=== PATIENT | male | born 1965 | race African-American/Black ===

== ENCOUNTER 2016-08-14 07:03 | Day surgery (SDC) | payer MEDICARE, MEDICAID ==
[2016-08-14] MEDS ORDERED: BACITRACIN INJ 50,000 UNIT VIAL ONE (08:25)
[2016-08-14] MEDS ORDERED: LIDOCAINE 2% INJ-PF (20 MG/ML) 10 ML AMPUL ONE (08:39)
[2016-08-14] MEDS ORDERED: FENTANYL CITRATE INJ/PF 100 MCG/2 ML AMPUL ONE (09:30)
[2016-08-14] MEDS ORDERED: PROPOFOL INJ 200 MG/20 ML VIAL IV ONE (09:30)
[2016-08-14] MEDS ORDERED: MIDAZOLAM 2 MG/2 ML INJ ONE (09:30)
[2016-08-14] MEDS ORDERED: KETAMINE HCL INJ 500 MG/10 ML VIAL ONE (09:30)
[2016-08-14] MEDS ORDERED: DEXMEDETOMIDINE INJ 80 MCG/20 ML VIAL IV ONE (09:31)
[2016-08-14 09:48] LABS: HEMATOCRIT 40.2 % (37.9-51.0); HEMOGLOBIN 12.8 g/dL (13.5-17.0); HGB HCT DIFFERENCE -1.8; MEAN CORPUSCULAR HEMOGLOBIN 28.1 pg (27.0-33.4); MEAN CORPUSCULAR HGB CONC 31.9 g/dL (32.0-36.0); MEAN CORPUSCULAR VOLUME 88 fl (80-97); RED BLOOD COUNT 4.55 10^6/uL (4.35-5.55); RED CELL DISTRIBUTION WIDTH 15.1 % (11.5-14.0); WHITE BLOOD COUNT 5.7 10^3/uL (4.0-10.5)
[2016-08-14 10:04] LABS: ANION GAP 17 (5-19); BLOOD UREA NITROGEN 22 mg/dL (7-20); CALCIUM 9.7 mg/dL (8.4-10.2); CARBON DIOXIDE 27 mmol/L (22-30); CHLORIDE 103 mmol/L (98-107); GLUCOSE 78 mg/dL (75-110); POTASSIUM 4.6 mmol/L (3.6-5.0); SODIUM 147.3 mmol/L (137-145)
[2016-08-14 10:18] LABS: CREATININE RESULT 15.66 mg/dL (0.52-1.25)
--- NOTE | 2016-08-14 10:48 | PDOC H&P ---
General Chief Complaint: The patient is referred across because of malfunctioning PermCath catheter. He is on hemodialysis through the PermCath catheter. - Diagnosis (1) PermCath was malfunction Is this a Current Diagnosis?: Yes (2) Atrial fibrillation with RVR Is this a Current Diagnosis?: Yes (4) Tracheostomy dependent Is this a Current Diagnosis?: Yes - Current Medications/Allergies Home Medications: Allopurinol [Zyloprim 100 mg Tablet] 100 mg PO DAILY 08/22/15 Fluticasone Propionate [Flonase Nasal [place] 50 Mcg/[place] 16 gm] 2 sprays NASL DAILY 08/22/15 Metoprolol Succinate [Toprol Xl 25 mg Tab.sr] 25 mg PO BID 08/22/15 Cetirizine HCl [All Day Allergy] 10 mg PO DAILY 09/22/15 Gabapentin 100 mg PO DAILY 09/22/15 Tramadol HCl 1 tab PO DAILY PRN 09/22/15 Zolpidem Tartrate [Ambien] 1 tab PO DAILY 09/22/15 Alprazolam 0.25 mg PO Q48H 04/27/16 Montelukast Sodium [Singulair 10 mg Tablet] 10 mg PO DAILY 04/27/16 Sevelamer Carbonate [Renvela] 1,600 mg PO ACHS 04/27/16 Sevelamer Carbonate [Renvela] 800 mg PO TID 04/27/16 Vit B Cmplx 3/FA/Vit C/Biotin [Maritza-Nikolay Rx Tablet] 1 each PO DAILY 04/27/16 Allergies/Adverse Reactions: vancomycin Allergy (Verified 08/14/16 08:25) Past Medical History Cardiac Medical History: Reports: Atrial Fibrillation, Congestive Heart Failure , Hypertension Denies: Coronary Artery Disease, Myocardial Infarction, Hyperlipidema, Peripheral Vascular Disease, Pulmonary Embolism, Heart Murmur Pulmonary Medical History: Reports: Asthma - Trach, Sleep Apnea Denies: Bronchitis, Chronic Obstructive Pulmonary Disease (COPD), Pneumonia, Respiratory Failure, Tuberculosis Neurological Medical History: Reports: Migraine Denies: Seizures Renal/ Medical History: Reports: End Stage Renal Disease - S/P transplant Malignancy Medical History: Denies: Lung Cancer Musculoskeltal Medical History: Reports: Arthritis Hematology: Reports: Anemia Past Surgical History Past Surgical History: Reports: Herniorrhaphy, Tonsillectomy, Vascular Surgery - Right arm graft for dialysis Denies: Appendectomy, Cholecystectomy, Coronary Artery Bypass Graft, Gastric Bypass Surgery, Pacemaker Family History Family History: Reviewed & Not Pertinent, Hypertension Parental Family History Reviewed: No Children Family History Reviewed: No Sibling(s) Family History Reviewed.: No Social History Smoking Status: Former Smoker Frequency of Alcohol Use: Rare Hx Recreational Drug Use: No Drugs: None Hx Prescription Drug Abuse: No - Advance Directive Resuscitation Status: Full Code Physical Exam Vital Signs: Temp Pulse Resp BP Pulse Ox 97.8 F 95 16 115/79 96 08/14/16 09:51 08/14/16 09:51 08/14/16 09:51 08/14/16 09:51 08/14/16 09:51 Intake & Output 08/13/16 08/14/16 08/15/16 06:59 06:59 06:59 Weight 81 kg Additional comments: A well-developed well-nourished -E[place]ian male. Obese body habitus. No acute distress. Eyes membranes is pink and moist, sclerae anicteric. Respiratory no shortness of breath. Breath sounds are normal and equal bilaterally. Cardiac: Heart sounds 1 and 2 heard, no murmurs. Upper extremities show normal range of movement and pulsatile to the radials. Normal capillary refill. A cephalic to brachial fistula is appreciated. In the left upper extremity. Somewhat firm, suggesting cephalad stenosis. Lower extremity: Normal normal range of movement. A right-sided femoral PermCath is noted. Abdomen: Obese, soft, nontender, huge chronic hernia defect. Psychiatric the patient is alert, oriented, judgment, memory, insight normal Impression/Plan Impression: #1 malfunctioning PermCath catheter. #2 end-stage renal disease on hemodialysis. #3 chronic atrial fibrillation. #4 hypertension #5 multiple comorbidities. Plan: This patient who is now an extraordinary difficult vascular access for dialysis presents with a malfunctioning perm catheter. There were unable to get dialysis through it last Monday. This patient has exceeded our is here and has been treated at [facility] and has exceeded his capabilities and is referred the patient to do. Unfortunately the one specialist at [place] who has an exceptional record as left. The mass had kidney transplant, peritoneal dialysis, numerous fistulas and grafts. At this point she is close out of options except for perm catheter. He understands as does the dialysis team that I will try to replace his catheter or Paps get 1 and on the left side. The patient does complain of pain associated with this catheter. Feeling that he will just have to be transferred to [place] an attempt at access axis there.
[2016-08-14] MEDS ORDERED: VANCOMYCIN HCL INJ 1000 MG VIAL ONE (10:59)
[2016-08-14] MEDS: BUPIVACAINE HCL 0.25 % INJ/PF (2.5 MG/1 ML) 30 ML VIAL ONE ×2 (11:04→11:27)
[2016-08-14] MEDS: LIDOCAINE 0.5% INJ-PF (5 MG/ML) 50 ML SDV ONE ×2 (11:04→11:27)
[2016-08-14] MEDS ORDERED: FENTANYL CITRATE INJ/PF 100 MCG/2 ML AMPUL IV PRN (11:10)
[2016-08-14] MEDS ORDERED: ONDANSETRON HCL INJ/PF 4 MG/2 ML SDV IV PRN (11:10)
[2016-08-14] MEDS ORDERED: PROMETHAZINE HCL INJ 25 MG/1 ML VIAL IV PRN (11:10)
[2016-08-14] MEDS ORDERED: DIPHENHYDRAMINE HCL 50 MG/ML VIAL IV PRN (11:10)
--- NOTE | 2016-08-14 12:40 | PDOC DISCHARGE SUMMARY ---
Discharge Summary (SDC) - Discharge Final Diagnosis: #1 malfunctioning PermCath catheter. #2 end-stage renal disease on hemodialysis. #3 chronic atrial fibrillation. #4 hypertension #5 multiple comorbidities. Date of Surgery: 08/14/16 Discharge Date: 08/14/16 Condition: Fair Treatment or Instructions: #1 activities within moderation encouraged. #2 follow up in my office by appointment in about 1 week. Call for appointment. #3 the wounds covered clean and dry until office visit. #4 hold off on school/work until evaluation in office. #5 may shower in 48 hours, keep operated area as dry as possible. #6 discharge from ambulatory when ASU criteria met. #7 medications per medication reconciliation sheet. Discharge Diet: Other (Comments) - Renal Respiratory Treatments at Home: Deep Breathing/Coughing Discharge Activity: Activity As Tolerated Report the Following to Your Physician Immediately: Unusual Bleeding
--- NOTE | 2016-08-14 12:44 | Operative Report ---
Operative Report DATE OF SURGERY: 08/14/16 PREOPERATIVE DIAGNOSIS: #1 malfunctioning PermCath catheter. #2 end-stage renal disease on hemodialysis. #3 chronic atrial fibrillation. #4 hypertension. #5 multiple comorbidities. POSTOPERATIVE DIAGNOSIS: #1 malfunctioning PermCath catheter. #2 end-stage renal disease on hemodialysis. #3 chronic atrial fibrillation. #4 hypertension. #5 multiple comorbidities. OPERATION: #1 insertion of PermCath catheter via O site in the right femoral vein. #2 removal of old PermCath catheter. #3 angiogram and interpretation. SURGEON: KENRICK YOUNGER MACHINIST GENERAL: none ANESTHESIA: LMAC TISSUE REMOVED OR ALTERED: Not applicable. COMPLICATIONS: None ESTIMATED BLOOD LOSS: 5 mL. INTRAOPERATIVE FINDINGS: Satisfactory access gained through guidewire insertion through the old PermCath catheter. Angiograms in the inferior vena cava showed patency including patency of the new catheter. Above the vena cava seems satisfactory. Easy egress of blood and ingress of heparinized solution obtained through both ports. Overall the procedure well tolerated. The old catheter cuff was easily removed, this suggested it may be some subclinical infection. The scope was sent for culture. PROCEDURE: After obtaining informed consent, the patient was taken to the operating room and positioned supine. The both groins were prepared with chlorhexidine and draped out with sterile linen. After the " universal timeout", in which it was verified that the patient continued to receive antibiotic, the procedure commenced. A 36 cm cm long split catheter was now positioned over the abdomen and an exit site marked and locally anesthetized. The incision made and dissection proceeded down to the old catheter. This was transected and the distal portion easily removed and sent for culture. Proximally it was replaced with a Glidewire. An angiogram was now done through the secondary port as after was removed over the Glidewire. It was now discarded. The new catheter was placed between the 2 incisions. Proximally, the catheter was now positioned using a peel-away sheath, after dilation. Easy ingress of heparinized solution and egress of blood obtained through both ports. A completion angiogram was done by injecting contrast. The findings were as dictated. The neck incision was now closed using interrupted 3-0 PDS to the subcutaneous tissues, the catheter was anchored at the exit site using 3-0 PDS. A Biopatch device was now placed adjacent to the catheter. Dressings were applied and the procedure concluded. Copies of the dictated operative report for Dr. Kenrick Guzman MD.concluded. Copies of the dictated operative report for Dr. Kenrick Guzman MD.
[2016-08-14 14:59] VITALS: BP 115/79
[2016-08-14] MEDS ORDERED: OXYCODONE-ACETAMINOPHEN 5-325 MG TABLET PO ONE (15:00)
== END 2016-08-14 17:45 | disposition home or self-care (01) ==
LOC: OROUT 07:03 → 4S 07:06 → OROUT 17:45
PROVIDERS: ATTEND Surgery
PROC: 06HM33Z Insertion of Infusion Device into Right Femoral Vein, Percutaneous Approach (ICD-10-PCS; 2016-08-14)
PROC: B51BZZA Fluoroscopy of Right Lower Extremity Veins, Guidance (ICD-10-PCS; 2016-08-14)
PROC: 06PY33Z Removal of Infusion Device from Lower Vein, Percutaneous Approach (ICD-10-PCS; principal; 2016-08-14 10:00)
DX: T82.590A Other mechanical complication of surgically created arteriovenous fistula, initial encounter (principal); Y83.2 Surgical operation with anastomosis, bypass or graft as the cause of abnormal reaction of the patient, or of later complication, without mention of misadventure at the time of the procedure; I12.0 Hypertensive chronic kidney disease with stage 5 chronic kidney disease or end stage renal disease; N18.6 End stage renal disease; Z99.2 Dependence on renal dialysis; I48.2 Chronic atrial fibrillation; Z45.2 Encounter for adjustment and management of vascular access device; I50.9 Heart failure, unspecified; J45.909 Unspecified asthma, uncomplicated; G47.30 Sleep apnea, unspecified; G43.909 Migraine, unspecified, not intractable, without status migrainosus; D64.9 Anemia, unspecified; M19.90 Unspecified osteoarthritis, unspecified site; E66.9 Obesity, unspecified; Z79.899 Other long term (current) drug therapy; Z93.0 Tracheostomy status; Z88.1 Allergy status to other antibiotic agents; Z94.0 Kidney transplant status; Z87.891 Personal history of nicotine dependence; Z68.28 Body mass index [BMI] 28.0-28.9, adult
CPT/HCPCS: 36415; 87070; 85027; 80048; 74020; 77001; 36581; C1769; C1752 ×2; Q9967; J2250; J3490 ×5; A9270; J2704; J3370; J1644; 532; 87205; J3010

== ENCOUNTER → 2016-09-21 | Outpatient (CLI) | payer MEDICARE, MEDICAID ==
[~2016-09-21] MED LIST: AMINOPHYLLINE INJ/PF 250 MG/10 ML SDV IV ONE; REGADENOSON INJ 0.4 MG/5 ML DISP.SYRIN IV ONE
--- NOTE | 2016-09-22 10:52 | DRAGON STRESS TEST REPORT ---
INTRAVENOUS LEXISCAN CARDIOLITE STRESS TEST USING SINGLE PHOTON EMMISION COMPUTERIZED TOMOGRAPHIC. DATE OF PROCEDURE: September 21, 2016 INDICATION : Shortness of breath CARDIAC RISK FACTORS: But tension, dyslipidemia RESTING EKG: Atrial fibrillation, downsloping ST segment depression and T-wave inversion STRESS EKG: No significant changes noted with LexiScan bolus REASON FOR TERMINATION: Protocol. PROCEDURE REPORT: Baseline heart rate 100 beats per minute with blood pressure of 115/62. Patient had no significant complaints. Heart rate at 2 minutes post bolus 104 with a blood pressure of 118/70. 3 minutes post bolus heart rate 106 with blood pressure of 125/74. No significant EKG changes were noted. Patient had no significant complaints during the procedure or postprocedure. CONCLUSIONS: Normal EKG and hemodynamic respon 104 se to IV LexiScan. NUCLEAR DATA: At rest the patient was given 14.72 millicuries of technetium 99 sestamibi injected intravenously. As per protocol rest gated SPECT images were obtained. Subsequently the patient was given intravenous LexiScan at a dose of 0.4 mg in 5 mL intravenously, followed by flush with normal saline. Subsequently the stress dose of 44.1 millicuries of technetium 99 sestamibi was injected intravenously. As per protocol stress gated images were obtained. NUCLEAR INTERPRETATION: Both raw and processed data were used for interpretation. Visual, qualitative, computer-generated quantitative data was used. There was good myocardial uptake of technetium compound. Motion artifact and soft tissue attenuations were noted. Increased visceral uptake was noted. No definitive areas of transient perfusion defect noted. No definitive areas of fixed perfusion defect or scars noted. EKG gated imaging showed LV EF at 53 %, rest and stress gated EF similar visually. T. I D. ratio was 1.10. Lung heart ratio noted to be within normal limits 0.34. No significant extracardiac and abnormal radiotracer activities were noted. RV free wall uptake was noted to be WNL. IMPRESSION: Also refer to comments under nuclear interpretation. Also test results needs to be interpreted in the context of pretest probability. 1. There is no definitive scintigraphic evidence of LexiScan induced myocardial ischemia. 2. There is no definitive scintigraphic evidence of myocardial infarction/scar. 3. EKG gated imaging shows left ejection fraction of approximately 53 %. 4. Clinical correlation requested as occasionally single vessel disease or balanced ischemia could be missed. In approximately 10% of the cases Lexiscan may not cause adequate vasodilatory stress. RECOMMENDATIONS: Aggressive risk factor modification, medical therapy. Clinical correlation with echocardiogram derived ejection fraction. Inability to exercise by itself can lead to increased cardiovascular event risks. Consider cardiology consultation and or follow-up if clinically indicated. I AM AVAILABLE FOR CARDIOLOGY CONSULTATION AND FOLLOWUP IF REQUESTED BY PMD Walker Olmos M.D., [facility] Concrete Batcher dry transfer man, Board certified in cardiovascular diseases, Nuclear cardiology, Echocardiography Cardiac CT and cardiac MRI Ph. [phone] [facility]
== END ==
LOC: RAD 07:18
PROVIDERS: ATTEND Specialist
DX: R06.02 Shortness of breath (principal); E78.5 Hyperlipidemia, unspecified; I48.91 Unspecified atrial fibrillation
CPT/HCPCS: 93017; 78452; A9500; J2785; J0280; Q9969

== ENCOUNTER → 2016-09-22 | Outpatient (CLI) | payer MEDICARE, MEDICAID ==
--- NOTE | 2016-09-23 17:26 | XCELERA REPORT ---
[address] [address] Transthoracic Echocardiogram Report Name: ANDREAS NELSON Age: 51 yrs Gender: Male : 1965 Patient Status: Outpatient Patient Location: Study Date: 09/22/2016 07:41 AM Height: 66 in Weight: 178 lb BSA: 1.9 m2 Procedure: A complete two-dimensional transthoracic echocardiogram was performed (2D, M-mode, spectral and color flow Doppler). The study was technically difficult with many images being suboptimal in quality. Reason For Study: SOB Ordering Physician: DAVID LOVE Performed By: Kerline Rebolledo Interpretation Summary The left ventricular ejection fraction is preserved. LV diastolic function could not be adequately assessed. There is mild concentric left ventricular hypertrophy. The left ventricle is grossly normal size. Not all wall segments were well visualized. Regional wall motion abnormalities cannot be excluded due to limited visualization. The right ventricular systolic function is normal. The left atrium is mildly dilated. The right atrium is normal in size There is no mitral valve stenosis. There is a trace amount of mitral regurgitation There is no aortic valve stenosis No aortic regurgitation is present. There is a trace or physiologic amount of tricuspid regurgitation Tricuspid regurgitation jet envelope not well defined to measure RV systolic pressure accurately. The aortic root is not well visualized. The inferior vena cava was not well visualized There is no pericardial effusion. MMode/2D Measurements \T\ Calculations RVDd: 3.1 cm LVIDd: 5.1 cmFS: 28.6 % Ao root diam: 3.6 cm IVSd: 1.1 cm LVIDs: 3.6 cmEDV(Teich): 123.4 ml LVPWd: 1.1 cmESV(Teich): 55.7 ml Ao root area: 10.0 cm2 EF(Teich): 54.8 % LA dimension: 4.2 cm LVOT diam: 2.3 cm LVOT area: 4.2 cm2 Doppler Measurements \T\ Calculations MV E max sabrina: MV P1/2t max sabrina: Ao V2 max: LV V1 max P.6 cm/sec 71.0 cm/sec 111.8 cm/sec 3.3 mmHg MV P1/2t: 56.3 msec Ao max PG: LV V1 max: MVA(P1/2t): 3.9 cm2 5.0 mmHg 91.0 cm/sec MV dec slope: BELA(V,D): 3.4 cm2 369.2 cm/sec2 PA V2 max: TR max sabrina: 92.8 cm/sec 225.9 cm/sec PA max PG: TR max P.4 mmHg 3.4 mmHg Left Ventricle The left ventricle is grossly normal size. There is mild concentric left ventricular hypertrophy. The left ventricular ejection fraction is preserved. LV diastolic function could not be adequately assessed. Not all wall segments were well visualized. Regional wall motion abnormalities cannot be excluded due to limited visualization. Right Ventricle The right ventricle is normal in size, thickness and function. There is normal right ventricular wall thickness. The right ventricular systolic function is normal. Atria The right atrium is normal in size. The left atrium is mildly dilated. Interarterial septum not well visualized and not well dopplered. Cannot comment on ASD/PFO presence. Mitral Valve The mitral valve leaflets are sclerotic, but show no functional abnormalities. The mitral valve is not well visualized. There is no mitral valve stenosis. There is a trace amount of mitral regurgitation. Aortic Valve The aortic valve is not well visualized secondary to technical limitations. There is no aortic valve stenosis. No aortic regurgitation is present. Tricuspid Valve The tricuspid valve is not well visualized secondary to technical limitations. There is a trace or physiologic amount of tricuspid regurgitation. Tricuspid regurgitation jet envelope not well defined to measure RV systolic pressure accurately. Pulmonic Valve The pulmonic valve is not well visualized. Great Vessels The aortic root is not well visualized. The inferior vena cava was not well visualized. Effusions There is no pericardial effusion. : DAVID LOVE > Walker Olmos
== END ==
LOC: SP 07:25
PROVIDERS: ATTEND Specialist
DX: R06.02 Shortness of breath (principal)
CPT/HCPCS: 93306

== ENCOUNTER 2016-09-30 17:32 | Emergency (ER) | payer MEDICARE, MEDICAID | END 2016-09-30 18:45 | disposition left against medical advice (07) | LOC: ER 17:32 | DX: Z53.21 Procedure and treatment not carried out due to patient leaving prior to being seen by health care provider (principal) ==

== ENCOUNTER 2016-11-06 06:11 | Emergency (ER) | payer MEDICARE, MEDICAID ==
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
[2016-11-06 10:18] VITALS: BP 105/65
== END 2016-11-06 08:00 | disposition home or self-care (01) ==
LOC: ER 06:11
DX: R06.00 Dyspnea, unspecified (principal); F41.9 Anxiety disorder, unspecified; I11.0 Hypertensive heart disease with heart failure; I13.2 Hypertensive heart and chronic kidney disease with heart failure and with stage 5 chronic kidney disease, or end stage renal disease; N18.6 End stage renal disease; I50.9 Heart failure, unspecified; Z99.2 Dependence on renal dialysis; I48.91 Unspecified atrial fibrillation; Z93.0 Tracheostomy status; Z88.6 Allergy status to analgesic agent; Z94.0 Kidney transplant status
CPT/HCPCS: 99283

== ENCOUNTER 2016-12-25 06:53 | Emergency (ER) | payer MEDICARE, MEDICAID ==
[2016-12-25] MEDS ORDERED: IPRATROPIUM/ALBUTEROL 0.5-2.5 MG/3 ML AMPUL NEB ONE ×2 (07:01→08:26)
[2016-12-25] MEDS ORDERED: CEFTRIAXONE 1 GM/D5W RTU 50 ML IV ONE (07:05)
[2016-12-25] MEDS ORDERED: DILTIAZEM HCL/D5W 125 ML IV PRN (07:05)
[2016-12-25] MEDS ORDERED: DILTIAZEM HCL INJ 25 MG/5 ML VIAL IV ONE (07:05)
[2016-12-25] MEDS ORDERED: ACETAMINOPHEN 325 MG TABLET PO ONE (07:27)
[2016-12-25 07:44] LABS: ABSOLUTE BASOPHILS # (AUTO) 0.1 10^3/uL (0.0-0.2); ABSOLUTE EOSINOPHILS # (AUTO) 0.3 10^3/uL (0.0-0.6); ABSOLUTE LYMPHOCYTES (AUTO) 1.5 10^3/uL (0.5-4.7); ABSOLUTE MONOCYTES (AUTO) 0.4 10^3/uL (0.1-1.4); ABSOLUTE NEUT (AUTO) 4.8 10^3/uL (1.7-8.2); EOSINOPHILS % (AUTO) 3.8 % (0-6); HEMOGLOBIN 11.8 g/dL (13.5-17.0); HGB HCT DIFFERENCE -2.6; LYMPHOCYTES % (AUTO) 21.1 % (13-45); MEAN CORPUSCULAR HEMOGLOBIN 26.9 pg (27.0-33.4); MEAN CORPUSCULAR HGB CONC 31.1 g/dL (32.0-36.0); MEAN CORPUSCULAR VOLUME 87 fl (80-97); MONOCYTES % (AUTO) 5.5 % (3-13); RED BLOOD COUNT 4.39 10^6/uL (4.35-5.55); RED CELL DISTRIBUTION WIDTH 15.4 % (11.5-14.0); SEGMENTED NEUTROPHILS % (AUTO) 68.6 % (42-78); WHITE BLOOD COUNT 7.1 10^3/uL (4.0-10.5)
[2016-12-25 07:45] LABS: VENOUS BLOOD BASE EXCESS 2.5 mmol/L
--- NOTE | 2016-12-25 07:46 | RADIOLOGY REPORT (SQ) ---
EXAM DESCRIPTION: CHEST SINGLE VIEW COMPLETED DATE/TIME: 12/25/2016 7:34 am REASON FOR STUDY: sob, trachea COMPARISON: 07/01/2016. EXAM PARAMETERS: NUMBER OF VIEWS: One view. TECHNIQUE: Single frontal radiographic view of the chest acquired. RADIATION DOSE: NA LIMITATIONS: AP portable. FINDINGS: LUNGS AND PLEURA: Moderate mixed interstitial and airspace opacity of both lung anderson. MEDIASTINUM AND HILAR STRUCTURES: Moderate widened appearance of the mediastinum on this AP portable view with 7 appearance on prior AP portable, 01/26/2016. HEART AND VASCULAR STRUCTURES: Moderate enlarged cardiac silhouette. BONES: No acute findings. HARDWARE: Left subclavian central line tip at the cavoatrial junction. Stent overlies the upper medi astinum. Midline tracheostomy. OTHER: No other significant finding. IMPRESSION: Worsened moderate mixed interstitial and airspace opacity in cardiac enlargement. Diffe rential diagnosis includes CHF, pulmonary edema, and pneumonia. Lines and tubes. TECHNICAL DOCUMENTATION: JOB ID: [id number]
[2016-12-25 07:49] LABS: VENOUS BLOOD PCO2 88.1 mmHg (35-63); VENOUS BLOOD PH 7.19 (7.30-7.42)
[2016-12-25 08:05] LABS: ALANINE AMINOTRANSFERASE 55 U/L (21-72); ALBUMIN 4.3 g/dL (3.5-5.0); ALKALINE PHOSPHATASE 171 U/L (38-126); ANION GAP 13 (5-19); ASPARTATE AMINO TRANSFERASE 62 U/L (17-59); BILIRUBIN,DIRECT 1.2 mg/dL (0.0-0.4); BILIRUBIN,TOTAL 1.2 mg/dL (0.2-1.3); BLOOD UREA NITROGEN 20 mg/dL (7-20); CALCIUM 8.8 mg/dL (8.4-10.2); CARBON DIOXIDE 30 mmol/L (22-30); CHLORIDE 102 mmol/L (98-107); CREATININE RESULT 13.22 mg/dL (0.52-1.25); GLUCOSE 91 mg/dL (75-110); POTASSIUM 4.4 mmol/L (3.6-5.0); SODIUM 145.4 mmol/L (137-145); TOTAL PROTEIN 7.7 g/dL (6.3-8.2)
[2016-12-25 08:07] LABS: DIGOXIN < 0.40 ng/mL (0.8-2.0)
--- NOTE | 2016-12-25 08:09 | ER Document Report ---
ED General - General Chief Complaint: Respiratory Distress Stated Complaint: RESPITORY DISTRESS Time Seen by Provider: 12/25/16 07:00 Mode of Arrival: Medic Information source: Patient Notes: 51-year-old male history of trach presents with complaints of difficulty breathing over the past few weeks which worsened yesterday. Patient receives dialysis on Wednesdays and last one on Monday. Patient noted to be febrile with shortness of breath satting 80% by EMS TRAVEL OUTSIDE OF THE [place] IN LAST 30 DAYS: No - HPI Onset: Other Onset/Duration: Persistent Quality of pain: No pain Severity: Moderate Pain Level: Denies Associated symptoms: Fever, Shortness of breath Exacerbated by: Denies Relieved by: Denies Similar symptoms previously: Yes Recently seen / treated by doctor: Yes - Related Data Allergies/Adverse Reactions: vancomycin Allergy (Verified 08/14/16 08:25) Past Medical History - Social History Smoking Status: Never Smoker Cigarette use (# per day): No Chew tobacco use (# tins/day): No Smoking Education Provided: No Family History: Reviewed & Not Pertinent, Hypertension - Past Medical History Cardiac Medical History: Reports: Hx Atrial Fibrillation, Hx Congestive Heart Failure, Hx Hypertension Denies: Hx Coronary Artery Disease, Hx Heart Attack, Hx Hypercholesterolemia , Hx Peripheral Vascular Disease, Hx Pulmonary Embolism, Hx Heart Murmur Pulmonary Medical History: Reports: Hx Asthma - Trach, Hx Sleep Apnea Denies: Hx Bronchitis, Hx COPD, Hx Pneumonia, Hx Respiratory Failure, Hx Tuberculosis Neurological Medical History: Reports: Hx Migraine. Denies: Hx Cerebrovascular Accident, Hx Seizures Renal/ Medical History: Reports: Hx End Stage Renal Disease - S/P transplant, Hx Hemodialysis Malignancy Medical History: Denies Hx Lung Cancer Musculoskeltal Medical History: Reports Hx Arthritis Psychiatric Medical History: Reports: Hx Anxiety Past Surgical History: Reports: Hx Herniorrhaphy, Hx Kidney (Renal Surgery) - left kidney transplant, Hx Tonsillectomy, Hx Vascular Surgery - Right arm graft for dialysis. Denies: Hx Appendectomy, Hx Bowel Surgery, Hx Cholecystectomy, Hx Coronary Artery Bypass Graft, Hx Gastric Bypass Surgery, Hx Pacemaker - Immunizations Immunizations up to date: Yes Hx Diphtheria, Pertussis, Tetanus Vaccination: Yes Review of Systems - Review of Systems Notes: REVIEW OF SYSTEMS: CONSTITUTIONAL : Admits to fever EENT: Denies eye, ear, throat, or mouth pain or symptoms. Denies nasal or sinus congestion or discharge. Denies throat, tongue, or mouth swelling or difficulty swallowing. CARDIOVASCULAR: Denies chest pain. Denies palpitations or racing or irregular heart beat. Denies ankle edema. RESPIRATORY: Admits to shortness of breath difficulty breathing GASTROINTESTINAL: Denies abdominal pain or distention. Denies nausea, vomiting , or diarrhea. Denies blood in vomitus, stools, or per rectum. Denies black, tarry stools. Denies constipation. GENITOURINARY: Denies difficulty urinating, painful urination, burning, frequency, blood in urine, or discharge. MUSCULOSKELETAL: Denies back or neck pain or stiffness. Denies joint pain or swelling. SKIN: Denies rash, lesions or sores. HEMATOLOGIC : Denies easy bruising or bleeding. LYMPHATIC: Denies swollen, enlarged glands. NEUROLOGICAL: Denies confusion or altered mental status. Denies passing out or loss of consciousness. Denies dizziness or lightheadedness. Denies headache. Denies weakness or paralysis or loss of use of either side. Denies problems with gait or speech. Denies sensory loss, numbness, or tingling. Denies seizures. PSYCHIATRIC: Denies anxiety or stress. Denies depression, suicidal ideation, or homicidal ideation. ALL OTHER SYSTEMS REVIEWED AND NEGATIVE. Dictation was performed using [employer] voice recognition software PHYSICAL EXAMINATION: GENERAL: Well-appearing, well-nourished and in moderate respiratory distress HEAD: Atraumatic, normocephalic. EYES: Pupils equal round and reactive to light, extraocular movements intact, sclera anicteric, conjunctiva are normal. ENT: Nares patent, oropharynx clear without exudates. Moist mucous membranes. NECK: Normal range of motion, supple without lymphadenopathy LUNGS: Breath sounds at the bases HEART: A. fib RVR ABDOMEN: Soft, nontender, nondistended abdomen. No guarding, no rebound. No masses appreciated. Musculoskeletal: Normal range of motion, no pitting or edema. No cyanosis. NEUROLOGICAL: Cranial nerves grossly intact. Normal speech, normal gait. Normal sensory, motor exams PSYCH: Normal mood, normal affect. SKIN: Dialysis access left upper extremity Physical Exam - Vital signs Vitals: Temp Pulse Ox 100.0 F 93 12/25/16 06:55 12/25/16 06:55 Course - Re-evaluation Re-evalutation: 12/25/16 08:07 Pt noted ot have significant resp distress, iniitlaly started on duo nebs, but his VBG notes significant acidosis, since he is trached I will place on ventilator. [place] peter, Probable pneumonia underlying CHF exacerbation. Pt did have dialysis on fdriday 12/25/16 08:47 Patient is noted to be in A. fib RVR on arrival, immediately started on Cardizem and digoxin level was undetectable. Heart rate has improved after. Patient will be transferred and I am awaiting a callback 12/25/16 09:00 Dr Vanessa accepts patient for transfer - Vital Signs Vital signs: Temp Pulse Resp BP Pulse Ox 100.0 F 28 H 143/68 H 93 12/25/16 06:55 12/25/16 07:07 12/25/16 07:07 12/25/16 06:55 - Laboratory Result Diagrams: 12/25/16 07:11 12/25/16 07:11 Laboratory results interpreted by me: 12/25/16 12/25/16 12/25/16 07:11 07:11 07:11 Hgb 11.8 L MCH 26.9 L MCHC 31.1 L RDW 15.4 H VBG pH VBG pCO2 VBG HCO3 Sodium 145.4 H Creatinine 13.22 H Est GFR ( Amer) 5 L Est GFR (Non-Af Amer) 4 L Direct Bilirubin 1.2 H AST 62 H Alkaline Phosphatase 171 H NT-Pro-B Natriuret Pep [id number] H Digoxin < 0.40 L 12/25/16 07:11 Hgb MCH MCHC RDW VBG pH 7.19 L* VBG pCO2 88.1 H* VBG HCO3 33.0 H Sodium Creatinine Est GFR ( Amer) Est GFR (Non-Af Amer) Direct Bilirubin AST Alkaline Phosphatase NT-Pro-B Natriuret Pep Digoxin - Diagnostic Test Radiology reviewed: Image reviewed, Reports reviewed - pneumonia - EKG Interpretation by Me EKG shows normal: Sinus rhythm, [place], Intervals, QRS Complexes Rate: Tachycardia Rhythm: A.Fib Critical Care Note - Critical Care Note Total time excluding time spent on procedures (mins): 44 Comments: 44 minutes of critical care time spent in direct contact evaluating and reevaluating the patient, treating symptoms, reviewing labs and studies and speaking with family and consultants excluding any procedures Discharge - Discharge Clinical Impression: Atrial fibrillation with RVR, End-stage renal disease (ESRD), Hypoxemia Pneumonia Qualifiers: Pneumonia type: due to unspecified organism Laterality: bilateral Lung location : upper lobe of lung Qualified Code(s): J18.9 - Pneumonia, unspecified organism Hypervolemia Qualifiers: Hypervolemia type: unspecified Qualified Code(s): E87.70 - Fluid overload, unspecified Condition: Fair Disposition: [facility]
[2016-12-25 09:26] LABS: CREATINE KINASE MB 2.38 ng/mL (<4.55)
[2016-12-25 09:32] LABS: TROPONIN I 0.037 ng/mL
[2016-12-25 10:23] VITALS: BP 117/86
--- NOTE | 2016-12-25 13:02 | EKG REPORT ---
SEVERITY:- ABNORMAL ECG - ATRIAL FIBRILLATION BORDERLINE R WAVE PROGRESSION, ANTERIOR LEADS NONSPECIFIC T ABNORMALITIES, LATERAL LEADS : Confirmed by: Anusha Rush MD 25-Dec-2016 13:01:48
== END 2016-12-25 10:20 | disposition short-term general hospital (02) ==
LOC: ER 06:53
DX: I48.91 Unspecified atrial fibrillation (principal); J18.9 Pneumonia, unspecified organism; I12.0 Hypertensive chronic kidney disease with stage 5 chronic kidney disease or end stage renal disease; N18.6 End stage renal disease; Z99.2 Dependence on renal dialysis; J45.909 Unspecified asthma, uncomplicated; R09.02 Hypoxemia; R06.02 Shortness of breath; R50.9 Fever, unspecified; Z88.1 Allergy status to other antibiotic agents; E87.2 Acidosis; Z93.0 Tracheostomy status
CPT/HCPCS: 93005; 99291; 96365; 96366; 96368; 36415; 87040; 82553; 82550; 80162; 85025; 80053; 84484; 82803; 83605; 83880; 71010; 93010; A9270; J3490 ×2; J0696

== ENCOUNTER 2017-04-02 20:45 | Emergency (ER) | payer MEDICARE, MEDICAID ==
--- NOTE | 2017-04-02 21:00 | ER Document Report ---
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 He missed dialysis on Monday (3 days ago) because he missed the bus. Patient denies chest pain as well as, fevers, back pain, abdominal pain, nausea, vomiting, increased secretions from trach or headache. TRAVEL OUTSIDE OF THE [place] IN LAST 30 DAYS: No - Related Data Allergies/Adverse Reactions: vancomycin Allergy (Verified 08/14/16 08:25) Past Medical History - General Information source: Patient - Social History Smoking Status: Unknown if Ever Smoked Family History: Reviewed & Not Pertinent, Hypertension - Past Medical History Cardiac Medical History: Reports: Hx Atrial Fibrillation, Hx Congestive Heart Failure, Hx Hypertension Denies: Hx Coronary Artery Disease, Hx Heart Attack, Hx Hypercholesterolemia , Hx Peripheral Vascular Disease, Hx Pulmonary Embolism, Hx Heart Murmur Pulmonary Medical History: Reports: Hx Asthma - Trach, Hx Sleep Apnea Denies: Hx Bronchitis, Hx COPD, Hx Pneumonia, Hx Respiratory Failure, Hx Tuberculosis Neurological Medical History: Reports: Hx Migraine. Denies: Hx Cerebrovascular Accident, Hx Seizures Renal/ Medical History: Reports: Hx End Stage Renal Disease - S/P transplant, Hx Hemodialysis Malignancy Medical History: Denies Hx Lung Cancer Musculoskeltal Medical History: Reports Hx Arthritis Psychiatric Medical History: Reports: Hx Anxiety Past Surgical History: Reports: Hx Herniorrhaphy, Hx Kidney (Renal Surgery) - left kidney transplant, Hx Tonsillectomy, Hx Vascular Surgery - Right arm graft for dialysis. Denies: Hx Appendectomy, Hx Bowel Surgery, Hx Cholecystectomy, Hx Coronary Artery Bypass Graft, Hx Gastric Bypass Surgery, Hx Pacemaker - Immunizations Immunizations up to date: Yes Hx Diphtheria, Pertussis, Tetanus Vaccination: Yes Review of Systems - Review of Systems Notes: REVIEW OF SYSTEMS: CONSTITUTIONAL: -fevers, -chills EENT: -eye pain, -difficulty swallowing, -nasal congestion CARDIOVASCULAR:-chest pain, -syncope. RESPIRATORY: -cough, +SOB GASTROINTESTINAL: -abdominal pain, - nausea, -vomiting, -diarrhea MUSCULOSKELETAL: -back pain, -neck pain SKIN: -rash or skin lesions. HEMATOLOGIC: -easy bruising or bleeding. LYMPHATIC: -swollen, enlarged glands. NEUROLOGICAL: -altered mental status or loss of consciousness, -headache, - neurologic symptoms PSYCHIATRIC: -anxiety, -depression. ALL OTHER SYSTEMS REVIEWED AND NEGATIVE. Physical Exam - Vital signs Vitals: Pulse Ox 98 04/02/17 20:50 - Notes Notes: PHYSICAL EXAMINATION: GENERAL: Mild respiratory distress. HEAD: Atraumatic, normocephalic. EYES: Pupils equal round and reactive to light, extraocular movements intact, sclera anicteric, conjunctiva are normal. ENT: nares patent, oropharynx clear without exudates. Moist mucous membranes. NECK: Trach in place without drainage LUNGS: Mild tachypnea. B/L rales. HEART: Irregularly irregular rhythm, tachycardia ABDOMEN: Reducible ventral hernia, nontender, normoactive bowel sounds. No guarding, no rebound. No masses appreciated. EXTREMITIES: Normal range of motion, no pitting or edema. No cyanosis. NEUROLOGICAL: Cranial nerves grossly intact. Normal speech. Normal sensory and motor exams. PSYCH: Normal mood, normal affect. SKIN: Warm, Dry, normal turgor, no rashes or lesions noted. Course - Re-evaluation Re-evalutation: 04/02/17 22:46 Patient with hyperkalemia and mild peaked T-waves on EKG. He also has evidence of pulmonary edema on chest x-ray and his blood gas shows an acute hypercapnic respiratory acidosis. Patient placed on BiPAP after his trach was capped and provided with temporizing measures for his hyperkalemia. His troponin is 0.05, but the patient has no chest pain and no STEMI on EKG. Pt remains in A fib w/ RVR and he is started on Diltiazem drip. His digoxin is therapeutic. [facility] and patient needs emergent dialysis due to the fluid overload status and hyperkalemia. He requires transfer to a center with Nephrology. Spoke to Dr. Bowens at [facility] and he has accepted patient. Arranging transportation now. 04/02/17 23:26 Called into room by RN for increasing SOB. Pt now with diffuse wheezing and labored breathing. He is receiving albuterol 10 mg for his hyperkalemia. Will add solumedrol and increase oxygen and PEEP on BiPap to PEEP 14 and FiO2 70%. Pt's respiratory status has improved after these interventions. 04/03/17 00:32 Transport in ED and patient reevaluated. Switched patient's uncuffed trach over to cuffed trach to help ventilate patient due to rising pCO2 on bedside ABG performed by [employer]. - Vital Signs Vital signs: Temp Pulse Resp BP Pulse Ox 13 123/77 92 04/03/17 00:16 04/03/17 00:16 04/03/17 00:16 - Laboratory Result Diagrams: 04/02/17 21:45 04/02/17 20:16 Laboratory results interpreted by me: 04/02/17 04/02/17 04/02/17 20:16 20:16 20:16 RBC Hgb Hct RDW Plt Count APTT 36.1 H VBG pH VBG pCO2 Potassium 6.6 H* Chloride 96 L BUN 32 H Creatinine 19.97 H Est GFR ( Amer) 3 L Est GFR (Non-Af Amer) 2 L Calcium 6.9 L* Direct Bilirubin 1.3 H Alkaline Phosphatase 200 H Creatine Kinase 486 H NT-Pro-B Natriuret Pep [id number] H 04/02/17 04/02/17 20:16 21:45 RBC 4.34 L Hgb 11.8 L Hct 36.7 L RDW 16.0 H Plt Count 95 L APTT VBG pH 7.22 L VBG pCO2 65.4 H* Potassium Chloride BUN Creatinine Est GFR ( Amer) Est GFR (Non-Af Amer) Calcium Direct Bilirubin Alkaline Phosphatase Creatine Kinase NT-Pro-B Natriuret Pep - Diagnostic Test Radiology reviewed: Image reviewed, Reports reviewed Radiology results interpreted by me: CXR: Pulmonary edema - EKG Interpretation by Me EKG shows normal: [place], Intervals, QRS Complexes, ST-T Waves Rate: Tachycardia Rhythm: A.Fib When compared to previous EKG there are: Changes noted Additional EKG results interpreted by me: ST depression in Leads I, II, mild peaked T-waves in V1-V3 Critical Care Note - Critical Care Note Total time excluding time spent on procedures (mins): 45 Discharge - Discharge Clinical Impression: Hyperkalemia, Acute respiratory acidosis, Atrial fibrillation with RVR Pulmonary edema Qualifiers: Chronicity: acute Qualified Code(s): J81.0 - Acute pulmonary edema Condition: Critical Disposition: [facility] Referrals: JOSIAH BRANNON MD [Primary Care Provider] - Follow up as needed
[2017-04-02 21:27] LABS: VENOUS BLOOD BASE EXCESS -2.9 mmol/L; VENOUS BLOOD PH 7.22 (7.30-7.42)
[2017-04-02 21:29] LABS: VENOUS BLOOD PCO2 65.4 mmHg (35-63)
[2017-04-02 21:34] LABS: PROTHROMBIN TIME 15.2 SEC (11.4-15.4)
[2017-04-02 21:37] LABS: PARTIAL THROMBOPLASTIN TIME 36.1 SEC (23.5-35.8)
[2017-04-02 21:45] LABS: ALANINE AMINOTRANSFERASE 43 U/L (21-72); ALKALINE PHOSPHATASE 200 U/L (38-126); ANION GAP 19 (5-19); ASPARTATE AMINO TRANSFERASE 40 U/L (17-59); BILIRUBIN,DIRECT 1.3 mg/dL (0.0-0.4); BILIRUBIN,TOTAL 1.3 mg/dL (0.2-1.3); BLOOD UREA NITROGEN 32 mg/dL (7-20); CARBON DIOXIDE 28 mmol/L (22-30); CHLORIDE 96 mmol/L (98-107); CREATINE KINASE 486 U/L (55-170); DIGOXIN 1.12 ng/mL (0.8-2.0); GLUCOSE 77 mg/dL (75-110); SODIUM 142.8 mmol/L (137-145); TOTAL PROTEIN 7.1 g/dL (6.3-8.2)
--- NOTE | 2017-04-02 21:47 | RADIOLOGY REPORT (SQ) ---
EXAM DESCRIPTION: CHEST SINGLE VIEW COMPLETED DATE/TIME: 04/02/2017 9:37 pm REASON FOR STUDY: SOB COMPARISON: 12/25/2016 EXAM PARAMETERS: NUMBER OF VIEWS: One view. TECHNIQUE: Single frontal radiographic view of the chest acquired. RADIATION DOSE: NA LIMITATIONS: None. FINDINGS: LUNGS AND PLEURA: Parenchymal opacities and possible effusions. MEDIASTINUM AND HILAR STRUCTURES: No masses. Contour normal. HEART AND VASCULAR STRUCTURES: Cardiac enlargement. Hilar haziness. BONES: No acute findings. HARDWARE: Tracheostomy. Extensive stents. OTHER: No other significant finding. IMPRESSION: Congestive failure with pulmonary edema and bilateral pleural effusions. TECHNICAL DOCUMENTATION: JOB ID: [id number]
[2017-04-02 21:51] LABS: CREATININE RESULT 19.97 mg/dL (0.52-1.25)
[2017-04-02 21:56] LABS: CALCIUM 6.9 mg/dL (8.4-10.2); POTASSIUM 6.6 mmol/L (3.6-5.0)
[2017-04-02 21:58] LABS: TROPONIN I 0.056 ng/mL
[2017-04-02 22:01] LABS: ABSOLUTE EOSINOPHILS # (AUTO) 0.2 10^3/uL (0.0-0.6); ABSOLUTE LYMPHOCYTES (AUTO) 1.1 10^3/uL (0.5-4.7); ABSOLUTE MONOCYTES (AUTO) 0.5 10^3/uL (0.1-1.4); ABSOLUTE NEUT (AUTO) 2.8 10^3/uL (1.7-8.2); BASOPHILS % (AUTO) 0.8 % (0-2); EOSINOPHILS % (AUTO) 3.4 % (0-6); HEMATOCRIT 36.7 % (37.9-51.0); HEMOGLOBIN 11.8 g/dL (13.5-17.0); HGB HCT DIFFERENCE -1.3; LYMPHOCYTES % (AUTO) 24.3 % (13-45); MEAN CORPUSCULAR HEMOGLOBIN 27.1 pg (27.0-33.4); MEAN CORPUSCULAR HGB CONC 32.1 g/dL (32.0-36.0); MEAN CORPUSCULAR VOLUME 85 fl (80-97); MONOCYTES % (AUTO) 10.4 % (3-13); RED BLOOD COUNT 4.34 10^6/uL (4.35-5.55); SEGMENTED NEUTROPHILS % (AUTO) 61.1 % (42-78); WHITE BLOOD COUNT 4.6 10^3/uL (4.0-10.5)
[2017-04-02] MEDS ORDERED: CALCIUM GLUCONATE 1000 MG/10 ML INJ IV ONE (22:39)
[2017-04-02] MEDS ORDERED: INSULIN REG, HUMAN 100 UNIT/ML 3 ML VIAL (PYX) IV ONE (22:40)
[2017-04-02] MEDS ORDERED: DEXTROSE 50%-WATER 25 GM/50 ML DISP.SYRIN IV ONE (22:41)
[2017-04-02] MEDS ORDERED: ALBUTEROL SULFATE 0.083% NEB 2.5 MG/3 ML AMPUL NEB ONE (22:49)
[2017-04-02] MEDS ORDERED: SODIUM BICARBONATE 8.4% INJ 50 MEQ/50 ML DISP.SYRIN IV ONE (22:49)
[2017-04-02] MEDS ORDERED: DILTIAZEM HCL/D5W 125 MG/125 ML RTUINJ IV PRN (23:01)
[2017-04-02] MEDS ORDERED: DILTIAZEM HCL INJ 25 MG/5 ML VIAL IV ONE (23:01)
[2017-04-02] MEDS ORDERED: METHYLPREDNISOLONE INJ 125 MG/2 ML SDV IV ONE (23:26)
[2017-04-02] MEDS ORDERED: METHYLPREDNISOLONE INJ 125 MG/2 ML SDV ONE (23:30)
[2017-04-03] MEDS ORDERED: DEXTROSE 50%-WATER 25 GM/50 ML DISP.SYRIN IV ONE ×2 (00:17→00:20)
[2017-04-03 00:30] VITALS: BP 123/77
--- NOTE | 2017-04-03 08:06 | EKG REPORT ---
SEVERITY:- ABNORMAL ECG - ATRIAL FIBRILLATION LOW VOLTAGE THROUGHOUT CONSIDER ANTEROSEPTAL INFARCT NONSPECIFIC T ABNORMALITIES, LATERAL LEADS : Confirmed by: Anusha Rush MD 03-Apr-2017 08:06:24
== END 2017-04-03 00:40 | disposition short-term general hospital (02) ==
LOC: ER 20:45
DX: E87.5 Hyperkalemia (principal); E87.2 Acidosis; R06.02 Shortness of breath; J81.0 Acute pulmonary edema; I48.91 Unspecified atrial fibrillation; I13.2 Hypertensive heart and chronic kidney disease with heart failure and with stage 5 chronic kidney disease, or end stage renal disease; N18.6 End stage renal disease; I50.9 Heart failure, unspecified; Z99.2 Dependence on renal dialysis; Z94.0 Kidney transplant status; Z93.0 Tracheostomy status; Z99.81 Dependence on supplemental oxygen; Z88.3 Allergy status to other anti-infective agents
CPT/HCPCS: 93005; 94640; 99285; 96375; 96365; 36415; 87040; 82962; 82550; 80162; 85025; 85610; 85730; 80053; 84484; 82803; 83605; 83880; 71010; 93010; 94660; J0610; J3490 ×4; J2930; A9270 ×2; J1815

== ENCOUNTER 2017-04-13 09:41 | Emergency (ER) | payer MEDICARE, MEDICAID ==
[2017-04-13] MEDS ORDERED: DEXTROSE 50%-WATER 25 GM/50 ML DISP.SYRIN IV ONE (10:02)
--- NOTE | 2017-04-13 10:04 | ER Document Report ---
ED General - General Stated Complaint: RECTAL PAIN Time Seen by Provider: 04/13/17 09:52 Notes: 51-year-old male presents by EMS for chief complaint of bleeding from his trachea site. Patient states that he was suctioning this morning. Started noticing bright red blood. EMS arrived. Said there was approximately 250 cc of blood and mucus but with blood clots. Some more more red than others. Patient was feeling dizzy. Blood sugar was checked. Blood sugar levels were in the 40s. 15 g of glucose was given. On multiple medications. States that he is a little short of breath as well. States that recently he had some bleeding from the trachea and his lungs filled with fluid. Was transferred to [place] Patient denies any major complaints at this time. TRAVEL OUTSIDE OF THE [place] IN LAST 30 DAYS: No - HPI Onset: Just prior to arrival Onset/Duration: Sudden Quality of pain: No pain Severity: Moderate Associated symptoms: Shortness of breath - Related Data Allergies/Adverse Reactions: No Known Allergies Allergy (Unverified 04/13/17 10:43) Home Medications: Current Home Medications Digoxin [Lanoxin 0.125 mg Tablet] 0.125 mg PO Q2DAYS 04/13/17 [History] Ranitidine HCl 150 mg PO QHS 04/13/17 [History] Past Medical History - Social History Smoking Status: Current Every Day Smoker Family History: Reviewed & Not Pertinent, Hypertension - Past Medical History Cardiac Medical History: Reports: Hx Atrial Fibrillation, Hx Congestive Heart Failure, Hx Hypertension Denies: Hx Coronary Artery Disease, Hx Heart Attack, Hx Hypercholesterolemia , Hx Peripheral Vascular Disease, Hx Pulmonary Embolism, Hx Heart Murmur Pulmonary Medical History: Reports: Hx Asthma - Trach, Hx Sleep Apnea Denies: Hx Bronchitis, Hx COPD, Hx Pneumonia, Hx Respiratory Failure, Hx Tuberculosis Neurological Medical History: Reports: Hx Migraine. Denies: Hx Cerebrovascular Accident, Hx Seizures Renal/ Medical History: Reports: Hx End Stage Renal Disease - S/P transplant, Hx Hemodialysis Malignancy Medical History: Denies Hx Lung Cancer Musculoskeltal Medical History: Reports Hx Arthritis Psychiatric Medical History: Reports: Hx Anxiety Past Surgical History: Reports: Hx Herniorrhaphy, Hx Kidney (Renal Surgery) - left kidney transplant, Hx Tonsillectomy, Hx Vascular Surgery - Right arm graft for dialysis, Other - Tracheostomy. Denies: Hx Appendectomy, Hx Bowel Surgery, Hx Cholecystectomy, Hx Coronary Artery Bypass Graft, Hx Gastric Bypass Surgery, Hx Pacemaker - Immunizations Immunizations up to date: Yes Hx Diphtheria, Pertussis, Tetanus Vaccination: Yes Review of Systems - Review of Systems Constitutional: Malaise, Weakness EENT: Other - Bleeding from tracheostomy site after suctioning. Currently resolved. Cardiovascular: No symptoms reported Respiratory: Short of breath Gastrointestinal: No symptoms reported Genitourinary: No symptoms reported Male Genitourinary: No symptoms reported Musculoskeletal: No symptoms reported Skin: No symptoms reported Hematologic/Lymphatic: No symptoms reported Neurological/Psychological: No symptoms reported Physical Exam - Vital signs Vitals: Resp BP Pulse Ox 21 H 130/69 H 93 04/13/17 10:01 04/13/17 10:01 04/13/17 10:01 Interpretation: Normal - Notes Notes: Patient has AV fistula site right upper extremity that does not appear patent. Patient has left upper extremity AV fistula site with thrill and bruit. - General General appearance: Appears well, Alert - HEENT Head: Normocephalic, Atraumatic Eyes: Normal Pupils: PERRL Neck: Other - There is a tracheostomy present in the neck. There is no active bleeding at this time. There is some dried blood on the tracheostomy. No obvious stridor - Respiratory Respiratory status: No respiratory distress Chest status: Nontender Breath sounds: Normal Chest palpation: Normal - Cardiovascular Rhythm: Regular Heart sounds: Normal auscultation Murmur: No - Abdominal Inspection: Normal Distension: No distension Bowel sounds: Normal Tenderness: Nontender Organomegaly: No organomegaly - Back Back: Normal, Nontender - Extremities General upper extremity: Normal inspection, Nontender, Normal color, Normal ROM , Normal temperature General lower extremity: Normal inspection, Nontender, Normal color, Normal ROM , Normal temperature, Normal weight bearing. No: Taryn's sign - Neurological Neuro grossly intact: Yes Cognition: Normal Orientation: AAOx4 [place] Coma Scale Eye Opening: Spontaneous [place] Coma Scale Verbal: Oriented [place] Coma Scale Motor: Obeys Commands [place] Coma Scale Total: 15 Speech: Normal Motor strength normal: LUE, RUE, LLE, RLE Sensory: Normal - Psychological Associated symptoms: Normal affect, Normal mood - Skin Skin Temperature: Warm Skin Moisture: Dry Skin Color: Normal Course - Re-evaluation Re-evalutation: 04/13/17 10:09 We will get CBC with differential, coags, CMP, chest x-ray. Will observe here. If bleeding continues will consider hyperinflation of tracheostomy balloon to try and put pressure on bleeding. No active bleeding at this time. Will recheck blood sugar immediately. Reported hypoglycemic. Accu-Chek was performed. Blood sugar 44. 25 g glucose ordered. 04/13/17 11:21 Patient with no active bleeding at this time. There is small amount of blood in the trach that was removed. Apparently this is not a cuffed trach. Waiting on labs. We will continue to observe. 04/13/17 12:[address] Mascorro at [facility] with ENT. He has agreed to evaluate patient has no ENT is available at this time at this facility. No active bleeding currently but concern exist due to the significant amount of reported blood loss that patient could have a fistula and if bleeding were to return he could have respiratory issues. With regards to his transient hypoglycemia I have him on a D5 half-normal drip. Blood sugars are stable at this time. Based on this I felt it would be ji to transfer patient to the ER over there and have his blood work rechecked and make sure that his blood sugars were stable as we are keeping him n.p.o. for potential procedure. The ER doctor has initially refused him at [facility] in [place]. Awaiting callback from the hospitalist to see if they would be willing to accept him. 04/13/17 13:32 Dr. Moreira at [facility] has accepted patient is a direct admit. Dr. Mascorro will see patient in the hospital. Will transfer at this time. - Vital Signs Vital signs: Temp Pulse Resp BP Pulse Ox 99.0 F 87 21 H 126/83 H 93 04/13/17 10:26 04/13/17 10:26 04/13/17 12:01 04/13/17 12:01 04/13/17 12:01 - Laboratory Result Diagrams: 04/13/17 10:11 04/13/17 10:11 Laboratory results interpreted by me: 04/13/17 04/13/17 04/13/17 10:11 10:11 10:37 Hgb 12.4 L RDW 17.1 H Plt Count 101 L Seg Neuts % (Manual) 26 L Lymphocytes % (Manual) 47 H Abs Neuts (Manual) 1.6 L Creatinine 6.91 H Est GFR ( Amer) 10 L Est GFR (Non-Af Amer) 8 L Glucose 68 L POC Glucose 150 H Calcium 8.1 L Direct Bilirubin 0.9 H Alkaline Phosphatase 179 H - Diagnostic Test Radiology reviewed: Image reviewed - No significant pathology seen other than baseline. Please see radiology report. Discharge - Discharge Referrals: JOSIAH BRANNON MD [Primary Care Provider] - Follow up as needed
--- NOTE | 2017-04-13 10:31 | RADIOLOGY REPORT (SQ) ---
EXAM DESCRIPTION: CHEST SINGLE VIEW COMPLETED DATE/TIME: 04/13/2017 10:14 am REASON FOR STUDY: sob COMPARISON: 04/02/2017 EXAM PARAMETERS: NUMBER OF VIEWS: One view. TECHNIQUE: Single frontal radiographic view of the chest acquired. RADIATION DOSE: NA LIMITATIONS: None. FINDINGS: LUNGS AND PLEURA: There is pulmonary vascular congestion with no edema. MEDIASTINUM AND HILAR STRUCTURES: No masses. Contour normal. HEART AND VASCULAR STRUCTURES: Cardiomegaly. BONES: No acute findings. HARDWARE: Tracheostomy tube. Stents. OTHER: No other significant finding. IMPRESSION: Cardiomegaly pulmonary vascular congestion but no tamy CHF. TECHNICAL DOCUMENTATION: JOB ID: [id number]
[2017-04-13 10:37] LABS: PROTHROMBIN TIME 13.9 SEC (11.4-15.4)
[2017-04-13 10:52] LABS: HEMATOCRIT 38.2 % (37.9-51.0); HEMOGLOBIN 12.4 g/dL (13.5-17.0); MEAN CORPUSCULAR HEMOGLOBIN 27.5 pg (27.0-33.4); MEAN CORPUSCULAR HGB CONC 32.4 g/dL (32.0-36.0); MEAN CORPUSCULAR VOLUME 85 fl (80-97); RED CELL DISTRIBUTION WIDTH 17.1 % (11.5-14.0); WHITE BLOOD COUNT 6.2 10^3/uL (4.0-10.5)
[2017-04-13 10:55] LABS: ALANINE AMINOTRANSFERASE 43 U/L (21-72); ALBUMIN 3.6 g/dL (3.5-5.0); ALKALINE PHOSPHATASE 179 U/L (38-126); ANION GAP 10 (5-19); ASPARTATE AMINO TRANSFERASE 39 U/L (17-59); BILIRUBIN,DIRECT 0.9 mg/dL (0.0-0.4); BILIRUBIN,TOTAL 0.9 mg/dL (0.2-1.3); BLOOD UREA NITROGEN 13 mg/dL (7-20); CALCIUM 8.1 mg/dL (8.4-10.2); CARBON DIOXIDE 29 mmol/L (22-30); CHLORIDE 99 mmol/L (98-107); CREATININE RESULT 6.91 mg/dL (0.52-1.25); GLUCOSE 68 mg/dL (75-110); POTASSIUM 4.1 mmol/L (3.6-5.0); SODIUM 138.4 mmol/L (137-145); TOTAL PROTEIN 6.6 g/dL (6.3-8.2)
[2017-04-13 11:15] LABS: BASOPHILS % (MANUAL) 1 % (0-2); EOSINOPHILS % (MANUAL) 6 % (0-6); LYMPHOCYTES % (MANUAL) 47 % (13-45); TOTAL CELLS COUNTED 100
[2017-04-13 11:19] LABS: ANISOCYTOSIS 1+; PLATELET CLUMPS PRESENT; POLYCHROMASIA 1+; TOXIC VACUOLATION PRESENT
[2017-04-13] MEDS ORDERED: DEXTROSE 5%-1/2 NORMAL SALINE 500 ML IV ONE (11:57)
[2017-04-13 15:00] VITALS: BP 129/65
== END 2017-04-13 15:01 | disposition short-term general hospital (02) ==
LOC: ER 09:41
DX: J95.01 Hemorrhage from tracheostomy stoma (principal); K62.89 Other specified diseases of anus and rectum; R42 Dizziness and giddiness; R06.02 Shortness of breath; F17.200 Nicotine dependence, unspecified, uncomplicated; I48.91 Unspecified atrial fibrillation; I13.2 Hypertensive heart and chronic kidney disease with heart failure and with stage 5 chronic kidney disease, or end stage renal disease; N18.6 End stage renal disease; Z99.2 Dependence on renal dialysis; Z94.0 Kidney transplant status
CPT/HCPCS: 99285; 96361; 96374; 36415; 82962; 85025; 85610; 80053; 71010; J3490

== ENCOUNTER → 2017-06-13 | Outpatient (CLI) | payer MEDICARE, MEDICAID ==
--- NOTE | 2017-06-13 16:23 | RADIOLOGY REPORT (SQ) ---
EXAM DESCRIPTION: CT CHEST WITHOUT COMPLETED DATE/TIME: 06/13/2017 2:21 pm REASON FOR STUDY: J89.59 OTHER DISEASES OF MEDIASTINUM, NOT ELSEWHERE CLASSIFIED J98.59 OTHER DISEA SES OF MEDIASTINUM, NOT ELSEWHERE CLASSIFI COMPARISON: Chest x-ray 04/13/2017 TECHNIQUE: CT scan performed of the chest without intravenous contrast. Images reviewed with lung, soft tissue and bone windows. Reconstructed coronal and sagittal MPR images reviewed. All images st ored on PACS. All CT scanners at this facility use dose modulation, iterative reconstruction, and/or weight based d osing when appropriate to reduce radiation dose to as low as reasonably achievable (ALARA). [facility]: Dose Right [facility]: CareDose [facility]: Dose Right [facility]: Teradose 4D [facility]: [employer] RADIATION DOSE: CT Rad equipment meets quality standard of care and radiation dose reduction techniq ues were employed. CTDIvol: 19.4 mGy. DLP: 658 mGy-cm. mGy. LIMITATIONS: No technical limitations. FINDINGS: LUNGS AND PLEURA: There is moderate ground-glass opacification bilaterally. There is subs egmental atelectasis in the left base. HILAR AND MEDIASTINAL STRUCTURES: No identified masses or abnormal nodes. No obvious aneurysm. HEART AND VASCULAR STRUCTURES: No aneurysm. No pericardial effusion. There appear to be numerous di lated subcutaneous vessels in the chest wall. UPPER ABDOMEN: No significant findings. Limited exam. THYROID AND OTHER SOFT TISSUES: No masses. No adenopathy. BONES: There is vertebra plana in 1 of the lower thoracic vertebrae. Bridging osteophytes are seen i n the mid to lower thoracic spine. HARDWARE: None in the chest. OTHER: No other significant findings. IMPRESSION: 1. Ground-glass opacification bilaterally. This is nonspecific but may indicate inters titial edema, inflammation or infection. 2. Numerous dilated subcutaneous veins suggesting occluded venous return from the upper extremities. 3. Vertebra plana. Thoracic spondylosis. TECHNICAL DOCUMENTATION: JOB ID: [id number] Quality ID # [id number]: Final reports with documentation of one or more dose reduction techniques (e.g., Au tomated exposure control, adjustment of the mA and/or kV according to patient size, use of iterative reconstruction technique) 2010 [employer]- All Rights Reserved
== END ==
LOC: RAD 14:06
PROVIDERS: ATTEND Internal Medicine Critical Care Medicine
DX: J98.59 Other diseases of mediastinum, not elsewhere classified (principal)
CPT/HCPCS: 71250

== ENCOUNTER 2017-07-30 06:41 | Emergency (ER) | payer MEDICARE, MEDICAID ==
--- NOTE | 2017-07-30 07:31 | ER Document Report ---
ED General - General Chief Complaint: Other Stated Complaint: DIFFICULTY BREATHING,BLOOD IN TRACH Time Seen by Provider: 07/30/17 07:18 Mode of Arrival: Medic Information source: Patient Notes: Patient is a 52-year-old male who presents to the ER today for problems with his tracheostomy. Patient states that he was sleeping last night whenever his ventilator, that he only wears at night, "stopped working." Patient states that he usually takes Mucinex for "breaking up the mucus" but that he is out and has not been able to take it for the past day. Patient is here to get his trach "unclogged." He denies any shortness of breath, productive cough, swelling anywhere. Patient goes to dialysis Monday, has not missed one, is due for dialysis tomorrow. He denies any fevers or chills. TRAVEL OUTSIDE OF THE [place] IN LAST 30 DAYS: No - Related Data Allergies/Adverse Reactions: No Known Allergies Allergy (Unverified 04/13/17 10:43) Past Medical History - General Information source: Patient - Social History Smoking Status: Unknown if Ever Smoked Family History: Reviewed & Not Pertinent, Hypertension Patient has suicidal ideation: No Patient has homicidal ideation: No - Past Medical History Cardiac Medical History: Reports: Hx Atrial Fibrillation, Hx Congestive Heart Failure, Hx Hypertension Denies: Hx Coronary Artery Disease, Hx Heart Attack, Hx Hypercholesterolemia , Hx Peripheral Vascular Disease, Hx Pulmonary Embolism, Hx Heart Murmur Pulmonary Medical History: Reports: Hx Asthma - Trach, Hx Sleep Apnea Denies: Hx Bronchitis, Hx COPD, Hx Pneumonia, Hx Respiratory Failure, Hx Tuberculosis Neurological Medical History: Reports: Hx Migraine. Denies: Hx Cerebrovascular Accident, Hx Seizures Renal/ Medical History: Reports: Hx End Stage Renal Disease - S/P transplant, Hx Hemodialysis. Denies: Hx Peritoneal Dialysis Malignancy Medical History: Denies Hx Lung Cancer Musculoskeltal Medical History: Reports Hx Arthritis Psychiatric Medical History: Reports: Hx Anxiety Past Surgical History: Reports: Hx Herniorrhaphy, Hx Kidney (Renal Surgery) - left kidney transplant, Hx Tonsillectomy, Hx Vascular Surgery - Right arm graft for dialysis, Other - Tracheostomy. Denies: Hx Appendectomy, Hx Bowel Surgery, Hx Cholecystectomy, Hx Coronary Artery Bypass Graft, Hx Gastric Bypass Surgery, Hx Pacemaker - Immunizations Immunizations up to date: Yes Hx Diphtheria, Pertussis, Tetanus Vaccination: Yes Review of Systems - Review of Systems Constitutional: No symptoms reported EENT: No symptoms reported Cardiovascular: No symptoms reported Respiratory: See HPI Gastrointestinal: No symptoms reported Genitourinary: No symptoms reported Male Genitourinary: No symptoms reported Musculoskeletal: No symptoms reported Skin: No symptoms reported Hematologic/Lymphatic: No symptoms reported Neurological/Psychological: No symptoms reported Physical Exam - Vital signs Vitals: Temp Pulse Resp BP Pulse Ox 98.2 F 74 20 108/45 L 93 07/30/17 06:46 07/30/17 06:46 07/30/17 06:46 07/30/17 06:46 07/30/17 06:46 - Notes Notes: PHYSICAL EXAMINATION: GENERAL: Chronically ill-appearing, but in no acute distress. HEAD: Atraumatic, normocephalic. EYES: Pupils equal round and reactive to light, extraocular movements intact, sclera anicteric, conjunctiva are normal. ENT: ear canals without erythema or foreign body, TMs pearly glez with good bony landmarks, nares patent, oropharynx clear without exudates. Moist mucous membranes. Airway patent NECK: Tracheostomy in place, normal range of motion, supple without lymphadenopathy LUNGS: Wheezes with cough only, rales present bilateral lower lung anderson, no rhonchi. HEART: Regular rate and rhythm without murmurs ABDOMEN: Soft, large protuding left inguinal hernia, no tenderness. No guarding , no rebound BACK: no vertebral tenderness, normal ROM GI/: no CVA tenderness EXTREMITIES: Normal range of motion, no pitting edema. No cyanosis. NEUROLOGICAL: Cranial nerves grossly intact. Normal sensory/motor exams. PSYCH: Normal mood, normal affect. SKIN: Warm, Dry, normal turgor, no rashes or lesions noted Course - Re-evaluation Re-evalutation: 07/30/17 14:00 Pt's potassium is 5.2, he is due for dialysis tomorrow morning first thing. respiratory came down and suctioned pt's trach, he states it is much better. He got a hold of his ventilator supplier emergency number and they are bringing new ventilator equipment to his house as soon as he's discharged today. I did offer admission to patient as he does have pulmonary edema on chest x-ray today , vascular congestion, no sign of pneumonia, no leukocytosis, patient states that he feels "like normal" with his cough and breathing, stating again that he only came here because his ventilator stopped working with his trach. Patient promises to go to dialysis first thing in the morning. Patient's vital signs are all stable, normal respiratory rate and oxygen saturation on room air, not tachycardic Patient would like to go home.I think that this is a reasonable plan. 07/30/17 16:14 - Vital Signs Vital signs: Temp Pulse Resp BP Pulse Ox 97.8 F 64 18 94/47 L 94 07/30/17 10:30 07/30/17 10:30 07/30/17 10:30 07/30/17 10:30 07/30/17 10:30 - Laboratory Result Diagrams: 07/30/17 09:04 07/30/17 09:04 Laboratory results interpreted by me: 07/30/17 07/30/17 09:04 09:04 Hgb 13.4 L MCHC 31.8 L RDW 15.6 H Monocytes % 13.1 H Potassium 5.2 H Chloride 96 L Carbon Dioxide 34 H Creatinine 9.71 H Est GFR ( Amer) 7 L Est GFR (Non-Af Amer) 6 L Direct Bilirubin 0.7 H Alkaline Phosphatase 198 H Discharge - Discharge Clinical Impression: Tracheostomy care, ESRD (end stage renal disease) on dialysis Pulmonary edema Qualifiers: Chronicity: acute Qualified Code(s): J81.0 - Acute pulmonary edema Condition: Stable Disposition: HOME, SELF-CARE Additional Instructions: Go to your dialysis tomorrow morning! Return immediately for any new or worsening symptoms. Follow up with primary care provider, call tomorrow to make followup appointment. Prescriptions: Guaifenesin [Mucinex] 600 mg PO BID PRN #60 tablet.sa PRN Reason: Referrals: JOSIAH BRANNON MD [Primary Care Provider] - Follow up as needed
--- NOTE | 2017-07-30 08:14 | RADIOLOGY REPORT (SQ) ---
EXAM DESCRIPTION: CHEST PA/LAT COMPLETED DATE/TIME: 07/30/2017 7:46 am REASON FOR STUDY: trach problem/difficulty breathing COMPARISON: 07/01/2016 NUMBER OF VIEWS: Two views. TECHNIQUE: Frontal and lateral radiographic views of the chest acquired. LIMITATIONS: None. FINDINGS: LUNGS AND PLEURA: Diffuse interstitial opacities without consolidation. No significant pl eural effusion. No pneumothorax. MEDIASTINUM AND HILAR STRUCTURES: No masses or contour abnormality. HEART AND VASCULAR STRUCTURES: Cardiac enlargement. Vascular congestion. BONES: No acute findings. HARDWARE: Tracheostomy, central venous catheter, vascular stent, and IVC filter visualized. OTHER: No other significant finding. IMPRESSION: CARDIAC ENLARGEMENT. VASCULAR CONGESTION. TECHNICAL DOCUMENTATION: JOB ID: [id number] [employer]- All Rights Reserved
[2017-07-30 09:21] LABS: ABSOLUTE EOSINOPHILS # (AUTO) 0.3 10^3/uL (0.0-0.6); ABSOLUTE LYMPHOCYTES (AUTO) 1.5 10^3/uL (0.5-4.7); ABSOLUTE MONOCYTES (AUTO) 0.6 10^3/uL (0.1-1.4); ABSOLUTE NEUT (AUTO) 2.3 10^3/uL (1.7-8.2); BASOPHILS % (AUTO) 0.7 % (0-2); EOSINOPHILS % (AUTO) 5.7 % (0-6); HEMATOCRIT 42.3 % (37.9-51.0); HEMOGLOBIN 13.4 g/dL (13.5-17.0); LYMPHOCYTES % (AUTO) 32.4 % (13-45); MEAN CORPUSCULAR HEMOGLOBIN 27.5 pg (27.0-33.4); MEAN CORPUSCULAR HGB CONC 31.8 g/dL (32.0-36.0); MEAN CORPUSCULAR VOLUME 87 fl (80-97); MONOCYTES % (AUTO) 13.1 % (3-13); PLATELET COUNT 154 10^3/uL (150-450); RED BLOOD COUNT 4.88 10^6/uL (4.35-5.55); RED CELL DISTRIBUTION WIDTH 15.6 % (11.5-14.0); SEGMENTED NEUTROPHILS % (AUTO) 48.1 % (42-78); TOTAL CELLS COUNTED % (AUTO) 100 %; WHITE BLOOD COUNT 4.8 10^3/uL (4.0-10.5)
[2017-07-30 09:35] LABS: ALANINE AMINOTRANSFERASE 41 U/L (21-72); ALBUMIN 3.6 g/dL (3.5-5.0); ALKALINE PHOSPHATASE 198 U/L (38-126); ANION GAP 8 (5-19); ASPARTATE AMINO TRANSFERASE 38 U/L (17-59); BILIRUBIN,DIRECT 0.7 mg/dL (0.0-0.4); BILIRUBIN,TOTAL 0.8 mg/dL (0.2-1.3); BLOOD UREA NITROGEN 17 mg/dL (7-20); CALCIUM 8.6 mg/dL (8.4-10.2); CARBON DIOXIDE 34 mmol/L (22-30); CHLORIDE 96 mmol/L (98-107); GLUCOSE 80 mg/dL (75-110); POTASSIUM 5.2 mmol/L (3.6-5.0); SODIUM 138.1 mmol/L (137-145); TOTAL PROTEIN 6.4 g/dL (6.3-8.2)
[2017-07-30] MEDS ORDERED: GUAIFENESIN 600 MG TABLET.SA PO ONE (09:48)
[2017-07-30 10:50] VITALS: BP 94/47
== END 2017-07-30 10:31 | disposition home or self-care (01) ==
LOC: ER 06:41
DX: Z43.0 Encounter for attention to tracheostomy (principal); I12.0 Hypertensive chronic kidney disease with stage 5 chronic kidney disease or end stage renal disease; N18.6 End stage renal disease; Z99.2 Dependence on renal dialysis; Z94.0 Kidney transplant status; J45.909 Unspecified asthma, uncomplicated; J81.0 Acute pulmonary edema
CPT/HCPCS: 99285; 36415; 83605; 85025; 80053; 71046; A9270

== ENCOUNTER 2018-04-03 02:35 | Emergency (ER) | payer MEDICARE, MEDICAID ==
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
--- NOTE | 2018-04-03 05:54 | RADIOLOGY REPORT (SQ) ---
EXAM DESCRIPTION: XR ELBOW 3 VIEWS COMPLETED DATE/TME: 04/03/2018 05:20 CLINICAL HISTORY: 52 years, Male, pain s/p fall COMPARISON: None. NUMBER OF VIEWS: Three TECHNIQUE: Three views of the right elbow LIMITATIONS: None. FINDINGS: No acute fracture or dislocation. There is no joint effusion. Surgical clips with vascular and soft tissue calcifications are noted. IMPRESSION: No acute fracture or dislocation 2010 [employer]- All Rights Reserved
--- NOTE | 2018-04-03 05:55 | RADIOLOGY REPORT (SQ) ---
EXAM DESCRIPTION: XR KNEE 4 OR MORE VIEWS COMPLETED DATE/TME: 04/03/2018 05:20 CLINICAL HISTORY: 52 years, Male, pain s/p fall COMPARISON: None. NUMBER OF VIEWS: Four TECHNIQUE: Four views of the left knee LIMITATIONS: None. FINDINGS: There is no acute fracture or dislocation. Vascular calcifications are noted. IMPRESSION: No acute fracture or dislocation 2010 [employer]- All Rights Reserved
[2018-04-03 07:30] VITALS: BP 144/75
== END 2018-04-03 07:37 | disposition home or self-care (01) ==
LOC: ER 02:35
DX: S80.212A Abrasion, left knee, initial encounter (principal); M25.522 Pain in left elbow; M25.562 Pain in left knee; V19.9XXA Pedal cyclist (driver) (passenger) injured in unspecified traffic accident, initial encounter; I12.0 Hypertensive chronic kidney disease with stage 5 chronic kidney disease or end stage renal disease; N18.6 End stage renal disease; Z99.2 Dependence on renal dialysis; J45.909 Unspecified asthma, uncomplicated; Z94.0 Kidney transplant status
CPT/HCPCS: 99284

== ENCOUNTER 2018-04-29 04:21 | Emergency (ER) | payer MEDICARE, MEDICAID ==
--- NOTE | 2018-04-29 04:40 | ER Document Report ---
ED Flu Like - General Chief Complaint: Cold Symptoms Stated Complaint: COUGH Time Seen by Provider: 04/29/18 04:25 Notes: Patient is a 52-year-old male dialysis pt. presenting to the emergency department complaining of a cough for the last 2 weeks. Patient states he has been able to express thick yellow discharge from his trach. Patient states he developed pain in his right shoulder blade that increases upon coughing, deep inspiration, and palpation. Patient states "I have just been coughing for too long." Patient states he has been taking Mucinex at home which has helped the congestion. Patient denies fever, chest pain, shortness of breath, nausea, vomiting, diarrhea, abdominal pain, dysuria. Past medical history: End-stage renal disease w/ dialysis, kidney transplant 2004, congestive heart failure, hypertension, trach, large umbilical hernia Medications: Midodrine, pantoprazole, clopidogrel, montelukast, Zyrtec, allopurinol, gabapentin, metoprolol, tramadol, ranitidine, digoxin Allergies: None TRAVEL OUTSIDE OF THE [place] IN LAST 30 DAYS: No - Related Data Allergies/Adverse Reactions: No Known Allergies Allergy (Unverified 04/13/17 10:43) Past Medical History - General Information source: Patient - Social History Smoking Status: Unknown if Ever Smoked Lives with: Family Family History: Reviewed & Not Pertinent, Hypertension - Past Medical History Cardiac Medical History: Reports: Hx Atrial Fibrillation, Hx Congestive Heart Failure, Hx Hypertension Denies: Hx Coronary Artery Disease, Hx Heart Attack, Hx Hypercholesterolemia , Hx Peripheral Vascular Disease, Hx Pulmonary Embolism, Hx Heart Murmur Pulmonary Medical History: Reports: Hx Asthma - Trach, Hx Sleep Apnea Denies: Hx Bronchitis, Hx COPD, Hx Pneumonia, Hx Respiratory Failure, Hx Tuberculosis Neurological Medical History: Reports: Hx Migraine. Denies: Hx Cerebrovascular Accident, Hx Seizures Renal/ Medical History: Reports: Hx End Stage Renal Disease - S/P transplant, Hx Hemodialysis. Denies: Hx Peritoneal Dialysis Malignancy Medical History: Denies Hx Lung Cancer Musculoskeletal Medical History: Reports Hx Arthritis Psychiatric Medical History: Reports: Hx Anxiety Past Surgical History: Reports: Hx Herniorrhaphy, Hx Kidney (Renal Surgery) - left kidney transplant, Hx Tonsillectomy, Hx Vascular Surgery - Right arm graft for dialysis, Other - Tracheostomy. Denies: Hx Appendectomy, Hx Bowel Surgery, Hx Cholecystectomy, Hx Coronary Artery Bypass Graft, Hx Gastric Bypass Surgery, Hx Pacemaker - Immunizations Immunizations up to date: Yes Hx Diphtheria, Pertussis, Tetanus Vaccination: Yes Review of Systems - Review of Systems Constitutional: See HPI EENT: See HPI Cardiovascular: See HPI Respiratory: See HPI Gastrointestinal: See HPI Genitourinary: See HPI Male Genitourinary: No symptoms reported Musculoskeletal: See HPI Skin: No symptoms reported Hematologic/Lymphatic: No symptoms reported Neurological/Psychological: No symptoms reported Physical Exam - Vital signs Vitals: Pulse Ox 96 04/29/18 04:26 - Notes Notes: GENERAL: Alert, interacts well. No acute distress. HEAD: Normocephalic, atraumatic. EYES: Pupils equal, round, and reactive to light. Extraocular movements intact. ENT: Oral mucosa moist, tongue midline. Nares patent, TM's intact, nonerythematous, nonbulging. No frontal or ethmoid sinus tenderness. NECK: Full range of motion. Supple. Trach in place, no active discharge or sputum noted LUNGS: Clear to auscultation bilaterally, no wheezes, rales, or rhonchi. No respiratory distress. HEART: Regular rate and rhythm. No murmur ABDOMEN: Soft, non-tender. Non-distended. Bowel sounds present in all 4 quadrants. No Chowdary sign, no McBurney's point tenderness. Large hernia noted left of umbilicus. Patient states he has had it "for years now". EXTREMITIES: Moves all 4 extremities spontaneously. No edema, No cyanosis. Fistula noted left upper arm. Pain upon palpation right scapular region, pain increases with range of motion of right arm. BACK: no cervical, thoracic, lumbar midline tenderness. No saddle anesthesia, normal distal neurovascular exam. NEUROLOGICAL: Alert and oriented x3. Normal speech. cranial nerves II through XII grossly intact. PSYCH: Normal affect, normal mood. SKIN: Warm, dry, normal turgor. No rashes or lesions noted. Course - Re-evaluation Re-evalutation: 04/29/18 05:40 Chest x-ray shows no signs of pneumonia, no leukocytosis, afebrile patient states Mucinex is helping with his cough and congestion. Will prescribe Tessalon Perles to help with cough. Discussed need for follow-up with primary care in the next 24-40 hours. Return precautions discussed at length with patient. - Vital Signs Vital signs: Temp Pulse Resp BP Pulse Ox 98.3 F 17 125/69 100 04/29/18 04:29 04/29/18 05:01 04/29/18 05:01 04/29/18 05:01 - Laboratory Result Diagrams: 04/29/18 04:35 04/29/18 04:35 Laboratory results interpreted by me: 04/29/18 04/29/18 04:35 04:35 RBC 3.70 L Hgb 10.8 L Hct 32.4 L RDW 15.7 H Plt Count 142 L BUN 22 H Creatinine 11.46 H Est GFR ( Amer) 6 L Est GFR (Non-Af Amer) 5 L Calcium 8.2 L Total Bilirubin 1.4 H Direct Bilirubin 1.4 H Alkaline Phosphatase 273 H Discharge - Discharge Clinical Impression: Upper respiratory infection Qualifiers: URI type: unspecified viral URI Qualified Code(s): J06.9 - Acute upper respiratory infection, unspecified Condition: Stable Disposition: HOME, SELF-CARE Instructions: Upper Respiratory Illness ([facility]), Viral Syndrome ([facility]) Additional Instructions: As we discussed you should take prescription medications as prescribed. You should continue to take Mucinex for your cough and congestion symptoms. Also as we discussed there are no signs of pneumonia on your chest x-ray. And no signs of overwhelming infection in your blood work. You should make an appointment with your primary care provider in the next 24-48 hours for follow- up. Please return to the emergency room for any other worsening symptoms. Prescriptions: Benzonatate [Tessalon Perles 100 mg Capsule] 100 mg PO Q8HP PRN #40 capsule PRN Reason: Referrals: JOSIAH BRANNON MD [Primary Care Provider] - Follow up as needed
[2018-04-29 04:50] LABS: ABSOLUTE BASOPHILS # (AUTO) 0.1 10^3/uL (0.0-0.2); ABSOLUTE EOSINOPHILS # (AUTO) 0.2 10^3/uL (0.0-0.6); ABSOLUTE LYMPHOCYTES (AUTO) 1.5 10^3/uL (0.5-4.7); ABSOLUTE MONOCYTES (AUTO) 0.6 10^3/uL (0.1-1.4); ABSOLUTE NEUT (AUTO) 2.9 10^3/uL (1.7-8.2); BASOPHILS % (AUTO) 1.1 % (0-2); EOSINOPHILS % (AUTO) 4.5 % (0-6); HEMATOCRIT 32.4 % (37.9-51.0); HEMOGLOBIN 10.8 g/dL (13.5-17.0); LYMPHOCYTES % (AUTO) 28.1 % (13-45); MEAN CORPUSCULAR HEMOGLOBIN 29.2 pg (27.0-33.4); MEAN CORPUSCULAR HGB CONC 33.3 g/dL (32.0-36.0); MEAN CORPUSCULAR VOLUME 88 fl (80-97); MONOCYTES % (AUTO) 10.7 % (3-13); PLATELET COUNT 142 10^3/uL (150-450); RED CELL DISTRIBUTION WIDTH 15.7 % (11.5-14.0); SEGMENTED NEUTROPHILS % (AUTO) 55.6 % (42-78); TOTAL CELLS COUNTED % (AUTO) 100 %; WHITE BLOOD COUNT 5.2 10^3/uL (4.0-10.5)
[2018-04-29 04:59] LABS: ALANINE AMINOTRANSFERASE 39 U/L (21-72); ALBUMIN 3.8 g/dL (3.5-5.0); ALKALINE PHOSPHATASE 273 U/L (38-126); ANION GAP 15 (5-19); ASPARTATE AMINO TRANSFERASE 42 U/L (17-59); BILIRUBIN,DIRECT 1.4 mg/dL (0.0-0.4); BILIRUBIN,TOTAL 1.4 mg/dL (0.2-1.3); BLOOD UREA NITROGEN 22 mg/dL (7-20); CALCIUM 8.2 mg/dL (8.4-10.2); CARBON DIOXIDE 26 mmol/L (22-30); CHLORIDE 100 mmol/L (98-107); GLUCOSE 101 mg/dL (75-110); POTASSIUM 3.9 mmol/L (3.6-5.0); SODIUM 140.9 mmol/L (137-145); TOTAL PROTEIN 6.6 g/dL (6.3-8.2)
--- NOTE | 2018-04-29 05:34 | RADIOLOGY REPORT (SQ) ---
EXAM DESCRIPTION: X-ray single view chest. CLINICAL HISTORY: 52 years Male, SOB and cough x2 weeks with pain in right shoulder blade COMPARISON: Prior chest x-ray performed on 07/30/2017. TECHNIQUE: Single portable view of the chest performed on 04/29/2018 at 5:41 AM FINDINGS: The lungs are hyperinflated. There is mild hazy opacification of the lungs similar when compared to the prior study which may be related to vascular congestion. No dense airspace consolidation is identified. There is no evidence of a pneumothorax. The cardiac silhouette is stable and is mildly prominent. The mediastinal contours are normal. No acute osseous abnormality is identified. The appearance of the bones suggests underlying renal osteodystrophy. No focal soft tissue abnormalities are seen. Lines and tubes: A tracheostomy cannula is again noted in grossly satisfactory position. A left subclavian central venous catheter is present which overlies the region of the superior vena cava. A metallic vascular stent is also noted. There is partial visualization of an inferior vena cava filter. IMPRESSION: 1. No significant change when compared to the prior study. 2. Hyperinflation of the lungs. 3. Mild hazy opacification of the lungs which may reflect vascular congestion. 4. Life support lines and tubes present as described above.
[2018-04-29] MEDS ORDERED: OXYCODONE-ACETAMINOPHEN 5-325 MG TABLET PO ONE (05:36)
[2018-04-29] MEDS ORDERED: HYDROCODONE/ACETAMINOPHEN 5-325 MG (6 TAB/ER DISP) PO PRN (05:42)
[2018-04-29 06:14] VITALS: BP 145/73
== END 2018-04-29 06:14 | disposition home or self-care (01) ==
LOC: ER 04:21
DX: J06.9 Acute upper respiratory infection, unspecified (principal); R05 Cough; M25.511 Pain in right shoulder; R09.81 Nasal congestion; I10 Essential (primary) hypertension; Z79.899 Other long term (current) drug therapy; J45.909 Unspecified asthma, uncomplicated
CPT/HCPCS: 99284; 36415; 87040; 85025; 80053; 71046; A9270 ×2

== ENCOUNTER 2018-06-11 14:01 | Emergency (ER) | payer MEDICARE, MEDICAID ==
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
--- NOTE | 2018-06-11 16:12 | RADIOLOGY REPORT (SQ) ---
EXAM DESCRIPTION: OS CALCIS/HEEL RIGHT COMPLETED DATE/TIME: 06/11/2018 4:03 pm REASON FOR STUDY: pain after fall COMPARISON: None. NUMBER OF VIEWS: Two views. TECHNIQUE: Plantar and lateral images acquired of the right calcaneous. LIMITATIONS: None. FINDINGS: MINERALIZATION: Normal. BONES: No acute fracture or dislocation. No worrisome bone lesions. JOINTS: No effusions. SOFT TISSUES: No soft tissue swelling. No foreign body. OTHER: No other significant finding. IMPRESSION: NEGATIVE STUDY OF THE RIGHT CALCANEOUS. NO RADIOGRAPHIC EVIDENCE OF ACUTE INJURY. TECHNICAL DOCUMENTATION: JOB ID: [id number] [employer]- All Rights Reserved Reading location - IP/workstation name: [email or web address]
--- NOTE | 2018-06-11 16:13 | RADIOLOGY REPORT (SQ) ---
EXAM DESCRIPTION: ELBOW LEFT OVER 2 VIEWS COMPLETED DATE/TIME: 06/11/2018 4:03 pm REASON FOR STUDY: pain after fall COMPARISON: None. NUMBER OF VIEWS: Four views. TECHNIQUE: AP, lateral, and both oblique radiographic images acquired of the left elbow. LIMITATIONS: None. FINDINGS: MINERALIZATION: Normal. BONES: No acute fracture or dislocation. No worrisome bone lesions. JOINT: No effusion. SOFT TISSUES: No soft tissue swelling. No foreign body. OTHER: No other significant finding. IMPRESSION: NEGATIVE STUDY OF THE LEFT ELBOW. NO RADIOGRAPHIC EVIDENCE OF ACUTE INJURY. TECHNICAL DOCUMENTATION: JOB ID: [id number] [employer]- All Rights Reserved Reading location - IP/workstation name: [email or web address]
[2018-06-11 17:18] VITALS: BP 139/86
== END 2018-06-11 17:18 | disposition home or self-care (01) ==
LOC: ER 14:01
DX: M79.671 Pain in right foot (principal); M25.522 Pain in left elbow; I12.0 Hypertensive chronic kidney disease with stage 5 chronic kidney disease or end stage renal disease; N18.6 End stage renal disease; Z99.2 Dependence on renal dialysis; W19.XXXA Unspecified fall, initial encounter; I10 Essential (primary) hypertension; J45.909 Unspecified asthma, uncomplicated
CPT/HCPCS: 99283

== ENCOUNTER 2018-07-27 14:19 | Emergency (ER) | payer MEDICARE, MEDICAID ==
--- NOTE | 2018-07-27 16:24 | ER Document Report ---
ED Medical Screen (RME) - General Chief Complaint: Leg Pain Stated Complaint: LEG PAIN Time Seen by Provider: 07/27/18 15:59 Information source: Patient Notes: Patient presents complaining of left inguinal pain that radiates into the scrotum that has been for several months that worsened over the past week. Patient states that he has difficulty in ambulating and sometimes cannot lift his left lower leg. Patient does have a large hernia to the abdomen and states that it has gradually started to get larger and hang over his waistline. Patient is a dialysis patient and does not make urine. I have greeted and performed a rapid initial assessment of this patient. A comprehensive ED assessment and evaluation of the patient, analysis of test results and completion of the medical decision making process will be conducted by additional ED providers. TRAVEL OUTSIDE OF THE [place] IN LAST 30 DAYS: No - Related Data Allergies/Adverse Reactions: No Known Allergies Allergy (Verified 07/27/18 14:36) Past Medical History - Past Medical History Cardiac Medical History: Reports: Hx Atrial Fibrillation, Hx Congestive Heart Failure, Hx Hypertension Denies: Hx Coronary Artery Disease, Hx Heart Attack, Hx Hypercholesterolemia, Hx Peripheral Vascular Disease, Hx Pulmonary Embolism, Hx Heart Murmur Pulmonary Medical History: Reports: Hx Asthma - Trach, Hx Sleep Apnea Denies: Hx Bronchitis, Hx COPD, Hx Pneumonia, Hx Respiratory Failure, Hx Tuberculosis Neurological Medical History: Reports: Hx Migraine. Denies: Hx Cerebrovascular Accident, Hx Seizures Renal/ Medical History: Reports: Hx End Stage Renal Disease - S/P transplant, Hx Hemodialysis. Denies: Hx Peritoneal Dialysis Malignancy Medical History: Denies Hx Lung Cancer Musculoskeltal Medical History: Reports Hx Arthritis Psychiatric Medical History: Reports: Hx Anxiety Past Surgical History: Reports: Hx Herniorrhaphy, Hx Kidney (Renal Surgery) - left kidney transplant, Hx Tonsillectomy, Hx Vascular Surgery - Right arm graft for dialysis, Other - Tracheostomy. Denies: Hx Appendectomy, Hx Bowel Surgery, Hx Cholecystectomy, Hx Coronary Artery Bypass Graft, Hx Gastric Bypass Surgery, Hx Pacemaker - Immunizations Immunizations up to date: Yes Hx Diphtheria, Pertussis, Tetanus Vaccination: Yes Physical Exam - Vital signs Vitals: Temp Pulse Resp BP Pulse Ox 98.2 F 69 18 116/62 92 07/27/18 15:26 07/27/18 15:26 07/27/18 15:26 07/27/18 15:26 07/27/18 15:26 - Abdominal Tenderness: Tender - Left inguinal tenderness that radiates to the scrotum Course - Vital Signs Vital signs: Temp Pulse Resp BP Pulse Ox 98.2 F 69 18 116/62 92 07/27/18 15:26 07/27/18 15:26 07/27/18 15:26 07/27/18 15:26 07/27/18 15:26 Doctor's Discharge - Discharge Referrals: JOSIAH BRANNON MD [Primary Care Provider] - Follow up as needed
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
--- NOTE | 2018-07-27 17:49 | RADIOLOGY REPORT (SQ) ---
EXAM DESCRIPTION: U/S SCROTUM W/DOPPLER COMPLETED DATE/TIME: 07/27/2018 5:22 pm REASON FOR STUDY: L groin, scrotal pain COMPARISON: None. TECHNIQUE: Static and realtime dubon scale imaging of the scrotum and testes. Selected color Doppler and spectral images recorded to document blood flow. LIMITATIONS: None. FINDINGS: RIGHT: TESTICLE: Normal size. Normal echotexture. Normal blood flow. No mass. EPIDIDYMIS: Normal. HYDROCELE OR VARICOCELE: No. HERNIA OR EXTRA-TESTICULAR MASS: No. OTHER: No other significant finding. LEFT: TESTICLE: Normal size. Normal echotexture. Normal blood flow. No mass. EPIDIDYMIS: Normal. HYDROCELE OR VARICOCELE: No. HERNIA OR EXTRA-TESTICULAR MASS: No. OTHER: No other significant finding. IMPRESSION: Normal ultrasound examination of the bilateral testicles and scrotum. Normal blood flow to the bilateral testicles. TECHNICAL DOCUMENTATION: JOB ID: [id number] [employer]- All Rights Reserved Reading location - IP/workstation name: [email or web address]
[2018-07-27 18:20] LABS: ABSOLUTE BASOPHILS # (AUTO) 0.1 10^3/uL (0.0-0.2); ABSOLUTE EOSINOPHILS # (AUTO) 0.2 10^3/uL (0.0-0.6); ABSOLUTE LYMPHOCYTES (AUTO) 1.3 10^3/uL (0.5-4.7); ABSOLUTE MONOCYTES (AUTO) 0.8 10^3/uL (0.1-1.4); ABSOLUTE NEUT (AUTO) 2.3 10^3/uL (1.7-8.2); BASOPHILS % (AUTO) 1.6 % (0-2); EOSINOPHILS % (AUTO) 4.4 % (0-6); HEMATOCRIT 39.7 % (37.9-51.0); HEMOGLOBIN 12.8 g/dL (13.5-17.0); LYMPHOCYTES % (AUTO) 28.4 % (13-45); MEAN CORPUSCULAR HEMOGLOBIN 28.5 pg (27.0-33.4); MEAN CORPUSCULAR HGB CONC 32.3 g/dL (32.0-36.0); MEAN CORPUSCULAR VOLUME 88 fl (80-97); MONOCYTES % (AUTO) 16.4 % (3-13); PLATELET COUNT 173 10^3/uL (150-450); RED BLOOD COUNT 4.51 10^6/uL (4.35-5.55); RED CELL DISTRIBUTION WIDTH 15.7 % (11.5-14.0); SEGMENTED NEUTROPHILS % (AUTO) 49.2 % (42-78); TOTAL CELLS COUNTED % (AUTO) 100 %; WHITE BLOOD COUNT 4.6 10^3/uL (4.0-10.5)
--- NOTE | 2018-07-27 18:21 | RADIOLOGY REPORT (SQ) ---
EXAM DESCRIPTION: HIP LEFT AP/LATERAL COMPLETED DATE/TIME: 07/27/2018 6:09 pm REASON FOR STUDY: L groin, scrotal pain COMPARISON: None. NUMBER OF VIEWS: Two views. TECHNIQUE: AP pelvis and additional frog-leg view of the left hip. LIMITATIONS: None. FINDINGS: MINERALIZATION: Normal. LEFT HIP: No fracture or dislocation. No worrisome bone lesions. RIGHT HIP: No fracture or dislocation. No worrisome bone lesions. PUBIS AND ISCHIUM: No fracture. PELVIS: No fracture. SACRUM: No fracture or dislocation. No worrisome bone lesions. LOWER LUMBAR SPINE: No fracture or dislocation. No worrisome bone lesions. No significant disc disea se. SOFT TISSUES: Left-sided hernia mesh clips. Extensive vascular calcinosis. OTHER: No other significant finding. IMPRESSION: No fracture or dislocation of the left hip. Please note that plain radiographs may be i nsensitive for hip or pelvic fracture. Consider CT or MRI to further evaluate if fracture is strongl y suspected. TECHNICAL DOCUMENTATION: JOB ID: [id number]- All Rights Reserved Reading location - IP/workstation name: [email or web address]
[2018-07-27 18:38] LABS: ANION GAP 16 (5-19); BLOOD UREA NITROGEN 33 mg/dL (7-20); CALCIUM 8.5 mg/dL (8.4-10.2); CARBON DIOXIDE 25 mmol/L (22-30); CHLORIDE 97 mmol/L (98-107); GLUCOSE 74 mg/dL (75-110); SODIUM 138.1 mmol/L (137-145)
[2018-07-27] MEDS ORDERED: ACETAMINOPHEN 325 MG TABLET PO ONE (18:44)
[2018-07-27 20:51] VITALS: BP 135/83
== END 2018-07-27 20:54 | disposition home or self-care (01) ==
LOC: ER 14:19
DX: S76.012A Strain of muscle, fascia and tendon of left hip, initial encounter (principal); M25.552 Pain in left hip; W19.XXXA Unspecified fall, initial encounter; K46.9 Unspecified abdominal hernia without obstruction or gangrene; I12.0 Hypertensive chronic kidney disease with stage 5 chronic kidney disease or end stage renal disease; N18.6 End stage renal disease; Z99.2 Dependence on renal dialysis; J45.909 Unspecified asthma, uncomplicated; Z94.0 Kidney transplant status
CPT/HCPCS: 99284; 36415; 85025; 80048; 73502; 76870; 93976; A9270

== ENCOUNTER 2018-08-01 09:07 | Inpatient (IN) | payer MEDICARE, MEDICAID ==
--- NOTE | 2018-08-01 10:03 | ER Document Report ---
ED General - General Chief Complaint: Other Stated Complaint: COUGH Time Seen by Provider: 08/01/18 09:52 TRAVEL OUTSIDE OF THE [place] IN LAST 30 DAYS: No - HPI Notes: Patient is a 53-year-old male that presents to the emergency department for chief complaint of hemoptysis. Patient states last night he started coughing large blood clots out of his tracheostomy. He was placed on tracheostomy in 2004 after having respiratory failure secondary to her renal transplant. Patient denies any recent bleeding around his tracheostomy. He states he has been coughing more over the last few days. He denies fevers and chills. He is scheduled for dialysis today at 11 AM. Patient denies shortness of breath but states that he has been coughing a thick sputum and was supposed to get a sputum culture done as an outpatient this week. He denies chest pain, nausea, vomiting and lightheadedness Past Medical History: CKD Past Surgical History: Renal transplant, left upper extremity AV fistula Social History: Reviewed in chart Family History: Reviewed and noncontributory for presenting illness Allergies: Reviewed, see documented allergy list. REVIEW OF SYSTEMS: CONSTITUTIONAL : No fever No chills No diaphoresis No recent illness EENT: No vision changes congestion No sore throat CARDIOVASCULAR: No chest pain No palpitations RESPIRATORY: No shortness of breath cough difficulty breathing GASTROINTESTINAL: No abdominal pain No nausea No vomiting No diarrhea GENITOURINARY: No dysuria No hematuria No difficulty urinating MUSCULOSKELETAL: No back pain No leg pain No arm pain SKIN: No rashes No lesions LYMPHATIC: No swollen, enlarged glands. NEUROLOGICAL: No lightheadedness No headache No weakness No paresthesias PSYCHIATRIC: No anxiety No depression PHYSICAL EXAMINATION: Vital signs reviewed, nursing noted reviewed. GENERAL: Well-appearing, well-nourished and in no acute distress. HEAD: Atraumatic, normocephalic. EYES: Eyes appear normal, extraocular movements intact, sclera anicteric, conjunctiva are normal. ENT: nares patent, oropharynx clear without exudates. Moist mucous membranes. NECK: Trachea midline, clean, dry and intact with no active bleeding or dried blood around it. No neck crepitus. Normal range of motion, supple without lymphadenopathy LUNGS: Breath sounds clear to auscultation bilaterally and equal. No wheezes rales or rhonchi. Mild tachypnea and mild accessory muscle use. HEART: Regular rate and rhythm without murmurs ABDOMEN: Soft, nontender, normoactive bowel sounds. No rebound, guarding, or ri gidity. No masses appreciated. EXTREMITIES: Nontender, good range of motion NEUROLOGICAL: Left upper extremity AV fistula normal bruit and thrill, no focal neurological deficits. Moves all extremities spontaneously Motor and sensory grossly intact on exam. PSYCH: Normal mood, normal affect. SKIN: Warm, Dry, normal turgor, no rashes or lesions noted on exposed skin - Related Data Allergies/Adverse Reactions: No Known Allergies Allergy (Verified 07/27/18 14:36) Past Medical History - Social History Smoking Status: Unknown if Ever Smoked Chew tobacco use (# tins/day): No Frequency of alcohol use: None Drug Abuse: None Family History: Reviewed & Not Pertinent, Hypertension Patient has suicidal ideation: No Patient has homicidal ideation: No - Past Medical History Cardiac Medical History: Reports: Hx Atrial Fibrillation, Hx Congestive Heart Failure, Hx Hypertension Denies: Hx Coronary Artery Disease, Hx Heart Attack, Hx Hypercholesterolemia, Hx Peripheral Vascular Disease, Hx Pulmonary Embolism, Hx Heart Murmur Pulmonary Medical History: Reports: Hx Asthma - Trach, Hx Sleep Apnea Denies: Hx Bronchitis, Hx COPD, Hx Pneumonia, Hx Respiratory Failure, Hx Tuberculosis Neurological Medical History: Reports: Hx Migraine. Denies: Hx Cerebrovascular Accident, Hx Seizures Renal/ Medical History: Reports: Hx End Stage Renal Disease - S/P transplant, Hx Hemodialysis. Denies: Hx Peritoneal Dialysis Malignancy Medical History: Denies Hx Lung Cancer Musculoskeletal Medical History: Reports Hx Arthritis Psychiatric Medical History: Reports: Hx Anxiety Past Surgical History: Reports: Hx Herniorrhaphy, Hx Kidney (Renal Surgery) - left kidney transplant, Hx Tonsillectomy, Hx Vascular Surgery - Right arm graft for dialysis, Other - Tracheostomy. Denies: Hx Appendectomy, Hx Bowel Surgery, Hx Cholecystectomy, Hx Coronary Artery Bypass Graft, Hx Gastric Bypass Surgery, Hx Pacemaker - Immunizations Immunizations up to date: Yes Hx Diphtheria, Pertussis, Tetanus Vaccination: Yes Physical Exam - Vital signs Vitals: Pulse Ox 94 08/01/18 09:25 Course - Re-evaluation Re-evalutation: 08/01/18 10:02 Vitals reviewed. Nursing notes reviewed. Patient is on tracheostomy collar and oxygenating in the 90s. He is mildly tachypneic but in no acute distress. Patient does wear oxygen as needed at home and while he is sleeping. 08/01/18 12:23 Patient chest x-ray shows pulmonary vascular congestion likely related to his lack of dialysis. I discussed patient's care with Dr. Arrington who reports he does have a history of pulmonary embolism. CTA chest will be ordered to further investigate patient's complaint of hemoptysis. He has a stable hemoglobin. Patient will be admitted for further care. Chest X-Ray 08/01/18 09:59 IMPRESSION: Fluid overload or pulmonary edema pattern 08/01/18 14:10 Patient's care was discussed with Dr. Brunner who is arranging for him to receive dialysis today. Laboratory 08/01/18 08/01/18 08/01/18 11:07 11:10 11:17 WBC 4.4 RBC 4.18 L Hgb 12.1 L Hct 37.0 L MCV 89 MCH 28.9 MCHC 32.7 RDW 15.7 H Plt Count 168 Seg Neutrophils % 53.9 Lymphocytes % 23.6 Monocytes % 14.5 H Eosinophils % 6.4 H Basophils % 1.6 Absolute Neutrophils 2.4 Absolute Lymphocytes 1.0 Absolute Monocytes 0.6 Absolute Eosinophils 0.3 Absolute Basophils 0.1 PT INR Sodium 141.1 Potassium 4.4 Chloride 102 Carbon Dioxide 25 Anion Gap 14 BUN 57 H Creatinine 20.22 H Est GFR ( Amer) 3 L Est GFR (Non-Af Amer) 2 L Glucose 89 Calcium 8.6 Creatine Kinase 662 H Troponin I 08/01/18 08/01/18 11:17 11:17 WBC RBC Hgb Hct MCV MCH MCHC RDW Plt Count Seg Neutrophils % Lymphocytes % Monocytes % Eosinophils % Basophils % Absolute Neutrophils Absolute Lymphocytes Absolute Monocytes Absolute Eosinophils Absolute Basophils PT 14.2 INR 1.04 Sodium Potassium Chloride Carbon Dioxide Anion Gap BUN Creatinine Est GFR ( Amer) Est GFR (Non-Af Amer) Glucose Calcium Creatine Kinase Troponin I 0.031 - Vital Signs Vital signs: Temp Pulse Resp BP Pulse Ox 98.2 F 29 H 133/82 H 96 08/01/18 09:51 08/01/18 13:00 08/01/18 12:01 08/01/18 13:00 - Laboratory Result Diagrams: 08/01/18 11:17 08/01/18 11:07 Laboratory results interpreted by me: 08/01/18 08/01/18 08/01/18 11:07 11:10 11:17 RBC 4.18 L Hgb 12.1 L Hct 37.0 L RDW 15.7 H Monocytes % 14.5 H Eosinophils % 6.4 H BUN 57 H Creatinine 20.22 H Est GFR ( Amer) 3 L Est GFR (Non-Af Amer) 2 L Creatine Kinase 662 H - EKG Interpretation by Me Additional EKG results interpreted by me: 08/01/18 11:06 Interpreted by myself 1045: Atrial fibrillation, rate 88, normal axis, no ectopy, no STEMI Procedures - Additional Procedures IV insertion Time performed: 13:00 Additional Procedures: IV insertion - [id number] ultrasound used at bedside for IV insertion. Linear probe utilized. 2 IVs were placed in proximal right upper extremity. Both IVs were 20-gauge. Good blood return from both, both flushed easily with normal saline. Secured in place with tape. No immediate complications. Patient tolerated well. Notes: 08/01/18 14:13 2 right proximal extremity IVs with ultrasound assistance Discharge - Discharge Clinical Impression: Hemoptysis, Pulmonary vascular congestion Condition: Stable Disposition: ADMITTED INPATIENT Admitting Provider: Arrington Unit Admitted: Telemetry
--- NOTE | 2018-08-01 11:27 | RADIOLOGY REPORT (SQ) ---
EXAM DESCRIPTION: CHEST 2 VIEWS COMPLETED DATE/TIME: 08/01/2018 11:12 am REASON FOR STUDY: cough COMPARISON: CT chest 06/13/2017 Two-view chest 07/30/2017, 04/29/2018 EXAM PARAMETERS: NUMBER OF VIEWS: two views TECHNIQUE: Digital Frontal and Lateral radiographic views of the chest acquired. RADIATION DOSE: NA LIMITATIONS: none FINDINGS: LUNGS AND PLEURA: Diffuse pulmonary vascular congestion and pulmonary edema, similar mitchell red to previous films. Trace fluid in the lateral costophrenic sulci. No pneumothorax. No dense lung parenchymal consolidation worrisome for pneumonia. MEDIASTINUM AND HILAR STRUCTURES: Prominent central pulmonary arteries. Left-sided central venous di alysis catheter, left brachiocephalic vein stent. HEART AND VASCULAR STRUCTURES: Stable cardiomegaly BONES: Diffusely sclerotic related to renal osteodystrophy HARDWARE: Tracheostomy tube tip in the trachea. Left-sided central venous dialysis catheter tip in t he right atrium. Left brachiocephalic vein stent. Inferior vena cava filter OTHER: No other significant finding. IMPRESSION: Fluid overload or pulmonary edema pattern TECHNICAL DOCUMENTATION: JOB ID: [id number] [employer]- All Rights Reserved Reading location - IP/workstation name: [email or web address]
[2018-08-01 11:32] LABS: INTERNATIONAL RATION (INR) 1.04; PROTHROMBIN TIME 14.2 SEC (11.4-15.4)
[2018-08-01 11:43] LABS: ABSOLUTE BASOPHILS # (AUTO) 0.1 10^3/uL (0.0-0.2); ABSOLUTE EOSINOPHILS # (AUTO) 0.3 10^3/uL (0.0-0.6); ABSOLUTE MONOCYTES (AUTO) 0.6 10^3/uL (0.1-1.4); ABSOLUTE NEUT (AUTO) 2.4 10^3/uL (1.7-8.2); BASOPHILS % (AUTO) 1.6 % (0-2); EOSINOPHILS % (AUTO) 6.4 % (0-6); HEMOGLOBIN 12.1 g/dL (13.5-17.0); LYMPHOCYTES % (AUTO) 23.6 % (13-45); MEAN CORPUSCULAR HEMOGLOBIN 28.9 pg (27.0-33.4); MEAN CORPUSCULAR HGB CONC 32.7 g/dL (32.0-36.0); MEAN CORPUSCULAR VOLUME 89 fl (80-97); MONOCYTES % (AUTO) 14.5 % (3-13); PLATELET COUNT 168 10^3/uL (150-450); RED BLOOD COUNT 4.18 10^6/uL (4.35-5.55); RED CELL DISTRIBUTION WIDTH 15.7 % (11.5-14.0); SEGMENTED NEUTROPHILS % (AUTO) 53.9 % (42-78); TOTAL CELLS COUNTED % (AUTO) 100 %; WHITE BLOOD COUNT 4.4 10^3/uL (4.0-10.5)
[2018-08-01 12:41] LABS: ANION GAP 14 (5-19); BLOOD UREA NITROGEN 57 mg/dL (7-20); CALCIUM 8.6 mg/dL (8.4-10.2); CARBON DIOXIDE 25 mmol/L (22-30); CHLORIDE 102 mmol/L (98-107); GLUCOSE 89 mg/dL (75-110); POTASSIUM 4.4 mmol/L (3.6-5.0); SODIUM 141.1 mmol/L (137-145)
[2018-08-01] MEDS ORDERED: ACETAMINOPHEN 325 MG TABLET PO PRN (13:26)
[2018-08-01] MEDS ORDERED: IPRATROPIUM/ALBUTEROL 0.5-2.5 MG/3 ML AMPUL NEB ONE (14:12)
--- NOTE | 2018-08-01 15:01 | RADIOLOGY REPORT (SQ) ---
EXAM DESCRIPTION: CTA CHEST COMPLETED DATE/TIME: 08/01/2018 2:12 pm REASON FOR STUDY: SOB, PE COMPARISON: 06/13/2017 TECHNIQUE: CT scan of the chest performed using helical scanning technique with dynamic intravenous contrast injection. Images reviewed with lung, soft tissue and bone windows. Reconstructed coronal and sagittal MPR images reviewed. Additional 3 dimensional post-processing performed to develop Maximal Intensity Projection images (DE P). All images stored on PACS. All CT scanners at this facility use dose modulation, iterative reconstruction, and/or weight based d osing when appropriate to reduce radiation dose to as low as reasonably achievable (ALARA). [facility]: Dose Right [facility]: CareDose [facility]: Dose Right [facility]: Teradose 4D [facility]: [employer] CONTRAST TYPE AND DOSE: contrast/concentration: Isovue 350.00 mg/ml; Total Contrast Delivered: 95.0 ml; Total Saline Delivered: 90.0 ml Contrast bolus optimized for the pulmonary arteries. Not diagnostic for the aorta. RENAL FUNCTION: BUN 57 creatinine 20.22 dialysis patient RADIATION DOSE: CT Rad equipment meets quality standard of care and radiation dose reduction techniq ues were employed. CTDIvol: 38.5 - 92.6 mGy. DLP: 1554 mGy-cm. . LIMITATIONS: Sub optimal opacification of the pulmonary arteries. FINDINGS: LUNGS AND PLEURA: There is ill-defined ground-glass opacification both lungs. Pulmonary v ascular congestion. AORTA AND GREAT VESSELS: No aneurysm. Contrast bolus not optimized for the aorta. HEART: No pericardial effusion. No significant coronary artery calcifications. PULMONARY ARTERIES: No obvious emboli in the main pulmonary arteries or the major segmental branches. HILAR AND MEDIASTINAL STRUCTURES: Cannot exclude mild hilar adenopathy versus small right hilar mass. HARDWARE: Tracheostomy tube left-sided catheter or venous graft. UPPER ABDOMEN: No significant findings. Limited exam. THYROID AND OTHER SOFT TISSUES: No masses. No adenopathy. BONES: No acute or significant finding. 3D MIPS: Confirm above findings. OTHER: Dilated subcutaneous veins. IMPRESSION: 1. Limited study. No obvious or significant pulmonary emboli are identified. 2. Pulmonary vascular congestion. 3. Ground-glass infiltrates may suggest mild pulmonary edema or chronic interstitial changes. 4. Cannot exclude mild right hilar adenopathy. Cannot exclude small right hilar mass. COMMENT: Quality ID # [id number]: Final reports with documentation of one or more dose reduction techniques (e.g., Automated exposure control, adjustment of the mA and/or kV according to patient size, use of iterative reconstruction technique) TECHNICAL DOCUMENTATION: JOB ID: [id number] [employer]- All Rights Reserved Reading location - IP/workstation name: [email or web address]
[2018-08-01] MEDS ORDERED: (PENDING PHARMACY ID) (Pantoprazole Sodium [Protonix] 20 MG) PO SCH (16:45)
[2018-08-01] MEDS: IPRATROPIUM/ALBUTEROL 0.5-2.5 MG/3 ML AMPUL NEB SCH ×2 (16:52→22:42)
--- NOTE | 2018-08-01 16:58 | PDOC H&P ---
History of Present Illness Admission Date/PCP: 08/01/18 12:29 JOSIAH BRANNON MD Patient complains of: Hemoptysis History of Present Illness: ANDREAS NELSON is a 53 year old male This is a 53-year-old male with end-stage renal disease status post renal transplant failed currently on hemodialysis status post tracheostomy in 2004 after the renal transplant with a history of the obstructive sleep apnea history of the asthma and history of the hypertension and the large abdominal hernia came to the emergency department with the noticed some blood clot coming out from the tracheostomy site for the last couple of days and patients came to the emergency department where patient was stable and patient also noticed a vascular congestions and patient's was short of breath and admits the dialysis as usual Patient is denied any chest pain denied any fever no chills Patient is currently see her Dr. Brunner as outpatients for hemodialysis 3 times a week Patient also see Dr. john truong for a sleep apnea asthma and bronchitis Patient at this point electrolytes was all stable but definitely need a hemodialysis due to the vascular congestions Patient was admitted in the [facility] last year for the hemoptysis and ENT and pulmonary consult was done and CT scan was done at the time was all stable Patient also have a congestive heart failure Patient had a multiple comorbidity top of that patient is a very noncompliance Past Medical History Cardiac Medical History: Reports: Atrial Fibrillation, Congestive Heart Failure, Hypertension Denies: Coronary Artery Disease, Myocardial Infarction, Hyperlipidema, Patience pheral Vascular Disease, Pulmonary Embolism, Heart Murmur Pulmonary Medical History: Reports: Asthma - Trach, Sleep Apnea Denies: Bronchitis, Chronic Obstructive Pulmonary Disease (COPD), Pneumonia, Respiratory Failure, Tuberculosis Neurological Medical History: Reports: Migraine Denies: Seizures Renal/ Medical History: Reports: End Stage Renal Disease - S/P transplant Malignancy Medical History: Denies: Lung Cancer GI Medical History: Reports: Gastroesophageal Reflux Disease Musculoskeltal Medical History: Reports: Arthritis Hematology: Reports: Anemia Past Surgical History Past Surgical History: Reports: Herniorrhaphy, Tonsillectomy, Vascular Surgery - Right arm graft for dialysis, Other - Tracheostomy Denies: Appendectomy, Cholecystectomy, Coronary Artery Bypass Graft, Gastric Bypass Surgery, Pacemaker Social History Smoking Status: Unknown if Ever Smoked Frequency of Alcohol Use: Rare Hx Recreational Drug Use: No Drugs: None Hx Prescription Drug Abuse: No Family History Family History: Reviewed & Not Pertinent, Hypertension Parental Family History Reviewed: Yes Children Family History Reviewed: Yes Sibling(s) Family History Reviewed.: Yes Medication/Allergy Home Medications: Allopurinol [Zyloprim 100 mg Tablet] 100 mg PO DAILY 08/14/16 Cetirizine HCl [Zyrtec 10 mg Tablet] 10 mg PO DAILY 08/14/16 Cinacalcet HCl [Sensipar 30 mg Tablet] 30 mg PO DAILY 08/14/16 Clopidogrel Bisulfate [Plavix 75 mg Tablet] 70 mg PO DAILY 08/14/16 Gabapentin [Neurontin 100 mg Capsule] 100 mg PO DAILY 08/14/16 Montelukast Sodium [Singulair 10 mg Tablet] 10 mg PO DAILY 08/14/16 Pantoprazole Sodium [Protonix] 20 mg PO DAILY 08/14/16 Sevelamer Carbonate [Renvela] mg PO TID 08/14/16 Vit B Comp No.3/Folic/C/Biotin [Maritza-Nikolay Rx Tablet] 1 tab PO DAILY 08/14/16 Zolpidem Tartrate [Ambien] 10 mg PO QHS 08/14/16 Digoxin [Lanoxin 0.125 mg Tablet] 0.125 mg PO Q2DAYS 04/13/17 Ranitidine HCl 150 mg PO QHS 04/13/17 Diclofenac Sodium [Voltaren] 4 gm TP QIDP PRN 08/01/18 Fluticasone Propionate [Flonase Nasal Burdett 50 Mcg/Burdett 16 gm] 1 spray NASL Q12 08/01/18 Lactulose [Constulose 10 gm/15 mL Oral Solution] 10 gm PO 08/01/18 Metoprolol Tartrate [Lopressor 25 mg Tablet] 25 mg PO Q12 08/01/18 Tiotropium Br/Olodaterol HCl [Stiolto Respimat Inhal Burdett] inh IH 08/01/18 Allergies/Adverse Reactions: No Known Allergies Allergy (Verified 07/27/18 14:36) Review of Systems Constitutional: PRESENT: weakness. ABSENT: chills, fever(s), headache(s), weight gain, weight loss Eyes: ABSENT: visual disturbances Ears: ABSENT: hearing changes Cardiovascular: PRESENT: dyspnea on exertion. ABSENT: chest pain, edema, orthropnea, palpitations Respiratory: PRESENT: dyspnea, hemoptysis, sputum. ABSENT: cough Gastrointestinal: ABSENT: abdominal pain, constipation, diarrhea, hematemesis, hematochezia, nausea, vomiting Genitourinary: ABSENT: dysuria, hematuria Musculoskeletal: ABSENT: joint swelling Integumentary: ABSENT: rash, wounds Neurological: ABSENT: abnormal gait, abnormal speech, confusion, dizziness, focal weakness, syncope Psychiatric: ABSENT: anxiety, depression, homidical ideation, suicidal ideation Endocrine: ABSENT: cold intolerance, heat intolerance, menstrual abnormalities, polydipsia, polyuria Hematologic/Lymphatic: ABSENT: easy bleeding, easy bruising, lymphadenopathy Physical Exam Vital Signs: Temp Pulse Resp BP Pulse Ox 98.2 F 29 H 133/82 H 96 08/01/18 09:51 08/01/18 13:00 08/01/18 12:01 08/01/18 13:00 Intake & Output 07/31/18 08/01/18 08/02/18 06:59 06:59 06:59 Weight 99 kg General appearance: PRESENT: mild distress, well-developed, well-nourished Head exam: PRESENT: atraumatic, normocephalic Eye exam: PRESENT: conjunctiva pink, EOMI, PERRLA. ABSENT: scleral icterus Ear exam: PRESENT: normal external ear exam Mouth exam: PRESENT: moist, tongue midline Neck exam: PRESENT: full ROM. ABSENT: carotid bruit, JVD, lymphadenopathy, thyromegaly Respiratory exam: PRESENT: decreased breath sounds Cardiovascular exam: PRESENT: RRR. ABSENT: diastolic murmur, rubs, systolic murmur Vascular exam: PRESENT: normal capillary refill GI/Abdominal exam: PRESENT: hernia, normal bowel sounds, soft. ABSENT: distende d, guarding, mass, organolmegaly, rebound, tenderness Rectal exam: PRESENT: deferred Neurological exam: PRESENT: alert, awake, oriented to person, oriented to place, oriented to time, oriented to situation, CN II-XII grossly intact. ABSENT: motor sensory deficit Psychiatric exam: PRESENT: appropriate affect, normal mood. ABSENT: homicidal ideation, suicidal ideation Skin exam: PRESENT: dry, intact, warm. ABSENT: cyanosis, rash Results Laboratory Results: 08/01/18 11:17 08/01/18 11:07 08/01/18 08/01/18 11:07 11:17 WBC 4.4 RBC 4.18 L Hgb 12.1 L Hct 37.0 L MCV 89 MCH 28.9 MCHC 32.7 RDW 15.7 H Plt Count 168 Seg Neutrophils % 53.9 Lymphocytes % 23.6 Monocytes % 14.5 H Eosinophils % 6.4 H Basophils % 1.6 Absolute Neutrophils 2.4 Absolute Lymphocytes 1.0 Absolute Monocytes 0.6 Absolute Eosinophils 0.3 Absolute Basophils 0.1 Sodium 141.1 Potassium 4.4 Chloride 102 Carbon Dioxide 25 Anion Gap 14 BUN 57 H Creatinine 20.22 H Est GFR ( Amer) 3 L Est GFR (Non-Af Amer) 2 L Glucose 89 Calcium 8.6 08/01/18 11:17 Troponin I 0.031 Impressions: Chest X-Ray 08/01/18 09:59 IMPRESSION: Fluid overload or pulmonary edema pattern Assessment & Plan - Diagnosis (1) Hemoptysis Is this a current diagnosis for this admission?: Yes Plan: Admit in IMCU We will consult the ENT for further evaluation of his tracheostomy Will get the CT angiogram to rule out the pulmonary embolism with the patient have a history of the pulmonary embolism status post IVC filter We will start the patient on IV antibiotic for possible underlying infections Consult the pulmonary (2) Pulmonary vascular congestion Is this a current diagnosis for this admission?: Yes Plan: Patient's most likely up from the heart failure due to the not getting the dialysis discussed with the nephrology range the hemodialysis today (3) Shortness of breath Is this a current diagnosis for this admission?: Yes Plan: To the above conditions (4) Congestive heart failure Qualifiers: Heart failure type: combined systolic and diastolic Heart failure chronicity: chronic Qualified Code(s): I50.42 - Chronic combined systolic (congestive) and diastolic (congestive) heart failure Is this a current diagnosis for this admission?: Yes Plan: Get the echocardiogram (5) Status post tracheostomy Is this a current diagnosis for this admission?: Yes Plan: consult the ENT for further evaluations (6) Obstructive sleep apnea Is this a current diagnosis for this admission?: Yes Plan: Continues to CPAP (7) Atrial fibrillation with RVR Is this a current diagnosis for this admission?: Yes (8) Chronic obstruct airways disease Qualifiers: COPD type: unspecified COPD Qualified Code(s): J44.9 - Chronic obstructive pulmonary disease, unspecified Is this a current diagnosis for this admission?: Yes (9) End-stage renal disease (ESRD) Is this a current diagnosis for this admission?: Yes Plan: on hd per nephrolgy (10) Left hip pain Is this a current diagnosis for this admission?: Yes Plan: order ct lt hip and pt evaution - Time Time Spent: 30 to 50 Minutes Medications reviewed and adjusted accordingly: Yes Anticipated discharge: Home Within: Other - Inpatient Certification Based on my medical assessment, after consideration of the patient's comorbidities, presenting symptoms, or acuity I expect that the services needed warrant INPATIENT care.: Yes I certify that my determination is in accordance with my understanding of Medicare's requirements for reasonable and necessary INPATIENT services [42 CFR 412.3e].: Yes Medical Necessity: Significant Comorbidiites Make Outpatient Treatment Too Risky, Need for IV Antibiotics Post Hospital Care: D/C Board Of Directors Documentation - Plan Summary Plan Summary: see order
--- NOTE | 2018-08-01 17:54 | PDOC CONSULTATION ---
Consultation Consult Date: 08/01/18 Consult reason:: Urgent hemodialysis in the presence of congestive heart failure. History of Present Illness Admission Date/PCP: 08/01/18 12:29 JOSIAH BRANNON MD History of Present Illness: ANDREAS NELSON is a 53 year old male with history of hypertension, ESRD on hemodialysis with history of severe noncompliance as he has been missing multiple hemodialysis treatments over the last couple of weeks was admitted with history of progressive shortness of breath on exertion culminating in orthopnea. Besides the shortness of breath he is also been having a cough with intermittent hemoptysis.He does not recall when was his last missed treatment. No complaints of any chest pains, fever or chills. He mentions about smelly tracheal aspirate.Evaluations in the ER revealed that the patient was in congestive heart failure.He has a tracheostomy and has been put on tracheal support with relief.Patient denies any history of chest pains or coughing of fever and chills. He is currently being seen while on undergoing dialysis. He is feels he is getting better. Labs and medications were reviewed with the patient.Besides the above-mentioned issues he has got sleep apnea, noncompliant with diet, medications and treatments. Past Medical History Cardiac Medical History: Reports: Atrial Fibrillation, Hypertension-primary Denies: Coronary Artery Disease, Heart Murmur, Hyperlipidemia, Myocardial Infarction, Peripheral Vascular Disease, Pulmonary Embolism Pulmonary Medical History: Reports: Asthma - Trach, Sleep Apnea Denies: Bronchitis, Chronic Obstructive Pulmonary Disease (COPD), Pneumonia, Respiratory Failure, Tuberculosis Neurological Medical History: Reports: Migraine Denies: Seizures Renal/ Medical History: Reports: End Stage Renal Disease - S/P transplant, Secondary Hyperparathyroidism Malignancy Medical History: Denies: Lung Cancer GI Medical History: Reports: Gastroesophageal Reflux Disease Musculoskeltal Medical History: Reports: Arthritis Hematology Medical History: Reports Anemia of Chronic Kidney Disease Past Surgical History Past Surgical History: Reports: Herniorrhaphy, Tonsillectomy, Vascular Surgery - Right arm graft for dialysis, Other - Tracheostomy Denies: Appendectomy, Cholecystectomy, Coronary Artery Bypass Graft, Gastric Bypass Surgery, Pacemaker Social History Smoking Status: Unknown if Ever Smoked Frequency of Alcohol Use: Rare Hx Recreational Drug Use: No Drugs: None Hx Prescription Drug Abuse: No Family History Parental Family History Reviewed: Yes - History of CKD and his mother. Children Family History Reviewed: No Sibling(s) Family History Reviewed.: No Medication/Allergy Home Medications: Cetirizine HCl [Zyrtec 10 mg Tablet] 10 mg PO DAILY 08/14/16 Cinacalcet HCl [Sensipar 30 mg Tablet] 30 mg PO DAILY 08/14/16 Clopidogrel Bisulfate [Plavix 75 mg Tablet] 75 mg PO DAILY 08/14/16 Montelukast Sodium [Singulair 10 mg Tablet] 10 mg PO DAILY 08/14/16 Pantoprazole Sodium [Protonix] 20 mg PO DAILY 08/14/16 RX: Allopurinol [Zyloprim 100 mg Tablet] 100 mg PO DAILY 08/14/16 RX: Gabapentin [Neurontin 100 mg Capsule] 100 mg PO DAILY 08/14/16 Sevelamer Carbonate [Renvela] 800 mg PO TID 08/14/16 Vit B Comp No.3/Folic/C/Biotin [Maritza-Nikolay Rx Tablet] 1 tab PO DAILY 08/14/16 Zolpidem Tartrate [Ambien] 10 mg PO QHS 08/14/16 Digoxin [Lanoxin 0.125 mg Tablet] 0.125 mg PO MOWEFR@10 04/13/17 RX: Ranitidine HCl 150 mg PO QHS 04/13/17 Calcium Carbonate [Tums Chewable 500 mg Tab.chew] 1,000 mg PO QHS 08/01/18 Diclofenac Sodium [Voltaren] 4 gm TP QIDP PRN 08/01/18 Fluticasone Propionate [Flonase Nasal Bison 50 Mcg/Bison 16 gm] 1 spray NASL Q12HP PRN 08/01/18 Lactulose [Constulose 10 gm/15 mL Oral Solution] 10 gm PO BID 08/01/18 Metoprolol Tartrate [Lopressor 25 mg Tablet] 25 mg PO Q12 08/01/18 Tiotropium Br/Olodaterol HCl [Stiolto Respimat Inhal Bison] 1 inh IH DAILY 08/01/18 Allergies/Adverse Reactions: No Known Allergies Allergy (Verified 07/27/18 14:36) Review of Systems Constitutional: PRESENT: fatigue, weakness. ABSENT: fever(s), headache(s), night sweats Nose, Mouth, and Throat: ABSENT: mouth pain, sore throat Cardiovascular: PRESENT: dyspnea on exertion, edema, orthropnea. ABSENT: chest pain, palpitations Respiratory: PRESENT: cough, dyspnea, hemoptysis Gastrointestinal: PRESENT: nausea. ABSENT: abdominal pain, coffee ground emesis, constipation, diarrhea, dysphagia, heartburn, hematemesis, hematochezia Integumentary: ABSENT: erythema, lesions, pruritus, rash Neurological: ABSENT: abnormal speech, confusion, focal weakness, frequent falls Endocrine: ABSENT: heat intolerance, polydipsia Hematologic/Lymphatic: ABSENT: easy bruising, lymphadenopathy Physical Exam Vital Signs: Temp Pulse Resp BP Pulse Ox 98.2 F 87 18 121/73 98 08/01/18 09:51 08/01/18 14:20 08/01/18 16:22 08/01/18 16:22 08/01/18 16:22 Intake & Output 07/31/18 08/01/18 08/02/18 06:59 06:59 06:59 Weight 99 kg General appearance: PRESENT: mild distress Eye exam: PRESENT: conjunctiva pink, EOMI, PERRLA. ABSENT: nystagmus Mouth exam: PRESENT: moist, neck supple Neck exam: ABSENT: lymphadenopathy, meningismus, tenderness, thyromegaly, tracheal deviation Respiratory exam: PRESENT: clear to auscultation cyndie, crackles, decreased breath sounds, prolonged expiratory phas Cardiovascular exam: PRESENT: +S1, +S2 GI/Abdominal exam: PRESENT: distended - Large umbilical hernia., normal bowel sounds, soft. ABSENT: organomegaly, tenderness Extremities exam: PRESENT: pedal edema Neurological exam: PRESENT: alert, awake, oriented to person, oriented to place Psychiatric exam: PRESENT: anxious Skin exam: ABSENT: cyanosis, erythema, mottled, rash Results Laboratory Results: 08/01/18 11:17 08/01/18 11:07 08/01/18 08/01/18 11:07 11:17 WBC 4.4 RBC 4.18 L Hgb 12.1 L Hct 37.0 L MCV 89 MCH 28.9 MCHC 32.7 RDW 15.7 H Plt Count 168 Seg Neutrophils % 53.9 Lymphocytes % 23.6 Monocytes % 14.5 H Eosinophils % 6.4 H Basophils % 1.6 Absolute Neutrophils 2.4 Absolute Lymphocytes 1.0 Absolute Monocytes 0.6 Absolute Eosinophils 0.3 Absolute Basophils 0.1 Sodium 141.1 Potassium 4.4 Chloride 102 Carbon Dioxide 25 Anion Gap 14 BUN 57 H Creatinine 20.22 H Est GFR ( Amer) 3 L Est GFR (Non-Af Amer) 2 L Glucose 89 Calcium 8.6 08/01/18 08/01/18 08/01/18 11:10 11:10 11:17 Creatine Kinase 662 H CK-MB (CK-2) 11.30 H Troponin I Cancelled 0.031 Impressions: Chest X-Ray 08/01/18 09:59 IMPRESSION: Fluid overload or pulmonary edema pattern Chest/Abdomen CTA 08/01/18 12:20 IMPRESSION: 1. Limited study. No obvious or significant pulmonary emboli are identified. 2. Pulmonary vascular congestion. 3. Ground-glass infiltrates may suggest mild pulmonary edema or chronic interstitial changes. 4. Cannot exclude mild right hilar adenopathy. Cannot exclude small right hi lar mass. Assessment & Plan - Diagnosis (1) Congestive heart failure Qualifiers: Heart failure type: combined systolic and diastolic Heart failure chronicity: chronic Qualified Code(s): I50.42 - Chronic combined systolic (congestive) and diastolic (congestive) heart failure Is this a current diagnosis for this admission?: Yes Plan: Patient is in overt congestive heart failure. He is getting relief as he is undergoing emergent hemodialysis. Discuss compliance with him at length about diet and not missing hemodialysis treatments. (2) End-stage renal disease (ESRD) Is this a current diagnosis for this admission?: Yes Plan: Patient currently undergoing dialysis without any issues. Vital signs are stable. Is being supervised to ensure safe and smooth procedure. Plan to remove approximately 5 L of fluid as tolerated. Discuss orders with the treating dialysis nurse. (3) Hemoptysis Is this a current diagnosis for this admission?: Yes Plan: Likely from congestive heart failure. However note the ER physicians have done a CT angiogram which was negative for any pulmonary embolism. (4) Obstructive sleep apnea Is this a current diagnosis for this admission?: Yes Plan: Will need CPAP. (5) Status post tracheostomy Is this a current diagnosis for this admission?: Yes Plan: Mentioned about fall order tracheal aspirate. Apparently it has been sent for cultures. Would recommend starting p.o. antibiotics in the meanwhile. (6) Atrial fibrillation with RVR Is this a current diagnosis for this admission?: Yes Plan: Monitor.
[2018-08-01] MEDS ORDERED: (PENDING PHARMACY ID) (Sevelamer Carbonate [Renvela] 800 MG) PO SCH (18:00)
[2018-08-01] MEDS ORDERED: (PENDING PHARMACY ID) (Lactulose [Constulose 10 Gm/15 Ml Oral Solution] 10 GM) PO SCH (18:00)
[2018-08-01 18:05] LABS: CREATINE KINASE MB 10.8 ng/mL (<4.55)
[2018-08-01 18:12] LABS: TROPONIN I 0.041 ng/mL
--- NOTE | 2018-08-01 20:16 | RADIOLOGY REPORT (SQ) ---
EXAM DESCRIPTION: CT LOWER EXTREMITY WITHOUT IV CONTRAST COMPLETED DATE/TME: 08/01/2018 00:00 CLINICAL HISTORY: 53 years, Male, lt hip pain COMPARISON: Plain films 07/27/2018. TECHNIQUE: 386 Images stored on PACS. All CT scanners at this facility use dose modulation, iterative reconstruction, and/or weight based dosing when appropriate to reduce radiation dose to as low as reasonably achievable (ALARA). [facility]: Dose Right [facility]: CareDose [facility]: Dose Right [facility]: Teradose 4D [facility]: Hitpost LIMITATIONS: None. FINDINGS: Limited evaluation of intrapelvic structures shows extensive atheromatous changes. Well-defined lucency of the femoral neck region likely reflecting bone cyst. Negative for acute fracture or dislocation. Degenerative changes of the lower lumbar spine. Surrounding myofascial planes are preserved. No significant degenerative changes of the left hip. Somewhat heterogeneous appearance to the bone marrow may reflect chronic metabolic disease, particularly given patient's history of renal failure.. IMPRESSION: No acute osseous abnormality or significant degenerative changes. Probable benign bone cyst of the left femoral neck region. Degenerative changes lower lumbar spine. Extensive vascular calcifications. TECHNICAL DOCUMENTATION: Quality ID # 436: Final reports with documentation of one or more dose reduction techniques (e.g., Automated exposure control, adjustment of the mA and/or kV according to patient size, use of iterative reconstruction technique) copyright 2011 [employer]- All Rights Reserved
[2018-08-01] MEDS ORDERED: (PENDING PHARMACY ID) (Zolpidem Tartrate [Ambien] 10 MG) PO SCH (22:00)
[2018-08-01] MEDS ORDERED: (PENDING PHARMACY ID) (Ranitidine Hcl [Ranitidine Hcl] 150 MG) PO SCH (22:00)
[2018-08-01] MEDS: CEFEPIME 1 GM/D5W RTU 1 GM/50 ML RTUPB IV SCH (23:09)
[2018-08-02] MEDS: FAMOTIDINE 20 MG TABLET PO SCH ×2 (00:52→21:48)
[2018-08-02] MEDS: METOPROLOL TARTRATE 25 MG TABLET PO SCH ×3 (00:52→21:48)
[2018-08-02] MEDS: DOCUSATE SODIUM 100 MG CAPSULE PO SCH ×3 (00:52→18:53)
[2018-08-02] MEDS: FLUTICASONE NASAL SPRAY 50 MCG/SPRY 120 SPRAY/16 GM NASL SCH ×3 (00:53→21:47)
[2018-08-02] MEDS: ZOLPIDEM TARTRATE 5 MG TABLET PO SCH ×2 (00:53→21:48)
[2018-08-02] MEDS: CEFEPIME 1 GM/D5W RTU 1 GM/50 ML RTUPB IV SCH (00:56)
[2018-08-02 01:01] LABS: CREATINE KINASE MB 10.1 ng/mL (<4.55); TROPONIN I 0.041 ng/mL
[2018-08-02] MEDS: LANSOPRAZOLE 15 MG TAB.RAP.DR PO SCH (05:40)
[2018-08-02 06:24] LABS: HEMATOCRIT 37.2 % (37.9-51.0); HEMOGLOBIN 12.1 g/dL (13.5-17.0); MEAN CORPUSCULAR HEMOGLOBIN 28.8 pg (27.0-33.4); MEAN CORPUSCULAR HGB CONC 32.6 g/dL (32.0-36.0); MEAN CORPUSCULAR VOLUME 88 fl (80-97); PLATELET COUNT 134 10^3/uL (150-450); RED CELL DISTRIBUTION WIDTH 15.6 % (11.5-14.0); WHITE BLOOD COUNT 3.1 10^3/uL (4.0-10.5)
[2018-08-02 06:44] LABS: ANION GAP 9 (5-19); CALCIUM 8.7 mg/dL (8.4-10.2); CARBON DIOXIDE 31 mmol/L (22-30); CHLORIDE 100 mmol/L (98-107); DIGOXIN 0.44 ng/mL (0.8-2.0); GLUCOSE 104 mg/dL (75-110); POTASSIUM 4.4 mmol/L (3.6-5.0); SODIUM 140.2 mmol/L (137-145)
[2018-08-02 06:50] LABS: ABSOLUTE LYMPHOCYTES# (MANUAL) 0.8 10^3/uL (0.5-4.7); ABSOLUTE MONOCYTES # (MANUAL) 0.4 10^3/uL (0.1-1.4); ABSOLUTE NEUTROPHILS# (MANUAL) 1.6 10^3/uL (1.7-8.2); BASOPHILS % (MANUAL) 0 % (0-2); EOSINOPHILS % (MANUAL) 8 % (0-6); LYMPHOCYTES % (MANUAL) 27 % (13-45); MONOCYTES % (MANUAL) 14 % (3-13); SEGMENTED NEUTROPHILS % (MAN) 51 % (42-78); TOTAL CELLS COUNTED 100
[2018-08-02 06:51] LABS: ANISOCYTOSIS SLIGHT; OVALOCYTES 1+; PLATELET COMMENT ADEQUATE; POIKILOCYTOSIS 1+; SCHISTOCYTES 1+
[2018-08-02 06:59] LABS: BLOOD UREA NITROGEN 33 mg/dL (7-20)
[2018-08-02] MEDS ORDERED: ACETAMINOPHEN 325 MG TABLET PO PRN (08:05)
--- NOTE | 2018-08-02 08:05 | EKG REPORT ---
SEVERITY:- ABNORMAL ECG - ATRIAL FIBRILLATION NONSPECIFIC T ABNORMALITIES, LATERAL LEADS : Confirmed by: Anusha Rush MD 02-Aug-2018 08:05:17
[2018-08-02] MEDS: IPRATROPIUM/ALBUTEROL 0.5-2.5 MG/3 ML AMPUL NEB SCH ×3 (09:13→20:27)
[2018-08-02] MEDS ORDERED: [UNRECOGNIZED DRUG - OTHER] IH SCH ×2 (10:00)
[2018-08-02] MEDS ORDERED: TIOTROPIUM BR IH SCH ×2 (10:00)
[2018-08-02] MEDS ORDERED: CETIRIZINE 10 MG TABLET PO SCH (10:00)
[2018-08-02] MEDS ORDERED: OLODATEROL HCL IH SCH ×2 (10:00)
[2018-08-02] MEDS: LACTULOSE SYRUP 20 GM/30 ML UDCUP PO SCH ×2 (11:08→18:53)
[2018-08-02] MEDS: TRAMADOL HCL 50 MG TABLET PO SCH ×2 (11:09→21:48)
[2018-08-02] MEDS: SEVELAMER HCL 800 MG TABLET PO SCH ×3 (11:10→18:53)
[2018-08-02] MEDS: ALLOPURINOL 100 MG TABLET PO SCH (11:10)
[2018-08-02] MEDS: MONTELUKAST SODIUM 10 MG TABLET PO SCH (11:10)
[2018-08-02] MEDS: GABAPENTIN 100 MG CAPSULE PO SCH (11:10)
[2018-08-02] MEDS: CETIRIZINE 5 MG TABLET PO SCH (11:11)
[2018-08-02] MEDS: CINACALCET HCL 30 MG TABLET PO SCH (11:11)
[2018-08-02] MEDS: FLUCONAZOLE 100 MG TABLET PO SCH (11:11)
--- NOTE | 2018-08-02 13:40 | PDOC PROGRESS REPORT ---
Subjective Progress Note for:: 08/02/18 Subjective:: Patient is currently doing well except still ongoing problem in the left hip and patient had a CT scan of the left hip was done which negative for any acute fracture Patient's denied any more blood Patient's denied any chest pain to than any shortness of the breath Patient is currently lying in the bed no acute distress Reason For Visit: SOB/HEMOPTYSIS Physical Exam Vital Signs: Temp Pulse Resp BP Pulse Ox 98.8 F 90 20 107/40 L 97 08/02/18 11:07 08/02/18 11:07 08/02/18 11:07 08/02/18 11:07 08/02/18 12:00 Intake & Output 08/01/18 08/02/18 08/03/18 06:59 06:59 06:59 Intake Total 527 354 Output Total 4100 Balance -3573 354 Weight 99 kg General appearance: PRESENT: no acute distress, well-developed, well-nourished Head exam: PRESENT: atraumatic, normocephalic Eye exam: PRESENT: conjunctiva pink, EOMI, PERRLA. ABSENT: scleral icterus Ear exam: PRESENT: normal external ear exam Mouth exam: PRESENT: moist, tongue midline Neck exam: PRESENT: full ROM. ABSENT: carotid bruit, JVD, lymphadenopathy, thyromegaly Additional comments: Tracheostomy site is intact Respiratory exam: PRESENT: decreased breath sounds Cardiovascular exam: PRESENT: RRR. ABSENT: diastolic murmur, rubs, systolic murmur Vascular exam: PRESENT: normal capillary refill GI/Abdominal exam: PRESENT: hernia, normal bowel sounds, soft. ABSENT: distended, guarding, mass, organolmegaly, rebound, tenderness Rectal exam: PRESENT: deferred Extremities exam: ABSENT: pedal edema Neurological exam: PRESENT: alert, awake, oriented to person, oriented to place, oriented to time, oriented to situation, CN II-XII grossly intact. ABSENT: motor sensory deficit Psychiatric exam: PRESENT: appropriate affect, normal mood. ABSENT: homicidal ideation, suicidal ideation Skin exam: PRESENT: dry, intact, warm. ABSENT: cyanosis, rash Results Laboratory Results: 08/02/18 05:13 08/02/18 05:13 08/02/18 08/02/18 05:13 05:13 WBC 3.1 L RBC 4.20 L Hgb 12.1 L Hct 37.2 L MCV 88 MCH 28.8 MCHC 32.6 RDW 15.6 H Plt Count 134 L Seg Neutrophils % Not Reportable Lymphocytes % Not Reportable Monocytes % Not Reportable Eosinophils % Not Reportable Basophils % Not Reportable Absolute Neutrophils Not Reportable Absolute Lymphocytes Not Reportable Absolute Monocytes Not Reportable Absolute Eosinophils Not Reportable Absolute Basophils Not Reportable Sodium 140.2 Potassium 4.4 Chloride 100 Carbon Dioxide 31 H Anion Gap 9 BUN 33 H D Creatinine 11.76 H Est GFR ( Amer) 6 L Est GFR (Non-Af Amer) 5 L Glucose 104 Calcium 8.7 08/01/18 08/01/18 08/01/18 11:10 11:10 11:17 Creatine Kinase 662 H CK-MB (CK-2) 11.30 H Troponin I Cancelled 0.031 08/01/18 08/01/18 08/02/18 17:15 17:15 00:18 Creatine Kinase 569 H 568 H CK-MB (CK-2) 10.80 H Troponin I 0.041 08/02/18 00:18 Creatine Kinase CK-MB (CK-2) 10.10 H Troponin I 0.041 Impressions: Lower Extremity CT 08/01/18 00:00 IMPRESSION: No acute osseous abnormality or significant degenerative changes. Probable benign bone cyst of the left femoral neck region. Degenerative changes lower lumbar spine. Extensive vascular calcifications. TECHNICAL DOCUMENTATION: Quality ID # 436: Final reports with documentation of one or more dose reduction techniques (e.g., Automated exposure control, adjustment of the mA and/or kV according to patient size, use of iterative reconstruction technique) copyright 2011 [employer]- All Rights Reserved Chest X-Ray 08/01/18 09:59 IMPRESSION: Fluid overload or pulmonary edema pattern Chest/Abdomen CTA 08/01/18 12:20 IMPRESSION: 1. Limited study. No obvious or significant pulmonary emboli are identified. 2. Pulmonary vascular congestion. 3. Ground-glass infiltrates may suggest mild pulmonary edema or chronic interstitial changes. 4. Cannot exclude mild right hilar adenopathy. Cannot exclude small right hilar mass. Assessment & Plan - Diagnosis (1) Hemoptysis Is this a current diagnosis for this admission?: Yes Plan: Clear all resolved hold the Plavix (2) Pulmonary vascular congestion Is this a current diagnosis for this admission?: Yes Plan: Hemodialysis doing well (3) Shortness of breath Is this a current diagnosis for this admission?: Yes Plan: [place] all stable (4) Congestive heart failure Qualifiers: Heart failure type: combined systolic and diastolic Heart failure chronicit y: chronic Qualified Code(s): I50.42 - Chronic combined systolic (congestive) and diastolic (congestive) heart failure Is this a current diagnosis for this admission?: Yes Plan: Get the echocardiogram (5) Status post tracheostomy Is this a current diagnosis for this admission?: Yes Plan: Wait for the ENT for further evaluations (6) Obstructive sleep apnea Is this a current diagnosis for this admission?: Yes Plan: Continues to CPAP (7) Atrial fibrillation with RVR Is this a current diagnosis for this admission?: Yes Plan: Clear all stable (8) Chronic obstruct airways disease Qualifiers: COPD type: unspecified COPD Qualified Code(s): J44.9 - Chronic obstructive pulmonary disease, unspecified Is this a current diagnosis for this admission?: Yes (9) End-stage renal disease (ESRD) Is this a current diagnosis for this admission?: Yes Plan: on hd per nephrolgy (10) Left hip pain Is this a current diagnosis for this admission?: Yes Plan: Get the physical therapy evaluations - Time Time Spent with patient: 15-24 minutes Medications reviewed and adjusted accordingly: Yes Anticipated discharge: Acute Rehab Within: Other - Plan Summary Plan Summary: Continues to current medication
--- NOTE | 2018-08-02 14:36 | CONSULTATION REPORT E ---
Consultation Report NAME: ANDREAS NELSON : 1965 AGE: 53Y DATE: 08/01/2018 433 A TO: SHAYNE RESENDEZ D.O. FROM: CHRISTIAN ARRINGTON M.D. Requesting Physician PRIMARY CARE PROVIDER: Christian Arrington MD CHIEF COMPLAINT: Patient complaint of hemoptysis. HISTORY OF PRESENTING ILLNESS: This is a 53-year-old -[place] male with end-stage renal disease, status post renal transplant that failed and is on hemodialysis. The patient complained of the past 2 days with dark blood clots and mild hemoptysis/coughing out bright red blood from his tracheostomy tube. He only has a distant history of this occurring before. The patient underwent a tracheostomy in 2004 after his renal transplant, as he is also with a history of severe obstructive sleep apnea and asthma. The patient, on arrival to the emergency room, was evaluated, with no active bleeding noted. The ENT service was consulted for flexible fiberoptic evaluation to rule out upper airway/tracheostomy/tracheal/lower airway bleeding. The patient underwent hemodialysis while in the emergency room setting. He is dialyzed 3 days per week. The patient also notes that over the past month he has had increased tracheal secretions. The patient last saw an ENT from [place] in his [place]-based office 2-3 years ago. The patient does trach care himself at home with DME supplies that are shipped to his home. He last changed his trach in 01/2018 as a self-change. The patient is currently with a #6 XLT cuffless trach and he uses a Passy-Menifee valve. The patient is followed by Dr. Brunner on an outpatient basis for hemodialysis. The patient is followed by Dr. Levi of pulmonary for sleep apnea, asthma, and bronchitis. The patient reportedly was seen in the [facility] last year for hemoptysis and was evaluated by ENT and Pulmonary Medicine, with CT imaging performed at that time and was deemed stable. However, the patient does not recall this [facility]-based evaluation or admission to that hospital. The patient is also noted to have multiple medical comorbidities and there have been compliance challenges as well. PAST MEDICAL HISTORY: 1. Cardiac medical history: Reports AFib, congestive heart failure, and hypertension. 2. Pulmonary medical history: Reports asthma, trach dependency, and obstructive sleep apnea. 3. Neurological: Reports migraine headaches. 4. Renal/: Reports end-stage renal disease, status post failed transplant, and is on hemodialysis 3 days per week as noted above. 5. Malignancy history: Denies lung cancer. 6. GI history: Reports gastroesophageal reflux disease. 7. Musculoskeletal: Reports arthritis. 8. Hematology: Reports history of anemia. PAST SURGICAL HISTORY: Reports herniorrhaphy, tonsillectomy, vascular surgery with right arm graft for dialysis, and tracheostomy in 2004. SOCIAL HISTORY: Smoking status: Never smoked. Alcohol use: Rare. Drug use: None. FAMILY HISTORY: Reviewed and not pertinent other than notable for hypertension. ALLERGIES: No known drug allergies. MEDICATIONS: Please include the patient's medication list from his inpatient record, which is extensive. REVIEW OF SYSTEMS: CONSTITUTIONAL: Present weakness. Eyes: Unremarkable. Ears: Hearing changes. CARDIOVASCULAR: Dyspnea on exertion. RESPIRATORY: Dyspnea, occasional hemoptysis. GASTROINTESTINAL: Unremarkable. GENITOURINARY: Dysuria. MUSCULOSKELETAL: Joint pain. NEUROLOGICAL: The patient uses crutches for mobility. ENDOCRINE: Unremarkable. HEMATOLOGIC/LYMPHATIC: Unremarkable. PHYSICAL EXAMINATION: VITAL SIGNS: The pulse ox ranged from 88% to the mid 90s on room air, which was also during a time period of patient evaluation with flexible endoscopy and tracheostomy tube change. Otherwise, the temperature 98.2 degrees Fahrenheit, respiratory 28, blood pressure 133/82, pulse 80. GENERAL APPEARANCE: The patient is noted to be sitting on the side of his bed eating dinner without difficulty. The patient is alert and oriented x3 and in no apparent distress. The patient is able to easily manipulate his Passy-Kaylee valve on and off his tracheostomy tube and is able to speak without difficulty with use of the valve. HEAD: Normocephalic, atraumatic. EYES: Extraocular muscles intact, with conjunctivae unremarkable. EARS: The ears are unremarkable and the bilateral external auditory canals are completely obstructed with cerumen impactions. NOSE: With moist mucous membranes, nasal septal deviation, no septal perforation, and turbinate hypertrophy is noted. MOUTH: There is poor dentition with multiple missing teeth, moist mucous membranes, tongue is midline, and there is extensive redundancy to the soft palatal tissues and the uvula is thickened and elongated. NECK: With full range of motion, supple. No lymphadenopathy or thyromegaly is noted. A #6 XLT tracheostomy tube is in normal position with no bleeding or secretions noted. RESPIRATORY/CHEST: There is normal rise and fall of the chest and there is no wheezing noted. CARDIOVASCULAR: With regular rate and rhythm, without murmur. NEUROLOGICAL: The patient is awake, alert, and oriented x3. The cranial nerves 2-12 are grossly intact. SKIN: Dry, warm, and intact. PROCEDURE: Flexible fiberoptic endoscopic exam: The verbal consent with regard to rationale for performing this exam and use of lidocaine with Afrin spray was explained in detail to the patient, which he voiced an understanding of and gave verbal consent for the procedure. Afrin with lidocaine was administered transnasally and through his tracheostomy tube. At this point, the patient underwent a flexible fiberoptic evaluation to rule out head, neck, upper airway, tracheostomy site, tracheal, and lower airway causes of hemoptysis/bleeding. On the transnasal portion of the evaluation, there was no sign of nasal polyps, masses, lesions, blood clots, or bright red blood noted. The NT/felix were clear. There was extensive redundant soft palatal tissues. There was mild to moderate base of tongue fullness noted. The OP/HP was otherwise clear. The epiglottis was unremarkable. The true vocal cords were noted to be thickened, symmetric, and mobile. There were changes consistent with acid reflux with edema, and there was no subglottic mass or lesion noted. At this point, the patient underwent a transtracheostomy tube flexible endoscopic evaluation/flexible bronchoscopy. There was no obvious source of bleeding noted. There were no masses or lesions. There was 1 scant posterior tracheal wall area of bright red blood, with no active source noted. The remaining trachea, lyly, and left and right mainstem bronchus were otherwise unremarkable. The retroflexed subglottic view was also unremarkable, with no masses or lesions or source of bleeding identified. At this point, the patient underwent a tracheostomy change with a new #6 XLT trach, uncuffed. Once the old tracheostomy tube was removed, the patient underwent a flexible endoscopic evaluation again to evaluate this time the tracheostomy tract. There was mild crust and secretions noted over the tracheal mucosa where the tube had been located. Again, there were no sources of bleeding identified. The new #6 XLT uncuffed trach was placed without difficulty followed by removal of stylet and placement of the inner cannula with Velcro collar placed without difficulty. The patient again attached to his Passy-Menifee valve and was able to speak as he had before. There were no complications throughout the endoscopic evaluations or tracheostomy tube change. The patient also tolerated these procedures without difficulty. LABORATORY DATA: White blood cell count 4.4, H and H 12 and 37, and platelet count 168. The chest x-ray with impression of fluid overload or pulmonary edema-type pattern. ASSESSMENT: The assessment as specifically related to the field of otolaryngology and reason for consultation by the patient's primary care physician: 1. Hemoptysis/upper airway bleeding. 2. Presence of a long-term tracheostomy tube. 3. Obstructive sleep apnea. 4. Chronic obstructive airway disease, unspecified COPD. 5. End-stage renal disease. 6. Bilateral complete cerumen impactions. PLAN: The patient was evaluated in the emergency department, bed #20, with complete and comprehensive examination with endoscopy and tracheostomy tube change performed, with no source of bleeding identified. The patient had a new tracheostomy tube established. The patient will be fitted with a new Passy-Kaylee valve, as the one he currently has is outdated and in need of change. The patient is being admitted by his primary care physician for further workup and observation. The patient will be established with new and ongoing ENT care with [facility] at [address] [place] [address] in [place], [place], which he voiced an understanding of and agrees with. The patient will be seen on an outpatient basis in ENT, where he can also undergo cerumen removal under microscopy, which he also voiced an understanding of. Also, recommendation of ENT is for Discharge Planning to be involved with this patient to acquire a new home suction unit that works properly and is with sufficient suction capability and is an easier model for the patient to manage, and that the patient is also with new tracheostomy tubes and inner cannulas for tracheostomy management and change as required. There is no additional workup or treatment required from an ENT standpoint and Dr. Resendez otherwise remains available as needed with regard to this patient and his care. Please call Dr. Resendez as needed for any questions or concerns. The time element for this consult is 60 minutes, with: 1[place] [address] for rule out of hemoptysis/upper airway/head and neck bleeding. 2. CPT code for tracheal/tracheostomy tube/flexible bronchoscopy. 3. CPT code for tracheostomy tube change with new tracheostomy tube placement. DICTATING PHYSICIAN: SHAYNE RESENDEZ D.O. [id number] PHY#: [id number] ID: [id number] JOB#: [id number] ACCT: [id number] cc:SHAYNE RESENDEZ D.O. >
[2018-08-02] MEDS ORDERED: CEFEPIME 1 GM/D5W RTU 1 GM/50 ML RTUPB IV SCH (22:00)
[2018-08-03] MEDS: LANSOPRAZOLE 15 MG TAB.RAP.DR PO SCH (05:12)
[2018-08-03 06:06] LABS: HEMATOCRIT 37.1 % (37.9-51.0); MEAN CORPUSCULAR HGB CONC 32.2 g/dL (32.0-36.0); MEAN CORPUSCULAR VOLUME 90 fl (80-97); PLATELET COUNT 140 10^3/uL (150-450); RED BLOOD COUNT 4.13 10^6/uL (4.35-5.55); RED CELL DISTRIBUTION WIDTH 15.7 % (11.5-14.0); WHITE BLOOD COUNT 3.5 10^3/uL (4.0-10.5)
[2018-08-03 06:23] LABS: ANION GAP 12 (5-19); BLOOD UREA NITROGEN 36 mg/dL (7-20); CALCIUM 8.2 mg/dL (8.4-10.2); CARBON DIOXIDE 28 mmol/L (22-30); CHLORIDE 100 mmol/L (98-107); GLUCOSE 88 mg/dL (75-110); POTASSIUM 4.7 mmol/L (3.6-5.0); SODIUM 139.9 mmol/L (137-145)
[2018-08-03 06:33] LABS: ABSOLUTE LYMPHOCYTES# (MANUAL) 1.3 10^3/uL (0.5-4.7); ABSOLUTE MONOCYTES # (MANUAL) 0.6 10^3/uL (0.1-1.4); ABSOLUTE NEUTROPHILS# (MANUAL) 1.4 10^3/uL (1.7-8.2); BAND NEUTROPHILS % (MANUAL) 2 % (3-5); BASOPHILS % (MANUAL) 0 % (0-2); EOSINOPHILS % (MANUAL) 5 % (0-6); LYMPHOCYTES % (MANUAL) 35 % (13-45); MONOCYTES % (MANUAL) 18 % (3-13); SEGMENTED NEUTROPHILS % (MAN) 37 % (42-78); TOTAL CELLS COUNTED 100
[2018-08-03 06:34] LABS: ANISOCYTOSIS 1+; OVALOCYTES SLIGHT; PLATELET COMMENT DECREASED; POIKILOCYTOSIS SLIGHT; TEAR DROP CELLS SLIGHT; TOXIC VACUOLATION PRESENT
[2018-08-03] MEDS: IPRATROPIUM/ALBUTEROL 0.5-2.5 MG/3 ML AMPUL NEB SCH ×2 (08:45→14:23)
[2018-08-03] MEDS ORDERED: DIGOXIN 0.125 MG TABLET PO SCH (10:00)
--- NOTE | 2018-08-03 12:13 | PDOC PROGRESS REPORT ---
Subjective Progress Note for:: 08/03/18 Reason For Visit: Patient seen today on dialysis. He is undergoing dialysis without any issues. He feels a whole lot better. Breathing is back to baseline. No further bloody tracheal aspirate. He still has some foul-smelling secretions around the tracheostomy. He admits to his previous mistakes that he has done in taking care of his tracheostomy. No complaints of any fever or chills. Labs and medications were reviewed. Physical Exam Vital Signs: Temp Pulse Resp BP Pulse Ox 97.7 F 76 20 112/64 96 08/03/18 03:47 08/03/18 08:45 08/03/18 08:45 08/03/18 03:47 08/03/18 08:45 Intake & Output 08/02/18 08/03/18 08/04/18 06:59 06:59 06:59 Intake Total 527 1174 Output Total 4100 0 Balance -3573 1174 Weight 99 kg 91.3 kg General appearance: PRESENT: no acute distress Respiratory exam: PRESENT: clear to auscultation cyndie. ABSENT: crackles Cardiovascular exam: PRESENT: +S1, +S2 GI/Abdominal exam: PRESENT: distended - Large umbilical hernia., normal bowel sounds, soft. ABSENT: organomegaly, tenderness Extremities exam: PRESENT: +1 edema Neurological exam: PRESENT: alert, awake, oriented to person, oriented to place Psychiatric exam: PRESENT: appropriate affect Focused psych exam: ABSENT: psychomotor agitation Skin exam: ABSENT: erythema, mottled, rash Results Laboratory Results: 08/03/18 04:30 08/03/18 04:30 08/03/18 08/03/18 04:30 04:30 WBC 3.5 L RBC 4.13 L Hgb 12.0 L Hct 37.1 L MCV 90 MCH 29.0 MCHC 32.2 RDW 15.7 H Plt Count 140 L Seg Neutrophils % Not Reportable Lymphocytes % Not Reportable Monocytes % Not Reportable Eosinophils % Not Reportable Basophils % Not Reportable Absolute Neutrophils Not Reportable Absolute Lymphocytes Not Reportable Absolute Monocytes Not Reportable Absolute Eosinophils Not Reportable Absolute Basophils Not Reportable Sodium 139.9 Potassium 4.7 Chloride 100 Carbon Dioxide 28 Anion Gap 12 BUN 36 H Creatinine 14.71 H Est GFR ( Amer) 4 L Est GFR (Non-Af Amer) 4 L Glucose 88 Calcium 8.2 L 08/01/18 08/01/18 08/01/18 11:10 11:10 11:17 Creatine Kinase 662 H CK-MB (CK-2) 11.30 H Troponin I Cancelled 0.031 08/01/18 08/01/18 08/02/18 17:15 17:15 00:18 Creatine Kinase 569 H 568 H CK-MB (CK-2) 10.80 H Troponin I 0.041 08/02/18 00:18 Creatine Kinase CK-MB (CK-2) 10.10 H Troponin I 0.041 Impressions: Lower Extremity CT 08/01/18 00:00 IMPRESSION: No acute osseous abnormality or significant degenerative changes. Probable benign bone cyst of the left femoral neck region. Degenerative changes lower lumbar spine. Extensive vascular calcifications. TECHNICAL DOCUMENTATION: Quality ID # [id number]: Final reports with documentation of one or more dose reduction techniques (e.g., Automated exposure control, adjustment of the mA and/or kV according to patient size, use of iterative reconstruction technique) copyright 2011 [employer]- All Rights Reserved Chest X-Ray 08/01/18 09:59 IMPRESSION: Fluid overload or pulmonary edema pattern Chest/Abdomen CTA 08/01/18 12:20 IMPRESSION: 1. Limited study. No obvious or significant pulmonary emboli are identified. 2. Pulmonary vascular congestion. 3. Ground-glass infiltrates may suggest mild pulmonary edema or chronic interstitial changes. 4. Cannot exclude mild right hilar adenopathy. Cannot exclude small right hilar mass. Assessment & Plan - Diagnosis (1) Congestive heart failure Qualifiers: Heart failure type: combined systolic and diastolic Heart failure chronicity: chronic Qualified Code(s): I50.42 - Chronic combined systolic (congestive) and diastolic (congestive) heart failure Is this a current diagnosis for this admission?: Yes Plan: Markedly improved after his urgent dialysis the other day. We will plan to remove another 3-4 L today as tolerated. Discussed with patient about compliance with diet and medications and not to miss any further dialysis treatments in the future. (2) End-stage renal disease (ESRD) Is this a current diagnosis for this admission?: Yes Plan: Patient is currently undergoing dialysis without any issues. Is being supervised to ensure safe and smooth procedure. Vital signs are stable. Plan to remove at least 3-4 L as tolerated. Orders were reviewed the treating dialysis nurse. (3) Hemoptysis Is this a current diagnosis for this admission?: Yes Plan: Probably secondary to tracheostomy site infection. He is currently on IV antibiotics which I would recommend being changed to p.o. maybe by tomorrow with the hope of discharging him home. Managed by hospitalist (4) Obstructive sleep apnea Is this a current diagnosis for this admission?: Yes Plan: As per hospitalist (5) Status post tracheostomy Is this a current diagnosis for this admission?: Yes Plan: Apparent tracheostomy site infection. Now on IV antibiotics and improving. (6) Atrial fibrillation with RVR Is this a current diagnosis for this admission?: Yes Plan: Stable.
--- NOTE | 2018-08-03 13:40 | PDOC DISCHARGE SUMMARY ---
General - Admit/Disc Date/PCP Admission Date/Primary Care Provider: 08/01/18 12:29 JOSIAH BRANNON MD Discharge Date: 08/03/18 - Discharge Diagnosis (1) Hemoptysis Is this a current diagnosis for this admission?: Yes Summary: Currently all resolved we will hold the Plavix for the next couple of weeks (2) Pulmonary vascular congestion Is this a current diagnosis for this admission?: Yes Summary: Due to the noncompliance with the dialysis currently all resolved (3) Shortness of breath Is this a current diagnosis for this admission?: Yes Summary: The above conditions currently all resolved (4) Congestive heart failure Is this a current diagnosis for this admission?: Yes Summary: Currently all resolved (5) Status post tracheostomy Is this a current diagnosis for this admission?: Yes Summary: Examined by the ENT Dr. Javier melchor outpatient (6) Obstructive sleep apnea Is this a current diagnosis for this admission?: Yes Summary: CPAP (7) Atrial fibrillation with RVR Is this a current diagnosis for this admission?: Yes Summary: All stable patient unable to take in a anticoagulations due to the multiple comorbidity with ongoing hemoptysis with the tracheal site (8) Chronic obstruct airways disease Is this a current diagnosis for this admission?: Yes (9) End-stage renal disease (ESRD) Is this a current diagnosis for this admission?: Yes Summary: Continues hemodialysis (10) Left hip pain Is this a current diagnosis for this admission?: Yes Summary: Get the physical therapy evaluations (11) Pneumonia Is this a current diagnosis for this admission?: Yes Summary: Patient is 6 sputum cultures grew up some gram-negative organism corneal bacterium As per discussed with the nephrology he will give the patient IV gentamicin is for the dialysis For a week and week start the patient on the Cipro twice a day (12) Noncompliance Is this a current diagnosis for this admission?: Yes - Additional Information Discharge Diet: Cardiac, Other (Comments) Discharge Activity: Activity As Tolerated, Balance Activity w/Rest, Weigh Daily Prescriptions: Ciprofloxacin HCl [Cipro 250 mg Tablet] 1 tab PO BID #10 tab Home Medications: Allopurinol [Zyloprim 100 mg Tablet] 100 mg PO DAILY 08/14/16 Cetirizine HCl [Zyrtec 10 mg Tablet] 10 mg PO DAILY 08/14/16 Cinacalcet HCl [Sensipar 30 mg Tablet] 30 mg PO DAILY 08/14/16 Gabapentin [Neurontin 100 mg Capsule] 100 mg PO DAILY 08/14/16 Montelukast Sodium [Singulair 10 mg Tablet] 10 mg PO DAILY 08/14/16 Pantoprazole Sodium [Protonix] 20 mg PO DAILY 08/14/16 Sevelamer Carbonate [Renvela] 800 mg PO TID 08/14/16 Vit B Comp No.3/Folic/C/Biotin [Maritza-Nikolay Rx Tablet] 1 tab PO DAILY 08/14/16 Zolpidem Tartrate [Ambien] 10 mg PO QHS 08/14/16 Digoxin [Lanoxin 0.125 mg Tablet] 0.125 mg PO MOWEFR@10 04/13/17 Ranitidine HCl 150 mg PO QHS 04/13/17 Calcium Carbonate [Tums Chewable 500 mg Tab.chew] 1,000 mg PO QHS 08/01/18 Diclofenac Sodium [Voltaren] 4 gm TP QIDP PRN 08/01/18 Fluticasone Propionate [Flonase Nasal Xenia 50 Mcg/Xenia 16 gm] 1 spray NASL Q12HP PRN 08/01/18 Lactulose [Constulose 10 gm/15 mL Oral Solution] 10 gm PO BID 08/01/18 Metoprolol Tartrate [Lopressor 25 mg Tablet] 25 mg PO Q12 08/01/18 Tiotropium Br/Olodaterol HCl [Stiolto Respimat Inhal Xenia] 1 inh IH DAILY 08/01/18 Ciprofloxacin HCl [Cipro 250 mg Tablet] 1 tab PO BID #10 tab 08/03/18 History of Present Illness History of Present Illness: ANDREAS NELSON is a 53 year old male This is a 53-year-old male with end-stage renal disease status post renal transplant failed currently on hemodialysis status post tracheostomy in 2004 after the renal transplant with a history of the obstructive sleep apnea history of the asthma and history of the hypertension and the large abdominal hernia came to the emergency department with the noticed some blood clot coming out from the tracheostomy site for the last couple of days and patients came to the emergency department where patient was stable and patient also noticed a vascular congestions and patient's was short of breath and admits the dialysis as usual Patient is denied any chest pain denied any fever no chills Patient is currently see her Dr. Brunner as outpatients for hemodialysis 3 times a week Patient also see Dr. john truong for a sleep apnea asthma and bronchitis Patient at this point electrolytes was all stable but definitely need a hemodialysis due to the vascular congestions Patient was admitted in the [facility] last year for the hemoptysis and ENT and pulmonary consult was done and CT scan was done at the time was all stable Patient also have a congestive heart failure Patient had a multiple comorbidity top of that patient is a very noncompliance Hospital Course Hospital Course: This is a 53-year-old male came to the emergency department because of the noncompliance with the dialysis for a week and patients found that shortness of the breath and vascular congestion and hemoptysis of the tracheal site The patient at this point admitting in the IMCU start the patient on IV antibiotic Patient underwent a CT angiogram which negative for PE Patient had IVC filter placed Patient at this point seen by the ENT and a scope was done was all stable and suggest to follow outpatient for regular maintenance management with a tracheostomy Patient also seen by the nephrology underwent further dialysis Patients also have a CT of the left hip was done was negative for any acute finding Patient seen by the physical therapy walk with the walker Patient is otherwise denied any hemoptysis no fever no chills Patient is remained stable back to the baseline Patient is refused to go to the rehab facility Patient is discharged home health physical therapy and a walker We hold the Plavix and further evaluate in 2 weeks Issue with the abdominal hernia which currently follow [facility] Physical Exam Vital Signs: Temp Pulse Resp BP Pulse Ox 97.7 F 76 20 112/64 100 08/03/18 03:47 08/03/18 08:45 08/03/18 08:45 08/03/18 03:47 08/03/18 13:08 Intake & Output 08/02/18 08/03/18 08/04/18 06:59 06:59 06:59 Intake Total 527 1174 Output Total 4100 0 Balance -3573 1174 Weight 99 kg 91.3 kg General appearance: PRESENT: no acute distress, well-developed, well-nourished Head exam: PRESENT: atraumatic, normocephalic Eye exam: PRESENT: conjunctiva pink, EOMI, PERRLA. ABSENT: scleral icterus Ear exam: PRESENT: normal external ear exam Mouth exam: PRESENT: moist, tongue midline Neck exam: PRESENT: full ROM. ABSENT: carotid bruit, JVD, lymphadenopathy, thyromegaly Respiratory exam: PRESENT: clear to auscultation cyndie Cardiovascular exam: PRESENT: RRR. ABSENT: diastolic murmur, rubs, systolic murmur Vascular exam: PRESENT: normal capillary refill GI/Abdominal exam: PRESENT: hernia, normal bowel sounds, soft. ABSENT: distended, guarding, mass, organolmegaly, rebound, tenderness Rectal exam: PRESENT: deferred Neurological exam: PRESENT: alert, awake, oriented to person, oriented to place, oriented to time, oriented to situation, CN II-XII grossly intact. ABSENT: motor sensory deficit Psychiatric exam: PRESENT: appropriate affect, normal mood. ABSENT: homicidal ideation, suicidal ideation Skin exam: PRESENT: dry, intact, warm. ABSENT: cyanosis, rash Results Laboratory Results: 08/03/18 04:30 08/03/18 04:30 08/03/18 08/03/18 04:30 04:30 WBC 3.5 L RBC 4.13 L Hgb 12.0 L Hct 37.1 L MCV 90 MCH 29.0 MCHC 32.2 RDW 15.7 H Plt Count 140 L Seg Neutrophils % Not Reportable Lymphocytes % Not Reportable Monocytes % Not Reportable Eosinophils % Not Reportable Basophils % Not Reportable Absolute Neutrophils Not Reportable Absolute Lymphocytes Not Reportable Absolute Monocytes Not Reportable Absolute Eosinophils Not Reportable Absolute Basophils Not Reportable Sodium 139.9 Potassium 4.7 Chloride 100 Carbon Dioxide 28 Anion Gap 12 BUN 36 H Creatinine 14.71 H Est GFR ( Amer) 4 L Est GFR (Non-Af Amer) 4 L Glucose 88 Calcium 8.2 L 08/01/18 08/01/18 08/01/18 11:10 11:10 11:17 Creatine Kinase 662 H CK-MB (CK-2) 11.30 H Troponin I Cancelled 0.031 08/01/18 08/01/18 08/02/18 17:15 17:15 00:18 Creatine Kinase 569 H 568 H CK-MB (CK-2) 10.80 H Troponin I 0.041 08/02/18 00:18 Creatine Kinase CK-MB (CK-2) 10.10 H Troponin I 0.041 Impressions: Lower Extremity CT 08/01/18 00:00 IMPRESSION: No acute osseous abnormality or significant degenerative changes. Probable benign bone cyst of the left femoral neck region. Degenerative changes lower lumbar spine. Extensive vascular calcifications. TECHNICAL DOCUMENTATION: Quality ID # [id number]: Final reports with documentation of one or more dose reduction techniques (e.g., Automated exposure control, adjustment of the mA and/or kV according to patient size, use of iterative reconstruction technique) copyright 2011 [employer]- All Rights Reserved Chest X-Ray 08/01/18 09:59 IMPRESSION: Fluid overload or pulmonary edema pattern Chest/Abdomen CTA 08/01/18 12:20 IMPRESSION: 1. Limited study. No obvious or significant pulmonary emboli are identified. 2. Pulmonary vascular congestion. 3. Ground-glass infiltrates may suggest mild pulmonary edema or chronic interstitial changes. 4. Cannot exclude mild right hilar adenopathy. Cannot exclude small right hilar mass. Qualifiers - * PATIENT BEING DISCHARGED WITH ANY OF THE FOLLOWING DIAGNOSIS: No VTE patient discharged on overlapping Therapy?: Yes Plan Time Spent: Greater than 30 Minutes - Is discharged home with home health and physical therapy Patients follow outpatient surgery for ongoing hernia issues currently all stable Patients follow outpatients nephrology get the IV anti biotic through the dialysis Patient is a very noncompliance Discussed with the patient about compliance about the regular dialysis
--- NOTE | 2018-08-03 15:17 | RADIOLOGY REPORT (SQ) ---
EXAM DESCRIPTION: CHEST 2 VIEWS COMPLETED DATE/TIME: 08/03/2018 3:00 pm REASON FOR STUDY: pnemonia COMPARISON: Two-view chest 08/01/2018 CT angio chest 08/01/2018 EXAM PARAMETERS: NUMBER OF VIEWS: two views TECHNIQUE: Digital Frontal and Lateral radiographic views of the chest acquired. RADIATION DOSE: NA LIMITATIONS: none FINDINGS: LUNGS AND PLEURA: Improved pulmonary vascular congestion and interstitial edema compared t o chest films 08/01/2018. Trace fluid in the posterior costophrenic sulci. Stable left pleural thickening. No pneumothorax. MEDIASTINUM AND HILAR STRUCTURES: No masses or contour abnormalities. HEART AND VASCULAR STRUCTURES: Stable cardiomegaly BONES: No acute findings. HARDWARE: Tracheostomy tube tip midtrachea. Left-sided central venous dialysis catheter tip in the r ight atrium. Old left brachiocephalic vein stent. IVC filter. OTHER: No other significant finding. IMPRESSION: Improved pulmonary edema pattern/fluid overload pattern compared to 08/01/2018 TECHNICAL DOCUMENTATION: JOB ID: [id number] [employer]- All Rights Reserved Reading location - IP/workstation name: [email or web address]
[2018-08-03] MEDS: SEVELAMER HCL 800 MG TABLET PO SCH (16:05)
[2018-08-03] MEDS: LACTULOSE SYRUP 20 GM/30 ML UDCUP PO SCH (16:05)
[2018-08-03] MEDS: DOCUSATE SODIUM 100 MG CAPSULE PO SCH (16:06)
[2018-08-03] MEDS: FLUTICASONE NASAL SPRAY 50 MCG/SPRY 120 SPRAY/16 GM NASL SCH (16:09)
[2018-08-03] MEDS: ALLOPURINOL 100 MG TABLET PO SCH (16:09)
[2018-08-03] MEDS: CETIRIZINE 5 MG TABLET PO SCH (16:09)
[2018-08-03] MEDS: MONTELUKAST SODIUM 10 MG TABLET PO SCH (16:09)
[2018-08-03] MEDS: CINACALCET HCL 30 MG TABLET PO SCH (16:09)
[2018-08-03] MEDS: GABAPENTIN 100 MG CAPSULE PO SCH (16:09)
[2018-08-03] MEDS: METOPROLOL TARTRATE 25 MG TABLET PO SCH (16:11)
[2018-08-03] MEDS: TRAMADOL HCL 50 MG TABLET PO SCH (16:11)
[2018-08-03] MEDS: FLUCONAZOLE 100 MG TABLET PO SCH (16:14)
[2018-08-03 16:23] VITALS: BP 116/76
== END 2018-08-03 16:55 | disposition home health service (06) | DRG 291 ==
LOC: ER 09:07 → EH 12:29 → 4S 21:24
PROVIDERS: ADMIT Family Medicine; ATTEND Family Medicine
PROC: 5A1D70Z Performance of Urinary Filtration, Intermittent, Less than 6 Hours Per Day (ICD-10-PCS; principal; 2018-08-01)
PROC: 0B21XFZ Change Tracheostomy Device in Trachea, External Approach (ICD-10-PCS; 2018-08-01)
PROC: 3E0F73Z Introduction of Anti-inflammatory into Respiratory Tract, Via Natural or Artificial Opening (ICD-10-PCS; 2018-08-01)
PROC: 02H633Z Insertion of Infusion Device into Right Atrium, Percutaneous Approach (ICD-10-PCS; 2018-08-01)
DX: I13.2 Hypertensive heart and chronic kidney disease with heart failure and with stage 5 chronic kidney disease, or end stage renal disease (principal); N18.6 End stage renal disease; J18.9 Pneumonia, unspecified organism; T86.12 Kidney transplant failure; N25.81 Secondary hyperparathyroidism of renal origin; I50.42 Chronic combined systolic (congestive) and diastolic (congestive) heart failure; J81.1 Chronic pulmonary edema; G47.33 Obstructive sleep apnea (adult) (pediatric); J44.9 Chronic obstructive pulmonary disease, unspecified; G43.909 Migraine, unspecified, not intractable, without status migrainosus; K21.9 Gastro-esophageal reflux disease without esophagitis; M19.90 Unspecified osteoarthritis, unspecified site; D63.1 Anemia in chronic kidney disease; H61.23 Impacted cerumen, bilateral; I48.2 Chronic atrial fibrillation; Z91.19 Patient's noncompliance with other medical treatment and regimen; Z79.899 Other long term (current) drug therapy; Z91.15 Patient's noncompliance with renal dialysis; Z93.0 Tracheostomy status; Z82.49 Family history of ischemic heart disease and other diseases of the circulatory system; Z84.1 Family history of disorders of kidney and ureter
CPT/HCPCS: 36415; 71046; 71275; 80048; 80162; 82550; 82553; 84484; 85025; 85610; 87040; 87070; 87077; 87186; 87205; 93005; 93010; 94640; 99285; G0257; J0692; J3490; J7620

== ENCOUNTER 2018-11-15 10:08 | Inpatient (IN) | payer MEDICARE, MEDICAID ==
--- NOTE | 2018-11-15 10:15 | ER Document Report ---
ED General - General Stated Complaint: RESPIRATORY DISTRESS Time Seen by Provider: 11/15/18 10:13 Primary Care Provider: LIGIA RAMOS MD [ACTIVE STAFF] - Follow up as needed Notes: 53-year-old male with dialysis chronic kidney disease, trach at baseline presents with altered mental status hypoxia shortness of breath unknown onset because of altered mental status last seen normal 5 days ago apparently has missed at least 3 or 4 sessions of dialysis. He says yes when asked if he is short of breath and he says no when asked me if he has chest pain. TRAVEL OUTSIDE OF THE [place] IN LAST 30 DAYS: No - Related Data Allergies/Adverse Reactions: No Known Allergies Allergy (Verified 07/27/18 14:36) Past Medical History - Social History Smoking Status: Unknown if Ever Smoked Family History: Reviewed & Not Pertinent, Hypertension - Past Medical History Cardiac Medical History: Reports: Hx Atrial Fibrillation, Hx Congestive Heart Failure, Hx Hypertension Denies: Hx Coronary Artery Disease, Hx Heart Attack, Hx Hypercholesterolemia, Hx Peripheral Vascular Disease, Hx Pulmonary Embolism, Hx Heart Murmur Pulmonary Medical History: Reports: Hx Asthma - Trach, Hx Sleep Apnea Denies: Hx Bronchitis, Hx COPD, Hx Pneumonia, Hx Respiratory Failure, Hx Tuberculosis Neurological Medical History: Reports: Hx Migraine. Denies: Hx Cerebrovascular Accident, Hx Seizures Renal/ Medical History: Reports: Hx End Stage Renal Disease - S/P transplant, Hx Hemodialysis. Denies: Hx Peritoneal Dialysis Malignancy Medical History: Denies Hx Lung Cancer GI Medical History: Reports: Hx Gastroesophageal Reflux Disease Musculoskeletal Medical History: Reports Hx Arthritis Psychiatric Medical History: Reports: Hx Anxiety, Hx Depression - mild - recent Past Surgical History: Reports: Hx Herniorrhaphy, Hx Kidney (Renal Surgery) - left kidney transplant, Hx Tonsillectomy, Hx Vascular Surgery - Right arm graft for dialysis, Other - Tracheostomy. Denies: Hx Appendectomy, Hx Bowel Surgery, Hx Cholecystectomy, Hx Coronary Artery Bypass Graft, Hx Gastric Bypass Surgery, Hx Pacemaker - Immunizations Immunizations up to date: Yes Hx Diphtheria, Pertussis, Tetanus Vaccination: Yes Review of Systems - Review of Systems Notes: REVIEW OF SYSTEMS Mental status PHYSICAL EXAMINATION General: Appears acutely ill obese and altered Head: Atraumatic, normocephalic ENT: Mouth normal, oropharynx moist, no exudates or tonsillar enlargement Eyes: Conjunctiva normal, pupils equal, lids normal Neck: No JVD, supple, no guarding, trach in place CVS: Normal rate, regular rhythm, no murmurs respiratory: Patient is on facemask and nasal cannula, has crackles and diminished breath sounds at bilateral bases GI: Nondistended, soft, no tenderness to palpation, no rebound or guarding Ext: No deformities, 1+ bilateral leg edema, normal range of motion in upper and lower ext Back: No CVA or midline TTP Skin: Skin throughout Lymphatic: No lymphadeopathy noted Neuro: Somnolent. Opens eyes to voice and answer simple questions.. Physical Exam - Vital signs Vitals: Resp Pulse Ox 14 94 11/15/18 10:19 11/15/18 10:19 Course - Re-evaluation Re-evalutation: 11/15/18 11:11 Dialysis patient presents with somnolence relative hypotension and hypoxia in the setting of missing dialysis. Likely volume overload hyperkalemia plus or minus pericardial effusion. His meds include Midrin so I presume he is usually hypotensive. Concern for volume overload so we will not give fluids at this time. EKG shows low amplitude, will check for pericardial effusion. Labs were sent. EKG change from prior. Chest x-ray shows pulmonary edema and cardiomegaly. Potassium 6.2 with elevated BUN to 72 likely the cause of the confusion. I ordered a host of medications for hyperkalemia we will do a bedside ultrasound to rule out pericardial tamponade, will consult nephrology for admission and dialysis. 11/15/18 11:53 Still somnolent after about an hour in ED but arouses easily to voice. Mild hypoxia on sleeping. X-ray shows volume overload. Have discussed with Dr. Brunner who will dialyze in the ICUalso discussed with Dr. Arrington who will admit the patient to the ICU. - Vital Signs Vital signs: Temp Pulse Resp BP Pulse Ox 97.4 F 62 10 L 117/78 94 11/15/18 10:39 11/15/18 10:35 11/15/18 11:01 11/15/18 11:01 11/15/18 11:01 - Laboratory Result Diagrams: 11/15/18 09:52 11/15/18 09:52 Laboratory results interpreted by me: 11/15/18 11/15/18 11/15/18 09:52 09:52 09:52 Hgb 12.5 L MCHC 31.8 L RDW 17.9 H Seg Neuts % (Manual) 41 L Basophils % (Manual) 3 H PT 15.7 H Sodium 145.1 H Potassium 6.2 H* BUN 76 H Creatinine 21.92 H Est GFR ( Amer) 3 L Est GFR (Non-Af Amer) 2 L Calcium 8.0 L Phosphorus 5.5 H Magnesium 3.9 H - Diagnostic Test Radiology reviewed: Image reviewed, Reports reviewed - EKG Interpretation by Me EKG shows normal: Sinus rhythm Rate: Bradycardia Rhythm: NSR [place]/QRS: IVCD When compared to previous EKG there are: Changes noted Additional EKG results interpreted by me: 11/15/18 11:11 Peak T waves, but significantly low amplitude Critical Care Note - Critical Care Note Total time excluding time spent on procedures (mins): 34 Comments: The above patient is critically ill. Not including procedures, but including direct re-evaluations, speaking with patient and/or consultants, interpreting results, and documenting, I spent the total amount of minute listed listed above on critical care time Discharge - Discharge Clinical Impression: Hyperkalemia, Volume overload Condition: Critical Disposition: ADMITTED INPATIENT Admitting Provider: Ar[facility] Unit Admitted: ICU Referrals: LIGIA RAMOS MD [ACTIVE STAFF] - Follow up as needed
[2018-11-15 10:32] LABS: HEMATOCRIT 39.4 % (37.9-51.0); HEMOGLOBIN 12.5 g/dL (13.5-17.0); MEAN CORPUSCULAR HEMOGLOBIN 28.5 pg (27.0-33.4); MEAN CORPUSCULAR HGB CONC 31.8 g/dL (32.0-36.0); MEAN CORPUSCULAR VOLUME 90 fl (80-97); PLATELET COUNT 192 10^3/uL (150-450); RED BLOOD COUNT 4.39 10^6/uL (4.35-5.55); RED CELL DISTRIBUTION WIDTH 17.9 % (11.5-14.0); WHITE BLOOD COUNT 4.3 10^3/uL (4.0-10.5)
[2018-11-15 10:49] LABS: INTERNATIONAL RATION (INR) 1.19; PROTHROMBIN TIME 15.7 SEC (11.4-15.4)
[2018-11-15 10:57] LABS: ANION GAP 19 (5-19); BLOOD UREA NITROGEN 76 mg/dL (7-20); CARBON DIOXIDE 24 mmol/L (22-30); CHLORIDE 102 mmol/L (98-107); GLUCOSE 76 mg/dL (75-110); PHOSPHORUS 5.5 mg/dL (2.5-4.5); SODIUM 145.1 mmol/L (137-145)
[2018-11-15 10:58] LABS: ABSOLUTE LYMPHOCYTES# (MANUAL) 1.8 10^3/uL (0.5-4.7); ABSOLUTE MONOCYTES # (MANUAL) 0.4 10^3/uL (0.1-1.4); BASOPHILS % (MANUAL) 3 % (0-2); EOSINOPHILS % (MANUAL) 4 % (0-6); LYMPHOCYTES % (MANUAL) 41 % (13-45); MONOCYTES % (MANUAL) 10 % (3-13); NUCLEATED RED BLOOD CELLS 5 /100 WBC (0); SEGMENTED NEUTROPHILS % (MAN) 41 % (42-78); TOTAL CELLS COUNTED 100
[2018-11-15 11:00] LABS: ANISOCYTOSIS 1+; BURR CELLS 1+; OVALOCYTES 1+; POIKILOCYTOSIS 1+; POLYCHROMASIA 1+; SCHISTOCYTES SLIGHT; TOXIC VACUOLATION PRESENT
[2018-11-15 11:01] LABS: PLATELET COMMENT ADEQUATE
--- NOTE | 2018-11-15 11:07 | RADIOLOGY REPORT (SQ) ---
EXAM DESCRIPTION: CHEST SINGLE VIEW COMPLETED DATE/TIME: 11/15/2018 10:38 am REASON FOR STUDY: SOB COMPARISON: 08/03/2018 EXAM PARAMETERS: NUMBER OF VIEWS: One view. TECHNIQUE: Single frontal radiographic view of the chest acquired. RADIATION DOSE: NA LIMITATIONS: None. FINDINGS: LUNGS AND PLEURA: No opacities, masses or pneumothorax. No pleural effusion. MEDIASTINUM AND HILAR STRUCTURES: No masses. Contour normal. HEART AND VASCULAR STRUCTURES: Cardiomegaly. No tamy pulmonary edema. BONES: No acute findings. HARDWARE: Tracheostomy tube. Previous dialysis catheter remains in place. Left brachiocephalic vein stent. OTHER: No other significant finding. IMPRESSION: Cardiomegaly without tamy pulmonary edema. TECHNICAL DOCUMENTATION: JOB ID: [id number] [employer]- All Rights Reserved Reading location - IP/workstation name: [email or web address]
[2018-11-15 11:09] LABS: POTASSIUM 6.2 mmol/L (3.6-5.0)
[2018-11-15] MEDS ORDERED: INSULIN REG, HUMAN 100 UNIT/ML 3 ML VIAL (PYX) IV ONE (11:10)
[2018-11-15] MEDS ORDERED: ALBUTEROL SULFATE 0.083% NEB 2.5 MG/3 ML AMPUL NEB ONE (11:10)
[2018-11-15] MEDS ORDERED: FUROSEMIDE INJ/PF 40 MG/4 ML SDV IV ONE (11:10)
[2018-11-15] MEDS ORDERED: DEXTROSE 50%-WATER 25 GM/50 ML DISP.SYRIN IV ONE ×2 (11:10→16:39)
[2018-11-15] MEDS ORDERED: CALCIUM GLUCONATE 1000 MG/10 ML INJ IV ONE (11:10)
[2018-11-15] MEDS ORDERED: ACETAMINOPHEN 325 MG TABLET PO PRN (11:45)
--- NOTE | 2018-11-15 13:07 | PDOC H&P ---
History of Present Illness Admission Date/PCP: 11/15/18 11:53 Patient complains of: Altered mental status lethargic shortness of the breath History of Present Illness: ANDREAS NELSON is a 53 year old male This is a 53-year-old male with a history of end-stage renal disease on hemodialysis history of the hypertension's history of the sleep apnea status post tracheostomy history of the COPD asthma history of chronic A. fib chronic diastolic congestive heart failure weak ventral hernia and multiple other comorbidity with a very noncompliant, last dialysis done last Monday and patient's missed the dialysis 4 times was brought to the EMS in the ER because the patient's was very lethargic and short of breath According to the neighbor patient's not answer the phone for the last 4 days and then patients brought at this point to the EMS Patient in emergency departments friend hypoxic and hypotensive and patient potassium was 6.2 and patients pretty much pulmonary edema heart failure due to the missed the dialysis ER physicians discussed with the nephrology and arrange the dialysis within the next half an hour When I saw the patient in the ER alert awake answering the questions below the lethargic denied any chest pain Patient's currently on a Ventimask feeling okay At this point will decided to patient in IMCU admissions and patient is scheduled for the dialysis in the next half an hour Patient is a very noncompliance but unable to answer this question why he did not go for the dialysis Past Medical History Cardiac Medical History: Reports: Atrial Fibrillation, Congestive Heart Failure, Hypertension Denies: Coronary Artery Disease, Myocardial Infarction, Hyperlipidema, Peripheral Vascular Disease, Pulmonary Embolism, Heart Murmur Pulmonary Medical History: Reports: Asthma - Trach, Sleep Apnea Denies: Bronchitis, Chronic Obstructive Pulmonary Disease (COPD), Pneumonia, Respiratory Failure, Tuberculosis Neurological Medical History: Reports: Migraine Denies: Seizures Renal/ Medical History: Reports: End Stage Renal Disease - S/P transplant Malignancy Medical History: Denies: Lung Cancer GI Medical History: Reports: Gastroesophageal Reflux Disease Musculoskeltal Medical History: Reports: Arthritis Psychiatric Medical History: Reports: Depression - mild - recent Hematology: Reports: Anemia Past Surgical History Past Surgical History: Reports: Herniorrhaphy, Tonsillectomy, Vascular Surgery - Right arm graft for dialysis, Other - Tracheostomy Denies: Appendectomy, Cholecystectomy, Coronary Artery Bypass Graft, Gastric Bypass Surgery, Pacemaker Social History Smoking Status: Unknown if Ever Smoked Frequency of Alcohol Use: Rare Hx Recreational Drug Use: No Drugs: None Hx Prescription Drug Abuse: No Family History Family History: Reviewed & Not Pertinent, Hypertension Parental Family History Reviewed: Yes Children Family History Reviewed: Yes Sibling(s) Family History Reviewed.: Yes Medication/Allergy Home Medications: Allopurinol [Zyloprim 100 mg Tablet] 100 mg PO DAILY 11/15/18 Clopidogrel Bisulfate [Plavix 75 mg Tablet] 75 mg PO DAILY 11/15/18 Fluticasone Propionate [Flonase Nasal [place] 50 Mcg/[place] 16 gm] 2 spray NASL BID 11/15/18 Gabapentin [Neurontin 100 mg Capsule] 100 mg PO DAILY 11/15/18 Metoprolol Tartrate [Lopressor 25 mg Tablet] 25 mg PO BID 11/15/18 Montelukast Sodium [Singulair 10 mg Tablet] 10 mg PO QPM 11/15/18 Pantoprazole Sodium [Protonix [address] Tablet] 20 mg PO QAM 11/15/18 Ranitidine HCl [Zantac 150 mg Tablet] 150 mg PO DAILY 11/15/18 Zolpidem Tartrate [Ambien] 10 mg PO QHS 11/15/18 Allergies/Adverse Reactions: No Known Allergies Allergy (Verified 07/27/18 14:36) Review of Systems ROS unobtainable: Due to mental status All systems: reviewed and no additional remarkable complaints except as stated Physical Exam Vital Signs: Temp Pulse Resp BP Pulse Ox 97.4 F 62 10 L 117/78 94 11/15/18 10:39 11/15/18 10:35 11/15/18 11:01 11/15/18 11:01 11/15/18 11:01 Intake & Output 11/14/18 11/15/18 11/16/18 06:59 06:59 06:59 Weight 95.6 kg General appearance: PRESENT: mild distress, well-developed, well-nourished Head exam: PRESENT: atraumatic, normocephalic Eye exam: PRESENT: conjunctiva pink, EOMI, PERRLA. ABSENT: scleral icterus Ear exam: PRESENT: normal external ear exam Mouth exam: PRESENT: moist, tongue midline Additional comments: Tracheostomy status intact no bleeding Neck exam: PRESENT: full ROM. ABSENT: carotid bruit, JVD, lymphadenopathy, thyromegaly Respiratory exam: PRESENT: decreased breath sounds Cardiovascular exam: PRESENT: irregular rhythm. ABSENT: diastolic murmur, rubs, systolic murmur Vascular exam: PRESENT: normal capillary refill GI/Abdominal exam: PRESENT: hernia, normal bowel sounds, soft. ABSENT: distended, guarding, mass, organolmegaly, rebound, tenderness Rectal exam: PRESENT: deferred Extremities exam: PRESENT: pedal edema Neurological exam: PRESENT: alert, awake, oriented to person, oriented to place. ABSENT: motor sensory deficit Psychiatric exam: PRESENT: appropriate affect, normal mood. ABSENT: homicidal ideation, suicidal ideation Skin exam: PRESENT: dry, intact, warm. ABSENT: cyanosis, rash Results Laboratory Results: 11/15/18 09:52 11/15/18 09:52 11/15/18 11/15/18 09:52 09:52 WBC 4.3 RBC 4.39 Hgb 12.5 L Hct 39.4 MCV 90 MCH 28.5 MCHC 31.8 L RDW 17.9 H Plt Count 192 Seg Neutrophils % Not Reportable Lymphocytes % Not Reportable Monocytes % Not Reportable Eosinophils % Not Reportable Basophils % Not Reportable Absolute Neutrophils Not Reportable Absolute Lymphocytes Not Reportable Absolute Monocytes Not Reportable Absolute Eosinophils Not Reportable Absolute Basophils Not Reportable Sodium 145.1 H Potassium 6.2 H* Chloride 102 Carbon Dioxide 24 Anion Gap 19 BUN 76 H Creatinine 21.92 H Est GFR ( Amer) 3 L Est GFR (Non-Af Amer) 2 L Glucose 76 Calcium 8.0 L Phosphorus 5.5 H Magnesium 3.9 H Impressions: Chest X-Ray 11/15/18 10:13 IMPRESSION: Cardiomegaly without tamy pulmonary edema. Assessment & Plan - Diagnosis (1) Hyperkalemia Is this a current diagnosis for this admission?: Yes Plan: Because of the noncompliance admissions Mr. dialysis patient scheduled for hemodialysis today (2) Volume overload Qualifiers: Hypervolemia type: unspecified Qualified Code(s): E87.70 - Fluid overload, unspecified Is this a current diagnosis for this admission?: Yes Plan: Due to the missed the dialysis (3) Chronic obstruct airways disease Qualifiers: Chronic bronchitis type: unspecified Is this a current diagnosis for this admission?: Yes Plan: Start nebulizer treatments (4) Congestive heart failure Qualifiers: Heart failure type: diastolic Heart failure chronicity: acute on chronic Qualified Code(s): I50.33 - Acute on chronic diastolic (congestive) heart failure Is this a current diagnosis for this admission?: Yes Plan: Noncompliance and patient is missing the dialysis (5) End-stage renal disease (ESRD) Is this a current diagnosis for this admission?: Yes (6) Noncompliance Is this a current diagnosis for this admission?: Yes (7) Obstructive sleep apnea Is this a current diagnosis for this admission?: Yes (8) Shortness of breath Is this a current diagnosis for this admission?: Yes Plan: Due to the above conditions (9) Status post tracheostomy Is this a current diagnosis for this admission?: Yes (10) AF (atrial fibrillation) Qualifiers: Atrial fibrillation type: chronic Qualified Code(s): I48.2 - Chronic atrial fibrillation Is this a current diagnosis for this admission?: Yes - Time Time Spent: 50 to 70 Minutes Medications reviewed and adjusted accordingly: Yes Anticipated discharge: Other Within: Other - Inpatient Certification Based on my medical assessment, after consideration of the patient's comorbidities, presenting symptoms, or acuity I expect that the services needed warrant INPATIENT care.: Yes I certify that my determination is in accordance with my understanding of Medicare's requirements for reasonable and necessary INPATIENT services [42 CFR 412.3e].: Yes Medical Necessity: Significant Comorbidiites Make Outpatient Treatment Too Risky, Need Close Monitoring Due to Risk of Patient Decompensation, Need For IV Fluids 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
[2018-11-15] MEDS: HEPARIN SOD (PORCINE) 5,000 UNIT/ML 1 ML SYRINGE SUBCUT SCH ×2 (14:57→22:22)
--- NOTE | 2018-11-15 15:13 | PDOC CONSULTATION ---
Consultation Consult Date: 11/15/18 Consult reason:: Urgent hemodialysis in the setting of congestive heart failure/hyperkalemia and possible cardiac tamponade. History of Present Illness Admission Date/PCP: 11/15/18 11:53 History of Present Illness: ANDREAS NELSON is a 53 year old male With a history of ESRD on hemodialysis in the background of hypertension, chronic diastolic congestive heart failure, status post tracheostomy, sleep apnea noncompliant with CPAP, large and so far unobstructed ventral hernia, history of severe noncompliance with diet, treatments and dialysis was admitted with history of altered mental status, hypotension and hypoxia. The patient has been missing at least 4 or 5 dialysis treatments and this happens episodically for quite some time. The neighbor realized the patient was not answering the phone for the last couple of days and called in EMS who found him to be altered, hypoxic and hypotensive. Evaluations in the ER revealed that the patient was uremic, in heart failure with hyperkalemia.Unfortunately no gases were done. I see the patient in the ICU where the patient is a bit more awake and a bit more responsive since is been put on appropriate treatments including oxygen. He still lethargic and in intermittent confusional state.Denies any history of chest pains. My evaluations reveals the patient has got evidences of heart failure. However the patient also had a early pericardial rub and his EKG showed low voltage complexes with controlled A. fib. Therefore stat echo was ordered and discussions were done with Dr. Rush/cardiology. Fortunately as per evaluations done in the ICU and later on discussion with the aircraft metalsmith there was no evidences of cardiac tamponade physiology. On dialysis,we removed approximately 1.5 L the patient remained remained normotensive.His blood sugar was found to be 40 and he was treated with D50 with good response. Past Medical History Cardiac Medical History: Reports: Atrial Fibrillation, Hypertension-primary Denies: Coronary Artery Disease, Heart Murmur, Hyperlipidemia, Myocardial Infarction, Peripheral Vascular Disease, Pulmonary Embolism Pulmonary Medical History: Reports: Asthma - Trach, Sleep Apnea Denies: Bronchitis, Chronic Obstructive Pulmonary Disease (COPD), Pneumonia, Respiratory Failure, Tuberculosis Neurological Medical History: Reports: Migraine Denies: Seizures Renal/ Medical History: Reports: End Stage Renal Disease - S/P transplant, Secondary Hyperparathyroidism Malignancy Medical History: Denies: Lung Cancer GI Medical History: Reports: Gastroesophageal Reflux Disease Musculoskeltal Medical History: Reports: Arthritis Psychiatric Medical History: Reports: Depression - mild - recent Past Surgical History Past Surgical History: Reports: Herniorrhaphy, Tonsillectomy, Vascular Surgery - Right arm graft for dialysis, Other - Tracheostomy Denies: Appendectomy, Cholecystectomy, Coronary Artery Bypass Graft, Gastric Bypass Surgery, Pacemaker Social History Smoking Status: Unknown if Ever Smoked Frequency of Alcohol Use: Rare Hx Recreational Drug Use: No Drugs: None Hx Prescription Drug Abuse: No - Advance Directive Resuscitation Status: Full Code Family History Parental Family History Reviewed: Yes - Mother has CKD. Children Family History Reviewed: No Sibling(s) Family History Reviewed.: No Medication/Allergy Home Medications: Allopurinol [Zyloprim 100 mg Tablet] 100 mg PO DAILY 11/15/18 Clopidogrel Bisulfate [Plavix 75 mg Tablet] 75 mg PO DAILY 11/15/18 Digoxin [Digox] 125 mcg PO MOWEFR 11/15/18 Fluticasone Propionate [Flonase Nasal [place] 50 Mcg/[place] 16 gm] 2 spray NASL BID 11/15/18 Gabapentin [Neurontin 100 mg Capsule] 100 mg PO DAILY 11/15/18 Lactulose [Cephulac Syrup 20 gm/30 ml Udcup] 15 ml PO BID 11/15/18 Metoprolol Tartrate [Lopressor 25 mg Tablet] 25 mg PO BID 11/15/18 Montelukast Sodium [Singulair 10 mg Tablet] 10 mg PO QPM 11/15/18 Pantoprazole Sodium [Protonix [address] Tablet] 20 mg PO QAM 11/15/18 Ranitidine HCl [Zantac 150 mg Tablet] 150 mg PO DAILY 11/15/18 Sevelamer Carbonate [Renvela] 1,600 mg PO MEALS 11/15/18 Sevelamer Carbonate [Renvela] 800 mg PO .WITHSNACK 11/15/18 Zolpidem Tartrate [Ambien] 10 mg PO QHS 11/15/18 Allergies/Adverse Reactions: No Known Allergies Allergy (Verified 07/27/18 14:36) Review of Systems Constitutional: PRESENT: anorexia, fatigue, weakness. ABSENT: chills, fever(s), headache(s), night sweats Eyes: ABSENT: visual disturbances Ears: ABSENT: hearing changes Nose, Mouth, and Throat: ABSENT: mouth pain, sore throat Cardiovascular: PRESENT: dyspnea on exertion, edema. ABSENT: chest pain, orthropnea Respiratory: PRESENT: cough, dyspnea. ABSENT: hemoptysis Gastrointestinal: PRESENT: constipation, nausea. ABSENT: abdominal pain, coffee ground emesis, diarrhea, dysphagia, heartburn, hematemesis, vomiting Integumentary: ABSENT: erythema, lesions, pruritus, rash Neurological: PRESENT: confusion. ABSENT: abnormal movements, abnormal speech, focal weakness, frequent falls Hematologic/Lymphatic: ABSENT: easy bleeding, easy bruising, lymphadenopathy Physical Exam Vital Signs: Temp Pulse Resp BP Pulse Ox 97.5 F 48 L 18 97/48 L 98 11/15/18 13:51 11/15/18 13:51 11/15/18 13:51 11/15/18 13:51 11/15/18 13:51 Intake & Output 11/14/18 11/15/18 11/16/18 06:59 06:59 06:59 Weight 95.6 kg General appearance: PRESENT: disheveled, mild distress Exam: He was lethargic and poorly responsive to questions with intermittent confusional state. Eye exam: PRESENT: EOMI, PERRLA. ABSENT: scleral icterus Ear exam: PRESENT: normal external ear exam Mouth exam: PRESENT: moist, neck supple Neck exam: ABSENT: lymphadenopathy, meningismus, tenderness, thyromegaly, tracheal deviation Respiratory exam: PRESENT: clear to auscultation cyndie, crackles, decreased breath sounds Cardiovascular exam: PRESENT: +S1, +S2 GI/Abdominal exam: PRESENT: distended - Large ventral hernia, normal bowel sounds, soft, tenderness. ABSENT: guarding, organomegaly Extremities exam: PRESENT: +1 edema Neurological exam: PRESENT: altered, oriented to person, oriented to place Psychiatric exam: PRESENT: anxious Skin exam: ABSENT: erythema, mottled, petechiae, rash Results Laboratory Results: 11/15/18 09:52 11/15/18 09:52 11/15/18 11/15/18 11/15/18 09:52 09:52 12:56 WBC 4.3 RBC 4.39 Hgb 12.5 L Hct 39.4 MCV 90 MCH 28.5 MCHC 31.8 L RDW 17.9 H Plt Count 192 Seg Neutrophils % Not Reportable Lymphocytes % Not Reportable Monocytes % Not Reportable Eosinophils % Not Reportable Basophils % Not Reportable Absolute Neutrophils Not Reportable Absolute Lymphocytes Not Reportable Absolute Monocytes Not Reportable Absolute Eosinophils Not Reportable Absolute Basophils Not Reportable Sodium 145.1 H Potassium 6.2 H* Chloride 102 Carbon Dioxide 24 Anion Gap 19 BUN 76 H Creatinine 21.92 H Est GFR ( Amer) 3 L Est GFR (Non-Af Amer) 2 L Glucose 76 Lactic Acid 0.7 Calcium 8.0 L Phosphorus 5.5 H Magnesium 3.9 H Impressions: Chest X-Ray 11/15/18 10:13 IMPRESSION: Cardiomegaly without tamy pulmonary edema. Assessment & Plan - Diagnosis (1) Congestive heart failure Qualifiers: Heart failure type: diastolic Heart failure chronicity: acute on chronic Qualified Code(s): I50.33 - Acute on chronic diastolic (congestive) heart failure Is this a current diagnosis for this admission?: Yes Plan: Patient is in congestive heart failure. However I needed to exclude the possibility of pericardial tamponade given his clinical evaluations. Stat echo was ordered. Later on we removed approximately 1.5 L as tolerated.. Patient remained normotensive. Plan for next dialysis again in the morning. (2) End-stage renal disease (ESRD) Is this a current diagnosis for this admission?: Yes Plan: Unfortunately patient has been missing multiple treatments for reasons which is unsure and unclear at the moment. Obviously complications of such in the form of congestive heart failure/uremia would be expected in a patient who is been so noncompliant unfortunately. Hopefully he has learned his lesson and will be more compliant and prevent such situations in the future. (3) Altered mental status Plan: Likely combination of uremia with possibility of CO2 narcosis given his sleep apnea along with an element of hypoglycemia. See how he responds to dialysis. Hopefully he will get his CPAP tonight when he is going to bed. (4) AF (atrial fibrillation) Qualifiers: Atrial fibrillation type: chronic Qualified Code(s): I48.2 - Chronic atrial fibrillation Is this a current diagnosis for this admission?: Yes Plan: Chronic and rate controlled at the moment. (5) Hyperkalemia Is this a current diagnosis for this admission?: Yes Plan: Should respond to dialysis. Will monitor. No EKG evidences of severe hyperkalemic effects. (6) Noncompliance Is this a current diagnosis for this admission?: Yes Plan: Needs to be addressed when patient is more awake and responding properly. (7) Obstructive sleep apnea Is this a current diagnosis for this admission?: Yes Plan: Hopefully he will get his CPAP tonight and will also help with his recoveries. (8) Status post tracheostomy Is this a current diagnosis for this admission?: Yes Plan: Status quo. (9) Hypoglycemia Plan: Responded well to D50. Monitor to prevent such again in the future.
[2018-11-15] MEDS ORDERED: DEXTROSE 50%-WATER SYRINGE 25 GM/50 ML DOSE IV PRN (18:00)
[2018-11-15] MEDS ORDERED: DEXTROSE 50%-WATER SYRINGE 12.5 GM/25 ML DOSE IV PRN (18:00)
[2018-11-15] MEDS ORDERED: DEXTROSE 40% GEL 15 GM TUBE PO PRN (18:00)
[2018-11-15] MEDS ORDERED: DEXTROSE 40% GEL 15 GM TUBE X 2 PO PRN (18:00)
[2018-11-15] MEDS ORDERED: GLUCAGON,HUMAN RECOMB 1 MG INJ IM PRN (18:00)
[2018-11-15] MEDS: DOCUSATE SODIUM 100 MG CAPSULE PO SCH (18:32)
--- NOTE | 2018-11-15 19:45 | EKG REPORT ---
SEVERITY:- ABNORMAL ECG - ATRIAL FIBRILLATION LOW VOLTAGE THROUGHOUT NONSPECIFIC T ABNORMALITIES, LATERAL LEADS : Confirmed by: Anusha Rush MD 15-Nov-2018 19:44:05
--- NOTE | 2018-11-15 20:08 | XCELERA REPORT ---
[address] [address] Transthoracic Echocardiogram Report Name: ANDREAS NELSON Age: 53 yrs Gender: Male : 1965 Patient Status: Inpatient Patient Location: ICU^[id number]^A Study Date: 11/15/2018 03:23 PM Height: 66 in Weight: 212 lb BSA: 2.0 m2 Procedure: A two-dimensional transthoracic echocardiogram with color flow Doppler was performed. Study Quality: Fair. Reason For Study: chf with hypotension / Pericardial Effusion History: chf with hypotension / pericradial Effusion. Ordering Physician: Ben HAWLEY Performed By: Maribell Maynard Interpretation Summary The left ventricle is normal in size. There is normal left ventricular wall thickness. LV EF is > than 65% The left ventricular ejection fraction is within normal limits. The left ventricular wall motion is normal. There is no thrombus. There is no ventricular septal defect visualized. The right ventricle is mild to moderately dilated. The right ventricular systolic function is normal. There is mild right ventricular hypertrophy. The right atrium is mildly dilated. The left atrium is moderately dilated. The interatrial septum is intact with no evidence for an atrial septal defect. There is no Doppler evidence for an interatrial shunt There is no evidence of mitral valve prolapse. There is no vegetation seen on the mitral valve. There is no mitral valve stenosis. There is no aortic valvular vegetation. There is no aortic valve stenosis There is no LVOT obstruction. No aortic regurgitation is present. There is no tricuspid stenosis. There is a mild to moderate amount of tricuspid regurgitation There is moderate pulmonary hypertension by echo RVSP is 56 mm of Hg , with RA mean of 10. There is no pulmonic valvular stenosis. There is a mild amount of pulmonic regurgitation The aortic root is normal size. Old IVC filter in IVC. The inferior vena cava appeared normal and decreased > 50% with respiration (RAP 5-10 mmHg) There is no pericardial effusion. MMode/2D Measurements & Calculations RVDd: 4.3 cm LVIDd: 5.4 cm FS: 38.2 % Ao root diam: 2.6 cm IVSd: 1.0 cm LVIDs: 3.3 cm EDV(Teich): 140.1 ml Ao root area: 5.4 cm2 LVPWd: 1.0 cm ESV(Teich): 45.0 ml LA dimension: 4.6 cm EF(Teich): 67.9 % Doppler Measurements & Calculations MV E max sabrina: MV P1/2t max sabrina: Ao V2 max: LV V1 max P.9 cm/sec 131.3 cm/sec 156.8 cm/sec 6.2 mmHg MV A max sabrina: MV P1/2t: 55.5 msec Ao max PG: LV V1 max: 33.6 cm/sec MVA(P1/2t): 4.0 cm2 9.8 mmHg 124.4 cm/sec MV E/A: 3.9 MV dec slope: 693.0 cm/sec2 MV dec time: 0.19 sec PA V2 max: PI end-d sabrina: TR max sabrina: MV P1/2t-pr_phl: 98.2 cm/sec 143.9 cm/sec 338.0 cm/sec 55.5 msec PA max P.9 mmHg TR max P.7 mmHg Left Ventricle The left ventricle is normal in size. There is normal left ventricular wall thickness. LV EF is > than 65%. The left ventricular ejection fraction is within normal limits. LV diastolic function could not be adequately assessed due to atrial fibrilation. The left ventricular wall motion is normal. There is no thrombus. There is no ventricular septal defect visualized. Right Ventricle The right ventricle is mild to moderately dilated. There is mild right ventricular hypertrophy. The right ventricular systolic function is normal. Atria The right atrium is mildly dilated. The left atrium is moderately dilated. The interatrial septum is intact with no evidence for an atrial septal defect. There is no Doppler evidence for an interatrial shunt. Mitral Valve There is mild to moderate mitral annular calcification. There is no evidence of mitral valve prolapse. There is no vegetation seen on the mitral valve. There is no mitral valve stenosis. There is a mild amount of mitral regurgitation. Aortic Valve There is no aortic valvular vegetation. There is no aortic valve stenosis. There is no LVOT obstruction. No aortic regurgitation is present. Tricuspid Valve There is no tricuspid stenosis. There is a mild to moderate amount of tricuspid regurgitation. There is moderate pulmonary hypertension by echo. RVSP is 56 mm of Hg , with RA mean of 10. Pulmonic Valve There is no pulmonic valvular stenosis. There is a mild amount of pulmonic regurgitation. Great Vessels The aortic root is normal size. Old IVC filter in IVC. The inferior vena cava appeared normal and decreased > 50% with respiration (RAP 5-10 mmHg). Effusions There is no pericardial effusion. : Ben HAWLEY > Anusha Rush
[2018-11-15] MEDS: FAMOTIDINE INJ/PF 20 MG/2 ML SDV IV SCH (22:22)
[2018-11-16] MEDS: IPRATROPIUM/ALBUTEROL 0.5-2.5 MG/3 ML AMPUL NEB PRN (01:52)
[2018-11-16] MEDS: HEPARIN SOD (PORCINE) 5,000 UNIT/ML 1 ML SYRINGE SUBCUT SCH ×3 (05:01→21:53)
[2018-11-16 06:07] LABS: HEMATOCRIT 36.2 % (37.9-51.0); HEMOGLOBIN 11.4 g/dL (13.5-17.0); MEAN CORPUSCULAR HEMOGLOBIN 28.1 pg (27.0-33.4); MEAN CORPUSCULAR HGB CONC 31.6 g/dL (32.0-36.0); MEAN CORPUSCULAR VOLUME 89 fl (80-97); PLATELET COUNT 137 10^3/uL (150-450); RED BLOOD COUNT 4.07 10^6/uL (4.35-5.55); RED CELL DISTRIBUTION WIDTH 17.5 % (11.5-14.0); WHITE BLOOD COUNT 3.6 10^3/uL (4.0-10.5)
[2018-11-16 06:23] LABS: ALANINE AMINOTRANSFERASE 92 U/L (21-72); ALBUMIN 3.8 g/dL (3.5-5.0); ALKALINE PHOSPHATASE 124 U/L (38-126); ANION GAP 17 (5-19); ASPARTATE AMINO TRANSFERASE 117 U/L (17-59); CALCIUM 7.6 mg/dL (8.4-10.2); CARBON DIOXIDE 26 mmol/L (22-30); CHLORIDE 100 mmol/L (98-107); GLUCOSE 96 mg/dL (75-110); TOTAL PROTEIN 6.5 g/dL (6.3-8.2)
[2018-11-16 06:26] LABS: ARTERIAL BLOOD BASE EXCESS -2.4 mmol/L; ARTERIAL BLOOD H2CO3 2.29 mmol/L (1.05-1.35); ARTERIAL BLOOD HCO3 27.5 mmol/L (20-24); ARTERIAL BLOOD PO2 76.3 mmHg (80-100); ARTERIAL BLOOD TOTAL CO2 29.8 mmol/L (23-27)
[2018-11-16 06:33] LABS: ARTERIAL BLOOD FIO2 35%
[2018-11-16 06:35] LABS: ARTERIAL BLOOD PCO2 76.1 mmHg (35-45); ARTERIAL BLOOD PH 7.18 (7.35-7.45)
[2018-11-16 06:42] LABS: BLOOD UREA NITROGEN 53 mg/dL (7-20)
[2018-11-16 06:47] LABS: ABSOLUTE LYMPHOCYTES# (MANUAL) 1.2 10^3/uL (0.5-4.7); ABSOLUTE MONOCYTES # (MANUAL) 0.5 10^3/uL (0.1-1.4); BASOPHILS % (MANUAL) 1 % (0-2); EOSINOPHILS % (MANUAL) 6 % (0-6); LYMPHOCYTES % (MANUAL) 32 % (13-45); MONOCYTES % (MANUAL) 13 % (3-13); NUCLEATED RED BLOOD CELLS 4 /100 WBC (0); SEGMENTED NEUTROPHILS % (MAN) 48 % (42-78); TOTAL CELLS COUNTED 100
[2018-11-16 06:48] LABS: ANISOCYTOSIS 2+; OVALOCYTES 1+; PLATELET COMMENT DECREASED; POIKILOCYTOSIS 1+; POLYCHROMASIA SLIGHT; TARGET CELLS 1+
[2018-11-16] MEDS ORDERED: CEFTRIAXONE 1 GM/D5W RTU 1 GM/50 ML RTUPB IV SCH (10:00)
--- NOTE | 2018-11-16 10:23 | PDOC PROGRESS REPORT ---
Subjective Progress Note for:: 11/16/18 Subjective:: Patient is feeling much better Patient's trach site is not functioning very well Patient's otherwise denied any chest pain to than any shortness of the breath Patient has some granulations tissue surrounding the trach site which patient always have a problems Reason For Visit: AMS/SOB/CHF/RENAL FAILURE Physical Exam Vital Signs: Temp Pulse Resp BP Pulse Ox 98.3 F 70 20 132/58 H 100 11/16/18 07:56 11/16/18 08:59 11/16/18 08:59 11/16/18 07:56 11/16/18 09:03 Intake & Output 11/15/18 11/16/18 11/17/18 06:59 06:59 06:59 Intake Total 240 Output Total 1600 Balance -1360 Weight 94.5 kg General appearance: PRESENT: no acute distress, well-developed, well-nourished Head exam: PRESENT: atraumatic, normocephalic Eye exam: PRESENT: conjunctiva pink, EOMI, PERRLA. ABSENT: scleral icterus Ear exam: PRESENT: normal external ear exam Mouth exam: PRESENT: moist, tongue midline Additional comments: Trach site intact I do not see any active bleeding's but obviously patient's need to be changed the trach Neck exam: PRESENT: full ROM. ABSENT: carotid bruit, JVD, lymphadenopathy, thyromegaly Respiratory exam: PRESENT: clear to auscultation cyndie Cardiovascular exam: PRESENT: RRR. ABSENT: diastolic murmur, rubs, systolic murmur Pulses: PRESENT: normal dorsalis pedis pul, +2 pedal pulses bilateral Vascular exam: PRESENT: normal capillary refill GI/Abdominal exam: PRESENT: hernia, normal bowel sounds, soft. ABSENT: diste nded, guarding, mass, organolmegaly, rebound, tenderness Rectal exam: PRESENT: deferred Neurological exam: PRESENT: alert, awake, oriented to person, oriented to place, oriented to time, oriented to situation. ABSENT: motor sensory deficit Psychiatric exam: PRESENT: appropriate affect, normal mood. ABSENT: homicidal ideation, suicidal ideation Skin exam: PRESENT: dry, intact, warm. ABSENT: cyanosis, rash Results Laboratory Results: 11/16/18 05:34 11/16/18 05:34 11/15/18 11/15/18 11/15/18 09:52 09:52 12:56 WBC 4.3 RBC 4.39 Hgb 12.5 L Hct 39.4 MCV 90 MCH 28.5 MCHC 31.8 L RDW 17.9 H Plt Count 192 Seg Neutrophils % Not Reportable Lymphocytes % Not Reportable Monocytes % Not Reportable Eosinophils % Not Reportable Basophils % Not Reportable Absolute Neutrophils Not Reportable Absolute Lymphocytes Not Reportable Absolute Monocytes Not Reportable Absolute Eosinophils Not Reportable Absolute Basophils Not Reportable Carbonic Acid HCO3/H2CO3 Ratio ABG pH ABG pCO2 ABG pO2 ABG HCO3 ABG O2 Saturation ABG Base Excess FiO2 Sodium 145.1 H Potassium 6.2 H* Chloride 102 Carbon Dioxide 24 Anion Gap 19 BUN 76 H Creatinine 21.92 H Est GFR ( Amer) 3 L Est GFR (Non-Af Amer) 2 L Glucose 76 Lactic Acid 0.7 Calcium 8.0 L Phosphorus 5.5 H Magnesium 3.9 H Total Bilirubin AST ALT Alkaline Phosphatase Total Protein Albumin 11/16/18 11/16/18 11/16/18 05:34 05:34 06:00 WBC 3.6 L RBC 4.07 L Hgb 11.4 L Hct 36.2 L MCV 89 MCH 28.1 MCHC 31.6 L RDW 17.5 H Plt Count 137 L Seg Neutrophils % Not Reportable Lymphocytes % Not Reportable Monocytes % Not Reportable Eosinophils % Not Reportable Basophils % Not Reportable Absolute Neutrophils Not Reportable Absolute Lymphocytes Not Reportable Absolute Monocytes Not Reportable Absolute Eosinophils Not Reportable Absolute Basophils Not Reportable Carbonic Acid 2.29 H HCO3/H2CO3 Ratio 12:1 ABG pH 7.18 L* ABG pCO2 76.1 H* ABG pO2 76.3 L ABG HCO3 27.5 H ABG O2 Saturation 91.0 L ABG Base Excess -2.4 FiO2 35% Sodium 143.0 Potassium 5.0 D Chloride 100 Carbon Dioxide 26 Anion Gap 17 BUN 53 H D Creatinine 16.06 H Est GFR ( Amer) 4 L Est GFR (Non-Af Amer) 3 L Glucose 96 Lactic Acid Calcium 7.6 L Phosphorus Magnesium 3.0 H Total Bilirubin 1.0 AST 117 H ALT 92 H Alkaline Phosphatase 124 Total Protein 6.5 Albumin 3.8 Impressions: Chest X-Ray 11/15/18 10:13 IMPRESSION: Cardiomegaly without tamy pulmonary edema. Assessment & Plan - Diagnosis (1) Hyperkalemia Is this a current diagnosis for this admission?: Yes Plan: Status post missing the dialysis currently all resolved schedule the dialysis today (2) Volume overload Qualifiers: Hypervolemia type: unspecified Qualified Code(s): E87.70 - Fluid overload, unspecified Is this a current diagnosis for this admission?: Yes Plan: Currently all resolved (3) Chronic obstruct airways disease Qualifiers: Chronic bronchitis type: unspecified Is this a current diagnosis for this admission?: Yes Plan: Discussed with the patient's pulmonary he is going to come and look at today and adjust the medications (4) Congestive heart failure Qualifiers: Heart failure type: diastolic Heart failure chronicity: acute on chronic Qualified Code(s): I50.33 - Acute on chronic diastolic (congestive) heart failure Is this a current diagnosis for this admission?: Yes Plan: Noncompliance and patient is missing the dialysis (5) End-stage renal disease (ESRD) Is this a current diagnosis for this admission?: Yes (6) Noncompliance Is this a current diagnosis for this admission?: Yes (7) Obstructive sleep apnea Is this a current diagnosis for this admission?: Yes (8) Shortness of breath Is this a current diagnosis for this admission?: Yes (9) Status post tracheostomy Is this a current diagnosis for this admission?: Yes Plan: ENT cosult (10) AF (atrial fibrillation) Qualifiers: Atrial fibrillation type: chronic Qualified Code(s): I48.2 - Chronic atrial fibrillation Is this a current diagnosis for this admission?: Yes - Time Time Spent with patient: 15-24 minutes Medications reviewed and adjusted accordingly: Yes Anticipated discharge: Other Within: Other - Plan Summary Plan Summary: Continues to current medications
--- NOTE | 2018-11-16 11:57 | PDOC PROGRESS REPORT ---
Subjective Progress Note for:: 11/16/18 Reason For Visit: Patient seen today while undergoing dialysis. He seems more comfortable today. Seems to have some amount of jerking movements but much better than yesterday. He is a bit more awake and responding to questions better. He denies any history of chest pain or shortness of breath. Echocardiogram done yesterday was negative for any pericardial effusion/tamponade. Labs and medications were reviewed with him in the dialysis nurse. Dialysis orders were reviewed with the treating dialysis nurse. Physical Exam Vital Signs: Temp Pulse Resp BP Pulse Ox 98.3 F 70 20 132/58 H 100 11/16/18 07:56 11/16/18 08:59 11/16/18 08:59 11/16/18 07:56 11/16/18 09:03 Intake & Output 11/15/18 11/16/18 11/17/18 06:59 06:59 06:59 Intake Total 240 Output Total 1600 Balance -1360 Weight 94.5 kg General appearance: PRESENT: no acute distress Respiratory exam: PRESENT: clear to auscultation cyndie. ABSENT: crackles Cardiovascular exam: PRESENT: +S1, +S2 GI/Abdominal exam: PRESENT: distended - Large ventral hernia, normal bowel sounds, soft, tenderness. ABSENT: guarding, organomegaly Extremities exam: PRESENT: pedal edema Neurological exam: PRESENT: altered, awake, oriented to person, oriented to place Psychiatric exam: PRESENT: appropriate affect Skin exam: ABSENT: cyanosis, erythema, mottled, rash Results Laboratory Results: 11/16/18 05:34 11/16/18 05:34 11/15/18 11/16/18 11/16/18 12:56 05:34 05:34 WBC 3.6 L RBC 4.07 L Hgb 11.4 L Hct 36.2 L MCV 89 MCH 28.1 MCHC 31.6 L RDW 17.5 H Plt Count 137 L Seg Neutrophils % Not Reportable Lymphocytes % Not Reportable Monocytes % Not Reportable Eosinophils % Not Reportable Basophils % Not Reportable Absolute Neutrophils Not Reportable Absolute Lymphocytes Not Reportable Absolute Monocytes Not Reportable Absolute Eosinophils Not Reportable Absolute Basophils Not Reportable Carbonic Acid HCO3/H2CO3 Ratio ABG pH ABG pCO2 ABG pO2 ABG HCO3 ABG O2 Saturation ABG Base Excess FiO2 Sodium 143.0 Potassium 5.0 D Chloride 100 Carbon Dioxide 26 Anion Gap 17 BUN 53 H D Creatinine 16.06 H Est GFR ( Amer) 4 L Est GFR (Non-Af Amer) 3 L Glucose 96 Lactic Acid 0.7 Calcium 7.6 L Magnesium 3.0 H Total Bilirubin 1.0 AST 117 H ALT 92 H Alkaline Phosphatase 124 Total Protein 6.5 Albumin 3.8 11/16/18 06:00 WBC RBC Hgb Hct MCV MCH MCHC RDW Plt Count Seg Neutrophils % Lymphocytes % Monocytes % Eosinophils % Basophils % Absolute Neutrophils Absolute Lymphocytes Absolute Monocytes Absolute Eosinophils Absolute Basophils Carbonic Acid 2.29 H HCO3/H2CO3 Ratio 12:1 ABG pH 7.18 L* ABG pCO2 76.1 H* ABG pO2 76.3 L ABG HCO3 27.5 H ABG O2 Saturation 91.0 L ABG Base Excess -2.4 FiO2 35% Sodium Potassium Chloride Carbon Dioxide Anion Gap BUN Creatinine Est GFR ( Amer) Est GFR (Non-Af Amer) Glucose Lactic Acid Calcium Magnesium Total Bilirubin AST ALT Alkaline Phosphatase Total Protein Albumin Impressions: Chest X-Ray 11/15/18 10:13 IMPRESSION: Cardiomegaly without tamy pulmonary edema. Assessment & Plan - Diagnosis (1) Congestive heart failure Qualifiers: Heart failure type: diastolic Heart failure chronicity: acute on chronic Qualified Code(s): I50.33 - Acute on chronic diastolic (congestive) heart failure Is this a current diagnosis for this admission?: Yes Plan: Much better. Plan to remove more fluids and he should definitely be feeling much better towards the end of dialysis. Discussed to avoid noncompliance with hemodialysis in the future. (2) End-stage renal disease (ESRD) Is this a current diagnosis for this admission?: Yes Plan: Patient currently undergoing hemodialysis without any issues. Vital signs are stable. Plan to remove between 2 and 3 L of fluid as tolerated. Dialysis is being supervised to ensure safe and smooth procedure. Dialysis orders were reviewed with the treating dialysis nurse. Discussed with the patient about not missing any more treatments in the future. (3) Altered mental status Plan: Improving. Combination of uremia with CO2 narcosis as evidenced by his blood gas done today. His uremia is improving and obviously mental status should improve with that to a certain extent but his CO2 narcosis should also be treated. Advised the need for compliance with CPAP on a regular basis.Other differential diagnosis also includes bacteremia.However that is less likely especially given his normal white count. He does not have a IJ catheter but obviously has an AV graft. (4) AF (atrial fibrillation) Qualifiers: Atrial fibrillation type: chronic Qualified Code(s): I48.2 - Chronic atrial fibrillation Is this a current diagnosis for this admission?: Yes Plan: Rate controlled. (5) Hyperkalemia Is this a current diagnosis for this admission?: Yes Plan: Resolved. To respond further to today's dialysis as well. Advised proper dietary modifications which I do not think patient has been doing from a renal point of view unfortunately. (6) Noncompliance Is this a current diagnosis for this admission?: Yes Plan: Discussed about compliance with diet, medications and hemodialysis treatments. The patient has got multiple social issues. Advised to discuss with social media executive at [facility]. Discussed unfortunate consequences with missing and noncompliance with treatments. (7) Obstructive sleep apnea Is this a current diagnosis for this admission?: Yes Plan: Advised the patient of compliance with CPAP.Dr. Arrington did order a blood gas today which shows CO2 retention. Discussed with the patient the need for compliance with CPAP to prevent deterioration of pulmonary hypertension and CO2 retention. (8) Status post tracheostomy Is this a current diagnosis for this admission?: Yes Plan: Stable. (9) Hypoglycemia Plan: Currently stable. (10) Uremia Plan: Improving. No evidences of pericarditis today as I did not hear a rub today.
[2018-11-16] MEDS: DOCUSATE SODIUM 100 MG CAPSULE PO SCH ×2 (13:53→19:09)
[2018-11-16] MEDS: FAMOTIDINE INJ/PF 20 MG/2 ML SDV IV SCH ×2 (13:54→21:52)
[2018-11-16] MEDS ORDERED: (PENDING PHARMACY ID) (Sevelamer Carbonate [Renvela] 800 MG) PO SCH (14:30)
[2018-11-16] MEDS: METOPROLOL TARTRATE 25 MG TABLET PO SCH ×2 (15:12→21:52)
[2018-11-16] MEDS ORDERED: SEVELAMER HCL 800 MG TABLET PO PRN (15:34)
[2018-11-16] MEDS: CEFTRIAXONE SODIUM 1,000 MG in DEXTROSE 5%-WATER 50 ML IV SCH (16:20)
[2018-11-16] MEDS: SEVELAMER HCL 800 MG TABLET PO SCH (16:21)
[2018-11-16] MEDS ORDERED: (PENDING PHARMACY ID) (Sevelamer Carbonate [Renvela] 1,600 MG) PO SCH (17:00)
[2018-11-16] MEDS: LACTULOSE SYRUP 20 GM/30 ML UDCUP PO SCH (19:09)
[2018-11-16] MEDS: MONTELUKAST SODIUM 10 MG TABLET PO SCH (19:09)
[2018-11-16] MEDS: FLUTICASONE NASAL SPRAY 50 MCG/SPRY 120 SPRAY/16 GM NASL SCH (21:51)
[2018-11-16 22:31] LABS: ARTERIAL BLOOD BASE EXCESS -2.2 mmol/L; ARTERIAL BLOOD O2 SATURATION 92.4 % (94-98); ARTERIAL BLOOD PH 7.21 (7.35-7.45); ARTERIAL BLOOD PO2 78.4 mmHg (80-100); ARTERIAL BLOOD TOTAL CO2 29.2 mmol/L (23-27)
[2018-11-16 22:33] LABS: ARTERIAL BLOOD FIO2 40%
[2018-11-16 22:37] LABS: ARTERIAL BLOOD PCO2 69.9 mmHg (35-45)
--- NOTE | 2018-11-16 22:44 | EKG REPORT ---
SEVERITY:- ABNORMAL ECG - ATRIAL FIBRILLATION LOW VOLTAGE THROUGHOUT CONSIDER ANTEROSEPTAL INFARCT BORDERLINE T WAVE ABNORMALITIES : Confirmed by: Anusha Rush MD 16-Nov-2018 22:43:39
[2018-11-17 04:19] LABS: ARTERIAL BLOOD BASE EXCESS -3.1 mmol/L; ARTERIAL BLOOD FIO2 40%; ARTERIAL BLOOD H2CO3 1.33 mmol/L (1.05-1.35); ARTERIAL BLOOD HCO3 22.8 mmol/L (20-24); ARTERIAL BLOOD O2 SATURATION 97.8 % (94-98); ARTERIAL BLOOD PCO2 44.2 mmHg (35-45); ARTERIAL BLOOD PH 7.33 (7.35-7.45); ARTERIAL BLOOD PO2 110.9 mmHg (80-100); ARTERIAL BLOOD TOTAL CO2 24.2 mmol/L (23-27)
[2018-11-17 04:53] LABS: HEMATOCRIT 34.6 % (37.9-51.0); HEMOGLOBIN 11.1 g/dL (13.5-17.0); MEAN CORPUSCULAR HEMOGLOBIN 28.1 pg (27.0-33.4); MEAN CORPUSCULAR VOLUME 88 fl (80-97); PLATELET COUNT 110 10^3/uL (150-450); RED BLOOD COUNT 3.93 10^6/uL (4.35-5.55); RED CELL DISTRIBUTION WIDTH 16.8 % (11.5-14.0); WHITE BLOOD COUNT 3.9 10^3/uL (4.0-10.5)
[2018-11-17 05:01] LABS: ALANINE AMINOTRANSFERASE 105 U/L (21-72); ALBUMIN 3.1 g/dL (3.5-5.0); ALKALINE PHOSPHATASE 118 U/L (38-126); ANION GAP 12 (5-19); ASPARTATE AMINO TRANSFERASE 115 U/L (17-59); BILIRUBIN,DIRECT 0.7 mg/dL (0.0-0.4); BILIRUBIN,TOTAL 0.7 mg/dL (0.2-1.3); CALCIUM 8.1 mg/dL (8.4-10.2); CARBON DIOXIDE 24 mmol/L (22-30); CHLORIDE 105 mmol/L (98-107); GLUCOSE 70 mg/dL (75-110); POTASSIUM 4.9 mmol/L (3.6-5.0); SODIUM 140.9 mmol/L (137-145); TOTAL PROTEIN 5.8 g/dL (6.3-8.2)
[2018-11-17 05:11] LABS: ABSOLUTE LYMPHOCYTES# (MANUAL) 1.1 10^3/uL (0.5-4.7); ABSOLUTE MONOCYTES # (MANUAL) 0.7 10^3/uL (0.1-1.4); BASOPHILS % (MANUAL) 0 % (0-2); BLOOD UREA NITROGEN 31 mg/dL (7-20); EOSINOPHILS % (MANUAL) 1 % (0-6); LYMPHOCYTES % (MANUAL) 29 % (13-45); MONOCYTES % (MANUAL) 18 % (3-13); NUCLEATED RED BLOOD CELLS 1 /100 WBC (0); SEGMENTED NEUTROPHILS % (MAN) 52 % (42-78); TOTAL CELLS COUNTED 100
[2018-11-17 05:12] LABS: ANISOCYTOSIS 1+; PLATELET COMMENT ADEQUATE; POLYCHROMASIA 1+
[2018-11-17] MEDS: HEPARIN SOD (PORCINE) 5,000 UNIT/ML 1 ML SYRINGE SUBCUT SCH ×3 (05:38→21:25)
--- NOTE | 2018-11-17 06:21 | RADIOLOGY REPORT (SQ) ---
EXAM DESCRIPTION: US ABDOMEN COMPLETED DATE/TME: 11/17/2018 00:00 CLINICAL HISTORY: 53 years Male, abnormal lft Comparison: None. LIMITATIONS: Bowel gas artifact. FINDINGS: Gallbladder, 0.4 cm gallbladder wall thickness, negative sonographic Chowdary's test, liver, a 0.3-cm diameter common bile duct, no intrahepatic ductal dilation, hepatopetal patent flow of the portal vein, multicystic kidneys without significant renal parenchyma identified, spleen, obscured pancreas, visualized vasculature/abdominal aorta, and small ascites appear otherwise unremarkable. Patient has a known transplanted left pelvic kidney not visualized at this time due to bowel gas artifact from a known large abdominal hernia. Obscured abdominal aorta. IMPRESSION: 1. Small ascites. Obscured pancreas. Obscured abdominal aorta. 2. Multicystic kidney disease. No significant renal parenchyma is identified at the renal fossae. 3. 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
[2018-11-17] MEDS: LACTULOSE SYRUP 20 GM/30 ML UDCUP PO SCH ×2 (09:54→17:29)
[2018-11-17] MEDS: GABAPENTIN 100 MG CAPSULE PO SCH (09:54)
[2018-11-17] MEDS: SEVELAMER HCL 800 MG TABLET PO SCH ×3 (09:54→17:29)
[2018-11-17] MEDS: DOCUSATE SODIUM 100 MG CAPSULE PO SCH ×2 (09:57→17:29)
[2018-11-17] MEDS: ALLOPURINOL 100 MG TABLET PO SCH (09:57)
[2018-11-17] MEDS: CLOPIDOGREL BISULFATE 75 MG TABLET PO SCH (09:57)
[2018-11-17] MEDS: METOPROLOL TARTRATE 25 MG TABLET PO SCH ×2 (09:57→21:24)
[2018-11-17] MEDS: FAMOTIDINE INJ/PF 20 MG/2 ML SDV IV SCH ×2 (10:11→21:24)
[2018-11-17] MEDS: FLUTICASONE NASAL SPRAY 50 MCG/SPRY 120 SPRAY/16 GM NASL SCH ×2 (10:32→21:23)
[2018-11-17] MEDS: CEFTRIAXONE SODIUM 1,000 MG in DEXTROSE 5%-WATER 50 ML IV SCH (14:30)
--- NOTE | 2018-11-17 15:04 | PDOC PROGRESS REPORT ---
Subjective Progress Note for:: 11/17/18 Subjective:: Patient was placed on ventilator support last night due to hypoxemia while sleeping while on CPAP. He denied any chest pain. No reported fever or chills. Tolerating oral feeding. Reason For Visit: AMS/SOB/CHF/RENAL FAILURE Physical Exam Vital Signs: Temp Pulse Resp BP Pulse Ox 98.5 F 62 22 H 129/79 H 97 11/17/18 11:19 11/17/18 11:19 11/17/18 11:19 11/17/18 11:19 11/17/18 14:39 Pulse Oximeter Continuous Start: 11/16/18 23:41 Freq: RTQ4 Status: Active Protocol: Document 11/17/18 13:19 [facility] (Rec: 11/17/18 13:21 [facility] [id number]) Pulse Oximetry Assessment Oxygen Saturation (92-100) 100 Oxygen Delivery Method Mechanical Ventilator Fraction of Inspired Oxygen (FIO2) 30 Equipment Usage Equipment in Use Continuous SpO2 Machine # 5 Intake & Output 11/16/18 11/17/18 11/18/18 06:59 06:59 06:59 Intake Total 240 286 Output Total 1600 3400 0 Balance -1360 -3114 0 Weight 94.5 kg 92.7 kg General appearance: PRESENT: no acute distress Head exam: PRESENT: atraumatic, normocephalic Eye exam: PRESENT: conjunctiva pink. ABSENT: scleral icterus Ear exam: PRESENT: normal external ear exam Mouth exam: PRESENT: moist Neck exam: PRESENT: tracheostomy Respiratory exam: PRESENT: clear to auscultation cyndie Cardiovascular exam: PRESENT: RRR. ABSENT: diastolic murmur, rubs, systolic murmur Vascular exam: ABSENT: pallor GI/Abdominal exam: PRESENT: normal bowel sounds, soft. ABSENT: distended, guarding, mass, organolmegaly, rebound, tenderness Extremities exam: ABSENT: pedal edema Psychiatric exam: PRESENT: appropriate affect, normal mood. ABSENT: homicidal ideation, suicidal ideation Skin exam: PRESENT: dry, warm Results Laboratory Results: 11/17/18 04:08 11/17/18 04:08 11/16/18 11/16/18 11/17/18 20:50 22:20 04:08 WBC 3.9 L RBC 3.93 L Hgb 11.1 L Hct 34.6 L MCV 88 MCH 28.1 MCHC 32.0 RDW 16.8 H Plt Count 110 L Seg Neutrophils % Not Reportable Lymphocytes % Not Reportable Monocytes % Not Reportable Eosinophils % Not Reportable Basophils % Not Reportable Absolute Neutrophils Not Reportable Absolute Lymphocytes Not Reportable Absolute Monocytes Not Reportable Absolute Eosinophils Not Reportable Absolute Basophils Not Reportable Carbonic Acid Cancelled 2.10 H HCO3/H2CO3 Ratio Cancelled 12:1 ABG pH Cancelled 7.21 L ABG pCO2 Cancelled 69.9 H* ABG pO2 Cancelled 78.4 L ABG HCO3 Cancelled 27.0 H ABG O2 Saturation Cancelled 92.4 L ABG Base Excess Cancelled -2.2 FiO2 Cancelled 40% Sodium Potassium Chloride Carbon Dioxide Anion Gap BUN Creatinine Est GFR ( Amer) Est GFR (Non-Af Amer) Glucose Calcium Total Bilirubin AST ALT Alkaline Phosphatase Total Protein Albumin 11/17/18 11/17/18 04:08 04:10 WBC RBC Hgb Hct MCV MCH MCHC RDW Plt Count Seg Neutrophils % Lymphocytes % Monocytes % Eosinophils % Basophils % Absolute Neutrophils Absolute Lymphocytes Absolute Monocytes Absolute Eosinophils Absolute Basophils Carbonic Acid 1.33 HCO3/H2CO3 Ratio 17:1 ABG pH 7.33 L ABG pCO2 44.2 ABG pO2 110.9 H ABG HCO3 22.8 ABG O2 Saturation 97.8 ABG Base Excess -3.1 FiO2 40% Sodium 140.9 Potassium 4.9 Chloride 105 Carbon Dioxide 24 Anion Gap 12 BUN 31 H D Creatinine 10.44 H Est GFR ( Amer) 6 L Est GFR (Non-Af Amer) 5 L Glucose 70 L Calcium 8.1 L Total Bilirubin 0.7 AST 115 H ALT 105 H Alkaline Phosphatase 118 Total Protein 5.8 L Albumin 3.1 L Impressions: Chest X-Ray 11/15/18 10:13 IMPRESSION: Cardiomegaly without tamy pulmonary edema. Abdomen Ultrasound 11/17/18 00:00 IMPRESSION: 1. Small ascites. Obscured pancreas. Obscured abdominal aorta. 2. Multicystic kidney disease. No significant renal parenchyma is identified at the renal fossae. 3. 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 Assessment & Plan - Diagnosis (1) Hyperkalemia Is this a current diagnosis for this admission?: Yes Plan: Patient will remain on Dialysis supplementation for hyperkalemia and volume overload management. (2) Volume overload Qualifiers: Hypervolemia type: unspecified Qualified Code(s): E87.70 - Fluid overload, unspecified Is this a current diagnosis for this admission?: Yes Plan: Patient will remain on Dialysis supplementation for hyperkalemia and volume overload management. (3) ESRD (end stage renal disease) on dialysis Is this a current diagnosis for this admission?: Yes Plan: Continue scheduled hemodialysis supplementation as pre renal consult team. (4) Acute on chronic diastolic (congestive) heart failure Is this a current diagnosis for this admission?: Yes Plan: Continue current medication management. (5) Chronic atrial fibrillation Is this a current diagnosis for this admission?: Yes Plan: Continue current medication management. (6) Chronic obstruct airways disease Qualifiers: Chronic bronchitis type: unspecified Is this a current diagnosis for this admission?: Yes (7) Obstructive sleep apnea Is this a current diagnosis for this admission?: Yes Plan: Continue current medication management. (8) Status post tracheostomy Is this a current diagnosis for this admission?: Yes Plan: He will continue on Vent support whole sleeping and maintain supplemental oxygen via nasal cannula while awake as needed. - Time Time Spent with patient: 25-34 minutes Medications reviewed and adjusted accordingly: Yes Anticipated discharge: Home with Homehealth, SNF Within: Other - Inpatient Certification Medical Necessity: Significant Comorbidiites Make Outpatient Treatment Too Risky, Need Close Monitoring Due to Risk of Patient Decompensation, Need For Continuous Telemetry Monitoring, Need for IV Antibiotics, Risk of Complication if Not Cared For in Hospital, Risk of Diagnosis Which Will Require Inpatient Eval/Care/Monitoring Post Hospital Care: D/C Relay Man Documentation, D/C or Transfer Summary - Plan Summary Plan Summary: Continue current medication management. Maintain on Vent support while sleeping and nasal cannula oxygen supplementation while awake.
[2018-11-17] MEDS: MONTELUKAST SODIUM 10 MG TABLET PO SCH (17:29)
--- NOTE | 2018-11-17 17:54 | PROGRESS NOTE E ---
Progress Note NAME: ANDREAS NELSON : 1965 AGE: 53Y DATE: 11/17/2018 ROOM: 332 SUBJECTIVE: Patient is a 54-year-old male who came in with a tracheostomy, hemoptysis and acute respiratory failure. The repeat ABG done at 10:00 yesterday showing a pH of 7.21, pCO2 of 69.9, pO2 of 78.4 and ABG oxygen saturation is 22.4%. Patient was started on pressure support ventilation, IPAP of 12 and pressure support of 5 and titrated to comfort. Repeat ABG was performed, showing normalization of the pH to 7.33, pCO2 is 44.2 and pO2 of 110 on 40% FiO2. Patient tolerated the pressure well. He was in a little bit of discomfort because of the pressure, but he tolerated the pressure well. No vomiting, no diarrhea. Denies any increased tracheal secretions. No fever or chills. No chest pain. OBJECTIVE: GENERAL: Patient is awake, alert, coherent, oriented x3. VITAL SIGNS: Temperature of 98.5, with a T-max of 100.1. Heart rate of 62, blood pressure 129/79, respiratory rate is 22, oxygen saturation is 97% to 100% on 30% FiO2. Currently on tricollar with oxygen saturation of 92% to 93%. EYES: No jaundice or pallor. EARS, NOSE AND THROAT: No ear drainage. No nasal discharge. The tracheostomy tube is in place. CHEST AND LUNGS: No wheezing, no rhonchi, no coarse crackles. CARDIOVASCULAR: S1, S2 distinct. Normal rate, regular rhythm. ABDOMEN: Flabby. Positive bowel sounds. Soft, nondistended, nontender. EXTREMITIES: No joint swelling or cellulitis. LABORATORY DATA: CBC done today showed a white count of 3.9, hemoglobin is 11.1, hematocrit is 34.6, platelet count is 110,000. Chemistry done today showed sodium is 140, potassium 4.9, chloride is 105, CO2 is 24, BUN is 31, creatinine is 10.44, glucose is 70. The calcium is 8.1. SGOT is 115, SGPT is 105, total protein 5.8, alk phos 118 and albumin is 3.1. ASSESSMENT: ACUTE ON CHRONIC RESPIRATORY FAILURE REQUIRING PRESSURE SUPPORT VENTILATION. PLAN: Patient will need pressure support ventilation using a BIPAP ST at the same settings as at home of 15/5 and a breathing rate of 12 and FiO2 titrated to keep saturation 91% to 94%. Recommend manager social consult to facilitate provision of a BIPAP ST machine for the patient to take home and use at home. DICTATING PHYSICIAN: LIGIA RAMOS MD,CHANEL,[id number] [id number] PHY#: [id number] ID: [id number] JOB#: [id number] ACCT: [id number] cc: > MTDD
[2018-11-18 05:02] LABS: ABSOLUTE EOSINOPHILS # (AUTO) 0.5 10^3/uL (0.0-0.6); ABSOLUTE LYMPHOCYTES (AUTO) 1.2 10^3/uL (0.5-4.7); ABSOLUTE MONOCYTES (AUTO) 0.6 10^3/uL (0.1-1.4); BASOPHILS % (AUTO) 0.8 % (0-2); EOSINOPHILS % (AUTO) 13.8 % (0-6); HEMATOCRIT 35.3 % (37.9-51.0); HEMOGLOBIN 11.3 g/dL (13.5-17.0); MEAN CORPUSCULAR HEMOGLOBIN 28.1 pg (27.0-33.4); MEAN CORPUSCULAR HGB CONC 32.2 g/dL (32.0-36.0); MEAN CORPUSCULAR VOLUME 88 fl (80-97); MONOCYTES % (AUTO) 19.6 % (3-13); PLATELET COUNT 108 10^3/uL (150-450); RED BLOOD COUNT 4.03 10^6/uL (4.35-5.55); RED CELL DISTRIBUTION WIDTH 16.7 % (11.5-14.0); SEGMENTED NEUTROPHILS % (AUTO) 29.8 % (42-78); TOTAL CELLS COUNTED % (AUTO) 100 %; WHITE BLOOD COUNT 3.3 10^3/uL (4.0-10.5)
[2018-11-18] MEDS: HEPARIN SOD (PORCINE) 5,000 UNIT/ML 1 ML SYRINGE SUBCUT SCH ×2 (05:19→13:13)
[2018-11-18 05:27] LABS: ALANINE AMINOTRANSFERASE 86 U/L (21-72); ALBUMIN 3.2 g/dL (3.5-5.0); ALKALINE PHOSPHATASE 103 U/L (38-126); ANION GAP 15 (5-19); ASPARTATE AMINO TRANSFERASE 96 U/L (17-59); BILIRUBIN,DIRECT 0.8 mg/dL (0.0-0.4); BILIRUBIN,TOTAL 0.8 mg/dL (0.2-1.3); BLOOD UREA NITROGEN 40 mg/dL (7-20); CALCIUM 8.4 mg/dL (8.4-10.2); CARBON DIOXIDE 21 mmol/L (22-30); CHLORIDE 105 mmol/L (98-107); GLUCOSE 77 mg/dL (75-110); POTASSIUM 4.7 mmol/L (3.6-5.0); TOTAL PROTEIN 5.9 g/dL (6.3-8.2)
[2018-11-18 05:31] LABS: ANISOCYTOSIS 1+; OVALOCYTES 1+; PLATELET COMMENT DECREASED; SCHISTOCYTES SLIGHT; TARGET CELLS SLIGHT; TEAR DROP CELLS 1+
[2018-11-18] MEDS: SEVELAMER HCL 800 MG TABLET PO SCH ×3 (09:00→17:36)
[2018-11-18] MEDS: DOCUSATE SODIUM 100 MG CAPSULE PO SCH ×2 (09:01→17:36)
[2018-11-18] MEDS: FLUTICASONE NASAL SPRAY 50 MCG/SPRY 120 SPRAY/16 GM NASL SCH ×2 (09:01→21:42)
[2018-11-18] MEDS: ALLOPURINOL 100 MG TABLET PO SCH (09:01)
[2018-11-18] MEDS: LACTULOSE SYRUP 20 GM/30 ML UDCUP PO SCH ×2 (09:01→17:37)
[2018-11-18] MEDS: FAMOTIDINE INJ/PF 20 MG/2 ML SDV IV SCH ×2 (09:01→21:42)
[2018-11-18] MEDS: GABAPENTIN 100 MG CAPSULE PO SCH (09:01)
[2018-11-18] MEDS: METOPROLOL TARTRATE 25 MG TABLET PO SCH ×2 (09:01→21:43)
[2018-11-18] MEDS: CLOPIDOGREL BISULFATE 75 MG TABLET PO SCH (09:01)
[2018-11-18] MEDS: IPRATROPIUM/ALBUTEROL 0.5-2.5 MG/3 ML AMPUL NEB PRN (10:32)
[2018-11-18] MEDS: CEFTRIAXONE SODIUM 1,000 MG in DEXTROSE 5%-WATER 50 ML IV SCH (14:00)
[2018-11-18] MEDS: MONTELUKAST SODIUM 10 MG TABLET PO SCH (17:36)
[2018-11-18] MEDS ORDERED: ONDANSETRON HCL INJ/PF 4 MG/2 ML SDV IV PRN (19:38)
--- NOTE | 2018-11-18 19:39 | PDOC PROGRESS REPORT ---
Subjective Progress Note for:: 11/18/18 Subjective:: Patient denied chest pain. Currently with trach tent collar supplemental oxygen. No reported fever or chills. Tolerating oral feeding. Reason For Visit: AMS/SOB/CHF/RENAL FAILURE Physical Exam Vital Signs: Temp Pulse Resp BP Pulse Ox 97.9 F 92 16 143/70 H 94 11/18/18 15:14 11/18/18 16:00 11/18/18 15:14 11/18/18 15:14 11/18/18 17:09 Pulse Oximeter Continuous Start: 11/16/18 23:41 Freq: RTQ4 Status: Active Protocol: Document 11/18/18 17:09 [facility] (Rec: 11/18/18 17:10 [facility] [id number]) Pulse Oximetry Assessment Oxygen Saturation (92-100) 94 Oxygen Flow Rate (L/min) 10 Oxygen Delivery Method Trach Collar Fraction of Inspired Oxygen (FIO2) 40 Equipment Usage Equipment in Use Continuous SpO2 Machine # 5 Intake & Output 11/17/18 11/18/18 11/19/18 06:59 06:59 06:59 Intake Total 444 74 2230 Output Total 3400 0 0 Balance -3114 50 1244 Weight 92.7 kg 92.4 kg Physical Exam: General appearance: PRESENT: no acute distress Head exam: PRESENT: atraumatic, normocephalic Eye exam: PRESENT: conjunctiva pink. ABSENT: pallor, scleral icterus Ear exam: PRESENT: normal external ear exam Mouth exam: PRESENT: moist Neck exam: PRESENT: tracheostomy Respiratory exam: PRESENT: clear to auscultation cyndie Cardiovascular exam: PRESENT: RRR. ABSENT: diastolic murmur, rubs, systolic murmur GI/Abdominal exam: PRESENT: normal bowel sounds, soft. ABSENT: distended, guarding, mass, organomegaly, rebound, tenderness Extremities exam: ABSENT: pedal edema Psychiatric exam: PRESENT: appropriate affect, normal mood. ABSENT: homicidal ideation, suicidal ideation Skin exam: PRESENT: dry, warm Results Laboratory Results: 11/18/18 04:12 11/18/18 04:12 11/18/18 11/18/18 04:12 04:12 WBC 3.3 L RBC 4.03 L Hgb 11.3 L Hct 35.3 L MCV 88 MCH 28.1 MCHC 32.2 RDW 16.7 H Plt Count 108 L Seg Neutrophils % 29.8 L Lymphocytes % 36.0 Monocytes % 19.6 H Eosinophils % 13.8 H Basophils % 0.8 Absolute Neutrophils 1.0 L Absolute Lymphocytes 1.2 Absolute Monocytes 0.6 Absolute Eosinophils 0.5 Absolute Basophils 0.0 Sodium 141.0 Potassium 4.7 Chloride 105 Carbon Dioxide 21 L Anion Gap 15 BUN 40 H Creatinine 12.11 H Est GFR ( Amer) 5 L Est GFR (Non-Af Amer) 4 L Glucose 77 Calcium 8.4 Total Bilirubin 0.8 AST 96 H ALT 86 H Alkaline Phosphatase 103 Total Protein 5.9 L Albumin 3.2 L Impressions: Chest X-Ray 11/15/18 10:13 IMPRESSION: Cardiomegaly without tamy pulmonary edema. Abdomen Ultrasound 11/17/18 00:00 IMPRESSION: 1. Small ascites. Obscured pancreas. Obscured abdominal aorta. 2. Multicystic kidney disease. No significant renal parenchyma is identified at the renal fossae. 3. 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 Assessment & Plan - Diagnosis (1) Hyperkalemia Is this a current diagnosis for this admission?: Yes (2) Volume overload Qualifiers: Hypervolemia type: unspecified Qualified Code(s): E87.70 - Fluid overload, unspecified Is this a current diagnosis for this admission?: Yes (3) ESRD (end stage renal disease) on dialysis Is this a current diagnosis for this admission?: Yes (4) Acute on chronic diastolic (congestive) heart failure Is this a current diagnosis for this admission?: Yes (5) Chronic atrial fibrillation Is this a current diagnosis for this admission?: Yes (6) Chronic obstruct airways disease Qualifiers: Chronic bronchitis type: unspecified Is this a current diagnosis for this admission?: Yes (7) Obstructive sleep apnea Is this a current diagnosis for this admission?: Yes (8) Status post tracheostomy Is this a current diagnosis for this admission?: Yes - Time Time Spent with patient: 25-34 minutes Medications reviewed and adjusted accordingly: Yes Anticipated discharge: Home with Homehealth, SNF Within: Other - Inpatient Certification Based on my medical assessment, after consideration of the patient's comorbidities, presenting symptoms, or acuity I expect that the services needed warrant INPATIENT care.: Yes I certify that my determination is in accordance with my understanding of Medicare's requirements for reasonable and necessary INPATIENT services [42 CFR 412.3e].: Yes Medical Necessity: Significant Comorbidiites Make Outpatient Treatment Too Risky, Need Close Monitoring Due to Risk of Patient Decompensation, Need For IV Fluids, Need For Continuous Telemetry Monitoring, Need for Nebulizer Therapy and Monitoring of Response, Risk of Complication if Not Cared For in Hospital, Risk of Diagnosis Which Will Require Inpatient Eval/Care/Monitoring Post Hospital Care: D/C Band Cutter Documentation, D/C or Transfer Summary - Plan Summary Plan Summary: Continue current medication management.
[2018-11-18] MEDS: MELATONIN 5 MG TABLET PO PRN (21:42)
[2018-11-19] MEDS: HEPARIN SOD (PORCINE) 5,000 UNIT/ML 1 ML SYRINGE SUBCUT SCH ×4 (03:20→22:32)
--- NOTE | 2018-11-19 08:22 | CONSULTATION REPORT E ---
Consultation Report NAME: ANDREAS NELSON : 1965 AGE: 53Y DATE: 332 B TO: LIGIA RAMOS M.D. FROM: JOSIAH BRANNON M.D. Requesting Physician HISTORY OF PRESENT ILLNESS: The patient is a 53-year-old male who had a tracheostomy. I am consulted because of possible tracheostomy malfunction. The patient claims that he is breathing okay, breathing well. Denies any fever, respiratory distress, or severe dyspnea. No nausea, vomiting. Had tracheostomy tube changed about [address] Herrera, his ENT. Claimed that when he came in he was worried because he coughing a lot of blood-tinged sputum. The patient is currently on Plavix. Denies any neck pain or bloody secretions or bleeding around the tracheostomy tube. Currently feeling well. PAST MEDICAL HISTORY: 1. History of atrial fibrillation. 2. Congestive heart failure. 3. Hypertension. 4. Asthma. 5. Status post tracheostomy tube placement. 6. Sleep apnea. 7. Endstage renal disease, status post transplant. 8. History of gastroesophageal reflux disease. 9. Reports arthritis. 10. Reports depression, mild. SURGICAL HISTORY: 1. Herniorrhaphy. 2. Tonsillectomy. 3. Vascular surgery. 4. Right arm graft for dialysis. 5. Tracheostomy. SOCIAL HISTORY: He never smoked. Drinks alcohol occasionally. Denies any illicit drug use, alcohol abuse. FAMILY HISTORY: Reviewed, but not pertinent, hypertension. MEDICATIONS AT HOME: 1. Allopurinol. 2. Plavix. 3. Fluticasone. 4. Gabapentin. 5. Metoprolol. 6. Singulair. 7. Protonix. 8. Zantac. 9. Ambien 10 mg at bedtime. ALLERGIES: NKDA. REVIEW OF SYSTEMS: CONSTITUTIONAL: No fever or chills. EYES: No jaundice or pallor or eye pain. EARS, NOSE, AND THROAT: no ear discharge nor nasal discharge. CHEST AND LUNGS: No wheezing. No rhonchi. No coarse crackles. Denies any chest tightness or wheezing. Has claimed to cough up blood-tinged sputum, most of it coming from his tracheostomy. CARDIOVASCULAR: Has history of atrial fibrillation, congestive heart failure. Currently denies any chest pain or palpations or syncopal episodes. : No dysuria, hematuria nor flank tenderness. ABDOMEN: Denies any nausea, vomiting, diarrhea. EXTREMITIES: No joint swelling. No cellulitis. PHYSICAL EXAMINATION: GENERAL: Patient is awake, alert, coherent, oriented x3. VITAL SIGNS: Temperature of 98.3 with a T-max of 98.3, blood pressure 132/58, heart rate is 89, respirations 21, saturation is 98% on tracheostomy collar 35 FiO2. EYES: No jaundice or pallor. EARS, NOSE, AND THROAT: No ear drainage. No nasal discharge. No drainage around the tracheostomy site. No neck tenderness and no signs of bleeding from the tracheostomy tube. The patient is talking with a [place] valve, appeared to tolerate it well. CHEST AND LUNGS: The patient denies any increasing dyspnea. No wheezing, no rhonchi, no coarse crackles. CARDIOVASCULAR: S1, S2 distinct. Normal rate and regular rhythm. ABDOMEN: Flabby, positive bowel sounds, soft, nondistended, nontender. EXTREMITIES: No joint swelling. No cellulitis. LABORATORY DATA: CBC done today showed a white count of 8.9, it was 13.3 on admission; hemoglobin is 10.7; hematocrit is 30.5; platelet count is 407. The chemistry done 2 days ago showed sodium 130, potassium 3.8, chloride 101, CO2 is 33, BUN is 3, creatinine 0.52, glucose 107, calcium is 7.9. PT on admission was 16.3, INR is 1.25, PTT is 33.2. IMAGING STUDIES: CBC done today showed white count of 3.6, hemoglobin is 11.4, hematocrit is 36.2, platelet count is 137. Chemistry done at 5:34 a.m. showed sodium is 143, potassium is 5, chloride 100, CO2 is 36, BUN is 53, creatinine is 16.06, glucose 96, calcium 7.6. SGOT is 117, SGPT is 92. ABG done at 6 a.m. showed pH of 7.18, pCO2 of 76.1, pO2 of 76.3, ABG saturation 91% on 35% FiO2. ASSESSMENT: 1. Acute respiratory failure based on the arterial blood gases (ABGs) done this morning: Pressure appeared to be improving and currently not on BiPAP or on the ventilator. Patient claimed to be breathing comfortably at this time when he was seen this morning. 2. Bronchitis: The patient will require sputum culture. May need broader antibiotic coverage for gram negative organisms such as Pseudomonas aeruginosa and Serratia marcescens and corynebacterium. 3. Tracheostomy: Appeared to be functioning well, but patient has bleeding around it. The patient needs better tracheostomy care. May consider replacing the tracheostomy tube, care of ENT, but patient claimed that his tracheostomy was supposed to be replaced about 3 months ago. 4. Will do an arterial blood gas (ABG) to determine whether patient still in severe acute respiratory acidosis. DICTATING PHYSICIAN: LIGIA RAMOS MD,CHANEL,MPH. [id number] PHY#: [id number] ID: [id number] JOB#: [id number] ACCT: [id number] cc:LIGIA RAMOS M.D. > MTDD
[2018-11-19 08:29] LABS: HEMATOCRIT 36.4 % (37.9-51.0); HEMOGLOBIN 11.6 g/dL (13.5-17.0); MEAN CORPUSCULAR HEMOGLOBIN 28.4 pg (27.0-33.4); MEAN CORPUSCULAR HGB CONC 31.9 g/dL (32.0-36.0); MEAN CORPUSCULAR VOLUME 89 fl (80-97); PLATELET COUNT 120 10^3/uL (150-450); RED BLOOD COUNT 4.09 10^6/uL (4.35-5.55); RED CELL DISTRIBUTION WIDTH 16.8 % (11.5-14.0); WHITE BLOOD COUNT 3.9 10^3/uL (4.0-10.5)
[2018-11-19 08:51] LABS: ANION GAP 14 (5-19); BLOOD UREA NITROGEN 53 mg/dL (7-20); CALCIUM 8.3 mg/dL (8.4-10.2); CARBON DIOXIDE 23 mmol/L (22-30); CHLORIDE 105 mmol/L (98-107); GLUCOSE 100 mg/dL (75-110); POTASSIUM 4.7 mmol/L (3.6-5.0)
[2018-11-19] MEDS: DOCUSATE SODIUM 100 MG CAPSULE PO SCH ×3 (09:08→17:28)
[2018-11-19] MEDS: LACTULOSE SYRUP 20 GM/30 ML UDCUP PO SCH ×3 (09:08→17:28)
[2018-11-19] MEDS: METOPROLOL TARTRATE 25 MG TABLET PO SCH ×3 (09:08→22:31)
[2018-11-19] MEDS: FLUTICASONE NASAL SPRAY 50 MCG/SPRY 120 SPRAY/16 GM NASL SCH ×3 (09:08→22:31)
[2018-11-19] MEDS: SEVELAMER HCL 800 MG TABLET PO SCH ×3 (09:08→17:28)
[2018-11-19] MEDS: GABAPENTIN 100 MG CAPSULE PO SCH ×2 (09:09→12:04)
[2018-11-19] MEDS: ALLOPURINOL 100 MG TABLET PO SCH ×2 (09:12→12:04)
[2018-11-19] MEDS: CLOPIDOGREL BISULFATE 75 MG TABLET PO SCH ×2 (09:12→12:03)
[2018-11-19] MEDS: FAMOTIDINE INJ/PF 20 MG/2 ML SDV IV SCH ×3 (09:13→22:31)
--- NOTE | 2018-11-19 09:50 | PDOC PROGRESS REPORT ---
Subjective Progress Note for:: 11/19/18 Subjective:: Patient is currently doing fair Patient's trach site is still working but patients need to still look at by ENT because according to the patient when he use the CPAP machines its fall out Patient's other than that seen by the pulmonary and suggest the BiPAP Reason For Visit: AMS/SOB/CHF/RENAL FAILURE Physical Exam Vital Signs: Temp Pulse Resp BP Pulse Ox 97.6 F 58 L 14 139/54 H 100 11/19/18 04:52 11/19/18 07:00 11/19/18 04:52 11/19/18 04:52 11/19/18 04:52 Pulse Oximeter Continuous Start: 11/16/18 23:41 Freq: RTQ4 Status: Active Protocol: Document 11/19/18 04:25 [facility] (Rec: 11/19/18 05:35 [facility] [id number]) Pulse Oximetry Assessment Oxygen Saturation (92-100) 94 Oxygen Flow Rate (L/min) 10 Oxygen Delivery Method Trach Collar Fraction of Inspired Oxygen (FIO2) 40 Equipment Usage Equipment in Use Continuous SpO2 Machine # N5 Intake & Output 11/18/18 11/19/18 11/20/18 06:59 06:59 06:59 Intake Total 50 1244 Output Total 0 0 Balance 50 1244 Weight 92.4 kg 93.5 kg General appearance: PRESENT: no acute distress, well-developed, well-nourished Head exam: PRESENT: atraumatic, normocephalic Eye exam: PRESENT: conjunctiva pink, EOMI, PERRLA. ABSENT: scleral icterus Ear exam: PRESENT: normal external ear exam Mouth exam: PRESENT: moist, tongue midline Additional comments: Trach site is not bleeding Neck exam: PRESENT: full ROM. ABSENT: carotid bruit, JVD, lymphadenopathy, thyromegaly Respiratory exam: PRESENT: clear to auscultation cyndie Cardiovascular exam: PRESENT: RRR. ABSENT: diastolic murmur, rubs, systolic murmur Vascular exam: PRESENT: normal capillary refill GI/Abdominal exam: PRESENT: hernia, normal bowel sounds, soft. ABSENT: distended, guarding, mass, organolmegaly, rebound, tenderness Rectal exam: PRESENT: deferred Neurological exam: PRESENT: alert, awake, oriented to person, oriented to place, oriented to time, oriented to situation, CN II-XII grossly intact. ABSENT: motor sensory deficit Psychiatric exam: PRESENT: appropriate affect, normal mood. ABSENT: homicidal ideation, suicidal ideation Skin exam: PRESENT: dry, intact, warm. ABSENT: cyanosis, rash Results Laboratory Results: 11/19/18 07:55 11/19/18 07:55 11/19/18 11/19/18 07:55 07:55 WBC 3.9 L RBC 4.09 L Hgb 11.6 L Hct 36.4 L MCV 89 MCH 28.4 MCHC 31.9 L RDW 16.8 H Plt Count 120 L Sodium 142.0 Potassium 4.7 Chloride 105 Carbon Dioxide 23 Anion Gap 14 BUN 53 H Creatinine 14.67 H Est GFR ( Amer) 4 L Est GFR (Non-Af Amer) 4 L Glucose 100 Calcium 8.3 L Impressions: Chest X-Ray 11/15/18 10:13 IMPRESSION: Cardiomegaly without tamy pulmonary edema. Abdomen Ultrasound 11/17/18 00:00 IMPRESSION: 1. Small ascites. Obscured pancreas. Obscured abdominal aorta. 2. Multicystic kidney disease. No significant renal parenchyma is identified at the renal fossae. 3. 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 Assessment & Plan - Diagnosis (1) Hyperkalemia Is this a current diagnosis for this admission?: Yes Plan: All resolved (2) Volume overload Qualifiers: Hypervolemia type: unspecified Qualified Code(s): E87.70 - Fluid overload, unspecified Is this a current diagnosis for this admission?: Yes Plan: All resolved (3) Chronic obstruct airways disease Qualifiers: Chronic bronchitis type: unspecified Is this a current diagnosis for this admission?: Yes Plan: Discussed with the patient's pulmonary he is going to come and look at today and adjust the medications (4) Congestive heart failure Qualifiers: Heart failure type: diastolic Heart failure chronicity: acute on chronic Qualified Code(s): I50.33 - Acute on chronic diastolic (congestive) heart failure Is this a current diagnosis for this admission?: Yes Plan: Noncompliance and patient is missing the dialysis (5) End-stage renal disease (ESRD) Is this a current diagnosis for this admission?: Yes (6) Noncompliance Is this a current diagnosis for this admission?: Yes (7) Obstructive sleep apnea Is this a current diagnosis for this admission?: Yes (8) Shortness of breath Is this a current diagnosis for this admission?: Yes (9) Status post tracheostomy Is this a current diagnosis for this admission?: Yes (10) AF (atrial fibrillation) Qualifiers: Atrial fibrillation type: chronic Qualified Code(s): I48.2 - Chronic atrial fibrillation Is this a current diagnosis for this admission?: Yes (11) Pneumonia Qualifiers: Lung location: unspecified part of lung Is this a current diagnosis for this admission?: Yes Plan: on Rocepzebn (12) Sepsis Qualifiers: Sepsis type: sepsis due to unspecified organism Qualified Code(s): A41.9 - Sepsis, unspecified organism Is this a current diagnosis for this admission?: Yes - Time Time Spent with patient: 15-24 minutes Medications reviewed and adjusted accordingly: Yes Anticipated discharge: Home, Home with Homehealth Within: Other - Plan Summary Plan Summary: Continues current medications
[2018-11-19] MEDS ORDERED: NORMAL SALINE 1000 ML 1,000 ML IV PRN (10:43)
--- NOTE | 2018-11-19 10:57 | PDOC PROGRESS REPORT ---
Subjective Progress Note for:: 11/19/18 Subjective:: Patient was admitted last week because of altered mental status, hyperkalemia and hypotension. He required an urgent acute hemodialysis treatment upon admission because of the symptoms. Patient has been missing dialysis treatment possibly for a week prior to admission which is enough to cause him uremia and all the symptoms on presentation. Patient had an echocardiogram also done due to consideration of pericardial tamponade but the final result revealed no pe ricardial effusion. I am seeing the patient during dialysis this morning. He seems to be pretty com fortable and is tolerating dialysis well without any problems. He tells me that he has been noting blood-tinged drainage from his trach and has been worse last week. His trach was replaced supposedly 3 months ago by ENT specialist, Dr. Herrera. Last Monday he went into acute respiratory failure with respiratory acidosis so pulmonary was consulted and Dr. Levi has seen the patient. Recommendation was to put the patient on BiPAP ST which improved the patient's blood gas. Patient said that he still has some blood-tinged drainage from the trach. Reason For Visit: AMS/SOB/CHF/RENAL FAILURE Physical Exam Vital Signs: Temp Pulse Resp BP Pulse Ox 97.6 F 58 L 14 139/54 H 100 11/19/18 04:52 11/19/18 07:00 11/19/18 04:52 11/19/18 04:52 11/19/18 04:52 Pulse Oximeter Continuous Start: 11/16/18 23:41 Freq: RTQ4 Status: Active Protocol: Document 11/19/18 08:00 [facility] (Rec: 11/19/18 09:49 [facility] [id number]) Pulse Oximetry Assessment Equipment Usage Equipment Standby Continuous SpO2 Machine # 5 Intake & Output 11/18/18 11/19/18 11/20/18 06:59 06:59 06:59 Intake Total 50 1244 Output Total 0 0 Balance 50 1244 Weight 92.4 kg 93.5 kg Vitals on dialysis: Blood pressure 166/90, heart rate of 66, blood flow rate of 450 mL/min and dialysate flow rate of 800 mL/min. Exam: General appearance: PRESENT: no acute distress, cooperative, well-developed, well-nourished Head exam: PRESENT: atraumatic, normocephalic Eye exam: PRESENT: conjunctiva slightly pale, PERRLA. ABSENT: scleral icterus Neck exam: ABSENT: JVD; trach in place. Respiratory exam: PRESENT: Diminished breath sounds. ABSENT: crackles, rales, rhonchi, unlabored, wheezes Cardiovascular exam: PRESENT: Regular rate rhythm -+S1, +S2. ABSENT: diastolic murmur, systolic murmur, no pericardial rub heard GI/Abdominal exam: PRESENT: normal bowel sounds, soft. ABSENT: guarding, mass, tenderness Extremities exam: ABSENT: No edema Neurological exam: PRESENT: alert, awake, oriented to person, place and time. Skin exam: PRESENT: dry, warm, Cardiovascular exam: PRESENT: +S1, +S2 GI/Abdominal exam: PRESENT: distended - Large ventral hernia, normal bowel sounds, soft, tenderness. ABSENT: guarding, organomegaly Results Laboratory Results: 11/19/18 07:55 11/19/18 07:55 11/19/18 11/19/18 07:55 07:55 WBC 3.9 L RBC 4.09 L Hgb 11.6 L Hct 36.4 L MCV 89 MCH 28.4 MCHC 31.9 L RDW 16.8 H Plt Count 120 L Sodium 142.0 Potassium 4.7 Chloride 105 Carbon Dioxide 23 Anion Gap 14 BUN 53 H Creatinine 14.67 H Est GFR ( Amer) 4 L Est GFR (Non-Af Amer) 4 L Glucose 100 Calcium 8.3 L Impressions: Chest X-Ray 11/15/18 10:13 IMPRESSION: Cardiomegaly without tamy pulmonary edema. Abdomen Ultrasound 11/17/18 00:00 IMPRESSION: 1. Small ascites. Obscured pancreas. Obscured abdominal aorta. 2. Multicystic kidney disease. No significant renal parenchyma is identified at the renal fossae. 3. 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 Assessment & Plan - Diagnosis (1) ESRD (end stage renal disease) on dialysis Is this a current diagnosis for this admission?: Yes Plan: We will do dialysis today for 3 hours, using the patient's AV graft, with 2 pota ssium bath, blood flow rate of 450 mL per minute, dialysate flow rate of 800 mL per minute, ultrafiltration 3.5 L as tolerated, no heparin and no Procrit. Treatment plan discussed with dialysis nurses. Patient will be monitored throughout dialysis treatment. (2) Anemia in chronic kidney disease (CKD) Is this a current diagnosis for this admission?: Yes Plan: He will be given Procrit as needed but currently he does not need it. (3) Acute and chronic respiratory failure with hypercapnia Is this a current diagnosis for this admission?: Yes Plan: Due to trach malfunction. Pulmonology on board. (4) Acute on chronic diastolic (congestive) heart failure Is this a current diagnosis for this admission?: Yes Plan: Clinically improved after 2 dialysis treatment last week. (5) Uremia Is this a current diagnosis for this admission?: Yes Plan: Due to missing hemodialysis treatment for at least a week. Echocardiogram does not show any pericardial effusion or tamponade. Clinically does not present with any pericardial rub which would be suggestive of pericarditis. (6) Altered mental status Is this a current diagnosis for this admission?: Yes Plan: Now at baseline mental state. (7) Bronchitis Is this a current diagnosis for this admission?: Yes Plan: Secondary to Serratia marcescens on ceftriaxone. (8) Noncompliance Is this a current diagnosis for this admission?: Yes Plan: Reiterated importance of compliance with hemodialysis treatment so as to avoid uremic episodes just like this. Patient understood. (9) Status post tracheostomy Is this a current diagnosis for this admission?: Yes - Time Time with patient: 15-25 minutes
[2018-11-19] MEDS: IPRATROPIUM/ALBUTEROL 0.5-2.5 MG/3 ML AMPUL NEB PRN (13:52)
[2018-11-19] MEDS: CEFTRIAXONE SODIUM 1,000 MG in DEXTROSE 5%-WATER 50 ML IV SCH (15:06)
[2018-11-19] MEDS: MONTELUKAST SODIUM 10 MG TABLET PO SCH (17:28)
[2018-11-19] MEDS ORDERED: LIDOCAINE 4% TOPICAL SOLN 50 ML TP PRN (18:49)
[2018-11-19 23:21] LABS: ARTERIAL BLOOD BASE EXCESS -0.5 mmol/L; ARTERIAL BLOOD H2CO3 1.78 mmol/L (1.05-1.35); ARTERIAL BLOOD HCO3 27.2 mmol/L (20-24); ARTERIAL BLOOD O2 SATURATION 92.8 % (94-98); ARTERIAL BLOOD PH 7.28 (7.35-7.45); ARTERIAL BLOOD PO2 74.1 mmHg (80-100)
[2018-11-19 23:24] LABS: ARTERIAL BLOOD FIO2 6
[2018-11-20] MEDS: MELATONIN 5 MG TABLET PO PRN (01:13)
[2018-11-20] MEDS: HEPARIN SOD (PORCINE) 5,000 UNIT/ML 1 ML SYRINGE SUBCUT SCH ×3 (05:17→21:42)
--- NOTE | 2018-11-20 08:45 | PDOC PROGRESS REPORT ---
Subjective Progress Note for:: 11/20/18 Subjective:: Patient is currently doing same As per discussed with the pulmonary suggest the patient's need a BiPAP with uncuffed deflected trach Patients denied any chest pain to than any shortness of the breath Patient had a huge ventral hernia and concern about the groin pain Patient's other than that denied any other symptoms Patient still in respiratory acidosis and according to the pulmonary he need a BiPAP all the times Reason For Visit: AMS/SOB/CHF/RENAL FAILURE Physical Exam Vital Signs: Temp Pulse Resp BP Pulse Ox 97.9 F 79 17 157/104 H 100 11/20/18 07:31 11/20/18 07:31 11/20/18 07:31 11/20/18 07:31 11/20/18 07:31 Pulse Oximeter Continuous Start: 11/16/18 23:41 Freq: RTQ4 Status: Active Protocol: Document 11/20/18 04:06 NSM (Rec: 11/20/18 04:09 NSM [id number]) Pulse Oximetry Assessment Oxygen Saturation (92-100) 100 Oxygen Delivery Method Bi-pap Fraction of Inspired Oxygen (FIO2) 40 Equipment Usage Equipment in Use Continuous SpO2 Machine # N5 Intake & Output 11/19/18 11/20/18 11/21/18 06:59 06:59 06:59 Intake Total 1244 750 Output Total 0 3700 Balance 1244 -2950 Weight 93.5 kg 91.2 kg General appearance: PRESENT: no acute distress, well-developed, well-nourished Head exam: PRESENT: atraumatic, normocephalic Eye exam: PRESENT: conjunctiva pink, EOMI, PERRLA. ABSENT: scleral icterus Ear exam: PRESENT: normal external ear exam Mouth exam: PRESENT: moist, tongue midline Neck exam: PRESENT: full ROM. ABSENT: carotid bruit, JVD, lymphadenopathy, thyromegaly Respiratory exam: PRESENT: clear to auscultation cyndie Cardiovascular exam: PRESENT: RRR. ABSENT: diastolic murmur, rubs, systolic murmur Vascular exam: PRESENT: normal capillary refill GI/Abdominal exam: PRESENT: hernia, normal bowel sounds, soft. ABSENT: distended, guarding, mass, organolmegaly, rebound, tenderness Rectal exam: PRESENT: deferred Neurological exam: PRESENT: alert, awake, oriented to person, oriented to place, oriented to time, oriented to situation, CN II-XII grossly intact. ABSENT: motor sensory deficit Psychiatric exam: PRESENT: appropriate affect, normal mood. ABSENT: homicidal ideation, suicidal ideation Skin exam: PRESENT: dry, intact, warm. ABSENT: cyanosis, rash Results Laboratory Results: 11/19/18 07:55 11/19/18 07:55 11/19/18 11/19/18 07:55 22:43 Carbonic Acid 1.78 H HCO3/H2CO3 Ratio 15:1 ABG pH 7.28 L ABG pCO2 59.0 H ABG pO2 74.1 L ABG HCO3 27.2 H ABG O2 Saturation 92.8 L ABG Base Excess -0.5 FiO2 6 Sodium 142.0 Potassium 4.7 Chloride 105 Carbon Dioxide 23 Anion Gap 14 BUN 53 H Creatinine 14.67 H Est GFR ( Amer) 4 L Est GFR (Non-Af Amer) 4 L Glucose 100 Calcium 8.3 L 11/16/18 12:20 Tracheal Aspirate Gram Stain - Final 11/16/18 12:20 Tracheal Aspirate Sputum Culture - Final Serratia Marcescens Corynebacterium Striatum Normal Chantel Absent 11/15/18 12:56 Blood Blood Culture - Final Staphylococcus Capitis Impressions: Chest X-Ray 11/15/18 10:13 IMPRESSION: Cardiomegaly without tamy pulmonary edema. Abdomen Ultrasound 11/17/18 00:00 IMPRESSION: 1. Small ascites. Obscured pancreas. Obscured abdominal aorta. 2. Multicystic kidney disease. No significant renal parenchyma is identified at the renal fossae. 3. 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 Assessment & Plan - Diagnosis (1) Hyperkalemia Is this a current diagnosis for this admission?: Yes Plan: All resolved (2) Volume overload Qualifiers: Hypervolemia type: unspecified Qualified Code(s): E87.70 - Fluid overload, unspecified Is this a current diagnosis for this admission?: Yes Plan: All resolved (3) Chronic obstruct airways disease Qualifiers: Chronic bronchitis type: unspecified Is this a current diagnosis for this admission?: Yes Plan: Discussed with the patient's pulmonary he is going to come and look at today and adjust the medications (4) Congestive heart failure Qualifiers: Heart failure type: diastolic Heart failure chronicity: acute on chronic Qualified Code(s): I50.33 - Acute on chronic diastolic (congestive) heart failure Is this a current diagnosis for this admission?: Yes Plan: Noncompliance and patient is missing the dialysis (5) End-stage renal disease (ESRD) Is this a current diagnosis for this admission?: Yes (6) Noncompliance Is this a current diagnosis for this admission?: Yes (7) Obstructive sleep apnea Is this a current diagnosis for this admission?: Yes Plan: he required a BiPAP all the times (8) Shortness of breath Is this a current diagnosis for this admission?: Yes (9) Status post tracheostomy Is this a current diagnosis for this admission?: Yes (10) AF (atrial fibrillation) Qualifiers: Atrial fibrillation type: chronic Qualified Code(s): I48.2 - Chronic atrial fibrillation Is this a current diagnosis for this admission?: Yes (11) Pneumonia Qualifiers: Lung location: unspecified part of lung Is this a current diagnosis for this admission?: Yes (12) Sepsis Qualifiers: Sepsis type: sepsis due to unspecified organism Qualified Code(s): A41.9 - Sepsis, unspecified organism Is this a current diagnosis for this admission?: Yes - Time Time Spent with patient: 15-24 minutes - Plan Summary Plan Summary: Discussed with the nursing staff to arrange the BiPAP We also consult the surgery to rule out any small hernia
[2018-11-20] MEDS: IPRATROPIUM/ALBUTEROL 0.5-2.5 MG/3 ML AMPUL NEB PRN (09:02)
[2018-11-20] MEDS: GABAPENTIN 100 MG CAPSULE PO SCH (09:11)
[2018-11-20] MEDS: DOCUSATE SODIUM 100 MG CAPSULE PO SCH ×2 (09:11→18:00)
[2018-11-20] MEDS: ALLOPURINOL 100 MG TABLET PO SCH (09:11)
[2018-11-20] MEDS: METOPROLOL TARTRATE 25 MG TABLET PO SCH (09:11)
[2018-11-20] MEDS: FAMOTIDINE INJ/PF 20 MG/2 ML SDV IV SCH ×2 (09:11→21:54)
[2018-11-20] MEDS: CLOPIDOGREL BISULFATE 75 MG TABLET PO SCH (09:11)
[2018-11-20] MEDS: LACTULOSE SYRUP 20 GM/30 ML UDCUP PO SCH ×2 (09:12→18:00)
[2018-11-20] MEDS: SEVELAMER HCL 800 MG TABLET PO SCH ×3 (09:12→16:03)
[2018-11-20] MEDS: FLUTICASONE NASAL SPRAY 50 MCG/SPRY 120 SPRAY/16 GM NASL SCH ×2 (09:12→21:42)
[2018-11-20 10:15] LABS: ARTERIAL BLOOD BASE EXCESS -4.4 mmol/L; ARTERIAL BLOOD FIO2 40%; ARTERIAL BLOOD H2CO3 2.51 mmol/L (1.05-1.35); ARTERIAL BLOOD HCO3 26.8 mmol/L (20-24); ARTERIAL BLOOD O2 SATURATION 98.1 % (94-98); ARTERIAL BLOOD PO2 151.1 mmHg (80-100); ARTERIAL BLOOD TOTAL CO2 29.4 mmol/L (23-27)
--- NOTE | 2018-11-20 10:15 | PDOC CONSULTATION ---
Consultation Consult Date: 11/20/18 Attending physician:: damon Provider Consulted: DAJA TORRES History of Present Illness Admission Date/PCP: 11/15/18 11:53 History of Present Illness: ANDREAS NELSON is a 53 year old male This is a 53-year-old male with a history of end-stage renal disease on hemodialysis history of the hypertension's history of the sleep apnea status post tracheostomy history of the COPD asthma history of chronic A. fib chronic diastolic congestive heart failure weak ventral hernia and multiple other comorbidity with a very noncompliant, last dialysis done last Monday and patient's missed the dialysis 4 times was brought to er and was admitte he has a known large nonincarcerated ventral hernia and Dr jose states he has some groin pain and wants to r/o a groin hernia Past Medical History Cardiac Medical History: Reports: Atrial Fibrillation, Congestive Heart Failure, Hypertension Denies: Coronary Artery Disease, Myocardial Infarction, Hyperlipidema, Peripheral Vascular Disease, Pulmonary Embolism, Heart Murmur Pulmonary Medical History: Reports: Asthma - Trach, Sleep Apnea Denies: Bronchitis, Chronic Obstructive Pulmonary Disease (COPD), Pneumonia, Respiratory Failure, Tuberculosis Neurological Medical History: Reports: Migraine Denies: Seizures Renal/ Medical History: Reports: End Stage Renal Disease - S/P transplant Malignancy Medical History: Denies: Lung Cancer GI Medical History: Reports: Gastroesophageal Reflux Disease Musculoskeltal Medical History: Reports: Arthritis Psychiatric Medical History: Reports: Depression - mild - recent Hematology: Reports: Anemia Past Surgical History Past Surgical History: Reports: Herniorrhaphy, Tonsillectomy, Vascular Surgery - Right arm graft for dialysis, Other - Tracheostomy Denies: Appendectomy, Cholecystectomy, Coronary Artery Bypass Graft, Gastric Bypass Surgery, Pacemaker Social History Smoking Status: Unknown if Ever Smoked Frequency of Alcohol Use: Rare Hx Recreational Drug Use: No Drugs: None Hx Prescription Drug Abuse: No - Advance Directive Resuscitation Status: Full Code Family History Family History: Reviewed & Not Pertinent, Hypertension Parental Family History Reviewed: No Children Family History Reviewed: NA Sibling(s) Family History Reviewed.: NA Medication/Allergy Home Medications: Allopurinol [Zyloprim 100 mg Tablet] 100 mg PO DAILY 11/15/18 Clopidogrel Bisulfate [Plavix 75 mg Tablet] 75 mg PO DAILY 11/15/18 Digoxin [Digox] 125 mcg PO MOWEFR 11/15/18 Fluticasone Propionate [Flonase Nasal Idabel 50 Mcg/Idabel 16 gm] 2 spray NASL BID 11/15/18 Gabapentin [Neurontin 100 mg Capsule] 100 mg PO DAILY 11/15/18 Lactulose [Cephulac Syrup 20 gm/30 ml Udcup] 15 ml PO BID 11/15/18 Metoprolol Tartrate [Lopressor 25 mg Tablet] 25 mg PO BID 11/15/18 Montelukast Sodium [Singulair 10 mg Tablet] 10 mg PO QPM 11/15/18 Pantoprazole Sodium [Protonix [address] Tablet] 20 mg PO QAM 11/15/18 Ranitidine HCl [Zantac 150 mg Tablet] 150 mg PO DAILY 11/15/18 Sevelamer Carbonate [Renvela] 1,600 mg PO MEALS 11/15/18 Sevelamer Carbonate [Renvela] 800 mg PO .WITHSNACK 11/15/18 Zolpidem Tartrate [Ambien] 10 mg PO QHS 11/15/18 Allergies/Adverse Reactions: No Known Allergies Allergy (Verified 07/27/18 14:36) Review of Systems Constitutional: PRESENT: fatigue Ears: ABSENT: hearing changes Nose, Mouth, and Throat: ABSENT: as per HPI, headache(s), mouth pain, sore throat, vertigo, other Breasts: ABSENT: as per HPI, other Cardiovascular: ABSENT: chest pain, dyspnea on exertion, edema, orthropnea, palpitations Respiratory: PRESENT: other - short of breath, trach, Gastrointestinal: PRESENT: abdominal pain, bloating, other - hernia Genitourinary: ABSENT: dysuria, hematuria Musculoskeletal: PRESENT: muscle weakness Integumentary: ABSENT: rash, wounds Neurological: ABSENT: abnormal gait, abnormal speech, confusion, dizziness, f ocal weakness, syncope Psychiatric: ABSENT: anxiety, depression, homidical ideation, suicidal ideation Endocrine: ABSENT: cold intolerance, heat intolerance, polydipsia, polyuria Hematologic/Lymphatic: ABSENT: easy bleeding, easy bruising Physical Exam Vital Signs: Temp Pulse Resp BP Pulse Ox 97.9 F 81 22 H 157/104 H 95 11/20/18 07:31 11/20/18 09:02 11/20/18 09:02 11/20/18 07:31 11/20/18 09:02 Pulse Oximeter Continuous Start: 11/16/18 23:41 Freq: RTQ4 Status: Active Protocol: Document 11/20/18 09:02 [facility] (Rec: 11/20/18 09:51 [facility] [id number]) Pulse Oximetry Assessment Oxygen Saturation (92-100) 95 Oxygen Delivery Method Bi-pap Fraction of Inspired Oxygen (FIO2) 40 Equipment Usage Equipment in Use Continuous SpO2 Machine # 5 Intake & Output 11/19/18 11/20/18 11/21/18 06:59 06:59 06:59 Intake Total 1244 750 Output Total 0 3700 Balance 1244 -2950 Weight 93.5 kg 91.2 kg General appearance: PRESENT: mild distress, morbidly obese, obese, other - on bipap with trach Head exam: PRESENT: normocephalic Eye exam: PRESENT: EOMI Ear exam: PRESENT: normal external ear exam Mouth exam: PRESENT: moist Teeth exam: PRESENT: poor dentation Neck exam: PRESENT: full ROM Respiratory exam: PRESENT: decreased breath sounds, rhonchi Cardiovascular exam: PRESENT: RRR Pulses: PRESENT: normal radial pulses, normal femoral pulses Vascular exam: PRESENT: normal capillary refill GI/Abdominal exam: PRESENT: other - pt with very large ventral hernia that is reducible tender with palp of fascial edges no palp groin hernia, howerver is tender over pubic symphsis at fascial edge. Rectal exam: PRESENT: deferred Gentrourinary exam: PRESENT: other - bilat groins examined, no obvious palp hernia, weak inguinal floor but no obvious hernia pt is tender over symphsis where the fascial edge of the hernia is palpable. Results Laboratory Results: 11/19/18 07:55 11/19/18 07:55 11/19/18 22:43 Carbonic Acid 1.78 H HCO3/H2CO3 Ratio 15:1 ABG pH 7.28 L ABG pCO2 59.0 H ABG pO2 74.1 L ABG HCO3 27.2 H ABG O2 Saturation 92.8 L ABG Base Excess -0.5 FiO2 6 11/16/18 12:20 Tracheal Aspirate Gram Stain - Final 11/16/18 12:20 Tracheal Aspirate Sputum Culture - Final Serratia Marcescens Corynebacterium Striatum Normal Chantel Absent 11/15/18 12:56 Blood Blood Culture - Final Staphylococcus Capitis Impressions: Chest X-Ray 11/15/18 10:13 IMPRESSION: Cardiomegaly without tamy pulmonary edema. Abdomen Ultrasound 11/17/18 00:00 IMPRESSION: 1. Small ascites. Obscured pancreas. Obscured abdominal aorta. 2. Multicystic kidney disease. No significant renal parenchyma is identified at the renal fossae. 3. 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 Assessment & Plan - Plan Summary Plan Summary: pt examined, there is no evidence of significant groin hernia he does have a large ventral hernia that is reducible without evidence of bowel incarceration pt is very high surgical risk and has very poor resp status, no trached would not tolerate a ventral hernia repair recommend it be managed symptomatically.
[2018-11-20 10:17] LABS: ARTERIAL BLOOD PCO2 83.5 mmHg (35-45); ARTERIAL BLOOD PH 7.13 (7.35-7.45)
[2018-11-20 12:05] LABS: ARTERIAL BLOOD BASE EXCESS -1.4 mmol/L; ARTERIAL BLOOD H2CO3 1.75 mmol/L (1.05-1.35); ARTERIAL BLOOD HCO3 26.4 mmol/L (20-24); ARTERIAL BLOOD O2 SATURATION 97.4 % (94-98); ARTERIAL BLOOD PCO2 58.2 mmHg (35-45); ARTERIAL BLOOD PH 7.28 (7.35-7.45); ARTERIAL BLOOD PO2 111.3 mmHg (80-100); ARTERIAL BLOOD TOTAL CO2 28.2 mmol/L (23-27)
[2018-11-20 12:07] LABS: ARTERIAL BLOOD FIO2 40%
--- NOTE | 2018-11-20 12:43 | RADIOLOGY REPORT (SQ) ---
EXAM DESCRIPTION: CHEST SINGLE VIEW COMPLETED DATE/TIME: 11/20/2018 12:19 pm REASON FOR STUDY: Worsening respiratory failure COMPARISON: 11/15/2018 EXAM PARAMETERS: NUMBER OF VIEWS: One view. TECHNIQUE: Single frontal radiographic view of the chest acquired. RADIATION DOSE: NA LIMITATIONS: None. FINDINGS: LUNGS AND PLEURA: Right pleural effusion. Ill-defined opacification in the right base. MEDIASTINUM AND HILAR STRUCTURES: No masses. Contour normal. HEART AND VASCULAR STRUCTURES: Cardiomegaly. BONES: No acute findings. HARDWARE: Catheter. Tracheostomy tube. OTHER: No other significant finding. IMPRESSION: Cardiomegaly. No tamy pulmonary edema. Right pleural effusion. Cannot exclude right lower lobe pneumonia. TECHNICAL DOCUMENTATION: JOB ID: [id number] [employer]- All Rights Reserved Reading location - IP/workstation name: [email or web address]
[2018-11-20] MEDS ORDERED: LORAZEPAM INJ 2 MG/1 ML VIAL ONE (14:22)
--- NOTE | 2018-11-20 15:06 | PROGRESS NOTE E ---
Progress Note NAME: ANDREAS NELSON : 1965 AGE: 53Y DATE: 11/19/2018 ROOM: 606 SUBJECTIVE: The patient is a 53-year-old male who had a tracheostomy placed with [id number] respiratory failure during this admission. The patient on pressure support ventilation 15/5, and appeared to tolerate it well with ABGs showing normalization of the pH and the PCO2. The patient's tracheostomy was replaced by ENT this morning. Currently, the patient on oxygen only. Had not started pressure support ventilation yet. Denies any vomiting, diarrhea, chest pains, nausea, or worsening dyspnea. OBJECTIVE: EYES: No jaundice or pallor. EARS, NOSE AND THROAT: No ear drainage. No nasal discharge. CHEST AND LUNGS: No wheezing. No rhonchi. No coarse crackles. CARDIOVASCULAR: S1, S2 distinct. Normal rate, regular rhythm. ABDOMEN: Flabby. Positive bowel sounds. Soft, nondistended, nontender. EXTREMITIES: No joint swelling or cellulitis. LABORATORY DATA: CBC done today showed a white count of 3.9, hemoglobin of 11.6, hematocrit of 36.4, and platelet count of 119. The ABG done on November 17, 2018, on pressure support ventilation of 15/5 showed normalization of pH of 7.33, normalization of PCO2 to 44.2, the PO2 of 110, bicarb is 22.8. Chemistry done today showed sodium of 142, potassium is 4.7, chloride is 105, CO2 is 23, BUN is 53, creatinine is 14.37, glucose 100, and the calcium is 8.3. ASSESSMENT: 1. [id number] RESPIRATORY FAILURE REQUIRING INVASIVE MECHANICAL VENTILATION. Currently on oxygen therapy nasal cannula. Will do an ABG without ventilator. I think the patient will need BiPAP ST therapy at home. 2. HISTORY OF OBSTRUCTIVE SLEEP APNEA. 3. OBESITY HYPOVENTILATION SYNDROME. 4. HISTORY OF CHRONIC KIDNEY DISEASE AND ON HEMODIALYSIS. PLAN/RECOMMENDATIONS: 1. We will do an ABG to check the patient's ventilatory status while on current oxygen therapy. 2. The patient may need BiPAP ST therapy at the same setting at home, and send the request to [facility] [employer]. The patient may need social secretary help to be able to get the BiPAP ST machine. DICTATING PHYSICIAN: LIGIA RAMOS MD,CHANEL,MPH [id number] PHY#: [id number] ID: [id number] JOB#: [id number] ACCT: [id number] cc: > HARINDERD
--- NOTE | 2018-11-20 15:15 | Progress Note ---
Provider Note Provider Note: The patient was transferred to the ICU for hypotension and bradycardia. Mr. Lau is a patient of Dr. Arrington in the nephrology service. I was asked to place a line for better access. Patient has had difficulties with thromboses. Ultrasound did identify a vein and access was obtained. It was easy to obtain the blood return. The guidewire seem to advance without difficulty however despite dilatation and a generous shant in the skin with the scalpel was extremely difficult to advance the catheter. Blood return was inconsistent. The patient then became quite upset and we are forced to abandon the procedure. The bleeding was controlled and a dressing was placed. Surgery will be contacted and line will be requested.
[2018-11-20] MEDS ORDERED: MIDAZOLAM 2 MG/2 ML INJ ONE (15:35)
[2018-11-20] MEDS ORDERED: PIPERACILLIN/TAZOBACTAM 3.375 GM VIAL IV SCH (15:40)
--- NOTE | 2018-11-20 16:00 | Operative Report ---
Nonrecallable Operative Report DATE OF SURGERY: 11/20/18 PREOPERATIVE DIAGNOSIS: need IV access for meds and fluids POSTOPERATIVE DIAGNOSIS: same OPERATION: left common femoral vein central venous catheter SURGEON: MICHEL CHAMORRO ANESTHESIA: Local TISSUE REMOVED OR ALTERED: n/a COMPLICATIONS: n/a INTRAOPERATIVE FINDINGS: as above PROCEDURE: see dictation
--- NOTE | 2018-11-20 16:19 | OPERATIVE REPORT E ---
Operative Report NAME: ANDREAS NELSON : 1965 AGE: 53Y DATE OF SURGERY: 11/20/2018 ROOM: 606 PREOPERATIVE DIAGNOSIS: 1. NEED FOR IV ACCESS. 2. HYPOTENSION. 3. NEED FOR IV FLUIDS AND MEDICATIONS. POSTOPERATIVE DIAGNOSIS: 1. NEED FOR IV ACCESS. 2. HYPOTENSION. 3. NEED FOR IV FLUIDS AND MEDICATIONS. OPERATION: Placement of a left common femoral vein central venous line. SURGEON: MICHEL CHAMORRO M.D. PRECIPITATOR: None. BLEEDING: Minimal. COMPLICATIONS: None. ANESTHESIA: Local 5 mL of 1% lidocaine jelly without epinephrine. INDICATION AND FINDINGS: This is a 53-year-old male, on chronic ventilator by tracheostomy intubation with a large ventral hernia and tracheostomy for respiratory failure. He needs IV access for administration of medications and fluids. DESCRIPTION OF PROCEDURE: The procedure was done at the bedside. The patient's placed in a supine position. The left groin was prepped and draped in the usual fashion. With use of hand held ultrasound probe, the common femoral vein was identified. The area was infiltrated with lidocaine. The vein was punctured with a 16 gauge needle without difficulty. The guidewire was inserted into the needle, needle was removed and a tissue dilator was inserted and removed over the guidewire. The triple lumen central venous line catheter was inserted over the guidewire without difficulty. The guidewire was then removed. Each line was aspirated and flushed with normal saline without difficulty. The area was then covered with sterile dressings. The patient tolerated the procedure well. DICTATING PHYSICIAN: MICHEL CHAMORRO M.D. [id number] PHY#: [id number] ID: [id number] JOB#: [id number] ACCT: [id number] cc:MICHEL CHAMORRO M.D. > MTDD
--- NOTE | 2018-11-20 16:34 | Progress Note ---
Provider Note Provider Note: Patient was hypoxic and heart rate goes to up to 30-40 after doing the sections from the trach site because of the thick mucus Patient's pH was 7.13 Discussed with the pulmonary and put on a vent Patient at this point decided to admit in the ICU When I saw the patient in the ICU patient is alert awake talking but denied any distressed As per discussed with the pulmonary put the patient in the vent We will consult the cardiology as per discussed with him suggest to hold the metoprolol We will check the basic blood work EKG Chest x-ray
--- NOTE | 2018-11-20 16:41 | EKG REPORT ---
SEVERITY:- ABNORMAL ECG - ATRIAL FIB WITH CONTROLLED VENTRICULAR RESPONSE. ANTERIOR INFARCT, OLD LOW VOLTAGE EKG. : Confirmed by: Pablo Porras MD 20-Nov-2018 16:41:08
--- NOTE | 2018-11-20 16:44 | RADIOLOGY REPORT (SQ) ---
EXAM DESCRIPTION: CHEST SINGLE VIEW COMPLETED DATE/TIME: 11/20/2018 4:30 pm REASON FOR STUDY: central line placement attempted-possible pneumo COMPARISON: Earlier same day. NUMBER OF VIEWS: One view. TECHNIQUE: Single frontal radiographic image of the chest acquired. LIMITATIONS: None. FINDINGS: LUNGS AND PLEURA: No significant change. No pneumothorax. MEDIASTINUM AND HILAR STRUCTURES: Stable heart size and mediastinal structures. HEART AND VASCULAR STRUCTURES: Stable appearance. SUPPORT DEVICES: Appropriate location without change. BONES: No acute findings. OTHER: No other significant finding. IMPRESSION: No pneumothorax. TECHNICAL DOCUMENTATION: JOB ID: [id number] [employer]- All Rights Reserved Reading location - IP/workstation name: [email or web address]
[2018-11-20 16:54] LABS: ABSOLUTE EOSINOPHILS # (AUTO) 0.2 10^3/uL (0.0-0.6); ABSOLUTE LYMPHOCYTES (AUTO) 1.1 10^3/uL (0.5-4.7); ABSOLUTE MONOCYTES (AUTO) 0.5 10^3/uL (0.1-1.4); ABSOLUTE NEUT (AUTO) 2.1 10^3/uL (1.7-8.2); BASOPHILS % (AUTO) 1.1 % (0-2); EOSINOPHILS % (AUTO) 6.1 % (0-6); HEMATOCRIT 33.6 % (37.9-51.0); HEMOGLOBIN 10.7 g/dL (13.5-17.0); LYMPHOCYTES % (AUTO) 26.8 % (13-45); MEAN CORPUSCULAR HEMOGLOBIN 28.2 pg (27.0-33.4); MEAN CORPUSCULAR HGB CONC 31.7 g/dL (32.0-36.0); MEAN CORPUSCULAR VOLUME 89 fl (80-97); MONOCYTES % (AUTO) 13.3 % (3-13); RED BLOOD COUNT 3.78 10^6/uL (4.35-5.55); RED CELL DISTRIBUTION WIDTH 16.5 % (11.5-14.0); SEGMENTED NEUTROPHILS % (AUTO) 52.7 % (42-78); TOTAL CELLS COUNTED % (AUTO) 100 %
--- NOTE | 2018-11-20 17:04 | PDOC PROGRESS REPORT ---
Subjective Progress Note for:: 11/20/18 Subjective:: Events today leading to transfer to ICU noted. Patient apparently had hypoxia and bradycardia in the floor so he was transferred here and currently on the ventilator through his trach. He was just given Versed for central line insertion so he was a lethargic when I saw him today. He is also mildly hypotensive. Reason For Visit: AMS/SOB/CHF/RENAL FAILURE Physical Exam Vital Signs: Temp Pulse Resp BP Pulse Ox 98.0 F 67 10 L 88/53 L 96 11/20/18 16:00 11/20/18 16:00 11/20/18 16:00 11/20/18 16:00 11/20/18 16:12 Pulse Oximeter Continuous Start: 11/16/18 23:41 Freq: RTQ4 Status: Active Protocol: Document 11/20/18 11:20 [facility] (Rec: 11/20/18 11:38 [facility] [email or web address]) Pulse Oximetry Assessment Oxygen Saturation (92-100) 96 Oxygen Delivery Method Mechanical Ventilator Fraction of Inspired Oxygen (FIO2) 24 Equipment Usage Equipment in Use Continuous SpO2 Machine # 5 Intake & Output 11/19/18 11/20/18 11/21/18 06:59 06:59 06:59 Intake Total 1244 750 Output Total 0 3700 0 Balance 1244 -2950 0 Weight 93.5 kg 91.2 kg 88.8 kg Exam: General appearance: PRESENT: Currently on the ventilator via trach, lethargic Head exam: PRESENT: atraumatic, normocephalic Eye exam: PRESENT: Eyes closed Neck exam: ABSENT: JVD Respiratory exam: PRESENT: Normal breath sounds. ABSENT: crackles, rales, rhonchi, unlabored, wheezes Cardiovascular exam: PRESENT: Regular rate rhythm -+S1, +S2. ABSENT: diastolic murmur, systolic murmur GI/Abdominal exam: PRESENT: normal bowel sounds, soft. Positive ventral hernia ABSENT: guarding, mass, tenderness Extremities exam: ABSENT: No edema Neurological exam: PRESENT: Lethargic after Versed. Skin exam: PRESENT: dry, warm, Cardiovascular exam: PRESENT: +S1, +S2 GI/Abdominal exam: PRESENT: distended - Large ventral hernia, normal bowel sounds, soft, tenderness. ABSENT: guarding, organomegaly Results Laboratory Results: 11/19/18 11/20/18 11/20/18 22:43 10:09 11:55 Carbonic Acid 1.78 H 2.51 H 1.75 H HCO3/H2CO3 Ratio 15:1 10:1 15:1 ABG pH 7.28 L 7.13 L* 7.28 L ABG pCO2 59.0 H 83.5 H* 58.2 H ABG pO2 74.1 L 151.1 H 111.3 H ABG HCO3 27.2 H 26.8 H 26.4 H ABG O2 Saturation 92.8 L 98.1 H 97.4 ABG Base Excess -0.5 -4.4 -1.4 FiO2 6 40% 40% 11/20/18 16:33 Carbonic Acid Cancelled HCO3/H2CO3 Ratio Cancelled ABG pH Cancelled ABG pCO2 Cancelled ABG pO2 Cancelled ABG HCO3 Cancelled ABG O2 Saturation Cancelled ABG Base Excess Cancelled FiO2 Cancelled 11/15/18 12:50 Blood Blood Culture - Final NO GROWTH IN 5 DAYS Impressions: Abdomen Ultrasound 11/17/18 00:00 IMPRESSION: 1. Small ascites. Obscured pancreas. Obscured abdominal aorta. 2. Multicystic kidney disease. No significant renal parenchyma is identified at the renal fossae. 3. 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 Chest X-Ray 11/20/18 16:05 IMPRESSION: No pneumothorax. Assessment & Plan - Diagnosis (1) ESRD (end stage renal disease) on dialysis Is this a current diagnosis for this admission?: Yes Plan: We will plan for dialysis tomorrow here in the ICU. (2) Anemia in chronic kidney disease (CKD) Is this a current diagnosis for this admission?: Yes Plan: He will be given Procrit as needed during dialysis. (3) Acute and chronic respiratory failure with hypercapnia Is this a current diagnosis for this admission?: Yes Plan: Due to trach malfunction. Pulmonology on board. (4) Acute on chronic diastolic (congestive) heart failure Is this a current diagnosis for this admission?: Yes Plan: Clinically improved after 2 dialysis treatment last week. (5) Uremia Is this a current diagnosis for this admission?: Yes Plan: Due to missing hemodialysis treatment for at least a week. Echocardiogram does not show any pericardial effusion or tamponade. Clinically does not present with any pericardial rub which would be suggestive of pericarditis. (6) Altered mental status Is this a current diagnosis for this admission?: Yes Plan: Now at baseline mental state. (7) Bronchitis Is this a current diagnosis for this admission?: Yes Plan: Secondary to Serratia marcescens on ceftriaxone. (8) Noncompliance Is this a current diagnosis for this admission?: Yes Plan: Reiterated importance of compliance with hemodialysis treatment so as to avoid uremic episodes just like this. Patient understood. (9) Status post tracheostomy Is this a current diagnosis for this admission?: Yes - Time Time with patient: 15-25 minutes
[2018-11-20 17:12] LABS: ANION GAP 10 (5-19); BLOOD UREA NITROGEN 38 mg/dL (7-20); CALCIUM 8.3 mg/dL (8.4-10.2); CARBON DIOXIDE 26 mmol/L (22-30); CHLORIDE 103 mmol/L (98-107); GLUCOSE 79 mg/dL (75-110); POTASSIUM 4.2 mmol/L (3.6-5.0); SODIUM 139.3 mmol/L (137-145)
[2018-11-20 17:30] LABS: ARTERIAL BLOOD BASE EXCESS -3.7 mmol/L; ARTERIAL BLOOD H2CO3 1.42 mmol/L (1.05-1.35); ARTERIAL BLOOD HCO3 22.8 mmol/L (20-24); ARTERIAL BLOOD O2 SATURATION 93.9 % (94-98); ARTERIAL BLOOD PCO2 47.2 mmHg (35-45); ARTERIAL BLOOD PO2 76.4 mmHg (80-100); ARTERIAL BLOOD TOTAL CO2 24.2 mmol/L (23-27)
[2018-11-20 17:33] LABS: PLATELET COUNT 97 10^3/uL (150-450)
[2018-11-20 17:47] LABS: ARTERIAL BLOOD FIO2 40%
[2018-11-20] MEDS: MONTELUKAST SODIUM 10 MG TABLET PO SCH (18:00)
[2018-11-20] MEDS: PIPERACILLIN SODIUM/TAZOBACTAM 2.25 GM in NORMAL SALINE 50 ML IV SCH (18:01)
--- NOTE | 2018-11-20 21:29 | PROGRESS NOTE E ---
Progress Note NAME: ANDREAS NELSON : 1965 AGE: 53Y DATE: 11/20/2018 ROOM: 606 SUBJECTIVE: Patient is a 53-year-old male with tracheostomy, who came in with hemoptysis and tracheostomy malfunction. Tracheostomy tube was replaced with a balloon tracheostomy tube 2 days ago. Patient was tried on pressure support ventilation of 15/5 and FiO2 of 40%. Seemed to tolerate well the first night. Yesterday, patient was tried on oxygen alone and the tracheostomy passy brayan valve off, and the patient's ABG showed acute respiratory acidosis with a pH of 7.28 and a pCO2 of 58.2 and a pO2 of 111.3. Patient was placed back on pressure support ventilation of 15/5 and FiO2 of 40%. This morning, patient however had problems with a lot of secretions, which required suctioning, and patient became bradycardic and also hypotensive, so the cuff was inflated and patient was placed on full ventilator support using SIMV rate of 12, tidal volume 500, pressure support of 10, PEEP of 5 and FiO2 of 40% titrated to keep saturation 91% to 94%. Patient was then transferred to ICU for careful monitoring. Repeat chest x-ray this morning showed pleural effusion on the right and possible infiltrate. Patient's IV ceftriaxone was discontinued and changed to IV Zosyn, adjusted to the patient's renal function. Blood culture was ordered. The cardiac enzymes were also ordered, which were normal. CBC showed slight drop of hemoglobin to about 10.9 by about 0.9 g/dL. No bandemia noted. Platelet count appeared low at 97%. Eosinophils appeared elevated to 13.8 yesterday, to 6.1% today. OBJECTIVE: GENERAL: Patient appeared sleeping, breathing comfortably. The patient is not breathing over the vent. VITAL SIGNS: Ventilator rate is 10, saturation on the monitor was 94% to 97%. Heart rate was 55, blood pressure 58/60. Currently, patient is on SIMV rate of 10, tidal volume of 520, pressure support of 10, PEEP of 5 and FiO2 of 40%. Peak airway pressure is 28 and MAP ventilation is 6.5 to 6.8. EYES: No jaundice or pallor. EARS, NOSE AND THROAT: No ear drainage. No nasal discharge. CHEST AND LUNGS: No wheezing, no rhonchi, no coarse crackles. CARDIOVASCULAR: S1, S2 distinct. Normal rate, regular rhythm. ABDOMEN: Flabby. Positive bowel sounds. Soft, nondistended, nontender. EXTREMITIES: No joint swelling or cellulitis. LABORATORY DATA: CBC today at 1630 showed white count of 4, hemoglobin of 10.7, drop of 0.9 from yesterday, hematocrit is 33.6 and platelet count is 27,000. Blood gas this afternoon at 5:00 p.m. showed pH of 7.3 from 7.28 this morning, pCO2 is 7.2 and pO2 is 26.4. Bicarbonate is 22.8. ABG oxygen saturation is 93.9 on 40%. Chemistry done tonight showed sodium is 139, potassium is 4.2, chloride 103, CO2 is 26, BUN is 38, creatinine is 10.5 and glucose 79. Calcium is 8.3. Chest x-ray done today showed some pleural effusion on the right and some infiltrate in the right lower lobe. ASSESSMENT: ACUTE ON CHRONIC RESPIRATORY FAILURE, REQUIRING INVASIVE MECHANICAL VENTILATION. Patient is not ready to be discharged because patient developed hypotension and bradycardia this afternoon. PLAN: 1. Will discontinue the IV ceftriaxone and change to Zosyn 2.25 grams IV piggyback q.8, adjusted to patient's body weight. Hold blood pressure medications. Will hold the Plavix. Patient may require thoracentesis in the next few days. Plavix is notorious for causing excessive bleeding. 2. Change the vent settings to SIMV, rate of 14, tidal volume of 500, pressure support of 10, PEEP of 5, FiO2 of 40%, to be titrated to keep oxygen saturation 91% to 94%. On this setting, the Minute ventilation went up to 7.2, 7.6 from 4.2 to 4.7, with tidal volume of about 530, 510, the peak airway pressure of 28. DICTATING PHYSICIAN: LIGIA RAMOS MD,CHANEL,MPH [id number] PHY#: [id number] ID: [id number] JOB#: [id number] ACCT: [id number] cc: > MTDD
[2018-11-20 23:24] LABS: ARTERIAL BLOOD BASE EXCESS -0.6 mmol/L; ARTERIAL BLOOD FIO2 40%; ARTERIAL BLOOD H2CO3 1.15 mmol/L (1.05-1.35); ARTERIAL BLOOD HCO3 23.8 mmol/L (20-24); ARTERIAL BLOOD O2 SATURATION 94.7 % (94-98); ARTERIAL BLOOD PCO2 38.3 mmHg (35-45); ARTERIAL BLOOD PH 7.41 (7.35-7.45); ARTERIAL BLOOD PO2 71.8 mmHg (80-100)
--- NOTE | 2018-11-21 02:00 | RADIOLOGY REPORT (SQ) ---
EXAM DESCRIPTION: CT CHEST ANGIOGRAPHY WITHOUT THEN WITH IV CONTRAST COMPLETED DATE/TME: 11/20/2018 22:30 CLINICAL HISTORY: 53 years, Male, possible PE; right pleural effusion COMPARISON: 08/01/2018 CTA TECHNIQUE: 618 Images stored on PACS. All CT scanners at this facility use dose modulation, iterative reconstruction, and/or weight based dosing when appropriate to reduce radiation dose to as low as reasonably achievable (ALARA). Axial images with coronal and sagittal MIPS reconstructions [facility]: Dose Right [facility]: CareDose [facility]: Dose Right [facility]: Teradose 4D [facility]: [employer] Technologies LIMITATIONS: None. FINDINGS: Tracheostomy tube in place. Extensive varices associated with the thorax, as before. Stable cardiomegaly. Prominent mediastinal fat with multiple nonenlarged to mildly enlarged mediastinal and hilar lymph nodes. Osseous structures of the thorax are grossly intact. Limited evaluation of upper abdomen shows partial visualization of what appears to be left renal cysts. Small moderate bilateral pleural effusions. There is no intraluminal filling defect to suggest pulmonary embolus. Negative for thoracic aortic aneurysm or dissection. No pneumothorax. Minor consolidative changes in each lung base. IMPRESSION: Negative for pulmonary embolus, thoracic aortic aneurysm, or dissection. Cardiomegaly. Multiple moderate bilateral pleural effusions with adjacent consolidative change. TECHNICAL DOCUMENTATION: Quality ID # 436: Final reports with documentation of one or more dose reduction techniques (e.g., Automated exposure control, adjustment of the mA and/or kV according to patient size, use of iterative reconstruction technique) copyright 2011 [employer]- All Rights Reserved
[2018-11-21] MEDS: PIPERACILLIN SODIUM/TAZOBACTAM 2.25 GM in NORMAL SALINE 50 ML IV SCH ×3 (03:12→17:09)
[2018-11-21 04:48] LABS: ABSOLUTE BASOPHILS # (AUTO) 0.1 10^3/uL (0.0-0.2); ABSOLUTE EOSINOPHILS # (AUTO) 0.3 10^3/uL (0.0-0.6); ABSOLUTE LYMPHOCYTES (AUTO) 1.1 10^3/uL (0.5-4.7); ABSOLUTE MONOCYTES (AUTO) 0.4 10^3/uL (0.1-1.4); ABSOLUTE NEUT (AUTO) 1.7 10^3/uL (1.7-8.2); BASOPHILS % (AUTO) 2.2 % (0-2); EOSINOPHILS % (AUTO) 9.1 % (0-6); HEMATOCRIT 32.9 % (37.9-51.0); HEMOGLOBIN 10.7 g/dL (13.5-17.0); LYMPHOCYTES % (AUTO) 29.5 % (13-45); MEAN CORPUSCULAR HEMOGLOBIN 28.3 pg (27.0-33.4); MEAN CORPUSCULAR HGB CONC 32.4 g/dL (32.0-36.0); MEAN CORPUSCULAR VOLUME 87 fl (80-97); MONOCYTES % (AUTO) 12.1 % (3-13); RED BLOOD COUNT 3.77 10^6/uL (4.35-5.55); RED CELL DISTRIBUTION WIDTH 16.5 % (11.5-14.0); SEGMENTED NEUTROPHILS % (AUTO) 47.1 % (42-78); TOTAL CELLS COUNTED % (AUTO) 100 %; WHITE BLOOD COUNT 3.7 10^3/uL (4.0-10.5)
[2018-11-21 05:00] LABS: ANION GAP 12 (5-19); BLOOD UREA NITROGEN 45 mg/dL (7-20); CALCIUM 8.6 mg/dL (8.4-10.2); CARBON DIOXIDE 25 mmol/L (22-30); CHLORIDE 103 mmol/L (98-107); GLUCOSE 77 mg/dL (75-110); POTASSIUM 4.2 mmol/L (3.6-5.0); SODIUM 139.7 mmol/L (137-145)
[2018-11-21] MEDS ORDERED: NORMAL SALINE 1000 ML 1,000 ML IV PRN (05:00)
[2018-11-21 05:12] LABS: PLATELET COUNT 98 10^3/uL (150-450)
[2018-11-21] MEDS ORDERED: HEPARIN SOD (PORCINE) 5,000 UNIT/ML 1 ML SYRINGE ONE (05:37)
[2018-11-21] MEDS: HEPARIN SOD (PORCINE) 5,000 UNIT/ML 1 ML SYRINGE SUBCUT SCH ×3 (05:38→21:50)
--- NOTE | 2018-11-21 06:32 | RADIOLOGY REPORT (SQ) ---
EXAM DESCRIPTION: CHEST SINGLE VIEW COMPLETED DATE/TIME: 11/21/2018 6:14 am REASON FOR STUDY: on ventilator COMPARISON: 11/20/2018. FINDINGS: Single-view chest AP portable semi-upright. Lines and tubes stable including tracheostomy. Cardiomegaly with mild vascular congestion. Patchy areas of subsegmental atelectasis. Slight shifti ng opacities. No pneumothorax. TECHNICAL DOCUMENTATION: JOB ID: [id number] Reading location - IP/workstation name: [email or web address]
--- NOTE | 2018-11-21 06:35 | RADIOLOGY REPORT (SQ) ---
EXAM DESCRIPTION: U/S CHEST COMPLETED DATE/TIME: 11/21/2018 5:24 am REASON FOR STUDY: Quantify pleural effusion, bilateral COMPARISON: None. FINDINGS: Ultrasound is performed to quantify pleural fluid. Small bilateral pleural effusions are noted, right fluid maximally at 6 cm. Left at just over 4 cm m aximally. Associated lung atelectasis. TECHNICAL DOCUMENTATION: JOB ID: [id number] Reading location - IP/workstation name: [email or web address]
[2018-11-21] MEDS: SEVELAMER HCL 800 MG TABLET PO SCH ×2 (07:34→11:51)
--- NOTE | 2018-11-21 08:30 | PDOC PROGRESS REPORT ---
Subjective Progress Note for:: 11/21/18 Subjective:: Patient is currently doing well Patient was CT angiogram done yesterday was negative for PE Patient is currently dialyzed today Currently on a vent with the trach Patient's denied any chest pain to than any shortness of the breath Reason For Visit: AMS/SOB/CHF/RENAL FAILURE Physical Exam Vital Signs: Temp Pulse Resp BP Pulse Ox 97.5 F 65 14 121/54 L 100 11/21/18 06:00 11/21/18 08:01 11/21/18 08:01 11/20/18 18:00 11/21/18 08:01 Pulse Oximeter Continuous Start: 11/16/18 23:41 Freq: RTQ4 Status: Complete Protocol: Document 11/20/18 11:20 [facility] (Rec: 11/20/18 11:38 [facility] [email or web address]) Pulse Oximetry Assessment Oxygen Saturation (92-100) 96 Oxygen Delivery Method Mechanical Ventilator Fraction of Inspired Oxygen (FIO2) 24 Equipment Usage Equipment in Use Continuous SpO2 Machine # 5 Intake & Output 11/20/18 11/21/18 11/22/18 06:59 06:59 06:59 Intake Total 750 50 50 Output Total 3700 0 Balance -2950 50 50 Weight 91.2 kg 89.9 kg General appearance: PRESENT: no acute distress, well-developed, well-nourished Head exam: PRESENT: atraumatic, normocephalic Eye exam: PRESENT: conjunctiva pink, EOMI, PERRLA. ABSENT: scleral icterus Ear exam: PRESENT: normal external ear exam Mouth exam: PRESENT: moist, tongue midline Neck exam: PRESENT: full ROM. ABSENT: carotid bruit, JVD, lymphadenopathy, thyromegaly Respiratory exam: PRESENT: decreased breath sounds Cardiovascular exam: PRESENT: RRR. ABSENT: diastolic murmur, rubs, systolic murmur Vascular exam: PRESENT: normal capillary refill GI/Abdominal exam: PRESENT: hernia, normal bowel sounds, soft. ABSENT: distended, guarding, mass, organolmegaly, rebound, tenderness Rectal exam: PRESENT: deferred Neurological exam: PRESENT: alert, awake, oriented to person, oriented to place, oriented to time, oriented to situation, CN II-XII grossly intact. ABSENT: motor sensory deficit Psychiatric exam: PRESENT: appropriate affect, normal mood. ABSENT: homicidal ideation, suicidal ideation Skin exam: PRESENT: dry, intact, warm. ABSENT: cyanosis, rash Results Laboratory Results: 11/21/18 04:35 11/21/18 04:35 11/20/18 11/20/18 11/20/18 10:09 11:55 16:30 WBC RBC Hgb Hct MCV MCH MCHC RDW Plt Count Seg Neutrophils % Lymphocytes % Monocytes % Eosinophils % Basophils % Absolute Neutrophils Absolute Lymphocytes Absolute Monocytes Absolute Eosinophils Absolute Basophils Carbonic Acid 2.51 H 1.75 H HCO3/H2CO3 Ratio 10:1 15:1 ABG pH 7.13 L* 7.28 L ABG pCO2 83.5 H* 58.2 H ABG pO2 151.1 H 111.3 H ABG HCO3 26.8 H 26.4 H ABG O2 Saturation 98.1 H 97.4 ABG Base Excess -4.4 -1.4 FiO2 40% 40% Sodium Potassium Chloride Carbon Dioxide Anion Gap BUN Creatinine Est GFR ( Amer) Est GFR (Non-Af Amer) Glucose Lactic Acid Calcium Magnesium 2.4 H 11/20/18 11/20/18 11/20/18 16:30 16:30 16:30 WBC 4.0 RBC 3.78 L Hgb 10.7 L Hct 33.6 L MCV 89 MCH 28.2 MCHC 31.7 L RDW 16.5 H Plt Count 97 L Seg Neutrophils % 52.7 Lymphocytes % 26.8 Monocytes % 13.3 H Eosinophils % 6.1 H Basophils % 1.1 Absolute Neutrophils 2.1 Absolute Lymphocytes 1.1 Absolute Monocytes 0.5 Absolute Eosinophils 0.2 Absolute Basophils 0.0 Carbonic Acid HCO3/H2CO3 Ratio ABG pH ABG pCO2 ABG pO2 ABG HCO3 ABG O2 Saturation ABG Base Excess FiO2 Sodium 139.3 Potassium 4.2 Chloride 103 Carbon Dioxide 26 Anion Gap 10 BUN 38 H Creatinine 10.50 H Est GFR ( Amer) 6 L Est GFR (Non-Af Amer) 5 L Glucose 79 Lactic Acid 0.7 Calcium 8.3 L Magnesium 11/20/18 11/20/18 11/20/18 16:33 17:00 22:00 WBC RBC Hgb Hct MCV MCH MCHC RDW Plt Count Seg Neutrophils % Lymphocytes % Monocytes % Eosinophils % Basophils % Absolute Neutrophils Absolute Lymphocytes Absolute Monocytes Absolute Eosinophils Absolute Basophils Carbonic Acid Cancelled 1.42 H 1.15 HCO3/H2CO3 Ratio Cancelled 16:1 20:1 ABG pH Cancelled 7.30 L 7.41 ABG pCO2 Cancelled 47.2 H 38.3 ABG pO2 Cancelled 76.4 L 71.8 L ABG HCO3 Cancelled 22.8 23.8 ABG O2 Saturation Cancelled 93.9 L 94.7 ABG Base Excess Cancelled -3.7 -0.6 FiO2 Cancelled 40% 40% Sodium Potassium Chloride Carbon Dioxide Anion Gap BUN Creatinine Est GFR ( Amer) Est GFR (Non-Af Amer) Glucose Lactic Acid Calcium Magnesium 11/21/18 11/21/18 04:35 04:35 WBC 3.7 L RBC 3.77 L Hgb 10.7 L Hct 32.9 L MCV 87 MCH 28.3 MCHC 32.4 RDW 16.5 H Plt Count 98 L Seg Neutrophils % 47.1 Lymphocytes % 29.5 Monocytes % 12.1 Eosinophils % 9.1 H Basophils % 2.2 H Absolute Neutrophils 1.7 Absolute Lymphocytes 1.1 Absolute Monocytes 0.4 Absolute Eosinophils 0.3 Absolute Basophils 0.1 Carbonic Acid HCO3/H2CO3 Ratio ABG pH ABG pCO2 ABG pO2 ABG HCO3 ABG O2 Saturation ABG Base Excess FiO2 Sodium 139.7 Potassium 4.2 Chloride 103 Carbon Dioxide 25 Anion Gap 12 BUN 45 H Creatinine 11.86 H Est GFR ( Amer) 5 L Est GFR (Non-Af Amer) 5 L Glucose 77 Lactic Acid Calcium 8.6 Magnesium 2.6 H 11/17/18 08:55 Sputum Gram Stain - Final 11/17/18 08:55 Sputum Sputum Culture - Final Stenotrophomonas Maltophilia Enterobacter Cloacae Corynebacterium Striatum Normal Chantel Absent 11/15/18 12:50 Blood Blood Culture - Final NO GROWTH IN 5 DAYS 11/20/18 16:30 Troponin I 0.018 Impressions: Abdomen Ultrasound 11/17/18 00:00 IMPRESSION: 1. Small ascites. Obscured pancreas. Obscured abdominal aorta. 2. Multicystic kidney disease. No significant renal parenchyma is identified at the renal fossae. 3. 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 Chest/Abdomen CTA 11/20/18 22:30 IMPRESSION: Negative for pulmonary embolus, thoracic aortic aneurysm, or dissection. Cardiomegaly. Multiple moderate bilateral pleural effusions with adjacent consolidative change. TECHNICAL DOCUMENTATION: Quality ID # 436: Final reports with documentation of one or more dose reduction techniques (e.g., Automated exposure control, adjustment of the mA and/or kV according to patient size, use of iterative reconstruction technique) copyright 2011 [employer]- All Rights Reserved Assessment & Plan - Diagnosis (1) Hyperkalemia Is this a current diagnosis for this admission?: Yes (2) Volume overload Qualifiers: Hypervolemia type: unspecified Qualified Code(s): E87.70 - Fluid overload, unspecified Is this a current diagnosis for this admission?: Yes (3) Chronic obstruct airways disease Qualifiers: Chronic bronchitis type: unspecified Is this a current diagnosis for this admission?: Yes (4) Congestive heart failure Qualifiers: Heart failure type: diastolic Heart failure chronicity: acute on chronic Qualified Code(s): I50.33 - Acute on chronic diastolic (congestive) heart failure Is this a current diagnosis for this admission?: Yes (5) End-stage renal disease (ESRD) Is this a current diagnosis for this admission?: Yes (6) Noncompliance Is this a current diagnosis for this admission?: Yes (7) Obstructive sleep apnea Is this a current diagnosis for this admission?: Yes (8) Shortness of breath Is this a current diagnosis for this admission?: Yes (9) Status post tracheostomy Is this a current diagnosis for this admission?: Yes (10) AF (atrial fibrillation) Qualifiers: Atrial fibrillation type: chronic Qualified Code(s): I48.2 - Chronic atrial fibrillation Is this a current diagnosis for this admission?: Yes (11) Pneumonia Qualifiers: Lung location: unspecified part of lung Is this a current diagnosis for this admission?: Yes (12) Sepsis Qualifiers: Sepsis type: sepsis due to unspecified organism Qualified Code(s): A41.9 - Sepsis, unspecified organism Is this a current diagnosis for this admission?: Yes - Time Time Spent with patient: 25-34 minutes Medications reviewed and adjusted accordingly: Yes Anticipated discharge: SNF Within: Other - Plan Summary Plan Summary: We will inform the patient's brother was close to the patient's family member as per discussed with the patient's regarding the patient is here and other plans We will try to contact the brother Patient is probably needs to go to the nursing facility were able to take care of the dialysis and the tracheostomy
--- NOTE | 2018-11-21 10:04 | PROGRESS NOTE E ---
Progress Note NAME: ANDREAS NELSON : 1965 AGE: 53Y DATE: 11/21/2018 ROOM: 606 SUBJECTIVE: Patient is a 53-year-old male who came in with a tracheostomy malfunction and acute respiratory failure requiring mechanical ventilation. Patient was hypotensive yesterday and bradycardic with tracheal secretions. The patient was transferred to ICU and was started on full SIMV support with a rate of 14, tidal volume of 500, pressure support of 10, PEEP of 5 and FiO2 of 40%. Patient has been sleeping overnight and has been stable. Blood pressures improved this morning to 130/60. Patient is currently on dialysis. There is no fever, no vomiting, no diarrhea. No abdominal pain, no chest pain, no increased tracheal secretions. A chest CT scan done last night showed absence of pulmonary embolism or PC aneurysm. It also showed infiltrate involving the left lower lobe and right lower lobe. Mild pleural effusion in the right lung suggesting a bibasal pneumonic process. OBJECTIVE: GENERAL: Patient awake, alert, appeared to be coherent. Appeared to be no in acute respiratory distress. VITAL SIGNS: Temperature is 97.7 with a T-max of 98.2, heart rate of 65, blood pressure is 130/69. Respiratory rate is 14 and saturation is 100%. EYES: No jaundice or pallor. EARS, NOSE AND THROAT: No ear drainage noted. No nasal discharge. Tracheostomy tube is in place, currently in mechanical ventilation with SIMV with a rate of 14, tidal volume of 500, pressure support of 10, PEEP of 5, FiO2 40%, and saturations 100%. CHEST AND LUNGS: Wheezing, no coarse crackles. Fine rhonchi bibasilar. Fine rales bibasilar. CARDIOVASCULAR: S1, S2 distinct. Normal rate, regular rhythm. ABDOMEN: Flabby. Positive bowel sounds. Soft, nondistended, nontender. Possible abdominal hernia. EXTREMITIES: No joint swelling or cellulitis. LABORATORY DATA: CBC done today showed white count of 3.7, hemoglobin stable at 10.7, hematocrit is 32.9, platelet count is still low 98. Eosinophils with 9.1. ABG done at 10 p.m. last night showed pH of 7.41 - much improved from 7.3 a few hours ago; pCO2 is 13.3 and pO2 is 71.8. ABG oxygen saturation is 94.7. Chemistry done this morning showed sodium is 139, potassium is 4.2, chloride 103, CO2 is 25, BUN is 45, creatinine is 11.89 and glucose 77. Calcium is 8.6 and amylase is 12.6. ASSESSMENT/PLAN: 1. ACUTE ON CHRONIC RESPIRATORY FAILURE, REQUIRING INVASIVE MECHANICAL VENTILATION. PATIENT MAY NEED TO GO HOME ON A VENTILATOR AND PATIENT MAY NEED TO TRANSFER TO A FACILITY WHERE PATIENT CAN HAVE HEMODIALYSIS AND INVASIVE MECHANICAL VENTILATION. PATIENT MAY BE ABLE TO GO HOME USING A TRILOGY PORTABLE VENTILATOR USING THE SAME SIMV SETTINGS. 2. RECOMMEND CONTINUING THE ZOSYN FOR ABOUT 10 DAYS TO 14 DAYS AND THEN CHANGE TO P.O. LEVAQU[facility]. 3. WILL SIGN OFF TODAY. I WILL ASK DR. SILVESTRE TO FOLLOW PATIENT. DICTATING PHYSICIAN: LIGIA RAMOS M.D. [id number] PHY#: [id number] ID: [id number] JOB#: [id number] ACCT: [id number] cc: > MTDD
[2018-11-21] MEDS: FLUTICASONE NASAL SPRAY 50 MCG/SPRY 120 SPRAY/16 GM NASL SCH ×2 (10:45→21:52)
[2018-11-21] MEDS: FAMOTIDINE INJ/PF 20 MG/2 ML SDV IV SCH ×2 (10:51→22:07)
[2018-11-21] MEDS: CEFTRIAXONE SODIUM 1,000 MG in DEXTROSE 5%-WATER 50 ML IV SCH (11:12)
[2018-11-21] MEDS ORDERED: PHARMACY COMMUNICATION ORDER MC NR (11:15)
[2018-11-21] MEDS ORDERED: DEXTROSE 40% GEL 15 GM TUBE NG PRN ×2 (11:45→11:46)
[2018-11-21] MEDS ORDERED: DEXTROSE 40% GEL 15 GM TUBE X 2 NG PRN (11:45)
[2018-11-21] MEDS: ALLOPURINOL 100 MG TABLET PO SCH (11:51)
[2018-11-21] MEDS: LACTULOSE SYRUP 20 GM/30 ML UDCUP PO SCH (11:51)
[2018-11-21] MEDS: DOCUSATE SODIUM 100 MG CAPSULE PO SCH (11:51)
[2018-11-21] MEDS: GABAPENTIN 100 MG CAPSULE PO SCH (11:51)
--- NOTE | 2018-11-21 12:16 | RADIOLOGY REPORT (SQ) ---
EXAM DESCRIPTION: KUB/ABDOMEN (SINGLE VIEW) COMPLETED DATE/TIME: 11/21/2018 11:41 am REASON FOR STUDY: Confirm NG placement COMPARISON: None. NUMBER OF VIEWS: One view. TECHNIQUE: Supine radiographic image of the abdomen acquired. LIMITATIONS: Pelvis excluded by collimation. FINDINGS: BOWEL GAS PATTERN: Normal bowel gas pattern. No dilated loops. CALCIFICATIONS: No suspicious calcifications. SOFT TISSUES: No gross mass or suggestion of organomegaly. HARDWARE: Nasoenteric tube tip overlies gastric body. Partially visualized central venous dialysis c atheter at right atrium. IVC filter, stable. BONES: No acute fracture. No worrisome bone lesions. OTHER: No other significant finding. IMPRESSION: Nasoenteric tube tip overlies gastric body. TECHNICAL DOCUMENTATION: JOB ID: [id number] [employer]- All Rights Reserved Reading location - IP/workstation name: [email or web address]
[2018-11-21] MEDS: ACETAMINOPHEN SOLN 325 MG/10.15 ML UDCUP NG PRN ×2 (12:25→17:57)
[2018-11-21] MEDS: MONTELUKAST SODIUM 10 MG TABLET NG SCH (17:09)
[2018-11-21] MEDS: DOCUSATE SODIUM 100 MG/10 ML UDC NG SCH (17:09)
[2018-11-21] MEDS: LACTULOSE SYRUP 20 GM/30 ML UDCUP NG SCH (17:09)
--- NOTE | 2018-11-21 18:19 | PDOC PROGRESS REPORT ---
Subjective Progress Note for:: 11/21/18 Subjective:: I saw the patient during dialysis this morning in the ICU. Patient looks much better than yesterday. He is awake and responding to questions. He complains of back pain while lying down. He still on the ventilator to do trach. His blood pressure is actually better today and has been maintained throughout dialysis treatment. Dialysis went well without any complications. Reason For Visit: AMS/SOB/CHF/RENAL FAILURE Physical Exam Vital Signs: Temp Pulse Resp BP Pulse Ox 97.7 F 65 14 138/69 H 100 11/21/18 08:00 11/21/18 08:01 11/21/18 08:01 11/21/18 08:00 11/21/18 08:01 Pulse Oximeter Continuous Start: 11/16/18 23 :41 Freq: RTQ4 Status: Complete Protocol: Document 11/20/18 11:20 [facility] (Rec: 11/20/18 11:38 [facility] [id number]) Pulse Oximetry Assessment Oxygen Saturation (92-100) 96 Oxygen Delivery Method Mechanical Ventilator Fraction of Inspired Oxygen (FIO2) 24 Equipment Usage Equipment in Use Continuous SpO2 Machine # 5 Intake & Output 11/20/18 11/21/18 11/22/18 06:59 06:59 06:59 Intake Total 750 50 50 Output Total 3700 0 2000 Balance -2950 50 -1950 Weight 91.2 kg 89.9 kg Vitals during dialysis: Blood pressure of 114/50, heart rate of 63, oxygen saturation 100% with current ventilator setting, blood flow rate was 450 mL/min, dialysate flow rate of 800 mL/min. Exam: General appearance: PRESENT: no acute distress on ventilator via trach, cooperative, well-developed, well-nourished Head exam: PRESENT: atraumatic, normocephalic Eye exam: PRESENT: conjunctiva pink, PERRLA. ABSENT: scleral icterus Neck exam: ABSENT: JVD Respiratory exam: PRESENT: Slightly coarse breath sounds. Positive rhonchi ABSENT: crackles, rales, unlabored, wheezes Cardiovascular exam: PRESENT: Regular rate rhythm -+S1, +S2. ABSENT: diastolic murmur, systolic murmur GI/Abdominal exam: PRESENT: normal bowel sounds, soft. ABSENT: guarding, mass, tenderness Extremities exam: ABSENT: No edema Neurological exam: PRESENT: alert, awake, oriented to person, place and time. Skin exam: PRESENT: dry, warm, Cardiovascular exam: PRESENT: +S1, +S2 GI/Abdominal exam: PRESENT: distended - Large ventral hernia, normal bowel sounds, soft, tenderness. ABSENT: guarding, organomegaly Results Laboratory Results: 11/21/18 04:35 11/21/18 04:35 11/20/18 11/20/18 11/20/18 10:09 11:55 16:30 WBC RBC Hgb Hct MCV MCH MCHC RDW Plt Count Seg Neutrophils % Lymphocytes % Monocytes % Eosinophils % Basophils % Absolute Neutrophils Absolute Lymphocytes Absolute Monocytes Absolute Eosinophils Absolute Basophils Carbonic Acid 2.51 H 1.75 H HCO3/H2CO3 Ratio 10:1 15:1 ABG pH 7.13 L* 7.28 L ABG pCO2 83.5 H* 58.2 H ABG pO2 151.1 H 111.3 H ABG HCO3 26.8 H 26.4 H ABG O2 Saturation 98.1 H 97.4 ABG Base Excess -4.4 -1.4 FiO2 40% 40% Sodium Potassium Chloride Carbon Dioxide Anion Gap BUN Creatinine Est GFR ( Amer) Est GFR (Non-Af Amer) Glucose Lactic Acid Calcium Magnesium 2.4 H 11/20/18 11/20/18 11/20/18 16:30 16:30 16:30 WBC 4.0 RBC 3.78 L Hgb 10.7 L Hct 33.6 L MCV 89 MCH 28.2 MCHC 31.7 L RDW 16.5 H Plt Count 97 L Seg Neutrophils % 52.7 Lymphocytes % 26.8 Monocytes % 13.3 H Eosinophils % 6.1 H Basophils % 1.1 Absolute Neutrophils 2.1 Absolute Lymphocytes 1.1 Absolute Monocytes 0.5 Absolute Eosinophils 0.2 Absolute Basophils 0.0 Carbonic Acid HCO3/H2CO3 Ratio ABG pH ABG pCO2 ABG pO2 ABG HCO3 ABG O2 Saturation ABG Base Excess FiO2 Sodium 139.3 Potassium 4.2 Chloride 103 Carbon Dioxide 26 Anion Gap 10 BUN 38 H Creatinine 10.50 H Est GFR ( Amer) 6 L Est GFR (Non-Af Amer) 5 L Glucose 79 Lactic Acid 0.7 Calcium 8.3 L Magnesium 11/20/18 11/20/18 11/20/18 16:33 17:00 22:00 WBC RBC Hgb Hct MCV MCH MCHC RDW Plt Count Seg Neutrophils % Lymphocytes % Monocytes % Eosinophils % Basophils % Absolute Neutrophils Absolute Lymphocytes Absolute Monocytes Absolute Eosinophils Absolute Basophils Carbonic Acid Cancelled 1.42 H 1.15 HCO3/H2CO3 Ratio Cancelled 16:1 20:1 ABG pH Cancelled 7.30 L 7.41 ABG pCO2 Cancelled 47.2 H 38.3 ABG pO2 Cancelled 76.4 L 71.8 L ABG HCO3 Cancelled 22.8 23.8 ABG O2 Saturation Cancelled 93.9 L 94.7 ABG Base Excess Cancelled -3.7 -0.6 FiO2 Cancelled 40% 40% Sodium Potassium Chloride Carbon Dioxide Anion Gap BUN Creatinine Est GFR ( Amer) Est GFR (Non-Af Amer) Glucose Lactic Acid Calcium Magnesium 11/21/18 11/21/18 04:35 04:35 WBC 3.7 L RBC 3.77 L Hgb 10.7 L Hct 32.9 L MCV 87 MCH 28.3 MCHC 32.4 RDW 16.5 H Plt Count 98 L Seg Neutrophils % 47.1 Lymphocytes % 29.5 Monocytes % 12.1 Eosinophils % 9.1 H Basophils % 2.2 H Absolute Neutrophils 1.7 Absolute Lymphocytes 1.1 Absolute Monocytes 0.4 Absolute Eosinophils 0.3 Absolute Basophils 0.1 Carbonic Acid HCO3/H2CO3 Ratio ABG pH ABG pCO2 ABG pO2 ABG HCO3 ABG O2 Saturation ABG Base Excess FiO2 Sodium 139.7 Potassium 4.2 Chloride 103 Carbon Dioxide 25 Anion Gap 12 BUN 45 H Creatinine 11.86 H Est GFR ( Amer) 5 L Est GFR (Non-Af Amer) 5 L Glucose 77 Lactic Acid Calcium 8.6 Magnesium 2.6 H 11/17/18 08:55 Sputum Gram Stain - Final 11/17/18 08:55 Sputum Sputum Culture - Final Stenotrophomonas Maltophilia Enterobacter Cloacae Corynebacterium Striatum Normal Chantel Absent 11/15/18 12:50 Blood Blood Culture - Final NO GROWTH IN 5 DAYS 11/20/18 16:30 Troponin I 0.018 Impressions: Abdomen Ultrasound 11/17/18 00:00 IMPRESSION: 1. Small ascites. Obscured pancreas. Obscured abdominal aorta. 2. Multicystic kidney disease. No significant renal parenchyma is identified at the renal fossae. 3. 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 Chest/Abdomen CTA 11/20/18 22:30 IMPRESSION: Negative for pulmonary embolus, thoracic aortic aneurysm, or dissection. Cardiomegaly. Multiple moderate bilateral pleural effusions with adjacent consolidative change. TECHNICAL DOCUMENTATION: Quality ID # 436: Final reports with documentation of one or more dose reduction techniques (e.g., Automated exposure control, adjustment of the mA and/or kV according to patient size, use of iterative reconstruction technique) copyright 2011 [employer]- All Rights Reserved Assessment & Plan - Diagnosis (1) ESRD (end stage renal disease) on dialysis Is this a current diagnosis for this admission?: Yes Plan: We did dialysis today for 3 hours, using the patient's AV fistula, with 2 potassium bath, blood flow rate of 450 mL per minute, dialysate flow rate of 800 mL per minute, ultrafiltration 2 L, no heparin and no Procrit during dialysis. Patient was monitored throughout dialysis treatment and has tolerated ultrafiltration without any need for any pressors. No complications during dialysis. We will continue to support dialysis while the patient is here in the hospital. If the patient would need to go home on a portable ventilator like trilogy, we would need to clear up with [facility] if the patient can be accepted as a patient using the trilogy since the nursing staff might need a special training to deal with the patient using trilogy while on dialysis. (2) Anemia in chronic kidney disease (CKD) Is this a current diagnosis for this admission?: Yes Plan: He will be given Procrit as needed during dialysis. (3) Acute and chronic respiratory failure with hypercapnia Is this a current diagnosis for this admission?: Yes Plan: Due to trach malfunction. Pulmonology recommended that the patient may need to go home with a portable ventilator like trilogy. As mentioned above we had to clear up with [facility] if the patient can be readmitted to do outpatient dialysis back if he is using his trilogy. (4) Acute on chronic diastolic (congestive) heart failure Is this a current diagnosis for this admission?: Yes Plan: Clinically improved after 2 dialysis treatment last week. (5) Uremia Is this a current diagnosis for this admission?: Yes Plan: Due to missing hemodialysis treatment for at least a week. Echocardiogram does not show any pericardial effusion or tamponade. Clinically does not present with any pericardial rub which would be suggestive of pericarditis. (6) Altered mental status Is this a current diagnosis for this admission?: Yes Plan: Now at baseline mental state. (7) Bronchitis Is this a current diagnosis for this admission?: Yes Plan: Secondary to Serratia marcescens on Zosyn. (8) Noncompliance Is this a current diagnosis for this admission?: Yes Plan: Reiterated importance of compliance with hemodialysis treatment so as to avoid uremic episodes just like this. Patient understood. (9) Status post tracheostomy Is this a current diagnosis for this admission?: Yes - Time Time with patient: 15-25 minutes
[2018-11-21] MEDS: METOPROLOL TARTRATE 25 MG TABLET NG SCH (22:07)
[2018-11-21] MEDS: MELATONIN 5 MG TABLET NG PRN (22:56)
[2018-11-22] MEDS: PIPERACILLIN SODIUM/TAZOBACTAM 2.25 GM in NORMAL SALINE 50 ML IV SCH ×3 (02:16→17:24)
[2018-11-22] MEDS: IPRATROPIUM/ALBUTEROL 0.5-2.5 MG/3 ML AMPUL NEB PRN ×3 (04:48→22:47)
[2018-11-22] MEDS: HEPARIN SOD (PORCINE) 5,000 UNIT/ML 1 ML SYRINGE SUBCUT SCH ×3 (05:19→22:47)
[2018-11-22] MEDS: FLUTICASONE NASAL SPRAY 50 MCG/SPRY 120 SPRAY/16 GM NASL SCH ×2 (09:03→22:46)
[2018-11-22] MEDS: DOCUSATE SODIUM 100 MG/10 ML UDC NG SCH ×2 (09:03→17:24)
[2018-11-22] MEDS: LACTULOSE SYRUP 20 GM/30 ML UDCUP NG SCH ×2 (09:03→17:13)
[2018-11-22] MEDS: FAMOTIDINE INJ/PF 20 MG/2 ML SDV IV SCH ×2 (09:03→22:47)
--- NOTE | 2018-11-22 09:03 | PDOC PROGRESS REPORT ---
Subjective Progress Note for:: 11/22/18 Subjective:: Patient is currently doing well Patient is currently on NG tube because unable to eat vent Reason For Visit: AMS/SOB/CHF/RENAL FAILURE Physical Exam Vital Signs: Temp Pulse Resp BP Pulse Ox 100.0 F 71 26 H 127/53 H 100 11/22/18 08:00 11/22/18 08:34 11/22/18 08:05 11/22/18 08:00 11/22/18 08:05 Pulse Oximeter Continuous Start: 11/16/18 23:41 Freq: RTQ4 Status: Complete Protocol: Document 11/20/18 11:20 [facility] (Rec: 11/20/18 11:38 [facility] [id number]) Pulse Oximetry Assessment Oxygen Saturation (92-100) 96 Oxygen Delivery Method Mechanical Ventilator Fraction of Inspired Oxygen (FIO2) 24 Equipment Usage Equipment in Use Continuous SpO2 Machine # 5 Intake & Output 11/21/18 11/22/18 11/23/18 06:59 06:59 06:59 Intake Total 50 200 Output Total 0 2000 Balance 50 -1800 Weight 89.9 kg 86.8 kg General appearance: PRESENT: no acute distress, well-developed, well-nourished Head exam: PRESENT: atraumatic, normocephalic Eye exam: PRESENT: conjunctiva pink, EOMI, PERRLA. ABSENT: scleral icterus Ear exam: PRESENT: normal external ear exam Mouth exam: PRESENT: moist, tongue midline Neck exam: PRESENT: full ROM. ABSENT: carotid bruit, JVD, lymphadenopathy, thyromegaly Respiratory exam: PRESENT: clear to auscultation cyndie Cardiovascular exam: PRESENT: RRR. ABSENT: diastolic murmur, rubs, systolic murmur Vascular exam: PRESENT: normal capillary refill GI/Abdominal exam: PRESENT: normal bowel sounds, soft. ABSENT: distended, guarding, mass, organolmegaly, rebound, tenderness Rectal exam: PRESENT: deferred Extremities exam: ABSENT: pedal edema Musculoskeletal exam: PRESENT: ambulatory Neurological exam: PRESENT: alert, awake, oriented to person, oriented to place, oriented to time, oriented to situation, CN II-XII grossly intact. ABSENT: motor sensory deficit Psychiatric exam: PRESENT: appropriate affect, normal mood. ABSENT: homicidal ideation, suicidal ideation Skin exam: PRESENT: dry, intact, warm. ABSENT: cyanosis, rash Results Laboratory Results: 11/21/18 04:35 11/21/18 04:35 11/17/18 08:55 Sputum Gram Stain - Final 11/17/18 08:55 Sputum Sputum Culture - Final Stenotrophomonas Maltophilia Enterobacter Cloacae Corynebacterium Striatum Normal Chantel Absent 11/20/18 16:30 Troponin I 0.018 Impressions: Abdomen Ultrasound 11/17/18 00:00 IMPRESSION: 1. Small ascites. Obscured pancreas. Obscured abdominal aorta. 2. Multicystic kidney disease. No significant renal parenchyma is identified at the renal fossae. 3. 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 Chest/Abdomen CTA 11/20/18 22:30 IMPRESSION: Negative for pulmonary embolus, thoracic aortic aneurysm, or dissection. Cardiomegaly. Multiple moderate bilateral pleural effusions with adjacent consolidative change. TECHNICAL DOCUMENTATION: Quality ID # 436: Final reports with documentation of one or more dose reduction techniques (e.g., Automated exposure control, adjustment of the mA and/or kV according to patient size, use of iterative reconstruction technique) copyright 2011 [employer]- All Rights Reserved KUB X-Ray 11/21/18 11:08 IMPRESSION: Nasoenteric tube tip overlies gastric body. Assessment & Plan - Diagnosis (1) Hyperkalemia Is this a current diagnosis for this admission?: Yes Plan: All resolved (2) Volume overload Qualifiers: Hypervolemia type: unspecified Qualified Code(s): E87.70 - Fluid overload, unspecified Is this a current diagnosis for this admission?: Yes Plan: All resolved (3) Chronic obstruct airways disease Qualifiers: Chronic bronchitis type: unspecified Is this a current diagnosis for this admission?: Yes Plan: Discussed with the patient's pulmonary he is going to come and look at today and adjust the medications (4) Congestive heart failure Qualifiers: Heart failure type: diastolic Heart failure chronicity: acute on chronic Qualified Code(s): I50.33 - Acute on chronic diastolic (congestive) heart failure Is this a current diagnosis for this admission?: Yes Plan: Noncompliance and patient is missing the dialysis (5) End-stage renal disease (ESRD) Is this a current diagnosis for this admission?: Yes (6) Noncompliance Is this a current diagnosis for this admission?: Yes (7) Obstructive sleep apnea Is this a current diagnosis for this admission?: Yes Plan: he required a BiPAP all the times (8) Shortness of breath Is this a current diagnosis for this admission?: Yes Plan: Due to the above conditions (9) Status post tracheostomy Is this a current diagnosis for this admission?: Yes Plan: ENT cosult (10) AF (atrial fibrillation) Qualifiers: Atrial fibrillation type: chronic Qualified Code(s): I48.2 - Chronic atrial fibrillation Is this a current diagnosis for this admission?: Yes (11) Pneumonia Qualifiers: Lung location: unspecified part of lung Is this a current diagnosis for this admission?: Yes Plan: on Rocephin (12) Sepsis Qualifiers: Sepsis type: sepsis due to unspecified organism Qualified Code(s): A41.9 - Sepsis, unspecified organism Is this a current diagnosis for this admission?: Yes - Time Time Spent with patient: 15-24 minutes Medications reviewed and adjusted accordingly: Yes Anticipated discharge: Other Within: Other - Plan Summary Plan Summary: Continues to current medications
[2018-11-22] MEDS: GABAPENTIN 100 MG CAPSULE NG SCH (09:04)
[2018-11-22] MEDS: ALLOPURINOL 100 MG TABLET NG SCH (09:04)
[2018-11-22] MEDS: METOPROLOL TARTRATE 25 MG TABLET NG SCH ×2 (09:04→22:47)
[2018-11-22] MEDS: ACETAMINOPHEN SOLN 325 MG/10.15 ML UDCUP NG PRN (09:10)
[2018-11-22] MEDS: MONTELUKAST SODIUM 10 MG TABLET NG SCH (17:24)
--- NOTE | 2018-11-22 19:13 | PDOC PROGRESS REPORT ---
Subjective Progress Note for:: 11/22/18 Subjective:: Patient is doing very well today. He is very much awake and is very comfortable on current vent settings. His blood pressure is also now within normal limits. Reason For Visit: AMS/SOB/CHF/RENAL FAILURE Physical Exam Vital Signs: Temp Pulse Resp BP Pulse Ox 97.7 F 99 16 138/95 H 100 11/22/18 16:00 11/22/18 16:00 11/22/18 18:00 11/22/18 17:43 11/22/18 17:43 Pulse Oximeter Continuous Start: 11/16/18 23:41 Freq: RTQ4 Status: Complete Protocol: Document 11/20/18 11:20 [facility] (Rec: 11/20/18 11:38 [facility] [id number]) Pulse Oximetry Assessment Oxygen Saturation (92-100) 96 Oxygen Delivery Method Mechanical Ventilator Fraction of Inspired Oxygen (FIO2) 24 Equipment Usage Equipment in Use Continuous SpO2 Machine # 5 Intake & Output 11/21/18 11/22/18 11/23/18 06:59 06:59 06:59 Intake Total 50 200 50 Output Total 0 2000 Balance 50 -1800 50 Weight 89.9 kg 86.8 kg Exam: General appearance: PRESENT: no acute distress while on pressure support through the trach, cooperative, well-developed, well-nourished Head exam: PRESENT: atraumatic, normocephalic Eye exam: PRESENT: conjunctiva pink, PERRLA. ABSENT: scleral icterus Neck exam: ABSENT: JVD Respiratory exam: PRESENT: Normal breath sounds. ABSENT: crackles, rales, rhonchi, unlabored, wheezes Cardiovascular exam: PRESENT: Regular rate rhythm -+S1, +S2. ABSENT: diastolic murmur, systolic murmur GI/Abdominal exam: PRESENT: normal bowel sounds, soft. ABSENT: guarding, mass, tenderness Extremities exam: ABSENT: No edema Neurological exam: PRESENT: alert, awake, oriented to person, place and time. Skin exam: PRESENT: dry, warm, Cardiovascular exam: PRESENT: +S1, +S2 GI/Abdominal exam: PRESENT: distended - Large ventral hernia, normal bowel sounds, soft, tenderness. ABSENT: guarding, organomegaly Results Laboratory Results: 11/21/18 04:35 11/21/18 04:35 11/20/18 16:30 Troponin I 0.018 Impressions: Abdomen Ultrasound 11/17/18 00:00 IMPRESSION: 1. Small ascites. Obscured pancreas. Obscured abdominal aorta. 2. Multicystic kidney disease. No significant renal parenchyma is identified at the renal fossae. 3. 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 Chest/Abdomen CTA 11/20/18 22:30 IMPRESSION: Negative for pulmonary embolus, thoracic aortic aneurysm, or dissection. Cardiomegaly. Multiple moderate bilateral pleural effusions with adjacent consolidative change. TECHNICAL DOCUMENTATION: Quality ID # 436: Final reports with documentation of one or more dose reduction techniques (e.g., Automated exposure control, adjustment of the mA and/or kV according to patient size, use of iterative reconstruction technique) copyright 2011 [employer]- All Rights Reserved KUB X-Ray 11/21/18 11:08 IMPRESSION: Nasoenteric tube tip overlies gastric body. Assessment & Plan - Diagnosis (1) ESRD (end stage renal disease) on dialysis Is this a current diagnosis for this admission?: Yes Plan: Plan for dialysis tomorrow. (2) Anemia in chronic kidney disease (CKD) Is this a current diagnosis for this admission?: Yes Plan: He will be given Procrit as needed during dialysis. (3) Acute and chronic respiratory failure with hypercapnia Is this a current diagnosis for this admission?: Yes Plan: Due to trach malfunction. Pulmonology recommended that the patient may need to go home with a portable ventilator like trilogy. As mentioned above we had to clear up with [facility] if the patient can be readmitted to do outpatient dialysis back if he is using his trilogy. For today I think patient is still being weaned off and see if he will tolerate that. (4) Acute on chronic diastolic (congestive) heart failure Is this a current diagnosis for this admission?: Yes Plan: Clinically improved after 2 dialysis treatment last week. (5) Uremia Is this a current diagnosis for this admission?: Yes Plan: Due to missing hemodialysis treatment for at least a week. Echocardiogram does not show any pericardial effusion or tamponade. Clinically does not present with any pericardial rub which would be suggestive of pericarditis. (6) Altered mental status Is this a current diagnosis for this admission?: Yes Plan: Now at baseline mental state. (7) Bronchitis Is this a current diagnosis for this admission?: Yes Plan: Secondary to Serratia marcescens on Zosyn. (8) Noncompliance Is this a current diagnosis for this admission?: Yes Plan: Reiterated importance of compliance with hemodialysis treatment so as to avoid uremic episodes just like this. Patient understood. (9) Status post tracheostomy Is this a current diagnosis for this admission?: Yes - Time Time with patient: 15-25 minutes
[2018-11-23] MEDS: MELATONIN 5 MG TABLET NG PRN (02:14)
[2018-11-23] MEDS ORDERED: NORMAL SALINE 1000 ML 1,000 ML IV PRN (05:00)
[2018-11-23] MEDS: PIPERACILLIN SODIUM/TAZOBACTAM 2.25 GM in NORMAL SALINE 50 ML IV SCH ×3 (05:43→17:42)
[2018-11-23] MEDS: HEPARIN SOD (PORCINE) 5,000 UNIT/ML 1 ML SYRINGE SUBCUT SCH ×3 (05:44→23:00)
[2018-11-23 05:57] LABS: ABSOLUTE EOSINOPHILS # (AUTO) 0.4 10^3/uL (0.0-0.6); ABSOLUTE LYMPHOCYTES (AUTO) 1.3 10^3/uL (0.5-4.7); ABSOLUTE MONOCYTES (AUTO) 0.6 10^3/uL (0.1-1.4); ABSOLUTE NEUT (AUTO) 1.8 10^3/uL (1.7-8.2); EOSINOPHILS % (AUTO) 9.5 % (0-6); HEMATOCRIT 35.4 % (37.9-51.0); HEMOGLOBIN 11.5 g/dL (13.5-17.0); LYMPHOCYTES % (AUTO) 31.8 % (13-45); MEAN CORPUSCULAR HEMOGLOBIN 28.3 pg (27.0-33.4); MEAN CORPUSCULAR HGB CONC 32.6 g/dL (32.0-36.0); MEAN CORPUSCULAR VOLUME 87 fl (80-97); MONOCYTES % (AUTO) 14.8 % (3-13); PLATELET COUNT 121 10^3/uL (150-450); RED BLOOD COUNT 4.07 10^6/uL (4.35-5.55); RED CELL DISTRIBUTION WIDTH 16.6 % (11.5-14.0); SEGMENTED NEUTROPHILS % (AUTO) 42.9 % (42-78); TOTAL CELLS COUNTED % (AUTO) 100 %; WHITE BLOOD COUNT 4.1 10^3/uL (4.0-10.5)
[2018-11-23 06:20] LABS: ANION GAP 15 (5-19); BLOOD UREA NITROGEN 36 mg/dL (7-20); CARBON DIOXIDE 28 mmol/L (22-30); CHLORIDE 97 mmol/L (98-107); GLUCOSE 80 mg/dL (75-110); POTASSIUM 4.1 mmol/L (3.6-5.0); SODIUM 139.7 mmol/L (137-145)
[2018-11-23] MEDS: LACTULOSE SYRUP 20 GM/30 ML UDCUP NG SCH ×2 (09:25→17:43)
[2018-11-23] MEDS: METOPROLOL TARTRATE 25 MG TABLET NG SCH ×2 (09:25→23:02)
--- NOTE | 2018-11-23 09:27 | PDOC PROGRESS REPORT ---
Subjective Progress Note for:: 11/22/18 Subjective:: Awake on mechanical ventilation via trach Reason For Visit: AMS/SOB/CHF/RENAL FAILURE Physical Exam Vital Signs: Temp Pulse Resp BP Pulse Ox 97.6 F 75 11 L 137/59 H 98 11/23/18 08:00 11/23/18 08:00 11/23/18 08:00 11/23/18 08:00 11/23/18 08:12 Pulse Oximeter Continuous Start: 11/16/18 23:41 Freq: RTQ4 Status: Complete Protocol: Document 11/20/18 11:20 [facility] (Rec: 11/20/18 11:38 [facility] [id number]) Pulse Oximetry Assessment Oxygen Saturation (92-100) 96 Oxygen Delivery Method Mechanical Ventilator Fraction of Inspired Oxygen (FIO2) 24 Equipment Usage Equipment in Use Continuous SpO2 Machine # 5 Intake & Output 11/22/18 11/23/18 11/24/18 06:59 06:59 06:59 Intake Total 200 100 210 Output Total 2000 0 Balance -1800 100 210 Weight 86.8 kg 87.7 kg General appearance: PRESENT: no acute distress, cooperative, disheveled, obese Head exam: PRESENT: atraumatic, normocephalic Eye exam: PRESENT: conjunctiva pale, EOMI. ABSENT: nystagmus, periorbital swel ling, scleral icterus Mouth exam: PRESENT: dry mucosa, neck supple, tongue midline Neck exam: PRESENT: tracheostomy. ABSENT: carotid bruit, JVD, lymphadenopathy, thyromegaly, tracheal deviation Respiratory exam: PRESENT: decreased breath sounds, prolonged expiratory phas, rales, rhonchi, unlabored. ABSENT: retraction, stridor, tachypnea Cardiovascular exam: PRESENT: RRR, +S1, +S2 Pulses: PRESENT: normal radial pulses GI/Abdominal exam: PRESENT: hypoactive bowel sounds, soft Gentrourinary exam: PRESENT: indwelling catheter Extremities exam: ABSENT: calf tenderness, clubbing, full ROM, joint swelling, pedal edema Musculoskeletal exam: ABSENT: ambulatory, deformity, dislocation Neurological exam: PRESENT: alert, awake Psychiatric exam: PRESENT: appropriate affect Skin exam: PRESENT: dry, warm Results Laboratory Results: 11/23/18 05:40 11/23/18 05:40 11/23/18 11/23/18 05:40 05:40 WBC 4.1 RBC 4.07 L Hgb 11.5 L Hct 35.4 L MCV 87 MCH 28.3 MCHC 32.6 RDW 16.6 H Plt Count 121 L Seg Neutrophils % 42.9 Lymphocytes % 31.8 Monocytes % 14.8 H Eosinophils % 9.5 H Basophils % 1.0 Absolute Neutrophils 1.8 Absolute Lymphocytes 1.3 Absolute Monocytes 0.6 Absolute Eosinophils 0.4 Absolute Basophils 0.0 Sodium 139.7 Potassium 4.1 Chloride 97 L Carbon Dioxide 28 Anion Gap 15 BUN 36 H Creatinine 11.28 H Est GFR ( Amer) 6 L Est GFR (Non-Af Amer) 5 L Glucose 80 Calcium 9.0 11/20/18 16:30 Troponin I 0.018 Impressions: Abdomen Ultrasound 11/17/18 00:00 IMPRESSION: 1. Small ascites. Obscured pancreas. Obscured abdominal aorta. 2. Multicystic kidney disease. No significant renal parenchyma is identified at the renal fossae. 3. 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 Chest/Abdomen CTA 11/20/18 22:30 IMPRESSION: Negative for pulmonary embolus, thoracic aortic aneurysm, or dissection. Cardiomegaly. Multiple moderate bilateral pleural effusions with adjacent consolidative change. TECHNICAL DOCUMENTATION: Quality ID # 436: Final reports with documentation of one or more dose reduction techniques (e.g., Automated exposure control, adjustment of the mA and/or kV according to patient size, use of iterative reconstruction technique) copyright 2011 [employer]- All Rights Reserved KUB X-Ray 11/21/18 11:08 IMPRESSION: Nasoenteric tube tip overlies gastric body. Assessment & Plan - Diagnosis (1) Acute and chronic respiratory failure with hypercapnia Is this a current diagnosis for this admission?: Yes Plan: Patient is stable pressure support and CPAP will give him a trial of trach collar (2) Chronic atrial fibrillation Is this a current diagnosis for this admission?: Yes Plan: Reticular response under control (3) ESRD (end stage renal disease) on dialysis Is this a current diagnosis for this admission?: Yes Plan: Hemodialysis Monday and Monday (4) Chronic obstruct airways disease Qualifiers: Chronic bronchitis type: unspecified Is this a current diagnosis for this admission?: Yes Plan: [place] (5) Obstructive sleep apnea Is this a current diagnosis for this admission?: Yes Plan: May be a good candidate for trilogy at home vent - Time Total Critical Time (Minutes): 50
[2018-11-23] MEDS: ALLOPURINOL 100 MG TABLET NG SCH (09:33)
[2018-11-23] MEDS: DOCUSATE SODIUM 100 MG/10 ML UDC NG SCH ×2 (09:33→17:43)
[2018-11-23] MEDS: GABAPENTIN 100 MG CAPSULE NG SCH (09:33)
[2018-11-23] MEDS: FAMOTIDINE INJ/PF 20 MG/2 ML SDV IV SCH ×2 (09:33→23:02)
[2018-11-23] MEDS: FLUTICASONE NASAL SPRAY 50 MCG/SPRY 120 SPRAY/16 GM NASL SCH ×2 (09:34→23:03)
[2018-11-23 10:30] LABS: ARTERIAL BLOOD BASE EXCESS 3.1 mmol/L; ARTERIAL BLOOD H2CO3 1.45 mmol/L (1.05-1.35); ARTERIAL BLOOD HCO3 28.7 mmol/L (20-24); ARTERIAL BLOOD PCO2 48.2 mmHg (35-45); ARTERIAL BLOOD PH 7.39 (7.35-7.45); ARTERIAL BLOOD PO2 93.5 mmHg (80-100); ARTERIAL BLOOD TOTAL CO2 30.2 mmol/L (23-27)
--- NOTE | 2018-11-23 10:30 | PDOC PROGRESS REPORT ---
Subjective Progress Note for:: 11/23/18 Subjective:: I saw the patient on dialysis at around 7:30 AM today. He is clinically improved. He has been off the ventilator and currently on trach collar and is so far has been tolerating it since yesterday. He is very awake, alert and tolerating dialysis very well without any problems no complaints. After about 2 and one/half hours on dialysis his system clotted. He already had about 1.5 L of ultrafiltration. We will not restart at this point. I think he will be fine until next dialysis on Monday. Reason For Visit: AMS/SOB/CHF/RENAL FAILURE Physical Exam Vital Signs: Temp Pulse Resp BP Pulse Ox 97.6 F 75 11 L 137/59 H 98 11/23/18 08:00 11/23/18 08:00 11/23/18 08:00 11/23/18 08:00 11/23/18 08:12 Pulse Oximeter Continuous Start: 11/16/18 23:41 Freq: RTQ4 Status: Complete Protocol: Document 11/20/18 11:20 [facility] (Rec: 11/20/18 11:38 [facility] [id number]) Pulse Oximetry Assessment Oxygen Saturation (92-100) 96 Oxygen Delivery Method Mechanical Ventilator Fraction of Inspired Oxygen (FIO2) 24 Equipment Usage Equipment in Use Continuous SpO2 Machine # 5 Intake & Output 11/22/18 11/23/18 11/24/18 06:59 06:59 06:59 Intake Total 200 150 210 Output Total 2000 0 Balance -1800 150 210 Weight 86.8 kg 87.7 kg Vitals during dialysis: Blood pressure 140/89, heart rate of 88, respiration of 11, blood flow rate of 450 mg minute and dialysate flow rate of 800/min. Exam: General appearance: PRESENT: no acute distress on trach collar, cooperative, well-developed, well-nourished Head exam: PRESENT: atraumatic, normocephalic Eye exam: PRESENT: conjunctiva pink, PERRLA. ABSENT: scleral icterus Neck exam: ABSENT: JVD Respiratory exam: PRESENT: Diminished breath sounds. ABSENT: crackles, rales, rhonchi, unlabored, wheezes Cardiovascular exam: PRESENT: Regular rate rhythm -+S1, +S2. ABSENT: diastolic murmur, systolic murmur GI/Abdominal exam: PRESENT: normal bowel sounds, soft. ABSENT: guarding, mass, tenderness Extremities exam: ABSENT: No edema Neurological exam: PRESENT: alert, awake, oriented to person, place and time. Skin exam: PRESENT: dry, warm, Cardiovascular exam: PRESENT: +S1, +S2 GI/Abdominal exam: PRESENT: distended - Large ventral hernia, normal bowel sounds, soft, tenderness. ABSENT: guarding, organomegaly Results Laboratory Results: 11/23/18 05:40 11/23/18 05:40 11/23/18 11/23/18 05:40 05:40 WBC 4.1 RBC 4.07 L Hgb 11.5 L Hct 35.4 L MCV 87 MCH 28.3 MCHC 32.6 RDW 16.6 H Plt Count 121 L Seg Neutrophils % 42.9 Lymphocytes % 31.8 Monocytes % 14.8 H Eosinophils % 9.5 H Basophils % 1.0 Absolute Neutrophils 1.8 Absolute Lymphocytes 1.3 Absolute Monocytes 0.6 Absolute Eosinophils 0.4 Absolute Basophils 0.0 Sodium 139.7 Potassium 4.1 Chloride 97 L Carbon Dioxide 28 Anion Gap 15 BUN 36 H Creatinine 11.28 H Est GFR ( Amer) 6 L Est GFR (Non-Af Amer) 5 L Glucose 80 Calcium 9.0 11/20/18 16:30 Troponin I 0.018 Impressions: Abdomen Ultrasound 11/17/18 00:00 IMPRESSION: 1. Small ascites. Obscured pancreas. Obscured abdominal aorta. 2. Multicystic kidney disease. No significant renal parenchyma is identified at the renal fossae. 3. 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 Chest/Abdomen CTA 11/20/18 22:30 IMPRESSION: Negative for pulmonary embolus, thoracic aortic aneurysm, or dissection. Cardiomegaly. Multiple moderate bilateral pleural effusions with adjacent consolidative change. TECHNICAL DOCUMENTATION: Quality ID # 436: Final reports with documentation of one or more dose reduction techniques (e.g., Automated exposure control, adjustment of the mA and/or kV according to patient size, use of iterative reconstruction technique) copyright 2011 [employer]- All Rights Reserved KUB X-Ray 11/21/18 11:08 IMPRESSION: Nasoenteric tube tip overlies gastric body. Assessment & Plan - Diagnosis (1) ESRD (end stage renal disease) on dialysis Is this a current diagnosis for this admission?: Yes Plan: We did dialysis today for 2.5 hours due to system collecting but originally planned for 3 hours, using the patient's AV fistula, with 2 potassium bath, blood flow rate of 450 mL per minute, dialysate flow rate of 800 mL per minute, ultrafiltration [as tolerated], no heparin and no Procrit. Patient was monitored throughout dialysis treatment and was able to tolerate it without any complications except for the clotting of the system as stated above. Next dialysis will be on Monday if still here in the hospital. (2) Anemia in chronic kidney disease (CKD) Is this a current diagnosis for this admission?: Yes Plan: He will be given Procrit as needed during dialysis. (3) Acute and chronic respiratory failure with hypercapnia Is this a current diagnosis for this admission?: Yes Plan: Due to trach malfunction. Pulmonology recommended that the patient may need to go home with a portable ventilator like trilogy. As mentioned above we had to clear up with [facility] if the patient can be readmitted to do outpatient dialysis back if he is using his trilogy. Today the patient is tolerating a trach collar so hopefully he does not have to go home with portable vent. (4) Acute on chronic diastolic (congestive) heart failure Is this a current diagnosis for this admission?: Yes Plan: Clinically improved after 2 dialysis treatment last week. (5) Uremia Is this a current diagnosis for this admission?: Yes Plan: Due to missing hemodialysis treatment for at least a week. Echocardiogram does not show any pericardial effusion or tamponade. Clinically does not present with any pericardial rub which would be suggestive of pericarditis. (6) Altered mental status Is this a current diagnosis for this admission?: Yes Plan: Now at baseline mental state. (7) Bronchitis Is this a current diagnosis for this admission?: Yes Plan: Secondary to Serratia marcescens on Zosyn. (8) Noncompliance Is this a current diagnosis for this admission?: Yes Plan: Reiterated importance of compliance with hemodialysis treatment so as to avoid uremic episodes just like this. Patient understood. (9) Status post tracheostomy Is this a current diagnosis for this admission?: Yes - Time Time with patient: 15-25 minutes
[2018-11-23 10:34] LABS: ARTERIAL BLOOD FIO2 30%
--- NOTE | 2018-11-23 12:02 | PDOC PROGRESS REPORT ---
Subjective Progress Note for:: 11/23/18 Subjective:: Stable without mechanical ventilation Reason For Visit: AMS/SOB/CHF/RENAL FAILURE Physical Exam Vital Signs: Temp Pulse Resp BP Pulse Ox 97.6 F 75 11 L 137/59 H 98 11/23/18 08:00 11/23/18 08:00 11/23/18 08:00 11/23/18 08:00 11/23/18 08:12 Pulse Oximeter Continuous Start: 11/16/18 23:41 Freq: RTQ4 Status: Complete Protocol: Document 11/20/18 11:20 [facility] (Rec: 11/20/18 11:38 [facility] [id number]) Pulse Oximetry Assessment Oxygen Saturation (92-100) 96 Oxygen Delivery Method Mechanical Ventilator Fraction of Inspired Oxygen (FIO2) 24 Equipment Usage Equipment in Use Continuous SpO2 Machine # 5 Intake & Output 11/22/18 11/23/18 11/24/18 06:59 06:59 06:59 Intake Total 200 100 210 Output Total 2000 0 Balance -1800 100 210 Weight 86.8 kg 87.7 kg General appearance: PRESENT: no acute distress, cooperative, disheveled, obese Head exam: PRESENT: atraumatic, normocephalic Eye exam: PRESENT: conjunctiva pale, EOMI. ABSENT: nystagmus, periorbital swelling, PERRLA Mouth exam: PRESENT: dry mucosa, neck supple, tongue midline Neck exam: PRESENT: tracheostomy. ABSENT: carotid bruit, full ROM, JVD, lymphadenopathy, meningismus, tenderness, thyromegaly, tracheal deviation, other Respiratory exam: PRESENT: decreased breath sounds, prolonged expiratory phas, rhonchi, unlabored, wheezes. ABSENT: stridor, tachypnea Cardiovascular exam: PRESENT: irregular rhythm Pulses: PRESENT: normal radial pulses GI/Abdominal exam: PRESENT: soft. ABSENT: mass Gentrourinary exam: PRESENT: indwelling catheter Extremities exam: PRESENT: pedal edema. ABSENT: calf tenderness, clubbing, joint swelling Musculoskeletal exam: ABSENT: ambulatory, deformity, dislocation Neurological exam: PRESENT: alert, awake Psychiatric exam: PRESENT: appropriate affect Skin exam: PRESENT: dry, warm Results Laboratory Results: 11/23/18 05:40 11/23/18 05:40 11/23/18 11/23/18 05:40 05:40 WBC 4.1 RBC 4.07 L Hgb 11.5 L Hct 35.4 L MCV 87 MCH 28.3 MCHC 32.6 RDW 16.6 H Plt Count 121 L Seg Neutrophils % 42.9 Lymphocytes % 31.8 Monocytes % 14.8 H Eosinophils % 9.5 H Basophils % 1.0 Absolute Neutrophils 1.8 Absolute Lymphocytes 1.3 Absolute Monocytes 0.6 Absolute Eosinophils 0.4 Absolute Basophils 0.0 Sodium 139.7 Potassium 4.1 Chloride 97 L Carbon Dioxide 28 Anion Gap 15 BUN 36 H Creatinine 11.28 H Est GFR ( Amer) 6 L Est GFR (Non-Af Amer) 5 L Glucose 80 Calcium 9.0 11/20/18 16:30 Troponin I 0.018 Impressions: Abdomen Ultrasound 11/17/18 00:00 IMPRESSION: 1. Small ascites. Obscured pancreas. Obscured abdominal aorta. 2. Multicystic kidney disease. No significant renal parenchyma is identified at the renal fossae. 3. 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 Chest/Abdomen CTA 11/20/18 22:30 IMPRESSION: Negative for pulmonary embolus, thoracic aortic aneurysm, or dissection. Cardiomegaly. Multiple moderate bilateral pleural effusions with adjacent consolidative change. TECHNICAL DOCUMENTATION: Quality ID # 436: Final reports with documentation of one or more dose reduction techniques (e.g., Automated exposure control, adjustment of the mA and/or kV according to patient size, use of iterative reconstruction technique) copyright 2011 [employer]- All Rights Reserved KUB X-Ray 11/21/18 11:08 IMPRESSION: Nasoenteric tube tip overlies gastric body. Assessment & Plan - Diagnosis (1) Acute and chronic respiratory failure with hypercapnia Is this a current diagnosis for this admission?: Yes Plan: Patient is stable pressure support and CPAP will give him a trial of trach collar (2) Chronic atrial fibrillation Is this a current diagnosis for this admission?: Yes Plan: Reticular response under control (3) ESRD (end stage renal disease) on dialysis Is this a current diagnosis for this admission?: Yes Plan: Hemodialysis Monday and Monday (4) Obstructive sleep apnea Is this a current diagnosis for this admission?: Yes Plan: May be a good candidate for trilogy at home vent - Time Total Critical Time (Minutes): 45
--- NOTE | 2018-11-23 12:27 | PDOC PROGRESS REPORT ---
Subjective Progress Note for:: 11/23/18 Subjective:: Patient is feeling much better Patient's off the ventilations Patient's denied any chest pain to than any shortness of the breath Patient's PCO2 is also improving pH is also normal Reason For Visit: AMS/SOB/CHF/RENAL FAILURE Physical Exam Vital Signs: Temp Pulse Resp BP Pulse Ox 97.6 F 85 16 157/79 H 98 11/23/18 08:00 11/23/18 10:00 11/23/18 11:00 11/23/18 10:41 11/23/18 08:12 Pulse Oximeter Continuous Start: 11/16/18 23:41 Freq: RTQ4 Status: Complete Protocol: Document 11/20/18 11:20 [facility] (Rec: 11/20/18 11:38 [facility] [id number]) Pulse Oximetry Assessment Oxygen Saturation (92-100) 96 Oxygen Delivery Method Mechanical Ventilator Fraction of Inspired Oxygen (FIO2) 24 Equipment Usage Equipment in Use Continuous SpO2 Machine # 5 Intake & Output 11/22/18 11/23/18 11/24/18 06:59 06:59 06:59 Intake Total 200 150 210 Output Total 2000 0 Balance -1800 150 210 Weight 86.8 kg 87.7 kg General appearance: PRESENT: no acute distress Head exam: PRESENT: atraumatic, normocephalic Eye exam: PRESENT: conjunctiva pink, EOMI, PERRLA. ABSENT: scleral icterus Ear exam: PRESENT: normal external ear exam Mouth exam: PRESENT: moist, tongue midline Neck exam: PRESENT: full ROM. ABSENT: carotid bruit, JVD, lymphadenopathy, thyromegaly Respiratory exam: PRESENT: clear to auscultation cyndie Cardiovascular exam: PRESENT: +S1, +S2. ABSENT: diastolic murmur, rubs, systolic murmur Vascular exam: PRESENT: normal capillary refill GI/Abdominal exam: PRESENT: normal bowel sounds, soft. ABSENT: distended, guarding, mass, organolmegaly, rebound, tenderness Rectal exam: PRESENT: deferred Extremities exam: ABSENT: pedal edema Neurological exam: PRESENT: alert, awake, oriented to person, oriented to place, oriented to time, oriented to situation, CN II-XII grossly intact. ABSENT: motor sensory deficit Psychiatric exam: PRESENT: appropriate affect, normal mood. ABSENT: homicidal ideation, suicidal ideation Skin exam: PRESENT: dry, intact, warm. ABSENT: cyanosis, rash Results Laboratory Results: 11/23/18 05:40 11/23/18 05:40 11/23/18 11/23/18 11/23/18 05:40 05:40 10:20 WBC 4.1 RBC 4.07 L Hgb 11.5 L Hct 35.4 L MCV 87 MCH 28.3 MCHC 32.6 RDW 16.6 H Plt Count 121 L Seg Neutrophils % 42.9 Lymphocytes % 31.8 Monocytes % 14.8 H Eosinophils % 9.5 H Basophils % 1.0 Absolute Neutrophils 1.8 Absolute Lymphocytes 1.3 Absolute Monocytes 0.6 Absolute Eosinophils 0.4 Absolute Basophils 0.0 Carbonic Acid 1.45 H HCO3/H2CO3 Ratio 19:1 ABG pH 7.39 ABG pCO2 48.2 H ABG pO2 93.5 ABG HCO3 28.7 H ABG O2 Saturation 97.0 ABG Base Excess 3.1 FiO2 30% Sodium 139.7 Potassium 4.1 Chloride 97 L Carbon Dioxide 28 Anion Gap 15 BUN 36 H Creatinine 11.28 H Est GFR ( Amer) 6 L Est GFR (Non-Af Amer) 5 L Glucose 80 Calcium 9.0 11/20/18 16:30 Troponin I 0.018 Impressions: Abdomen Ultrasound 11/17/18 00:00 IMPRESSION: 1. Small ascites. Obscured pancreas. Obscured abdominal aorta. 2. Multicystic kidney disease. No significant renal parenchyma is identified at the renal fossae. 3. 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 Chest/Abdomen CTA 11/20/18 22:30 IMPRESSION: Negative for pulmonary embolus, thoracic aortic aneurysm, or dissection. Cardiomegaly. Multiple moderate bilateral pleural effusions with adjacent consolidative change. TECHNICAL DOCUMENTATION: Quality ID # 436: Final reports with documentation of one or more dose reduction techniques (e.g., Automated exposure control, adjustment of the mA and/or kV according to patient size, use of iterative reconstruction technique) copyright 2010 [employer]- All Rights Reserved KUB X-Ray 11/21/18 11:08 IMPRESSION: Nasoenteric tube tip overlies gastric body. Assessment & Plan - Diagnosis (1) Hyperkalemia Is this a current diagnosis for this admission?: Yes Plan: All resolved (2) Volume overload Qualifiers: Hypervolemia type: unspecified Qualified Code(s): E87.70 - Fluid overload, unspecified Is this a current diagnosis for this admission?: Yes Plan: All resolved (3) Chronic obstruct airways disease Qualifiers: Chronic bronchitis type: unspecified Is this a current diagnosis for this admission?: Yes Plan: Discussed with the patient's pulmonary he is going to come and look at today and adjust the medications (4) Congestive heart failure Qualifiers: Heart failure type: diastolic Heart failure chronicity: acute on chronic Qualified Code(s): I50.33 - Acute on chronic diastolic (congestive) heart failure Is this a current diagnosis for this admission?: Yes Plan: Noncompliance and patient is missing the dialysis (5) End-stage renal disease (ESRD) Is this a current diagnosis for this admission?: Yes (6) Noncompliance Is this a current diagnosis for this admission?: Yes (7) Obstructive sleep apnea Is this a current diagnosis for this admission?: Yes Plan: he required a BiPAP all the times (8) Shortness of breath Is this a current diagnosis for this admission?: Yes Plan: Due to the above conditions (9) Status post tracheostomy Is this a current diagnosis for this admission?: Yes Plan: ENT cosult (10) AF (atrial fibrillation) Qualifiers: Atrial fibrillation type: chronic Qualified Code(s): I48.2 - Chronic atrial fibrillation Is this a current diagnosis for this admission?: Yes (11) Pneumonia Qualifiers: Lung location: unspecified part of lung Is this a current diagnosis for this admission?: Yes Plan: on Rocephin (12) Sepsis Qualifiers: Sepsis type: sepsis due to unspecified organism Qualified Code(s): A41.9 - Sepsis, unspecified organism Is this a current diagnosis for this admission?: Yes - Time Time Spent with patient: 15-24 minutes Medications reviewed and adjusted accordingly: Yes Anticipated discharge: Other Within: Other - Inpatient Certification Based on my medical assessment, after consideration of the patient's comorbiditi es, presenting symptoms, or acuity I expect that the services needed warrant INPATIENT care.: Yes I certify that my determination is in accordance with my understanding of [facility]'s requirements for reasonable and necessary INPATIENT services [42 CFR 412.3e].: Yes Medical Necessity: Need Close Monitoring Due to Risk of Patient Decompensation Post Hospital Care: D/C Patient Services Specialist Documentation - Plan Summary Plan Summary: Continues to current medications
[2018-11-23] MEDS: MONTELUKAST SODIUM 10 MG TABLET NG SCH (17:42)
[2018-11-23] MEDS: SEVELAMER HCL 800 MG TABLET PO SCH (17:43)
[2018-11-23] MEDS: IPRATROPIUM/ALBUTEROL 0.5-2.5 MG/3 ML AMPUL NEB PRN (21:37)
[2018-11-24] MEDS: ACETAMINOPHEN SOLN 325 MG/10.15 ML UDCUP NG PRN ×2 (01:05→10:34)
[2018-11-24] MEDS: PIPERACILLIN SODIUM/TAZOBACTAM 2.25 GM in NORMAL SALINE 50 ML IV SCH ×3 (01:05→17:07)
[2018-11-24] MEDS: MELATONIN 5 MG TABLET NG PRN (01:05)
[2018-11-24 06:33] LABS: HEMATOCRIT 33.6 % (37.9-51.0); HEMOGLOBIN 10.9 g/dL (13.5-17.0); MEAN CORPUSCULAR HEMOGLOBIN 28.3 pg (27.0-33.4); MEAN CORPUSCULAR HGB CONC 32.5 g/dL (32.0-36.0); MEAN CORPUSCULAR VOLUME 87 fl (80-97); PLATELET COUNT 123 10^3/uL (150-450); RED BLOOD COUNT 3.86 10^6/uL (4.35-5.55); RED CELL DISTRIBUTION WIDTH 16.4 % (11.5-14.0); WHITE BLOOD COUNT 3.9 10^3/uL (4.0-10.5)
[2018-11-24 06:34] LABS: ARTERIAL BLOOD BASE EXCESS 1.9 mmol/L; ARTERIAL BLOOD H2CO3 1.76 mmol/L (1.05-1.35); ARTERIAL BLOOD HCO3 29.2 mmol/L (20-24); ARTERIAL BLOOD O2 SATURATION 93.6 % (94-98); ARTERIAL BLOOD PCO2 58.6 mmHg (35-45); ARTERIAL BLOOD PH 7.32 (7.35-7.45); ARTERIAL BLOOD PO2 74.8 mmHg (80-100)
[2018-11-24 06:36] LABS: ARTERIAL BLOOD FIO2 30%
[2018-11-24] MEDS: HEPARIN SOD (PORCINE) 5,000 UNIT/ML 1 ML SYRINGE SUBCUT SCH ×3 (06:37→22:56)
[2018-11-24 06:53] LABS: ABSOLUTE LYMPHOCYTES# (MANUAL) 1.4 10^3/uL (0.5-4.7); ABSOLUTE MONOCYTES # (MANUAL) 0.3 10^3/uL (0.1-1.4); BASOPHILS % (MANUAL) 2 % (0-2); EOSINOPHILS % (MANUAL) 9 % (0-6); LYMPHOCYTES % (MANUAL) 37 % (13-45); MONOCYTES % (MANUAL) 7 % (3-13); SEGMENTED NEUTROPHILS % (MAN) 45 % (42-78); TOTAL CELLS COUNTED 100
[2018-11-24 06:55] LABS: ANISOCYTOSIS 1+; OVALOCYTES 2+; PLATELET COMMENT ADEQUATE; POIKILOCYTOSIS 2+; SCHISTOCYTES SLIGHT; TARGET CELLS SLIGHT; TEAR DROP CELLS 1+; TOXIC GRANULATION SLIGHT
[2018-11-24 07:02] LABS: ANION GAP 11 (5-19); BLOOD UREA NITROGEN 28 mg/dL (7-20); CALCIUM 9.1 mg/dL (8.4-10.2); CARBON DIOXIDE 31 mmol/L (22-30); CHLORIDE 99 mmol/L (98-107); PHOSPHORUS 5.1 mg/dL (2.5-4.5); POTASSIUM 4.3 mmol/L (3.6-5.0); SODIUM 141.4 mmol/L (137-145)
[2018-11-24 07:10] LABS: GLUCOSE 61 mg/dL (75-110)
[2018-11-24] MEDS: SEVELAMER HCL 800 MG TABLET PO SCH ×3 (08:39→17:06)
--- NOTE | 2018-11-24 08:49 | RADIOLOGY REPORT (SQ) ---
EXAM DESCRIPTION: CHEST SINGLE VIEW COMPLETED DATE/TIME: 11/24/2018 8:12 am REASON FOR STUDY: resp failure COMPARISON: 11/21/2018. EXAM PARAMETERS: NUMBER OF VIEWS: One view. TECHNIQUE: Single frontal radiographic view of the chest acquired. RADIATION DOSE: NA LIMITATIONS: None. FINDINGS: LUNGS AND PLEURA: Mild basilar atelectasis. Small pleural effusions. MEDIASTINUM AND HILAR STRUCTURES: No masses. Contour normal. HEART AND VASCULAR STRUCTURES: Cardiomegaly. Vascular congestion. BONES: No acute findings. HARDWARE: Tracheostomy tube. Vascular stent and large bore catheter. OTHER: No other significant finding. IMPRESSION: NO SIGNIFICANT INTERVAL CHANGE. TECHNICAL DOCUMENTATION: JOB ID: [id number] [employer]- All Rights Reserved Reading location - IP/workstation name: [email or web address]
[2018-11-24] MEDS: IPRATROPIUM/ALBUTEROL 0.5-2.5 MG/3 ML AMPUL NEB PRN (09:08)
[2018-11-24] MEDS: LACTULOSE SYRUP 20 GM/30 ML UDCUP NG SCH ×2 (10:24→17:06)
[2018-11-24] MEDS: DOCUSATE SODIUM 100 MG/10 ML UDC NG SCH ×2 (10:30→17:06)
[2018-11-24] MEDS: FAMOTIDINE INJ/PF 20 MG/2 ML SDV IV SCH ×2 (10:31→22:55)
[2018-11-24] MEDS: ALLOPURINOL 100 MG TABLET NG SCH (10:31)
[2018-11-24] MEDS: GABAPENTIN 100 MG CAPSULE NG SCH (10:31)
[2018-11-24] MEDS: METOPROLOL TARTRATE 25 MG TABLET NG SCH ×3 (10:31→22:59)
[2018-11-24] MEDS: FLUTICASONE NASAL SPRAY 50 MCG/SPRY 120 SPRAY/16 GM NASL SCH ×2 (10:31→22:57)
--- NOTE | 2018-11-24 12:13 | PDOC PROGRESS REPORT ---
Subjective Progress Note for:: 11/24/18 Subjective:: Patient was seen by the bedside, he has a tracheostomy, there is blood coming from the ostium of the tracheostomy tube, just transferred from ICU to IMCU stepdown unit Reason For Visit: AMS/SOB/CHF/RENAL FAILURE Physical Exam Vital Signs: Temp Pulse Resp BP Pulse Ox 97.3 F 67 18 140/96 H 98 11/24/18 08:15 11/24/18 09:08 11/24/18 09:08 11/24/18 08:15 11/24/18 09:08 Pulse Oximeter Continuous Start: 11/16/18 23:41 Freq: RTQ4 Status: Complete Protocol: Document 11/20/18 11:20 [facility] (Rec: 11/20/18 11:38 [facility] [id number]) Pulse Oximetry Assessment Oxygen Saturation (92-100) 96 Oxygen Delivery Method Mechanical Ventilator Fraction of Inspired Oxygen (FIO2) 24 Equipment Usage Equipment in Use Continuous SpO2 Machine # 5 Intake & Output 11/23/18 11/24/18 11/25/18 06:59 06:59 06:59 Intake Total 150 860 50 Output Total 0 1700 Balance 150 -840 50 Weight 87.7 kg 79.6 kg General appearance: PRESENT: no acute distress Eye exam: PRESENT: PERRLA Respiratory exam: PRESENT: clear to auscultation cyndie, symmetrical Cardiovascular exam: PRESENT: +S1, +S2 GI/Abdominal exam: PRESENT: soft Neurological exam: PRESENT: alert, CN II-XII grossly intact Results Laboratory Results: 11/24/18 06:20 11/24/18 06:20 11/24/18 11/24/18 11/24/18 06:16 06:20 06:20 WBC 3.9 L RBC 3.86 L Hgb 10.9 L Hct 33.6 L MCV 87 MCH 28.3 MCHC 32.5 RDW 16.4 H Plt Count 123 L Seg Neutrophils % Not Reportable Lymphocytes % Not Reportable Monocytes % Not Reportable Eosinophils % Not Reportable Basophils % Not Reportable Absolute Neutrophils Not Reportable Absolute Lymphocytes Not Reportable Absolute Monocytes Not Reportable Absolute Eosinophils Not Reportable Absolute Basophils Not Reportable Carbonic Acid 1.76 H HCO3/H2CO3 Ratio 16:1 ABG pH 7.32 L ABG pCO2 58.6 H ABG pO2 74.8 L ABG HCO3 29.2 H ABG O2 Saturation 93.6 L ABG Base Excess 1.9 FiO2 30% Sodium 141.4 Potassium 4.3 Chloride 99 Carbon Dioxide 31 H Anion Gap 11 BUN 28 H Creatinine 9.43 H Est GFR ( Amer) 7 L Est GFR (Non-Af Amer) 6 L Glucose 61 L Calcium 9.1 Phosphorus 5.1 H Magnesium 2.4 H 11/20/18 16:30 Troponin I 0.018 Impressions: Abdomen Ultrasound 11/17/18 00:00 IMPRESSION: 1. Small ascites. Obscured pancreas. Obscured abdominal aorta. 2. Multicystic kidney disease. No significant renal parenchyma is identified at the renal fossae. 3. 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 Chest/Abdomen CTA 11/20/18 22:30 IMPRESSION: Negative for pulmonary embolus, thoracic aortic aneurysm, or dissection. Cardiomegaly. Multiple moderate bilateral pleural effusions with adjacent consolidative change. TECHNICAL DOCUMENTATION: Quality ID # 436: Final reports with documentation of one or more dose reduction techniques (e.g., Automated exposure control, adjustment of the mA and/or kV according to patient size, use of iterative reconstruction technique) copyright 2011 [employer]- All Rights Reserved KUB X-Ray 11/21/18 11:08 IMPRESSION: Nasoenteric tube tip overlies gastric body. Chest X-Ray 11/24/18 06:00 IMPRESSION: NO SIGNIFICANT INTERVAL CHANGE. Assessment & Plan - Diagnosis (1) Acute on chronic diastolic (congestive) heart failure Is this a current diagnosis for this admission?: Yes Plan: Continue present treatment (2) ESRD (end stage renal disease) on dialysis Is this a current diagnosis for this admission?: Yes (3) Chronic atrial fibrillation Is this a current diagnosis for this admission?: Yes (4) Anemia in chronic kidney disease (CKD) Qualifiers: Chronic kidney disease stage: on chronic dialysis Qualified Code(s): N18.6 - End stage renal disease; D63.1 - Anemia in chronic kidney disease; Z99.2 - Dependence on renal dialysis Is this a current diagnosis for this admission?: Yes (5) Acute and chronic respiratory failure with hypercapnia Is this a current diagnosis for this admission?: Yes
[2018-11-24] MEDS: MONTELUKAST SODIUM 10 MG TABLET NG SCH (17:06)
[2018-11-24 17:09] LABS: ARTERIAL BLOOD BASE EXCESS -1.4 mmol/L; ARTERIAL BLOOD FIO2 30%; ARTERIAL BLOOD H2CO3 1.51 mmol/L (1.05-1.35); ARTERIAL BLOOD HCO3 25.1 mmol/L (20-24); ARTERIAL BLOOD O2 SATURATION 93.9 % (94-98); ARTERIAL BLOOD PH 7.32 (7.35-7.45); ARTERIAL BLOOD PO2 75.4 mmHg (80-100); ARTERIAL BLOOD TOTAL CO2 26.6 mmol/L (23-27)
[2018-11-25] MEDS: ACETAMINOPHEN SOLN 325 MG/10.15 ML UDCUP NG PRN (00:21)
[2018-11-25] MEDS: PIPERACILLIN SODIUM/TAZOBACTAM 2.25 GM in NORMAL SALINE 50 ML IV SCH ×3 (02:09→17:20)
[2018-11-25] MEDS: HEPARIN SOD (PORCINE) 5,000 UNIT/ML 1 ML SYRINGE SUBCUT SCH ×3 (08:04→23:02)
[2018-11-25] MEDS: SEVELAMER HCL 800 MG TABLET PO SCH ×3 (08:17→17:19)
[2018-11-25] MEDS: METOPROLOL TARTRATE 25 MG TABLET NG SCH ×2 (10:36→23:06)
[2018-11-25] MEDS: LACTULOSE SYRUP 20 GM/30 ML UDCUP NG SCH ×2 (10:38→17:20)
[2018-11-25] MEDS: FLUTICASONE NASAL SPRAY 50 MCG/SPRY 120 SPRAY/16 GM NASL SCH ×2 (10:38→23:06)
[2018-11-25] MEDS: ALLOPURINOL 100 MG TABLET NG SCH (10:38)
[2018-11-25] MEDS: GABAPENTIN 100 MG CAPSULE NG SCH (10:38)
[2018-11-25] MEDS: DOCUSATE SODIUM 100 MG/10 ML UDC NG SCH ×2 (10:38→17:20)
[2018-11-25] MEDS: FAMOTIDINE INJ/PF 20 MG/2 ML SDV IV SCH ×2 (10:39→23:05)
[2018-11-25] MEDS: MONTELUKAST SODIUM 10 MG TABLET NG SCH (17:19)
--- NOTE | 2018-11-25 18:29 | PDOC PROGRESS REPORT ---
Subjective Progress Note for:: 11/25/18 Subjective:: Patient was seen by the bedside he required vent support yesterday because of respiratory acidosis presently of the ventilator this morning Reason For Visit: AMS/SOB/CHF/RENAL FAILURE Physical Exam Vital Signs: Temp Pulse Resp BP Pulse Ox 97.6 F 83 20 112/71 98 11/25/18 15:48 11/25/18 15:48 11/25/18 15:48 11/25/18 15:48 11/25/18 16:19 Pulse Oximeter Continuous Start: 11/16/18 23:41 Freq: RTQ4 Status: Complete Protocol: Document 11/20/18 11:20 [facility] (Rec: 11/20/18 11:38 [facility] [id number]) Pulse Oximetry Assessment Oxygen Saturation (92-100) 96 Oxygen Delivery Method Mechanical Ventilator Fraction of Inspired Oxygen (FIO2) 24 Equipment Usage Equipment in Use Continuous SpO2 Machine # 5 Intake & Output 11/24/18 11/25/18 11/26/18 06:59 06:59 06:59 Intake Total 635 425 7952 Output Total 1700 0 Balance -419 126 7405 Weight 79.6 kg General appearance: PRESENT: no acute distress Eye exam: PRESENT: PERRLA Neck exam: PRESENT: tracheostomy Respiratory exam: PRESENT: clear to auscultation cyndie Cardiovascular exam: PRESENT: +S1, +S2 GI/Abdominal exam: PRESENT: soft Neurological exam: PRESENT: alert Results Laboratory Results: 11/24/18 06:20 11/24/18 06:20 11/20/18 16:30 Troponin I 0.018 Impressions: Abdomen Ultrasound 11/17/18 00:00 IMPRESSION: 1. Small ascites. Obscured pancreas. Obscured abdominal aorta. 2. Multicystic kidney disease. No significant renal parenchyma is identified at the renal fossae. 3. 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 Chest/Abdomen CTA 11/20/18 22:30 IMPRESSION: Negative for pulmonary embolus, thoracic aortic aneurysm, or dissection. Cardiomegaly. Multiple moderate bilateral pleural effusions with adjacent consolidative change. TECHNICAL DOCUMENTATION: Quality ID # 436: Final reports with documentation of one or more dose reduction techniques (e.g., Automated exposure control, adjustment of the mA and/or kV according to patient size, use of iterative reconstruction technique) copyright 2011 [employer]- All Rights Reserved KUB X-Ray 11/21/18 11:08 IMPRESSION: Nasoenteric tube tip overlies gastric body. Chest X-Ray 11/24/18 06:00 IMPRESSION: NO SIGNIFICANT INTERVAL CHANGE. Assessment & Plan - Diagnosis (1) Acute on chronic diastolic (congestive) heart failure Is this a current diagnosis for this admission?: Yes (2) ESRD (end stage renal disease) on dialysis Is this a current diagnosis for this admission?: Yes (3) Chronic atrial fibrillation Is this a current diagnosis for this admission?: Yes (4) Anemia in chronic kidney disease (CKD) Qualifiers: Chronic kidney disease stage: on chronic dialysis Qualified Code(s): N18.6 - End stage renal disease; D63.1 - Anemia in chronic kidney disease; Z99.2 - Dependence on renal dialysis Is this a current diagnosis for this admission?: Yes (5) Acute and chronic respiratory failure with hypercapnia Is this a current diagnosis for this admission?: Yes - Plan Summary Plan Summary: Continue present treatment
[2018-11-25] MEDS: IPRATROPIUM/ALBUTEROL 0.5-2.5 MG/3 ML AMPUL NEB PRN (21:10)
[2018-11-25] MEDS: MELATONIN 5 MG TABLET NG PRN (23:06)
[2018-11-26] MEDS: PIPERACILLIN SODIUM/TAZOBACTAM 2.25 GM in NORMAL SALINE 50 ML IV SCH ×3 (01:34→18:05)
[2018-11-26] MEDS ORDERED: NORMAL SALINE 1000 ML 1,000 ML IV PRN (05:00)
[2018-11-26] MEDS: HEPARIN SOD (PORCINE) 5,000 UNIT/ML 1 ML SYRINGE SUBCUT SCH ×3 (05:19→21:57)
[2018-11-26 05:27] LABS: HEMATOCRIT 31.9 % (37.9-51.0); HEMOGLOBIN 10.3 g/dL (13.5-17.0); MEAN CORPUSCULAR HEMOGLOBIN 28.4 pg (27.0-33.4); MEAN CORPUSCULAR HGB CONC 32.4 g/dL (32.0-36.0); MEAN CORPUSCULAR VOLUME 88 fl (80-97); PLATELET COUNT 140 10^3/uL (150-450); RED BLOOD COUNT 3.63 10^6/uL (4.35-5.55); RED CELL DISTRIBUTION WIDTH 16.4 % (11.5-14.0); WHITE BLOOD COUNT 3.7 10^3/uL (4.0-10.5)
[2018-11-26 05:48] LABS: ANION GAP 13 (5-19); BLOOD UREA NITROGEN 40 mg/dL (7-20); CALCIUM 9.4 mg/dL (8.4-10.2); CARBON DIOXIDE 27 mmol/L (22-30); CHLORIDE 100 mmol/L (98-107); GLUCOSE 73 mg/dL (75-110); POTASSIUM 4.7 mmol/L (3.6-5.0); SODIUM 140.1 mmol/L (137-145)
[2018-11-26 06:11] LABS: ABSOLUTE MONOCYTES # (MANUAL) 0.2 10^3/uL (0.1-1.4); BASOPHILS % (MANUAL) 2 % (0-2); EOSINOPHILS % (MANUAL) 8 % (0-6); LYMPHOCYTES % (MANUAL) 28 % (13-45); MONOCYTES % (MANUAL) 6 % (3-13); PLATELET COMMENT DECREASED; SEGMENTED NEUTROPHILS % (MAN) 56 % (42-78); TOTAL CELLS COUNTED 100
[2018-11-26 06:13] LABS: ANISOCYTOSIS 1+; HELMET CELLS SLIGHT; OVALOCYTES 1+; SCHISTOCYTES 1+; TARGET CELLS 1+
--- NOTE | 2018-11-26 08:15 | PDOC PROGRESS REPORT ---
Subjective Progress Note for:: 11/26/18 Subjective:: Patient is feeling much better Patient's is not requiring any vent right now but in the weekend patients require went I think patients need a nighttime trilogy We will discuss with the pulmonary about that We will check the patient's ABG Otherwise patients denied any chest pain to than any shortness of the breath Patient is currently on the dialysis table Reason For Visit: AMS/SOB/CHF/RENAL FAILURE Physical Exam Vital Signs: Temp Pulse Resp BP Pulse Ox 97.8 F 73 20 105/54 L 100 11/26/18 07:19 11/26/18 07:19 11/26/18 07:19 11/26/18 07:19 11/26/18 07:19 Pulse Oximeter Continuous Start: 11/16/18 23:41 Freq: RTQ4 Status: Complete Protocol: Document 11/20/18 11:20 [facility] (Rec: 11/20/18 11:38 [facility] [id number]) Pulse Oximetry Assessment Oxygen Saturation (92-100) 96 Oxygen Delivery Method Mechanical Ventilator Fraction of Inspired Oxygen (FIO2) 24 Equipment Usage Equipment in Use Continuous SpO2 Machine # 5 Intake & Output 11/25/18 11/26/18 11/27/18 06:59 06:59 06:59 Intake Total 795 1241 Output Total 0 Balance 795 1241 Weight 92.3 kg General appearance: PRESENT: no acute distress, well-developed, well-nourished Head exam: PRESENT: atraumatic, normocephalic Eye exam: PRESENT: conjunctiva pink, EOMI, PERRLA. ABSENT: scleral icterus Ear exam: PRESENT: normal external ear exam Mouth exam: PRESENT: moist, tongue midline Neck exam: PRESENT: full ROM. ABSENT: carotid bruit, JVD, lymphadenopathy, thyromegaly Respiratory exam: PRESENT: clear to auscultation cyndie Cardiovascular exam: PRESENT: RRR. ABSENT: diastolic murmur, rubs, systolic murmur Vascular exam: PRESENT: normal capillary refill GI/Abdominal exam: PRESENT: normal bowel sounds, soft. ABSENT: distended, guarding, mass, organolmegaly, rebound, tenderness Rectal exam: PRESENT: deferred Neurological exam: PRESENT: alert, awake, oriented to person, oriented to place, oriented to time, oriented to situation, CN II-XII grossly intact. ABSENT: motor sensory deficit Psychiatric exam: PRESENT: appropriate affect, normal mood. ABSENT: homicidal ideation, suicidal ideation Skin exam: PRESENT: dry, intact, warm. ABSENT: cyanosis, rash Results Laboratory Results: 11/26/18 05:00 11/26/18 05:00 11/26/18 11/26/18 05:00 05:00 WBC 3.7 L RBC 3.63 L Hgb 10.3 L Hct 31.9 L MCV 88 MCH 28.4 MCHC 32.4 RDW 16.4 H Plt Count 140 L Seg Neutrophils % Not Reportable Lymphocytes % Not Reportable Monocytes % Not Reportable Eosinophils % Not Reportable Basophils % Not Reportable Absolute Neutrophils Not Reportable Absolute Lymphocytes Not Reportable Absolute Monocytes Not Reportable Absolute Eosinophils Not Reportable Absolute Basophils Not Reportable Sodium 140.1 Potassium 4.7 Chloride 100 Carbon Dioxide 27 Anion Gap 13 BUN 40 H Creatinine 11.80 H Est GFR ( Amer) 6 L Est GFR (Non-Af Amer) 5 L Glucose 73 L Calcium 9.4 11/20/18 16:30 Troponin I 0.018 Impressions: Abdomen Ultrasound 11/17/18 00:00 IMPRESSION: 1. Small ascites. Obscured pancreas. Obscured abdominal aorta. 2. Multicystic kidney disease. No significant renal parenchyma is identified at the renal fossae. 3. 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 Chest/Abdomen CTA 11/20/18 22:30 IMPRESSION: Negative for pulmonary embolus, thoracic aortic aneurysm, or dissection. Cardiomegaly. Multiple moderate bilateral pleural effusions with adjacent consolidative change. TECHNICAL DOCUMENTATION: Quality ID # 436: Final reports with documentation of one or more dose reduction techniques (e.g., Automated exposure control, adjustment of the mA and/or kV according to patient size, use of iterative reconstruction technique) copyright 2011 [employer]- All Rights Reserved KUB X-Ray 11/21/18 11:08 IMPRESSION: Nasoenteric tube tip overlies gastric body. Chest X-Ray 11/24/18 06:00 IMPRESSION: NO SIGNIFICANT INTERVAL CHANGE. Assessment & Plan - Diagnosis (1) Hyperkalemia Is this a current diagnosis for this admission?: Yes (2) Volume overload Qualifiers: Hypervolemia type: unspecified Qualified Code(s): E87.70 - Fluid overload, unspecified Is this a current diagnosis for this admission?: Yes (3) Chronic obstruct airways disease Qualifiers: Chronic bronchitis type: unspecified Is this a current diagnosis for this admission?: Yes (4) Congestive heart failure Qualifiers: Heart failure type: diastolic Heart failure chronicity: acute on chronic Qualified Code(s): I50.33 - Acute on chronic diastolic (congestive) heart failure Is this a current diagnosis for this admission?: Yes (5) End-stage renal disease (ESRD) Is this a current diagnosis for this admission?: Yes (6) Noncompliance Is this a current diagnosis for this admission?: Yes (7) Obstructive sleep apnea Is this a current diagnosis for this admission?: Yes (8) Shortness of breath Is this a current diagnosis for this admission?: Yes (9) Status post tracheostomy Is this a current diagnosis for this admission?: Yes (10) AF (atrial fibrillation) Qualifiers: Atrial fibrillation type: chronic Qualified Code(s): I48.2 - Chronic atrial fibrillation Is this a current diagnosis for this admission?: Yes (11) Pneumonia Qualifiers: Lung location: unspecified part of lung Is this a current diagnosis for this admission?: Yes (12) Sepsis Qualifiers: Sepsis type: sepsis due to unspecified organism Qualified Code(s): A41.9 - Sepsis, unspecified organism Is this a current diagnosis for this admission?: Yes - Time Time Spent with patient: 15-24 minutes Medications reviewed and adjusted accordingly: Yes Anticipated discharge: SNF Within: Other - Plan Summary Plan Summary: We will discuss with the pulmonary about the respiratory plan Hopefully discharge once the patient's need vent vs c pap
--- NOTE | 2018-11-26 08:43 | CONSULTATION REPORT E ---
Consultation Report NAME: ANDREAS NELSON : 1965 AGE: 53Y DATE: 11/26/2018 304 B TO: SHAYNE RESENDEZ D.O. FROM: JOSIAH ARRINGTON M.D. Requesting Physician CHIEF COMPLAINT: Shortness of breath. HISTORY OF PRESENT ILLNESS: This is a 53-year-old -[place] male with history of end-stage renal disease on hemodialysis and history of hypertension, sleep apnea, tracheostomy tube dependence, COPD, asthma, chronic A-fib, congestive heart failure, and additional comorbidities. The patient was brought to the emergency room for evaluation due to feeling very lethargic and being short of breath. A neighbor had checked on him, but he had not been answering his phone and EMS was contacted to evaluate the patient and brought him to the [facility] ER for further evaluation. The patient was admitted by the hospitalist service for further evaluation and management. ENT was consulted as the desire was to place the patient on CPAP/BiPAP ventilation set-up. However, he is with a non-cuffed tracheostomy tube at present which needed to be converted to a cuffed tracheostomy tube. The pt. had also not followed by with ENT since his previous [facility] ER/hospital visit in which ENT was consulted for tracheostomy care. PAST MEDICAL HISTORY: Same as above and reviewed with the patient. PAST SURGICAL HISTORY: Consistent with tonsillectomy, herniorrhaphy, vascular surgery with right arm graft for dialysis, and tracheostomy tube placement. SOCIAL HISTORY: Unknown if ever a smoker and the patient lives by himself. FAMILY HISTORY: Reviewed with the patient and not pertinent. MEDICATIONS: Please see the patient's medication inpatient list as it is extensive. ALLERGIES: No known drug allergies. REVIEW OF SYSTEMS: CONSTITUTIONAL: Reviewed with the patient, otherwise unremarkable at present. HEENT: Reviewed with the patient and same as above. CARDIAC: History of A-fib, congestive heart failure, and hypertension. PULMONARY: Reviewed with the patient and consistent with asthma, COPD, and sleep apnea with tracheostomy tube dependence. NEUROLOGICAL: Reviewed with the patient and consistent with migraines. GENITOURINARY: Reviewed with the patient and consistent with end-stage renal disease status post transplant malignancy reviewed with the patient and unremarkable. GASTROINTESTINAL: Reviewed with the patient and consistent with gastroesophageal reflux disease. MUSCULOSKELETAL: Reviewed with the patient and consistent with arthritis. MENTAL HEALTH: Reviewed with the patient and consistent with mild depression. HEMATOLOGIC/ONCOLOGY: Reviewed with the patient and consistent with anemia. SKIN/DERMATOLOGIC: Reviewed with the patient and unremarkable at present. ALLERGY/IMMUNOLOGY: Reviewed with the patient. PHYSICAL EXAMINATION: VITAL SIGNS: Temperature 98.6, pulse 52, respirations 14, blood pressure 117/78, pulse ox 96% on room air. GENERAL APPEARANCE: The patient was noted to be seated on the edge of his hospital bed and eating a meal. The patient had his Passy Kaylee valve in place on his tracheostomy tube and he was able to speak as he has during previous interactions without difficulty. He was breathing without difficulty. He was alert and oriented and in no apparent distress. HEAD: Normocephalic, atraumatic. EYES: Extraocular muscles intact and the conjunctivae were unremarkable. EARS: Canals were with cerumen and the tympanic membranes could not be well visualized. MOUTH: Poor dentition with malocclusion and the mucous membranes were otherwise moist and unremarkable and the soft palatal tissues were redundant in nature and the tongue was enlarged overall. NECK: Supple with no lymphadenopathy and the #6 XLT cuffless tracheostomy tube is noted to be in place with minimal secretions and no bleeding noted. RESPIRATORY: The lungs were noted to be clear to auscultation bilateral. CARDIOVASCULAR/HEART: The heart was noted to be with irregular rhythm and no murmurs. MUSCULOSKELETAL: The temporomandibular joints were unremarkable. NEUROLOGICAL: Cranial nerves II-XII were grossly intact and the patient was moving all extremities. SKIN: Noted to be dry, warm, and otherwise intact. PROCEDURE: The patient underwent a change of his tracheostomy tube to an XLT #6 Shiley cuffed tracheostomy tube. During this process, the patient also underwent a flexible fiberoptic evaluation with the tracheostomy site appearing unremarkable, the trachea, left and right mainstem bronchi, and upper bronchials all appeared unremarkable overall and there were minimal secretions noted, there was no bleeding noted, and there were no masses or lesions identified. At this point, the cuffed #6 XLT tracheostomy tube was placed. Respiratory therapy was requested and was present during this process of tracheostomy tube change and evaluation to provide teaching to the patient as the intent is for the patient to be able to use CPAP/BiPAP settings at home. The cuff was inflated and was noted to be intact. The cuff was released and the patient's Passy [place] valve/PMV was replaced and he was able to speak, but not as easily as with the uncuffed tracheostomy tube. The patient was quite uncomfortable after the trach change and 4% topical lidocaine was via the tracheostomy site which was helpful. LABORATORY: WBC 4.3, H and H 12.5 and 39.4, platelets were 192. Chest x-ray with impression of cardiomegaly without signs of pulmonary edema. ASSESSMENT AND PLAN: 1. Chronic obstructive pulmonary disease. Please see Pulmonary and hospitalist's notes for additional details. The patient otherwise has undergone a tracheostomy changed to a cuffed #6 XLT Shiley trach and will also receive respiratory therapy teaching to prepare for discharge to home. The patient also underwent a flexible fiberoptic evaluation as noted above which was unremarkable overall. 2. Shortness of breath, same as above, and please refer to the hospitalist and pulmonary notes for additional details. 3. Tracheostomy tube dependence. Please see above and also refer to the hospitalist and pulmonary notes for additional details. The patient will also plan to follow up with ENT, Dr. Resendez, on an outpatient basis for ongoing tracheostomy management, which he voiced an understanding of and agreed with. 4. Macroglossia and Malocclusion effect the overall dynamic of the upper airway. Dr. Resendez, ENT, is available as needed during this patient's ongoing hospital stay. The patient will otherwise follow up with ENT on an outpatient basis for ongoing tracheostomy management. Please contact Dr. Resendez if there are any additional questions. Total consult time was 60 minutes, which included the consult, tracheostomy tube exchange, repeated flexible fiberoptic [place]oscopy ([place] [address]), coordination of care with respiratory therapy during the consultation, and phone consultation with Dr. Arrington for coordination of care during the consultation. Procedural CPT codes with also include: Upper airway/tracheal/pulmonary flexible fiberoptic endoscopy, and tracheostomy tube change and management. DICTATING PHYSICIAN: SHAYNE RESENDEZ D.O. [id number] PHY#: [id number] ID: [id number] JOB#: [id number] ACCT: [id number] cc:SHAYNE RESENDEZ D.O. > FILI
[2018-11-26] MEDS: METOPROLOL TARTRATE 25 MG TABLET NG SCH ×2 (11:42→22:00)
[2018-11-26] MEDS: IPRATROPIUM/ALBUTEROL 0.5-2.5 MG/3 ML AMPUL NEB PRN ×2 (11:44→21:15)
[2018-11-26] MEDS: GABAPENTIN 100 MG CAPSULE NG SCH (11:45)
[2018-11-26] MEDS: ALLOPURINOL 100 MG TABLET NG SCH (11:45)
[2018-11-26] MEDS: FAMOTIDINE INJ/PF 20 MG/2 ML SDV IV SCH ×2 (11:45→22:00)
[2018-11-26] MEDS: LACTULOSE SYRUP 20 GM/30 ML UDCUP NG SCH ×2 (11:46→17:26)
[2018-11-26] MEDS: DOCUSATE SODIUM 100 MG/10 ML UDC NG SCH ×2 (11:46→17:26)
[2018-11-26] MEDS: SEVELAMER HCL 800 MG TABLET PO SCH ×3 (11:46→16:08)
[2018-11-26] MEDS: FLUTICASONE NASAL SPRAY 50 MCG/SPRY 120 SPRAY/16 GM NASL SCH ×2 (11:49→22:11)
--- NOTE | 2018-11-26 12:14 | PDOC PROGRESS REPORT ---
Subjective Progress Note for:: 11/26/18 Reason For Visit: Patient seen today undergoing dialysis. He is undergoing dialysis without any issues. He denies any history of chest pain or shortness of breath. He says the CPAP has helped him with his breathing. No complaints of any fever or chills. Labs and medications were reviewed. Dialysis orders were reviewed with the treating dialysis nurse. Physical Exam Vital Signs: Temp Pulse Resp BP Pulse Ox 97.8 F 72 18 105/54 L 100 11/26/18 07:19 11/26/18 11:44 11/26/18 11:44 11/26/18 07:19 11/26/18 11:44 Pulse Oximeter Continuous Start: 11/16/18 23:4 1 Freq: RTQ4 Status: Complete Protocol: Document 11/20/18 11:20 [facility] (Rec: 11/20/18 11:38 [facility] [id number]) Pulse Oximetry Assessment Oxygen Saturation (92-100) 96 Oxygen Delivery Method Mechanical Ventilator Fraction of Inspired Oxygen (FIO2) 24 Equipment Usage Equipment in Use Continuous SpO2 Machine # 5 Intake & Output 11/25/18 11/26/18 11/27/18 06:59 06:59 06:59 Intake Total 795 1241 Output Total 0 2400 Balance 795 1241 -2400 Weight 92.3 kg General appearance: PRESENT: no acute distress Respiratory exam: PRESENT: clear to auscultation cyndie. ABSENT: crackles Cardiovascular exam: PRESENT: +S1, +S2 GI/Abdominal exam: PRESENT: distended - Large ventral hernia, normal bowel sounds, soft, tenderness. ABSENT: guarding, organomegaly Extremities exam: ABSENT: pedal edema Neurological exam: PRESENT: alert, awake, oriented to person, oriented to place Psychiatric exam: PRESENT: appropriate affect Results Laboratory Results: 11/26/18 05:00 11/26/18 05:00 11/26/18 11/26/18 05:00 05:00 WBC 3.7 L RBC 3.63 L Hgb 10.3 L Hct 31.9 L MCV 88 MCH 28.4 MCHC 32.4 RDW 16.4 H Plt Count 140 L Seg Neutrophils % Not Reportable Lymphocytes % Not Reportable Monocytes % Not Reportable Eosinophils % Not Reportable Basophils % Not Reportable Absolute Neutrophils Not Reportable Absolute Lymphocytes Not Reportable Absolute Monocytes Not Reportable Absolute Eosinophils Not Reportable Absolute Basophils Not Reportable Sodium 140.1 Potassium 4.7 Chloride 100 Carbon Dioxide 27 Anion Gap 13 BUN 40 H Creatinine 11.80 H Est GFR ( Amer) 6 L Est GFR (Non-Af Amer) 5 L Glucose 73 L Calcium 9.4 11/20/18 16:30 Troponin I 0.018 Impressions: Abdomen Ultrasound 11/17/18 00:00 IMPRESSION: 1. Small ascites. Obscured pancreas. Obscured abdominal aorta. 2. Multicystic kidney disease. No significant renal parenchyma is identified at the renal fossae. 3. 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 Chest/Abdomen CTA 11/20/18 22:30 IMPRESSION: Negative for pulmonary embolus, thoracic aortic aneurysm, or dissection. Cardiomegaly. Multiple moderate bilateral pleural effusions with adjacent consolidative change. TECHNICAL DOCUMENTATION: Quality ID # 436: Final reports with documentation of one or more dose reduction techniques (e.g., Automated exposure control, adjustment of the mA and/or kV according to patient size, use of iterative reconstruction technique) copyright 2011 [employer]- All Rights Reserved KUB X-Ray 11/21/18 11:08 IMPRESSION: Nasoenteric tube tip overlies gastric body. Chest X-Ray 11/24/18 06:00 IMPRESSION: NO SIGNIFICANT INTERVAL CHANGE. Assessment & Plan - Diagnosis (1) Congestive heart failure Qualifiers: Heart failure type: diastolic Heart failure chronicity: acute on chronic Qualified Code(s): I50.33 - Acute on chronic diastolic (congestive) heart failure Is this a current diagnosis for this admission?: Yes Plan: Resolved. Discussed to avoid noncompliance with hemodialysis in the future. (2) End-stage renal disease (ESRD) Is this a current diagnosis for this admission?: Yes Plan: Patient currently undergoing hemodialysis without any issues. Vital signs are stable. Plan to remove between 2 and 3 L of fluid as tolerated. Dialysis is being supervised to ensure safe and smooth procedure. Dialysis orders were reviewed with the treating dialysis nurse. Discussed with the patient about not missing any more treatments in the future. (3) Altered mental status Is this a current diagnosis for this admission?: Yes Plan: Resolved.Combination of uremia and CO2 narcosis (4) AF (atrial fibrillation) Qualifiers: Atrial fibrillation type: chronic Qualified Code(s): I48.2 - Chronic atrial fibrillation Is this a current diagnosis for this admission?: Yes Plan: Rate controlled. (5) Hyperkalemia Is this a current diagnosis for this admission?: Yes Plan: Resolved. (6) Noncompliance Is this a current diagnosis for this admission?: Yes Plan: Discussed about compliance with diet, medications and hemodialysis treatments. The patient has got multiple social issues. Advised to discuss with social services designee at [facility]. Discussed unfortunate consequences with missing and noncompliance with treatments. (7) Obstructive sleep apnea Is this a current diagnosis for this admission?: Yes Plan: Advised the patient of compliance with CPAP. Discussed with the patient the need for compliance with CPAP to prevent deterioration of pulmonary hypertension and CO2 retention. (8) Status post tracheostomy Is this a current diagnosis for this admission?: Yes Plan: Stable. (9) Uremia Is this a current diagnosis for this admission?: Yes Plan: Resolved.
[2018-11-26] MEDS: MONTELUKAST SODIUM 10 MG TABLET NG SCH (17:31)
[2018-11-26] MEDS: ACETAMINOPHEN SOLN 325 MG/10.15 ML UDCUP NG PRN (22:00)
[2018-11-27] MEDS: MELATONIN 5 MG TABLET NG PRN (00:19)
[2018-11-27] MEDS: PIPERACILLIN SODIUM/TAZOBACTAM 2.25 GM in NORMAL SALINE 50 ML IV SCH ×2 (01:33→11:14)
[2018-11-27 04:09] LABS: ARTERIAL BLOOD BASE EXCESS 1.2 mmol/L; ARTERIAL BLOOD H2CO3 1.79 mmol/L (1.05-1.35); ARTERIAL BLOOD HCO3 28.6 mmol/L (20-24); ARTERIAL BLOOD O2 SATURATION 74.3 % (94-98); ARTERIAL BLOOD PCO2 59.5 mmHg (35-45); ARTERIAL BLOOD PO2 44.2 mmHg (80-100); ARTERIAL BLOOD TOTAL CO2 30.4 mmol/L (23-27)
[2018-11-27 04:14] LABS: ARTERIAL BLOOD FIO2 8 FLOW RATE
[2018-11-27] MEDS: HEPARIN SOD (PORCINE) 5,000 UNIT/ML 1 ML SYRINGE SUBCUT SCH ×3 (05:07→21:26)
[2018-11-27] MEDS: ACETAMINOPHEN SOLN 325 MG/10.15 ML UDCUP NG PRN ×2 (05:10→13:38)
[2018-11-27] MEDS: IPRATROPIUM/ALBUTEROL 0.5-2.5 MG/3 ML AMPUL NEB PRN (07:37)
--- NOTE | 2018-11-27 08:42 | PDOC PROGRESS REPORT ---
Subjective Progress Note for:: 11/27/18 Subjective:: Patient is currently doing well Patient is denied any chest pain to than any shortness of the breath Patient's not using any kind of a CPAP or BiPAP just used oxygen Patient's pH was 7.30 yesterday and PCO2 was high As per discussed with the pulmonary and suggest the patient is to use a trilogy he will see the patient's tonight but will inform the social work manager Reason For Visit: AMS/SOB/CHF/RENAL FAILURE Physical Exam Vital Signs: Temp Pulse Resp BP Pulse Ox 97.7 F 71 18 114/40 L 100 11/27/18 04:24 11/27/18 04:24 11/27/18 04:24 11/27/18 04:24 11/27/18 04:24 Pulse Oximeter Continuous Start: 11/16/18 23:41 Freq: RTQ4 Status: Complete Protocol: Document 11/20/18 11:20 [facility] (Rec: 11/20/18 11:38 [facility] [id number]) Pulse Oximetry Assessment Oxygen Saturation (92-100) 96 Oxygen Delivery Method Mechanical Ventilator Fraction of Inspired Oxygen (FIO2) 24 Equipment Usage Equipment in Use Continuous SpO2 Machine # 5 Intake & Output 11/26/18 11/27/18 11/28/18 06:59 06:59 06:59 Intake Total 1241 1049 Output Total 2400 Balance 1241 -1351 Weight 92.3 kg 94.5 kg General appearance: PRESENT: no acute distress, well-developed, well-nourished Head exam: PRESENT: atraumatic, normocephalic Eye exam: PRESENT: conjunctiva pink, EOMI, PERRLA. ABSENT: scleral icterus Ear exam: PRESENT: normal external ear exam Mouth exam: PRESENT: moist, tongue midline Neck exam: PRESENT: full ROM. ABSENT: carotid bruit, JVD, lymphadenopathy, thyromegaly Respiratory exam: PRESENT: clear to auscultation cyndie Cardiovascular exam: ABSENT: diastolic murmur, rubs, systolic murmur Vascular exam: PRESENT: normal capillary refill GI/Abdominal exam: PRESENT: hernia, normal bowel sounds, soft. ABSENT: distended, guarding, mass, organolmegaly, rebound, tenderness Rectal exam: PRESENT: deferred Extremities exam: ABSENT: pedal edema Neurological exam: PRESENT: alert, awake, oriented to person, oriented to place, oriented to time, oriented to situation, CN II-XII grossly intact. ABSENT: motor sensory deficit Psychiatric exam: PRESENT: appropriate affect, normal mood. ABSENT: homicidal ideation, suicidal ideation Skin exam: PRESENT: dry, intact, warm. ABSENT: cyanosis, rash Results Laboratory Results: 11/26/18 05:00 11/26/18 05:00 11/26/18 16:08 Carbonic Acid 1.79 H HCO3/H2CO3 Ratio 15:1 ABG pH 7.30 L ABG pCO2 59.5 H ABG pO2 44.2 L ABG HCO3 28.6 H ABG O2 Saturation 74.3 L ABG Base Excess 1.2 FiO2 8 FLOW RATE 11/20/18 16:30 Troponin I 0.018 Impressions: Abdomen Ultrasound 11/17/18 00:00 IMPRESSION: 1. Small ascites. Obscured pancreas. Obscured abdominal aorta. 2. Multicystic kidney disease. No significant renal parenchyma is identified at the renal fossae. 3. 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 Chest/Abdomen CTA 11/20/18 22:30 IMPRESSION: Negative for pulmonary embolus, thoracic aortic aneurysm, or dissection. Cardiomegaly. Multiple moderate bilateral pleural effusions with adjacent consolidative change. TECHNICAL DOCUMENTATION: Quality ID # 436: Final reports with documentation of one or more dose reduction techniques (e.g., Automated exposure control, adjustment of the mA and/or kV according to patient size, use of iterative reconstruction technique) copyright 2011 [employer]- All Rights Reserved KUB X-Ray 11/21/18 11:08 IMPRESSION: Nasoenteric tube tip overlies gastric body. Chest X-Ray 11/24/18 06:00 IMPRESSION: NO SIGNIFICANT INTERVAL CHANGE. Assessment & Plan - Diagnosis (1) Hyperkalemia Is this a current diagnosis for this admission?: Yes (2) Volume overload Qualifiers: Hypervolemia type: unspecified Qualified Code(s): E87.70 - Fluid overload, unspecified Is this a current diagnosis for this admission?: Yes (3) Chronic obstruct airways disease Qualifiers: Chronic bronchitis type: unspecified Is this a current diagnosis for this admission?: Yes (4) Congestive heart failure Qualifiers: Heart failure type: diastolic Heart failure chronicity: acute on chronic Qualified Code(s): I50.33 - Acute on chronic diastolic (congestive) heart failure Is this a current diagnosis for this admission?: Yes (5) End-stage renal disease (ESRD) Is this a current diagnosis for this admission?: Yes (6) Noncompliance Is this a current diagnosis for this admission?: Yes (7) Obstructive sleep apnea Is this a current diagnosis for this admission?: Yes (8) Shortness of breath Is this a current diagnosis for this admission?: Yes (9) Status post tracheostomy Is this a current diagnosis for this admission?: Yes (10) AF (atrial fibrillation) Qualifiers: Atrial fibrillation type: chronic Qualified Code(s): I48.2 - Chronic atrial fibrillation Is this a current diagnosis for this admission?: Yes (11) Pneumonia Qualifiers: Lung location: unspecified part of lung Is this a current diagnosis for this admission?: Yes (12) Sepsis Qualifiers: Sepsis type: sepsis due to unspecified organism Qualified Code(s): A41.9 - Sepsis, unspecified organism Is this a current diagnosis for this admission?: Yes (13) Acute and chronic respiratory failure with hypercapnia Is this a current diagnosis for this admission?: Yes Plan: he is definitely needs to use the trilogy as per discussed with the pulmonary - Time Time Spent with patient: 15-24 minutes Medications reviewed and adjusted accordingly: Yes Anticipated discharge: Home with Homehealth Within: Other - Plan Summary Plan Summary: Continues to current medications
[2018-11-27] MEDS: SEVELAMER HCL 800 MG TABLET PO SCH ×3 (11:01→17:41)
[2018-11-27] MEDS: FAMOTIDINE INJ/PF 20 MG/2 ML SDV IV SCH ×2 (11:01→21:35)
[2018-11-27] MEDS: LACTULOSE SYRUP 20 GM/30 ML UDCUP NG SCH ×2 (11:02→17:43)
[2018-11-27] MEDS: DOCUSATE SODIUM 100 MG/10 ML UDC NG SCH ×2 (11:03→17:43)
[2018-11-27] MEDS: ALLOPURINOL 100 MG TABLET NG SCH (11:03)
[2018-11-27] MEDS: GABAPENTIN 100 MG CAPSULE NG SCH (11:03)
[2018-11-27] MEDS: METOPROLOL TARTRATE 25 MG TABLET NG SCH ×2 (11:03→21:35)
[2018-11-27] MEDS: FLUTICASONE NASAL SPRAY 50 MCG/SPRY 120 SPRAY/16 GM NASL SCH ×2 (11:05→21:35)
[2018-11-27] MEDS: MONTELUKAST SODIUM 10 MG TABLET NG SCH (17:41)
[2018-11-28] MEDS: IPRATROPIUM/ALBUTEROL 0.5-2.5 MG/3 ML AMPUL NEB PRN ×3 (00:50→23:57)
[2018-11-28 04:29] LABS: HEMATOCRIT 30.2 % (37.9-51.0); HEMOGLOBIN 9.8 g/dL (13.5-17.0); MEAN CORPUSCULAR HEMOGLOBIN 28.7 pg (27.0-33.4); MEAN CORPUSCULAR HGB CONC 32.3 g/dL (32.0-36.0); MEAN CORPUSCULAR VOLUME 89 fl (80-97); PLATELET COUNT 156 10^3/uL (150-450); RED BLOOD COUNT 3.41 10^6/uL (4.35-5.55); RED CELL DISTRIBUTION WIDTH 16.3 % (11.5-14.0); WHITE BLOOD COUNT 3.9 10^3/uL (4.0-10.5)
[2018-11-28 04:52] LABS: ANION GAP 13 (5-19); BLOOD UREA NITROGEN 38 mg/dL (7-20); CALCIUM 9.4 mg/dL (8.4-10.2); CARBON DIOXIDE 28 mmol/L (22-30); CHLORIDE 100 mmol/L (98-107); GLUCOSE 83 mg/dL (75-110); POTASSIUM 4.6 mmol/L (3.6-5.0); SODIUM 140.8 mmol/L (137-145)
[2018-11-28] MEDS: HEPARIN SOD (PORCINE) 5,000 UNIT/ML 1 ML SYRINGE SUBCUT SCH ×3 (05:04→21:20)
[2018-11-28] MEDS: ACETAMINOPHEN SOLN 325 MG/10.15 ML UDCUP NG PRN ×2 (08:11→20:35)
[2018-11-28] MEDS: SEVELAMER HCL 800 MG TABLET PO SCH ×3 (08:11→17:09)
[2018-11-28] MEDS ORDERED: EPOETIN ALFA INJ 20000 UNIT/1 ML VIAL (RENAL) IV PRN (08:52)
[2018-11-28] MEDS ORDERED: EPOETIN ALFA 5,000 UNIT in SYRINGE, DISPOSABLE, 1 EACH IV PRN (09:00)
--- NOTE | 2018-11-28 11:51 | PDOC PROGRESS REPORT ---
Subjective Progress Note for:: 11/28/18 Reason For Visit: Patient seen in the hospital on dialysis. He is undergoing dialysis without any issues. Vital signs are stable. He denies any history of chest pains coughing spells or fever or chills. Labs and medications were reviewed. Dialysis orders were reviewed with the treating dialysis nurse. Physical Exam Vital Signs: Temp Pulse Resp BP Pulse Ox 97.7 F 69 18 118/60 100 11/28/18 04:03 11/28/18 07:00 11/28/18 04:03 11/28/18 04:03 11/28/18 04:03 Pulse Oximeter Continuous Start: 11/16/18 23:41 Freq: RTQ4 Status: Complete Protocol: Document 11/20/18 11:20 [facility] (Rec: 11/20/18 11:38 [facility] [id number]) Pulse Oximetry Assessment Oxygen Saturation (92-100) 96 Oxygen Delivery Method Mechanical Ventilator Fraction of Inspired Oxygen (FIO2) 24 Equipment Usage Equipment in Use Continuous SpO2 Machine # 5 Intake & Output 11/27/18 11/28/18 11/29/18 06:59 06:59 06:59 Intake Total 1049 1000 0.25 Output Total 2400 130 Balance -1351 870 0.25 Weight 94.5 kg 84 kg General appearance: PRESENT: no acute distress Respiratory exam: PRESENT: clear to auscultation cyndie. ABSENT: crackles Cardiovascular exam: PRESENT: +S1, +S2 GI/Abdominal exam: PRESENT: distended - Large ventral hernia, normal bowel sounds, soft, tenderness. ABSENT: guarding, organomegaly Extremities exam: PRESENT: pedal edema Neurological exam: PRESENT: alert, awake, oriented to person, oriented to place, oriented to time Results Laboratory Results: 11/28/18 04:20 11/28/18 04:20 11/28/18 11/28/18 04:20 04:20 WBC 3.9 L RBC 3.41 L Hgb 9.8 L Hct 30.2 L MCV 89 MCH 28.7 MCHC 32.3 RDW 16.3 H Plt Count 156 Sodium 140.8 Potassium 4.6 Chloride 100 Carbon Dioxide 28 Anion Gap 13 BUN 38 H Creatinine 11.06 H Est GFR ( Amer) 6 L Est GFR (Non-Af Amer) 5 L Glucose 83 Calcium 9.4 11/20/18 16:30 Troponin I 0.018 Impressions: Abdomen Ultrasound 11/17/18 00:00 IMPRESSION: 1. Small ascites. Obscured pancreas. Obscured abdominal aorta. 2. Multicystic kidney disease. No significant renal parenchyma is identified at the renal fossae. 3. 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 Chest/Abdomen CTA 11/20/18 22:30 IMPRESSION: Negative for pulmonary embolus, thoracic aortic aneurysm, or dissection. Cardiomegaly. Multiple moderate bilateral pleural effusions with adjacent consolidative change. TECHNICAL DOCUMENTATION: Quality ID # 436: Final reports with documentation of one or more dose reduction techniques (e.g., Automated exposure control, adjustment of the mA and/or kV according to patient size, use of iterative reconstruction technique) copyright 2011 [employer]- All Rights Reserved KUB X-Ray 11/21/18 11:08 IMPRESSION: Nasoenteric tube tip overlies gastric body. Chest X-Ray 11/24/18 06:00 IMPRESSION: NO SIGNIFICANT INTERVAL CHANGE. Assessment & Plan - Diagnosis (1) Congestive heart failure Qualifiers: Heart failure type: diastolic Heart failure chronicity: acute on chronic Qualified Code(s): I50.33 - Acute on chronic diastolic (congestive) heart fa ilure Is this a current diagnosis for this admission?: Yes Plan: Resolved. Discussed to avoid noncompliance with hemodialysis in the future. (2) End-stage renal disease (ESRD) Is this a current diagnosis for this admission?: Yes Plan: Patient currently undergoing hemodialysis without any issues. Vital signs are stable. Plan to remove between 2 and 3 L of fluid as tolerated. Dialysis is being supervised to ensure safe and smooth procedure. Dialysis orders were reviewed with the treating dialysis nurse. Discussed with the patient about not missing any more treatments in the future. (3) Altered mental status Is this a current diagnosis for this admission?: Yes Plan: Resolved.Combination of uremia and CO2 narcosis (4) AF (atrial fibrillation) Qualifiers: Atrial fibrillation type: chronic Qualified Code(s): I48.2 - Chronic atrial fibrillation Is this a current diagnosis for this admission?: Yes Plan: Rate controlled. (5) Hyperkalemia Is this a current diagnosis for this admission?: Yes Plan: Resolved. (6) Noncompliance Is this a current diagnosis for this admission?: Yes Plan: Discussed about compliance with diet, medications and hemodialysis treatments. The patient has got multiple social issues. Advised to discuss with criminal justice social worker at [facility]. Discussed unfortunate consequences with missing and noncompliance with treatments. (7) Obstructive sleep apnea Is this a current diagnosis for this admission?: Yes Plan: Advised the patient of compliance with CPAP. Discussed with the patient the need for compliance with CPAP to prevent deterioration of pulmonary hypertension and CO2 retention. (8) Status post tracheostomy Is this a current diagnosis for this admission?: Yes Plan: Stable.
--- NOTE | 2018-11-28 11:59 | PDOC PROGRESS REPORT ---
Subjective Progress Note for:: 11/28/18 Subjective:: Patient is currently doing well Patient is denied any chest pain to than any shortness of the breath Patient's not using any kind of a CPAP or BiPAP just used oxygen Patient's pH was 7.30 yesterday and PCO2 was high As per discussed with the pulmonary and suggest the patient is to use a trilogy he will see the patient's tonight but will inform the community mental health social worker Reason For Visit: AMS/SOB/CHF/RENAL FAILURE Physical Exam Vital Signs: Temp Pulse Resp BP Pulse Ox 97.7 F 69 18 118/60 100 11/28/18 04:03 11/28/18 07:00 11/28/18 04:03 11/28/18 04:03 11/28/18 04:03 Pulse Oximeter Continuous Start: 11/16/18 23:41 Freq: RTQ4 Status: Complete Protocol: Document 11/20/18 11:20 [facility] (Rec: 11/20/18 11:38 [facility] [id number]) Pulse Oximetry Assessment Oxygen Saturation (92-100) 96 Oxygen Delivery Method Mechanical Ventilator Fraction of Inspired Oxygen (FIO2) 24 Equipment Usage Equipment in Use Continuous SpO2 Machine # 5 Intake & Output 11/27/18 11/28/18 11/29/18 06:59 06:59 06:59 Intake Total 1049 1000 0.25 Output Total 2400 130 Balance -1351 870 0.25 Weight 94.5 kg 84 kg General appearance: PRESENT: no acute distress, well-developed, well-nourished Head exam: PRESENT: atraumatic, normocephalic Eye exam: PRESENT: conjunctiva pink, EOMI, PERRLA. ABSENT: scleral icterus Ear exam: PRESENT: normal external ear exam Mouth exam: PRESENT: moist, tongue midline Neck exam: PRESENT: full ROM. ABSENT: carotid bruit, JVD, lymphadenopathy, thyromegaly Respiratory exam: PRESENT: clear to auscultation cyndie Cardiovascular exam: PRESENT: RRR. ABSENT: diastolic murmur, rubs, systolic murmur Pulses: PRESENT: normal dorsalis pedis pul, +2 pedal pulses bilateral Vascular exam: PRESENT: normal capillary refill GI/Abdominal exam: PRESENT: hernia, normal bowel sounds, soft. ABSENT: distended, guarding, mass, organolmegaly, rebound, tenderness Rectal exam: PRESENT: deferred Neurological exam: PRESENT: alert, awake, oriented to person, oriented to place, oriented to time, oriented to situation, CN II-XII grossly intact. ABSENT: motor sensory deficit Psychiatric exam: PRESENT: appropriate affect, normal mood. ABSENT: homicidal ideation, suicidal ideation Skin exam: PRESENT: dry, intact, warm. ABSENT: cyanosis, rash Results Laboratory Results: 11/28/18 04:20 11/28/18 04:20 11/28/18 11/28/18 04:20 04:20 WBC 3.9 L RBC 3.41 L Hgb 9.8 L Hct 30.2 L MCV 89 MCH 28.7 MCHC 32.3 RDW 16.3 H Plt Count 156 Sodium 140.8 Potassium 4.6 Chloride 100 Carbon Dioxide 28 Anion Gap 13 BUN 38 H Creatinine 11.06 H Est GFR ( Amer) 6 L Est GFR (Non-Af Amer) 5 L Glucose 83 Calcium 9.4 11/20/18 16:30 Troponin I 0.018 Impressions: Abdomen Ultrasound 11/17/18 00:00 IMPRESSION: 1. Small ascites. Obscured pancreas. Obscured abdominal aorta. 2. Multicystic kidney disease. No significant renal parenchyma is identified at the renal fossae. 3. 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 Chest/Abdomen CTA 11/20/18 22:30 IMPRESSION: Negative for pulmonary embolus, thoracic aortic aneurysm, or dissection. Cardiomegaly. Multiple moderate bilateral pleural effusions with adjacent consolidative change. TECHNICAL DOCUMENTATION: Quality ID # 436: Final reports with documentation of one or more dose reduction techniques (e.g., Automated exposure control, adjustment of the mA and/or kV according to patient size, use of iterative reconstruction technique) copyright 2011 [employer]- All Rights Reserved KUB X-Ray 11/21/18 11:08 IMPRESSION: Nasoenteric tube tip overlies gastric body. Chest X-Ray 11/24/18 06:00 IMPRESSION: NO SIGNIFICANT INTERVAL CHANGE. Assessment & Plan - Diagnosis (1) Hyperkalemia Is this a current diagnosis for this admission?: Yes Plan: All resolved (2) Volume overload Qualifiers: Hypervolemia type: unspecified Qualified Code(s): E87.70 - Fluid overload, unspecified Is this a current diagnosis for this admission?: Yes Plan: All resolved (3) Chronic obstruct airways disease Qualifiers: Chronic bronchitis type: unspecified Is this a current diagnosis for this admission?: Yes Plan: Discussed with the patient's pulmonary he is going to come and look at today and adjust the medications (4) Congestive heart failure Qualifiers: Heart failure type: diastolic Heart failure chronicity: acute on chronic Qualified Code(s): I50.33 - Acute on chronic diastolic (congestive) heart failure Is this a current diagnosis for this admission?: Yes Plan: Noncompliance and patient is missing the dialysis (5) End-stage renal disease (ESRD) Is this a current diagnosis for this admission?: Yes (6) Noncompliance Is this a current diagnosis for this admission?: Yes (7) Obstructive sleep apnea Is this a current diagnosis for this admission?: Yes Plan: he required a BiPAP all the times (8) Shortness of breath Is this a current diagnosis for this admission?: Yes Plan: Due to the above conditions (9) Status post tracheostomy Is this a current diagnosis for this admission?: Yes Plan: ENT cosult (10) AF (atrial fibrillation) Qualifiers: Atrial fibrillation type: chronic Qualified Code(s): I48.2 - Chronic atrial fibrillation Is this a current diagnosis for this admission?: Yes (11) Pneumonia Qualifiers: Lung location: unspecified part of lung Is this a current diagnosis for this admission?: Yes (12) Sepsis Qualifiers: Sepsis type: sepsis due to unspecified organism Qualified Code(s): A41.9 - Sepsis, unspecified organism Is this a current diagnosis for this admission?: Yes (13) Acute and chronic respiratory failure with hypercapnia Is this a current diagnosis for this admission?: Yes Plan: he is definitely needs to use the trilogy as per discussed with the pulmonary - Time Time Spent with patient: 15-24 minutes Medications reviewed and adjusted accordingly: Yes Anticipated discharge: Other Within: Other - Plan Summary Plan Summary: Continues to current medication as per discussed with the pulmonary he will do the ABG today and decide tomorrow
[2018-11-28] MEDS: LACTULOSE SYRUP 20 GM/30 ML UDCUP NG SCH ×2 (13:02→17:06)
[2018-11-28] MEDS: FLUTICASONE NASAL SPRAY 50 MCG/SPRY 120 SPRAY/16 GM NASL SCH ×2 (13:03→21:24)
[2018-11-28] MEDS: GABAPENTIN 100 MG CAPSULE NG SCH (13:04)
[2018-11-28] MEDS: METOPROLOL TARTRATE 25 MG TABLET NG SCH ×2 (13:04→21:23)
[2018-11-28] MEDS: ALLOPURINOL 100 MG TABLET NG SCH (13:05)
[2018-11-28] MEDS: FAMOTIDINE INJ/PF 20 MG/2 ML SDV IV SCH ×2 (13:05→21:24)
[2018-11-28] MEDS: DOCUSATE SODIUM 100 MG/10 ML UDC NG SCH ×2 (13:06→17:43)
[2018-11-28 14:46] LABS: ARTERIAL BLOOD BASE EXCESS 1.6 mmol/L; ARTERIAL BLOOD H2CO3 1.85 mmol/L (1.05-1.35); ARTERIAL BLOOD HCO3 29.2 mmol/L (20-24); ARTERIAL BLOOD O2 SATURATION 98.2 % (94-98); ARTERIAL BLOOD PCO2 61.5 mmHg (35-45); ARTERIAL BLOOD TOTAL CO2 31.1 mmol/L (23-27)
[2018-11-28 14:47] LABS: ARTERIAL BLOOD FIO2 30%
[2018-11-28] MEDS: MONTELUKAST SODIUM 10 MG TABLET NG SCH (17:09)
--- NOTE | 2018-11-28 21:34 | PROGRESS NOTE E ---
Progress Note NAME: ANDREAS NELSON : 1965 AGE: 53Y DATE: 11/28/2018 ROOM: 304 SUBJECTIVE: The patient is 53-year-old male who came in with acute and chronic respiratory failure on the trach with pneumonia right lower lobe. The sputum culture showing Serratia marcescens, corynebacterium striatum on 11/16/2018 and on 11/17/2018 showing Stenotrophomonas maltophilia and Enterobacter cloacae. The patient was placed on SIMV on 11/17/2018 when he was in the ICU. He was treated with Levaquin. Currently the patient appeared feeling a lot better. Currently no fever, no chills, no hemoptysis. The patient is getting ready to go home. Questions about a portable ventilator was raised. ABG was done this afternoon at 2:20 p.m. showing pH of 7.30, pCO2 of 61.5, pO2 was 129, and bicarb is 29.2 and ABG saturation 98% at 30% FiO2. The patient appeared to be asymptomatic. No chest pain. No shortness of breath. Breathing comfortably. Using Passy-Kaylee when talking. No chest pain. No nausea, vomiting, diarrhea, or abdominal pain. OBJECTIVE: GENERAL: The patient is awake, alert, coherent, oriented x3. Not in apparent respiratory distress. VITAL SIGNS: Temperature of 98 degrees Fahrenheit with a T-max of 98.1, heart rate is 75, blood pressure is 151/78, respiratory rate is 18, and saturation is 99% on trach collar. CHEST AND LUNGS: No wheezing, no rhonchi, no coarse crackles. Tracheostomy tube is in place. No apparent cellulitis around the tracheostomy site. CARDIOVASCULAR: S1, S2 distinct. Normal rate and regular rhythm. ABDOMEN: Flabby, positive bowel sounds, soft, nondistended. EXTREMITIES: No joint swelling, no cellulitis. LABORATORY DATA: CBC done today showed a white count of 3.9, hemoglobin is 9.8, hematocrit is 30.2, platelet count is 156. No differential noted. ABG done today showed pH of 7.30, pCO2 of 61.5, pO2 of 129, bicarb of 29.2 and saturation is 98.2 at 30%. Chemistry done today showed sodium is 150, potassium 4.6, chloride 100, CO2 is 28, BUN is 38, creatinine is 11.06, glucose 83, calcium 9.4. ASSESSMENT: 1. CHRONIC RESPIRATORY ACIDOSIS, MOST LIKELY DUE TO OBESITY HYPOVENTILATION SYNDROME. Currently with tracheostomy tube. Appeared to be asymptomatic, doing well, not in severe respiratory distress, stable and compensated. - currently with tracheostomy. 2. PNEUMONIA RIGHT LOWER LOBE, APPEARED TO BE CLINICALLY IMPROVING. 3. COPD/ASTHMA. Stable, not in bronchospasm. PLAN: 1. The patient will be able to go home without Trilogy ventilator at this time. 2. The patient will be able to go to rehab facility without ventilator support. 3. DuoNeb nebulizer treatment every 6 hours and Pulmicort 0.5 mcg nebulizer treatment b.i.d. 4. Recommend pulmonary clinic follow up in 2 to 3 weeks following hospital discharge. DICTATING PHYSICIAN: LIGIA RAMOS MD,CHANEL,MPH [id number] PHY#: [id number] ID: [id number] JOB#: [id number] ACCT: [id number] cc: > MTDD
[2018-11-29] MEDS: MELATONIN 5 MG TABLET NG PRN (00:24)
[2018-11-29] MEDS: HEPARIN SOD (PORCINE) 5,000 UNIT/ML 1 ML SYRINGE SUBCUT SCH ×3 (05:06→21:58)
[2018-11-29] MEDS: SEVELAMER HCL 800 MG TABLET PO SCH ×3 (07:40→17:30)
[2018-11-29] MEDS: METOPROLOL TARTRATE 25 MG TABLET NG SCH ×2 (11:19→21:56)
[2018-11-29] MEDS: FAMOTIDINE INJ/PF 20 MG/2 ML SDV IV SCH ×2 (11:20→21:59)
[2018-11-29] MEDS: GABAPENTIN 100 MG CAPSULE NG SCH (11:20)
[2018-11-29] MEDS: ALLOPURINOL 100 MG TABLET NG SCH (11:20)
[2018-11-29] MEDS: FLUTICASONE NASAL SPRAY 50 MCG/SPRY 120 SPRAY/16 GM NASL SCH ×2 (11:21→21:58)
[2018-11-29] MEDS: DOCUSATE SODIUM 100 MG/10 ML UDC NG SCH ×2 (11:21→17:30)
[2018-11-29] MEDS: LACTULOSE SYRUP 20 GM/30 ML UDCUP NG SCH ×2 (11:22→17:30)
[2018-11-29] MEDS: ACETAMINOPHEN SOLN 325 MG/10.15 ML UDCUP NG PRN ×2 (11:55→17:33)
--- NOTE | 2018-11-29 13:29 | PDOC TRANSFER SUMMARY ---
General - Admit/Disc Date/PCP Admission Date/Primary Care Provider: 11/15/18 11:53 Discharge Date: 11/29/18 - Discharge Diagnosis (1) Hyperkalemia Is this a current diagnosis for this admission?: Yes Summary: Currently resolved (2) Volume overload Is this a current diagnosis for this admission?: Yes Summary: Resolved (3) Chronic obstruct airways disease Is this a current diagnosis for this admission?: Yes Summary: Continues to nebulizer treatments twice a day and to use every 6 as needed Use of Pulmicort 0.5 mL twice a day for 7 days and follow with the pulmonary (4) Congestive heart failure Is this a current diagnosis for this admission?: Yes (5) End-stage renal disease (ESRD) Is this a current diagnosis for this admission?: Yes Summary: Currently on hemodialysis (6) Noncompliance Is this a current diagnosis for this admission?: Yes (7) Obstructive sleep apnea Is this a current diagnosis for this admission?: Yes Summary: This post tracheostomy use the 2 L nasal cannula keep O2 sat around 91% (8) Shortness of breath Is this a current diagnosis for this admission?: Yes Summary: Currently all resolved (9) Status post tracheostomy Is this a current diagnosis for this admission?: Yes Summary: Follow with the ENT Dr. Herrera (10) AF (atrial fibrillation) Is this a current diagnosis for this admission?: Yes Summary: Continues to Plavix As per discussed with the cardiology currently hold the beta-anai If the patient heart rate goes up to restart the metoprolol (11) Pneumonia Is this a current diagnosis for this admission?: Yes Summary: Clear all resolved (12) Sepsis Is this a current diagnosis for this admission?: Yes Summary: All resolved (13) Acute and chronic respiratory failure with hypercapnia Is this a current diagnosis for this admission?: Yes Summary: As per discussed with the pulmonary no need for any BiPAP see how the patient's does not the next couple of weeks because patient have a hard time to use to the trach collar The patient of persistent symptomatic since CO2 goes up then probably needed - Additional Information Resuscitation Status: Full Code Discharge Diet: Cardiac, Diabetic Discharge Activity: Activity As Tolerated, Balance Activity w/Rest, Weigh Daily Prescriptions: Ipratropium/Albuterol Sulfate [Duoneb 3 ml Ampul] 3 ml NEB RTQ12 #60 vial.[email or web address] Home Medications: Allopurinol [Zyloprim 100 mg Tablet] 100 mg PO DAILY 11/15/18 Clopidogrel Bisulfate [Plavix 75 mg Tablet] 75 mg PO DAILY 11/15/18 Digoxin [Digox] 125 mcg PO MOWEFR 11/15/18 Fluticasone Propionate [Flonase Nasal Eugene 50 Mcg/[place] 16 gm] 2 spray NASL BID 11/15/18 Gabapentin [Neurontin 100 mg Capsule] 100 mg PO DAILY 11/15/18 Lactulose [Cephulac Syrup 20 gm/30 ml Udcup] 15 ml PO BID 11/15/18 Montelukast Sodium [Singulair 10 mg Tablet] 10 mg PO QPM 11/15/18 Pantoprazole Sodium [Protonix [address] Tablet] 20 mg PO QAM 11/15/18 Sevelamer Carbonate [Renvela] 1,600 mg PO MEALS 11/15/18 Sevelamer Carbonate [Renvela] 800 mg PO .WITHSNACK 11/15/18 Zolpidem Tartrate [Ambien] 10 mg PO QHS 11/15/18 Ipratropium/Albuterol Sulfate [Duoneb 3 ml Ampul] 3 ml [facility] RTQ12 #60 vial.[email or web address] 11/29/18 History of Present Illness Admission Date/PCP: 11/15/18 11:53 History of Present Illness: ANDREAS NELSON is a 53 year old male This is a 53-year-old male with a history of end-stage renal disease on hemodialysis history of the hypertension's history of the sleep apnea status post tracheostomy history of the COPD asthma history of chronic A. fib chronic diastolic congestive heart failure weak ventral hernia and multiple other comorbidity with a very noncompliant, last dialysis done last Monday and patient's missed the dialysis 4 times was brought to the EMS in the ER because the patient's was very lethargic and short of breath According to the neighbor patient's not answer the phone for the last 4 days and then patients brought at this point to the EMS Patient in emergency departments friend hypoxic and hypotensive and patient potassium was 6.2 and patients pretty much pulmonary edema heart failure due to the missed the dialysis ER physicians discussed with the nephrology and arrange the dialysis within the next half an hour When I saw the patient in the ER alert awake answering the questions below the lethargic denied any chest pain Patient's currently on a Ventimask feeling okay At this point will decided to patient in IMCU admissions and patient is scheduled for the dialysis in the next half an hour Patient is a very noncompliance but unable to answer this question why he did not go for the dialysis Hospital Course Hospital Course: This is a 53-year-old male with as above medical problem is very noncompliance Miss . dialysis for almost a week came to the emergency department shortness of the breath and a volume overload and a congestive heart failure Patient's emergence dialyze and patient's response very well Patient also have a acute on chronic respiratory failure requiring BiPAP Patient seen by the pulmonary cardiology and nephrology Patient also found to sepsis pneumonia and treated with IV antibiotics Patient is also seen by the ENT and adjust the trach Patient is initially put in the ICU then transferred to the regular floor Patient's PCO2 is running around 60 range and according to the pulmonary patient a hard time to using the trilogy and at this point patient asymptomatic with the PCO2 is 60 continues that 2 L nasal cannula the trach collar and no need for any pathology at this point Patient otherwise regularly going for hemodialysis Patient is to follow in the pulmonary in a couple of weeks Patients follow with the hemodialysis 3 times a week's Continues to current medications Using nebulizer twice a day as written Physical Exam Vital Signs: Temp Pulse Resp BP Pulse Ox 98.0 F 75 20 153/95 H 100 11/29/18 11:17 11/29/18 11:17 11/29/18 11:17 11/29/18 11:17 11/29/18 11:17 Pulse Oximeter Continuous Start: 11/16/18 23:41 Freq: RTQ4 Status: Complete Protocol: Document 11/20/18 11:20 [facility] (Rec: 11/20/18 11:38 [facility] [id number]) Pulse Oximetry Assessment Oxygen Saturation (92-100) 96 Oxygen Delivery Method Mechanical Ventilator Fraction of Inspired Oxygen (FIO2) 24 Equipment Usage Equipment in Use Continuous SpO2 Machine # 5 Intake & Output 11/28/18 11/29/18 11/30/18 06:59 06:59 06:59 Intake Total 1000 600.25 708 Output Total 130 1000 Balance 870 -399.75 708 Weight 84 kg 92.6 kg Results Laboratory Results: 11/28/18 04:20 11/28/18 04:20 11/28/18 14:20 Carbonic Acid 1.85 H HCO3/H2CO3 Ratio 15:1 ABG pH 7.30 L ABG pCO2 61.5 H ABG pO2 129.0 H ABG HCO3 29.2 H ABG O2 Saturation 98.2 H ABG Base Excess 1.6 FiO2 30% 11/20/18 16:30 Troponin I 0.018 Impressions: Abdomen Ultrasound 11/17/18 00:00 IMPRESSION: 1. Small ascites. Obscured pancreas. Obscured abdominal aorta. 2. Multicystic kidney disease. No significant renal parenchyma is identified at the renal fossae. 3. 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 Chest/Abdomen CTA 11/20/18 22:30 IMPRESSION: Negative for pulmonary embolus, thoracic aortic aneurysm, or dissection. Cardiomegaly. Multiple moderate bilateral pleural effusions with adjacent consolidative change. TECHNICAL DOCUMENTATION: Quality ID # 436: Final reports with documentation of one or more dose reduction techniques (e.g., Automated exposure control, adjustment of the mA and/or kV according to patient size, use of iterative reconstruction technique) copyright 2011 [employer]- All Rights Reserved KUB X-Ray 11/21/18 11:08 IMPRESSION: Nasoenteric tube tip overlies gastric body. Chest X-Ray 11/24/18 06:00 IMPRESSION: NO SIGNIFICANT INTERVAL CHANGE. Qualifiers - * PATIENT BEING DISCHARGED WITH ANY OF THE FOLLOWING DIAGNOSIS: No VTE patient discharged on overlapping Therapy?: Yes Acute Heart Failure Is this a Heart Failure Patient?: No Plan Time Spent: Greater than 30 Minutes - Discharge to nursing facilities
[2018-11-29] MEDS: MONTELUKAST SODIUM 10 MG TABLET NG SCH (17:30)
[2018-11-29] MEDS: IPRATROPIUM/ALBUTEROL 0.5-2.5 MG/3 ML AMPUL NEB PRN (21:58)
[2018-11-30] MEDS: MELATONIN 5 MG TABLET NG PRN (00:18)
[2018-11-30] MEDS: ACETAMINOPHEN SOLN 325 MG/10.15 ML UDCUP NG PRN (00:20)
[2018-11-30 05:51] LABS: HEMATOCRIT 29.6 % (37.9-51.0); HEMOGLOBIN 9.5 g/dL (13.5-17.0); MEAN CORPUSCULAR HEMOGLOBIN 28.5 pg (27.0-33.4); MEAN CORPUSCULAR HGB CONC 31.9 g/dL (32.0-36.0); MEAN CORPUSCULAR VOLUME 89 fl (80-97); PLATELET COUNT 181 10^3/uL (150-450); RED BLOOD COUNT 3.32 10^6/uL (4.35-5.55); RED CELL DISTRIBUTION WIDTH 16.5 % (11.5-14.0); WHITE BLOOD COUNT 4.5 10^3/uL (4.0-10.5)
[2018-11-30 06:01] LABS: ANION GAP 14 (5-19); BLOOD UREA NITROGEN 43 mg/dL (7-20); CALCIUM 9.8 mg/dL (8.4-10.2); CARBON DIOXIDE 27 mmol/L (22-30); CHLORIDE 100 mmol/L (98-107); POTASSIUM 4.4 mmol/L (3.6-5.0); SODIUM 141.2 mmol/L (137-145)
[2018-11-30 06:08] LABS: GLUCOSE 67 mg/dL (75-110)
[2018-11-30] MEDS: HEPARIN SOD (PORCINE) 5,000 UNIT/ML 1 ML SYRINGE SUBCUT SCH (06:14)
[2018-11-30] MEDS: SEVELAMER HCL 800 MG TABLET PO SCH ×2 (06:20→12:04)
[2018-11-30] MEDS ORDERED: EPOETIN ALFA INJ 20000 UNIT/1 ML VIAL (RENAL) IV PRN (07:21)
--- NOTE | 2018-11-30 08:49 | PDOC PROGRESS REPORT ---
Subjective Progress Note for:: 11/30/18 Subjective:: Patient is currently doing well Patient is currently getting the hemodialysis Patient is planning to discharge to the rehab facility today after the dialysis Patient is denied any concerns no chest pain no short of breath Reason For Visit: AMS/SOB/CHF/RENAL FAILURE Physical Exam Vital Signs: Temp Pulse Resp BP Pulse Ox 98.1 F 76 20 143/47 H 94 11/30/18 07:27 11/30/18 07:27 11/30/18 07:27 11/30/18 07:27 11/30/18 07:27 Pulse Oximeter Continuous Start: 11/16/18 23:41 Freq: RTQ4 Status: Complete Protocol: Document 11/20/18 11:20 [facility] (Rec: 11/20/18 11:38 [facility] [id number]) Pulse Oximetry Assessment Oxygen Saturation (92-100) 96 Oxygen Delivery Method Mechanical Ventilator Fraction of Inspired Oxygen (FIO2) 24 Equipment Usage Equipment in Use Continuous SpO2 Machine # 5 Intake & Output 11/29/18 11/30/18 12/01/18 06:59 06:59 06:59 Intake Total 600.25 1903 Output Total 1000 Balance -399.75 1903 Weight 92.6 kg 91.2 kg General appearance: PRESENT: no acute distress, well-developed, well-nourished Head exam: PRESENT: atraumatic, normocephalic Eye exam: PRESENT: conjunctiva pink, EOMI, PERRLA. ABSENT: scleral icterus Ear exam: PRESENT: normal external ear exam Mouth exam: PRESENT: moist, tongue midline Neck exam: PRESENT: full ROM. ABSENT: carotid bruit, JVD, lymphadenopathy, thyromegaly Respiratory exam: PRESENT: clear to auscultation cyndie Cardiovascular exam: PRESENT: RRR. ABSENT: diastolic murmur, rubs, systolic murmur Pulses: PRESENT: normal dorsalis pedis pul, +2 pedal pulses bilateral Vascular exam: PRESENT: normal capillary refill GI/Abdominal exam: PRESENT: hernia, normal bowel sounds, soft. ABSENT: distended, guarding, mass, organolmegaly, rebound, tenderness Rectal exam: PRESENT: deferred Neurological exam: PRESENT: alert, awake, oriented to person, oriented to place, oriented to time, oriented to situation, CN II-XII grossly intact. ABSENT: motor sensory deficit Psychiatric exam: PRESENT: appropriate affect, normal mood. ABSENT: homicidal ideation, suicidal ideation Skin exam: PRESENT: dry, intact, warm. ABSENT: cyanosis, rash Results Laboratory Results: 11/30/18 04:15 11/30/18 04:15 11/30/18 11/30/18 04:15 04:15 WBC 4.5 RBC 3.32 L Hgb 9.5 L Hct 29.6 L MCV 89 MCH 28.5 MCHC 31.9 L RDW 16.5 H Plt Count 181 Sodium 141.2 Potassium 4.4 Chloride 100 Carbon Dioxide 27 Anion Gap 14 BUN 43 H Creatinine 10.09 H Est GFR ( Amer) 7 L Est GFR (Non-Af Amer) 5 L Glucose 67 L Calcium 9.8 11/20/18 16:30 Troponin I 0.018 Impressions: Abdomen Ultrasound 11/17/18 00:00 IMPRESSION: 1. Small ascites. Obscured pancreas. Obscured abdominal aorta. 2. Multicystic kidney disease. No significant renal parenchyma is identified at the renal fossae. 3. 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 Chest/Abdomen CTA 11/20/18 22:30 IMPRESSION: Negative for pulmonary embolus, thoracic aortic aneurysm, or dissection. Cardiomegaly. Multiple moderate bilateral pleural effusions with adjacent consolidative change. TECHNICAL DOCUMENTATION: Quality ID # 436: Final reports with documentation of one or more dose reduction techniques (e.g., Automated exposure control, adjustment of the mA and/or kV according to patient size, use of iterative reconstruction technique) copyright 2011 [employer]- All Rights Reserved KUB X-Ray 11/21/18 11:08 IMPRESSION: Nasoenteric tube tip overlies gastric body. Chest X-Ray 11/24/18 06:00 IMPRESSION: NO SIGNIFICANT INTERVAL CHANGE. Assessment & Plan - Diagnosis (1) Hyperkalemia Is this a current diagnosis for this admission?: Yes (2) Volume overload Qualifiers: Hypervolemia type: unspecified Qualified Code(s): E87.70 - Fluid overload, unspecified Is this a current diagnosis for this admission?: Yes (3) Chronic obstruct airways disease Qualifiers: Chronic bronchitis type: unspecified Is this a current diagnosis for this admission?: Yes (4) Congestive heart failure Qualifiers: Heart failure type: diastolic Heart failure chronicity: acute on chronic Qualified Code(s): I50.33 - Acute on chronic diastolic (congestive) heart failure Is this a current diagnosis for this admission?: Yes (5) End-stage renal disease (ESRD) Is this a current diagnosis for this admission?: Yes (6) Noncompliance Is this a current diagnosis for this admission?: Yes (7) Obstructive sleep apnea Is this a current diagnosis for this admission?: Yes (8) Shortness of breath Is this a current diagnosis for this admission?: Yes (9) Status post tracheostomy Is this a current diagnosis for this admission?: Yes (10) AF (atrial fibrillation) Qualifiers: Atrial fibrillation type: chronic Qualified Code(s): I48.2 - Chronic atrial fibrillation Is this a current diagnosis for this admission?: Yes (11) Pneumonia Qualifiers: Lung location: unspecified part of lung Is this a current diagnosis for this admission?: Yes (12) Sepsis Qualifiers: Sepsis type: sepsis due to unspecified organism Qualified Code(s): A41.9 - Sepsis, unspecified organism Is this a current diagnosis for this admission?: Yes (13) Acute and chronic respiratory failure with hypercapnia Is this a current diagnosis for this admission?: Yes - Time Time Spent with patient: 15-24 minutes Medications reviewed and adjusted accordingly: Yes Anticipated discharge: SNF Within: when bed available - Plan Summary Plan Summary: Continue current medications
[2018-11-30] MEDS: LACTULOSE SYRUP 20 GM/30 ML UDCUP NG SCH (12:01)
[2018-11-30] MEDS: DOCUSATE SODIUM 100 MG/10 ML UDC NG SCH (12:01)
[2018-11-30] MEDS: FAMOTIDINE INJ/PF 20 MG/2 ML SDV IV SCH (12:04)
[2018-11-30] MEDS: ALLOPURINOL 100 MG TABLET NG SCH (12:05)
[2018-11-30] MEDS: FLUTICASONE NASAL SPRAY 50 MCG/SPRY 120 SPRAY/16 GM NASL SCH (12:05)
[2018-11-30] MEDS: GABAPENTIN 100 MG CAPSULE NG SCH (12:05)
[2018-11-30] MEDS: METOPROLOL TARTRATE 25 MG TABLET NG SCH (12:06)
[2018-11-30 12:09] VITALS: BP 127/57
--- NOTE | 2018-11-30 17:42 | PDOC PROGRESS REPORT ---
Subjective Progress Note for:: 11/30/18 Subjective:: I saw the patient during dialysis this morning. He was doing very well and has no complaints. Is comfortable with the trach collar. He is tolerating dialysis without any complaints. He is a scheduled to [facility] after dialysis today for physical therapy. Reason For Visit: AMS/SOB/CHF/RENAL FAILURE Physical Exam Vital Signs: Temp Pulse Resp BP Pulse Ox 98.1 F 76 20 143/47 H 94 11/30/18 07:27 11/30/18 07:27 11/30/18 07:27 11/30/18 07:27 11/30/18 07:27 Pulse Oximeter Continuous Start: 11/16/18 23:41 Freq: RTQ4 Status: Complete Protocol: Document 11/20/18 11:20 [facility] (Rec: 11/20/18 11:38 [facility] [id number]) Pulse Oximetry Assessment Oxygen Saturation (92-100) 96 Oxygen Delivery Method Mechanical Ventilator Fraction of Inspired Oxygen (FIO2) 24 Equipment Usage Equipment in Use Continuous SpO2 Machine # 5 Intake & Output 11/29/18 11/30/18 12/01/18 06:59 06:59 06:59 Intake Total 600.25 1903 Output Total 1000 Balance -399.75 1903 Weight 92.6 kg 91.2 kg Vitals during dialysis: Blood pressure 112/55, heart rate of 77, blood flow rate of 450 mL/min, and dialysate flow rate of 800 mm/min. Exam: General appearance: PRESENT: no acute distress, cooperative, well-developed, well-nourished Head exam: PRESENT: atraumatic, normocephalic Eye exam: PRESENT: conjunctiva pink, PERRLA. ABSENT: scleral icterus Neck exam: ABSENT: JVD; trach collar in place Respiratory exam: PRESENT: Normal breath sounds. ABSENT: crackles, rales, rhonchi, unlabored, wheezes Cardiovascular exam: PRESENT: Regular rate rhythm -+S1, +S2. ABSENT: diastolic murmur, systolic murmur GI/Abdominal exam: PRESENT: normal bowel sounds, soft. Unchanged large abdominal hernia ABSENT: guarding, mass, tenderness Extremities exam: ABSENT: No edema Neurological exam: PRESENT: alert, awake, oriented to person, place and time. Skin exam: PRESENT: dry, warm, Cardiovascular exam: PRESENT: +S1, +S2 GI/Abdominal exam: PRESENT: distended - Large ventral hernia, normal bowel sounds, soft, tenderness. ABSENT: guarding, organomegaly Results Laboratory Results: 11/30/18 04:15 11/30/18 04:15 11/30/18 11/30/18 04:15 04:15 WBC 4.5 RBC 3.32 L Hgb 9.5 L Hct 29.6 L MCV 89 MCH 28.5 MCHC 31.9 L RDW 16.5 H Plt Count 181 Sodium 141.2 Potassium 4.4 Chloride 100 Carbon Dioxide 27 Anion Gap 14 BUN 43 H Creatinine 10.09 H Est GFR ( Amer) 7 L Est GFR (Non-Af Amer) 5 L Glucose 67 L Calcium 9.8 11/20/18 16:30 Troponin I 0.018 Impressions: Abdomen Ultrasound 11/17/18 00:00 IMPRESSION: 1. Small ascites. Obscured pancreas. Obscured abdominal aorta. 2. Multicystic kidney disease. No significant renal parenchyma is identified at the renal fossae. 3. 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 Chest/Abdomen CTA 11/20/18 22:30 IMPRESSION: Negative for pulmonary embolus, thoracic aortic aneurysm, or dissection. Cardiomegaly. Multiple moderate bilateral pleural effusions with adjacent consolidative change. TECHNICAL DOCUMENTATION: Quality ID # 436: Final reports with documentation of one or more dose reduction techniques (e.g., Automated exposure control, adjustment of the mA and/or kV according to patient size, use of iterative reconstruction technique) copyright 2011 [employer]- All Rights Reserved KUB X-Ray 11/21/18 11:08 IMPRESSION: Nasoenteric tube tip overlies gastric body. Chest X-Ray 11/24/18 06:00 IMPRESSION: NO SIGNIFICANT INTERVAL CHANGE. Assessment & Plan - Diagnosis (1) ESRD (end stage renal disease) on dialysis Is this a current diagnosis for this admission?: Yes Plan: We did dialysis today for 3 hours, using the patient's left upper arm AV fistula, with 2 potassium bath, blood flow rate of 450 mL per minute, dialysate flow rate of 800 mL per minute, ultrafiltration 1 to 2 L, no heparin and Procrit with 20,000 units during dialysis intravenously. Patient was monitored throughout dialysis treatment and and the whole treatment was uneventful. Upon discharge patient will continue to do dialysis at [facility] on his scheduled time. (2) Anemia in chronic kidney disease (CKD) Qualifiers: Chronic kidney disease stage: on chronic dialysis Qualified Code(s): N18.6 - End stage renal disease; D63.1 - Anemia in chronic kidney disease; Z99.2 - Dependence on renal dialysis Is this a current diagnosis for this admission?: Yes Plan: Patient was given Procrit today. (3) Acute and chronic respiratory failure with hypercapnia Is this a current diagnosis for this admission?: Yes Plan: Patient tolerating trach collar. (4) Acute on chronic diastolic (congestive) heart failure Is this a current diagnosis for this admission?: Yes Plan: Clinically compensated. (5) Noncompliance Is this a current diagnosis for this admission?: Yes (6) Status post tracheostomy Is this a current diagnosis for this admission?: Yes - Time Time with patient: 15-25 minutes
--- NOTE | 2018-12-17 12:57 | Progress Note ---
Provider Note Provider Note: pt have pnemonia and do not know about any malignancy
--- NOTE | 2019-01-01 05:49 | Physician Advisory Note ---
Physician Advisor ProgressNote .: Pursuant to the plan for [facility], I have reviewed the medical record for this patient. Physician Advisor Statement: Asked to review chart by supervisor general r.e ? of whether there was sepsis or not, & transplant malignancy or not, given response to query of these ?s was "had PNA" & "do not know about any malignancy". R.e. ? of transplant malignancy: there is only 1 mention of this, by ENT this adm. No other physician involved, incl >1 sign artist, mentions this dx, & PCP is unaware of it being present. Review of some prior visits, & of ongoing problem list, does not include it. Therefore, it is possible that apparent mention of this by ENT was an error. Would not code for this at this time. - U/S did show polycystic kidney dz, tho'. r.e. ? of sepsis: pt did have lethargy/AMS & Ac resp failure/hypoxemia & thrombocytopenia, hypotension, etc., but these all were well explained by his obesity hypoventil synd/CO2 narcosis + acute uremia + PNA + acute on chr dCHF + hypoglycemia + meds given + appears to have chronic mild thrombocytopenia & relative leukopenia. Pt was feeling much better & was hypertensive on AM of day 2. Attg responded to ? about sepsis by stating pt had PNA (which to my reading meant pt had PNA alone, no sepsis after all). Evidence in chart is not convincing for sepsis. Would not code for sepsis this adm. Meanwhile .... ECHO did show mod pulm HTN, & neprhol note / mentions dx of pulm HTN, which is another co-morbidity not mentioned by attg but supported by chart findings. Pulm notes document obesity hypoventil synd, causing the chr resp acidosis/chr resp failure - another co-morbidity not mentioned by attg but supported by other documentation/findings. If either of these 2 dx.s would make a difference in overall results of coding, queries for them could be done. CK
== END 2018-11-30 13:58 | DRG 291 ==
LOC: ER 10:08 → EH 11:53 → ICU 13:30 → 3W 18:50 → 3S 11-17 01:35 → ICU 11-20 12:45 → 3N 11-23 21:08
PROVIDERS: ADMIT Family Medicine; ATTEND Family Medicine
PROC: 5A1935Z Respiratory Ventilation, Less than 24 Consecutive Hours (ICD-10-PCS; 2018-11-15)
PROC: 5A1D70Z Performance of Urinary Filtration, Intermittent, Less than 6 Hours Per Day (ICD-10-PCS; 2018-11-15)
PROC: 05HY33Z Insertion of Infusion Device into Upper Vein, Percutaneous Approach (ICD-10-PCS; 2018-11-20)
PROC: 0B21XFZ Change Tracheostomy Device in Trachea, External Approach (ICD-10-PCS; principal; 2018-11-26)
DX: I13.2 Hypertensive heart and chronic kidney disease with heart failure and with stage 5 chronic kidney disease, or end stage renal disease (principal); N18.6 End stage renal disease; J96.22 Acute and chronic respiratory failure with hypercapnia; J15.6 Pneumonia due to other Gram-negative bacteria; I50.33 Acute on chronic diastolic (congestive) heart failure; J44.0 Chronic obstructive pulmonary disease with (acute) lower respiratory infection; J95.03 Malfunction of tracheostomy stoma; Z94.0 Kidney transplant status; Z99.2 Dependence on renal dialysis; N25.81 Secondary hyperparathyroidism of renal origin; E66.2 Morbid (severe) obesity with alveolar hypoventilation; I95.9 Hypotension, unspecified; E87.5 Hyperkalemia; I48.2 Chronic atrial fibrillation; G43.909 Migraine, unspecified, not intractable, without status migrainosus; K21.9 Gastro-esophageal reflux disease without esophagitis; M19.90 Unspecified osteoarthritis, unspecified site; F32.9 Major depressive disorder, single episode, unspecified; D63.1 Anemia in chronic kidney disease; M62.81 Muscle weakness (generalized); K59.00 Constipation, unspecified; E16.2 Hypoglycemia, unspecified; R41.82 Altered mental status, unspecified; E87.70 Fluid overload, unspecified; R00.1 Bradycardia, unspecified; Z53.8 Procedure and treatment not carried out for other reasons; K43.9 Ventral hernia without obstruction or gangrene; M26.4 Malocclusion, unspecified; B96.89 Other specified bacterial agents as the cause of diseases classified elsewhere; Q38.2 Macroglossia; Z91.15 Patient's noncompliance with renal dialysis; Z82.49 Family history of ischemic heart disease and other diseases of the circulatory system; Z79.02 Long term (current) use of antithrombotics/antiplatelets; Z91.19 Patient's noncompliance with other medical treatment and regimen; Z84.1 Family history of disorders of kidney and ureter
CPT/HCPCS: 36415; 36600; 71045; 71275; 74018; 76604; 76700; 80048; 80053; 80162; 82803; 82962; 83605; 83735; 84100; 84484; 85025; 85027; 85610; 87040; 87070; 87077; 87186; 87205; 93005; 93010; 93306; 94002; 94003; 94660; 94762; 94799; 99291; C1751; J0610; J0696; J1644; J1815; J1940; J2060; J2543; J3490; J7060; J7620; Q4081; S0028

== ENCOUNTER 2018-11-30 23:24 | Emergency (ER) | payer MEDICARE, MEDICAID ==
--- NOTE | 2018-12-01 02:04 | ER Document Report ---
ED General - General Chief Complaint: Breathing Difficulty Stated Complaint: DIFFICULTY BREATHING Time Seen by Provider: 12/01/18 00:00 Notes: Patient is a 53-year-old male who presents with complaints of his trach being clogged. Patient was just discharged from the hospital yesterday to [facility]. He has history of chronic tracheostomy. Patient says that when he went to [facility] they did not have the equipment that he uses to humidify the air going to his trach and therefore he feels is becoming clogged. He denies any fevers. Denies any vomiting. His recent admission he required dialysis but has not had any further problems since then. Denies any fevers. No other complaints at this time. TRAVEL OUTSIDE OF THE [place] IN LAST 30 DAYS: No - Related Data Allergies/Adverse Reactions: No Known Allergies Allergy (Verified 07/27/18 14:36) Past Medical History - Social History Smoking Status: Former Smoker Chew tobacco use (# tins/day): No Frequency of alcohol use: None Drug Abuse: None Family History: Reviewed & Not Pertinent, Hypertension Patient has suicidal ideation: No Patient has homicidal ideation: No - Past Medical History Cardiac Medical History: Reports: Hx Atrial Fibrillation, Hx Congestive Heart Failure, Hx Hypertension Denies: Hx Coronary Artery Disease, Hx Heart Attack, Hx Hypercholesterolemia, Hx Peripheral Vascular Disease, Hx Pulmonary Embolism, Hx Heart Murmur Pulmonary Medical History: Reports: Hx Asthma - Trach, Hx Sleep Apnea Denies: Hx Bronchitis, Hx COPD, Hx Pneumonia, Hx Respiratory Failure, Hx Tuberculosis Neurological Medical History: Reports: Hx Migraine. Denies: Hx Cerebrovascular Accident, Hx Seizures Renal/ Medical History: Reports: Hx End Stage Renal Disease - S/P transplant, Hx Hemodialysis. Denies: Hx Peritoneal Dialysis Malignancy Medical History: Denies Hx Lung Cancer GI Medical History: Reports: Hx Gastroesophageal Reflux Disease Musculoskeletal Medical History: Reports Hx Arthritis Psychiatric Medical History: Reports: Hx Anxiety, Hx Depression - mild - recent Past Surgical History: Reports: Hx Herniorrhaphy, Hx Kidney (Renal Surgery) - left kidney transplant, Hx Tonsillectomy, Hx Vascular Surgery - Right arm graft for dialysis, Other - Tracheostomy. Denies: Hx Appendectomy, Hx Bowel Surgery, Hx Cholecystectomy, Hx Coronary Artery Bypass Graft, Hx Gastric Bypass Surgery, Hx Pacemaker - Immunizations Immunizations up to date: Yes Hx Diphtheria, Pertussis, Tetanus Vaccination: Yes Review of Systems - Review of Systems Notes: My Normal Review Basic REVIEW OF SYSTEMS: CONSTITUTIONAL : Denies fever, chills, or sweats. Recent hospitalization EENT: Denies eye, ear, throat, or mouth pain or symptoms. Denies nasal or sinus congestion. CARDIOVASCULAR: Denies chest pain. RESPIRATORY: Tracheostomy clogging with mucus. GASTROINTESTINAL: Denies abdominal pain. Denies nausea, vomiting, or diarrhea. MUSCULOSKELETAL: Denies neck or back pain or joint pain or swelling. SKIN: Denies rash or skin lesions. NEUROLOGICAL: Denies altered mental status or loss of consciousness. ALL OTHER SYSTEMS REVIEWED AND NEGATIVE. Physical Exam - Vital signs Vitals: Temp Pulse Resp BP Pulse Ox 98.5 F 74 21 H 124/77 100 11/30/18 23:48 11/30/18 23:48 11/30/18 23:48 11/30/18 23:48 11/30/18 23:48 - Notes Notes: General Appearance: Well nourished, alert, cooperative, no acute distress, no obvious discomfort. Well-appearing. Vitals: reviewed, See vital signs table. Head: no swelling or tenderness to the head Eyes: PERRL, EOMI, Conjuctiva clear Mouth: No decreasd moisture Throat: No tonsillar inflammation, No airway obstruction, No lymphadenopathy Neck: Supple, no neck tenderness, colostomy in place. Patient's breathing through without difficulty. Very small amount of rhonchorous sounds to the tracheostomy consistent with a small amount of mucus. Lungs: No wheezing, No rales, No rhonci, No accessory muscle use, good air exchange bilaterally. Heart: Normal rate, Regular rythm, No murmur, no rub Abdomen: Normal BS, soft, No rigidity, No abdominal tenderness, No guarding, no rebound, large abdominal hernia which is soft to palpation. Extremities: good pulses in all extremities,no edema. Skin: warm, dry, appropriate color, no rash Neuro: speech clear, oriented x 3, normal affect, responds appropriately to questions. Course - Re-evaluation Re-evalutation: 12/01/18 02:04 I did speak with Lacey at [facility]. She says that they do have a method of delivering the humidified oxygen to the patient. He does not prefer this method and was becoming frustrated with them. She says she did try and call to get a compressor however being that it is past business hours she is unable to get him a compressor until tomorrow. She says she could try and call to get one tomorrow. He currently looks well. His oxygen saturation is 100%. He just had a small amount of mucus in trach when he first arrived. This was easily cleared. I informed him that they can do humidified oxygen. Even though it might not be in the way he prefers however it is an effective way. I told him that there is no requirement of admission at this time. He has no difficulty breathing. He looks well. His lung anderson are clear. His trach is functioning appropriately. His oxygen saturations are normal. Patient is understanding of this. He says he would like to go home however he does not have a way to get into his house. He says he wants to go home because he does have a compressor at home. I informed him that I cannot send him home when he has no way of actually getting in his house as this would be unsafe. After discussing all these options with the patient he is agreeable to being sent back to [facility] and says he will continue to try to use their humidified oxygen as I recommended. I encouraged him return to ER if he has difficulty breathing, fevers, or feels that he is worsening in any way. Patient agrees with plan will be discharged back to primary alf. I did call back [facility] spoke with Lacey and informed her that we are transferring patient back to their facility. Dictation of this chart was performed using voice recognition software; therefore, there may be some unintended grammatical errors. 12/01/18 02:47 - Vital Signs Vital signs: Temp Pulse Resp BP Pulse Ox 98.9 F 74 21 H 126/77 H 98 12/01/18 01:00 11/30/18 23:48 11/30/18 23:48 12/01/18 01:02 12/01/18 01:14 Discharge - Discharge Clinical Impression: Tracheostomy care Condition: Good Disposition: HOME, SELF-CARE Additional Instructions: Please continue humidified oxygen at [facility]. Please bear with them until they can get the compressor to deliver it in the manner that you prefer. In the meantime they do have an adequate method of delivering humidified oxygen to you. Please return to the ER if you have difficulty breathing, fevers, or feel that you are worsening in any way.
[2018-12-01 03:50] VITALS: BP 116/75
== END 2018-12-01 03:55 | disposition home or self-care (01) ==
LOC: ER 23:24
DX: Z43.0 Encounter for attention to tracheostomy (principal); R06.02 Shortness of breath; Z87.891 Personal history of nicotine dependence; J45.909 Unspecified asthma, uncomplicated
CPT/HCPCS: 99284

== ENCOUNTER 2018-12-20 09:58 | Emergency (ER) | payer MEDICARE, MEDICAID ==
[~2018-12-20 09:58] MED LIST changes: -AMINOPHYLLINE INJ/PF 250 MG/10 ML SDV IV ONE; +ASPIRIN 81 MG TABLET, CHEWABLE PO ONE; -REGADENOSON INJ 0.4 MG/5 ML DISP.SYRIN IV ONE
[2018-12-20 10:35] LABS: ABSOLUTE EOSINOPHILS # (AUTO) 0.4 10^3/uL (0.0-0.6); ABSOLUTE MONOCYTES (AUTO) 0.7 10^3/uL (0.1-1.4); ABSOLUTE NEUT (AUTO) 2.2 10^3/uL (1.7-8.2); BASOPHILS % (AUTO) 0.6 % (0-2); EOSINOPHILS % (AUTO) 8.9 % (0-6); HEMATOCRIT 33.3 % (37.9-51.0); HEMOGLOBIN 10.9 g/dL (13.5-17.0); LYMPHOCYTES % (AUTO) 22.3 % (13-45); MEAN CORPUSCULAR HEMOGLOBIN 28.6 pg (27.0-33.4); MEAN CORPUSCULAR HGB CONC 32.8 g/dL (32.0-36.0); MEAN CORPUSCULAR VOLUME 87 fl (80-97); MONOCYTES % (AUTO) 16.9 % (3-13); RED BLOOD COUNT 3.81 10^6/uL (4.35-5.55); RED CELL DISTRIBUTION WIDTH 16.6 % (11.5-14.0); SEGMENTED NEUTROPHILS % (AUTO) 51.3 % (42-78); TOTAL CELLS COUNTED % (AUTO) 100 %; WHITE BLOOD COUNT 4.3 10^3/uL (4.0-10.5)
[2018-12-20 10:45] LABS: ALANINE AMINOTRANSFERASE 51 U/L (21-72); ALKALINE PHOSPHATASE 330 U/L (38-126); ANION GAP 13 (5-19); ASPARTATE AMINO TRANSFERASE 43 U/L (17-59); BILIRUBIN,DIRECT 0.9 mg/dL (0.0-0.4); BILIRUBIN,TOTAL 0.9 mg/dL (0.2-1.3); BLOOD UREA NITROGEN 27 mg/dL (7-20); CALCIUM 9.8 mg/dL (8.4-10.2); CARBON DIOXIDE 31 mmol/L (22-30); CHLORIDE 95 mmol/L (98-107); CREATINE KINASE 273 U/L (55-170); GLUCOSE 79 mg/dL (75-110); SODIUM 138.6 mmol/L (137-145); TOTAL PROTEIN 6.8 g/dL (6.3-8.2)
[2018-12-20 10:48] LABS: POTASSIUM 4.3 mmol/L (3.6-5.0)
[2018-12-20 10:54] LABS: PLATELET COUNT 197 10^3/uL (150-450)
[2018-12-20 10:58] LABS: CREATINE KINASE MB 8.51 ng/mL (<4.55)
[2018-12-20 11:01] LABS: TROPONIN I 0.044 ng/mL
[2018-12-20] MEDS ORDERED: IPRATROPIUM/ALBUTEROL 0.5-2.5 MG/3 ML AMPUL NEB ONE (11:01)
--- NOTE | 2018-12-20 11:02 | ER Document Report ---
ED General - General Chief Complaint: Chest Pain > 30 Stated Complaint: CHEST PAIN Time Seen by Provider: 12/20/18 10:31 Primary Care Provider: CARLY LANGSTON MD [Primary Care Provider] - Follow up as needed Notes: 53 male with end-stage renal disease on dialysis Monday/Monday/Monday, tracheostomy not on ventilator support presents to the emergency department with chief complaint of productive cough and chest wall pain. Patient states it is been going on for 2 days. Patient states it is a productive cough with green sputum. Pain is worse with coughing does have baseline chest pain at rest. Patient has worsening shortness of breath compared to baseline, complains of subjective fevers, denies headache or neck stiffness, denies abdominal pain, denies nausea or vomiting, denies loose stools TRAVEL OUTSIDE OF THE [place] IN LAST 30 DAYS: No - Related Data Allergies/Adverse Reactions: No Known Allergies Allergy (Verified 12/20/18 10:11) Past Medical History - Social History Smoking Status: Former Smoker Frequency of alcohol use: None Drug Abuse: None Family History: Reviewed & Not Pertinent, Hypertension Patient has suicidal ideation: No Patient has homicidal ideation: No - Past Medical History Cardiac Medical History: Reports: Hx Atrial Fibrillation, Hx Congestive Heart Failure, Hx Hypertension Denies: Hx Coronary Artery Disease, Hx Heart Attack, Hx Hypercholesterolemia, Hx Peripheral Vascular Disease, Hx Pulmonary Embolism, Hx Heart Murmur Pulmonary Medical History: Reports: Hx Asthma - Trach, Hx Sleep Apnea Denies: Hx Bronchitis, Hx COPD, Hx Pneumonia, Hx Respiratory Failure, Hx Tuberculosis Neurological Medical History: Reports: Hx Migraine. Denies: Hx Cerebrovascular Accident, Hx Seizures Renal/ Medical History: Reports: Hx End Stage Renal Disease - S/P transplant, Hx Hemodialysis, Hx Peritoneal Dialysis - DIALYSIS MWF Malignancy Medical History: Denies Hx Lung Cancer GI Medical History: Reports: Hx Gastroesophageal Reflux Disease Musculoskeletal Medical History: Reports Hx Arthritis Psychiatric Medical History: Reports: Hx Anxiety, Hx Depression - mild - recent Past Surgical History: Reports: Hx Herniorrhaphy, Hx Kidney (Renal Surgery) - left kidney transplant, Hx Tonsillectomy, Hx Vascular Surgery - Right arm graft for dialysis, Other - Tracheostomy. Denies: Hx Appendectomy, Hx Bowel Surgery, Hx Cholecystectomy, Hx Coronary Artery Bypass Graft, Hx Gastric Bypass Surgery, Hx Pacemaker - Immunizations Immunizations up to date: Yes Hx Diphtheria, Pertussis, Tetanus Vaccination: Yes Review of Systems - Review of Systems Constitutional: See HPI EENT: See HPI Cardiovascular: See HPI Respiratory: See HPI Gastrointestinal: See HPI Genitourinary: No symptoms reported Male Genitourinary: No symptoms reported Musculoskeletal: No symptoms reported Skin: No symptoms reported Hematologic/Lymphatic: No symptoms reported Neurological/Psychological: No symptoms reported Physical Exam - Vital signs Vitals: Temp Resp Pulse Ox 98.1 F 17 93 12/20/18 10:03 12/20/18 10:03 12/20/18 10:03 - Notes Notes: PHYSICAL EXAMINATION: Reviewed vital signs and charting by RN GENERAL: Alert, interacts well. No acute distress. HEAD: Normocephalic, atraumatic. EYES: Pupils equal and round. Extraocular movements intact. ENT: Oral mucosa moist, tongue midline. NECK: Full range of motion. Trachea midline, tracheostomy present humidified medical air running to it LUNGS: Diffuse expiratory wheezes, crackles heard in right middle lobe, no acute respiratory distress HEART: Regular rate and rhythm. No murmur ABDOMEN: soft, non-tender. No distention. Bowel sounds present EXTREMITIES: Moves all 4 extremities spontaneously. No edema, No cyanosis. PSYCH: Normal affect, normal mood. SKIN: Warm, dry, normal turgor. No rashes or lesions noted. Course - Re-evaluation Re-evalutation: 12/20/18 11:05 Overall nontoxic-appearing, no leukocytosis. Crackles were heard in the right middle lobe awaiting clinical correlation with chest x-ray. Initial troponin came back 0.044, patient has had elevated troponins historically due to his ESRD. 12/20/18 11:06 12/20/18 12:45 Chest x-ray he did not show any focal consolidation or infiltrate. Discussed with Dr. Horvath and this is most likely viral upper respiratory infection. A patient is afebrile and vital signs are within normal limits. He is stable for discharge. Tracheal aspirate sample was sent to the lab. - Vital Signs Vital signs: Temp Pulse Resp BP Pulse Ox 98.1 F 14 141/63 H 94 12/20/18 10:03 12/20/18 11:31 12/20/18 11:31 12/20/18 11:31 - Laboratory Result Diagrams: 12/20/18 10:15 12/20/18 10:15 Laboratory results interpreted by me: 12/20/18 12/20/18 12/20/18 10:15 10:15 10:15 RBC 3.81 L Hgb 10.9 L Hct 33.3 L RDW 16.6 H Monocytes % 16.9 H Eosinophils % 8.9 H Chloride 95 L Carbon Dioxide 31 H BUN 27 H Creatinine 8.98 H Est GFR ( Amer) 8 L Est GFR (Non-Af Amer) 6 L Direct Bilirubin 0.9 H Alkaline Phosphatase 330 H Creatine Kinase 273 H CK-MB (CK-2) 8.51 H Discharge - Discharge Clinical Impression: Acute upper respiratory infection Condition: Good Disposition: HOME, SELF-CARE Additional Instructions: You have been seen and treated in the emergency department for an upper respiratory infection. These are typically caused by viruses and do not respond to antibiotics. Please make sure you using any prescription medications as prescribed. Please also continue to take [id number] Tylenol and Motrin for your generalized body aches, fever. Please stay well-hydrated and get plenty of rest. Please follow-up with your primary care provider in the next 24 to 48 hours. Please return to the emergency room should you have any other concerning symptoms. Referrals: CARLY LANGSTON MD [Primary Care Provider] - Follow up as needed
--- NOTE | 2018-12-20 11:37 | RADIOLOGY REPORT (SQ) ---
EXAM DESCRIPTION: CHEST SINGLE VIEW COMPLETED DATE/TIME: 12/20/2018 11:13 am REASON FOR STUDY: chest pain COMPARISON: CT angio chest 11/21/2018 AP chest 11/21/2018, 11/24/2018 EXAM PARAMETERS: NUMBER OF VIEWS: One view. TECHNIQUE: Single frontal radiographic view of the chest acquired. RADIATION DOSE: NA LIMITATIONS: None. FINDINGS: LUNGS AND PLEURA: No acute infiltrates. No pleural effusion or pneumothorax. Chronic pl eural thickening right and left mid chest. MEDIASTINUM AND HILAR STRUCTURES: Widened upper mediastinum unchanged from prior studies. Brachiocep halic vein and superior vena cava stents are present unchanged. HEART AND VASCULAR STRUCTURES: Stable moderate to marked cardiomegaly BONES: No acute findings. HARDWARE: Tracheostomy tube tip midtrachea. Left-sided central venous dialysis catheter tip in the r ight atrium. Brachiocephalic vein and superior vena cava stents are present. OTHER: No other significant finding. IMPRESSION: NO ACUTE RADIOGRAPHIC FINDING IN THE CHEST. TECHNICAL DOCUMENTATION: JOB ID: [id number] [employer]- All Rights Reserved Reading location - IP/workstation name: [email or web address]
--- NOTE | 2018-12-20 12:52 | EKG REPORT ---
SEVERITY:- ABNORMAL ECG - ATRIAL FIBRILLATION, V-RATE 69-114 VENTRICULAR PREMATURE COMPLEX BORDERLINE R WAVE PROGRESSION, ANTERIOR LEADS , CONSIDER OLD ANTEROSEPTAL VA. NONSPECIFIC T ABNORMALITIES, LATERAL LEADS : Confirmed by: Pablo Porras MD 20-Dec-2018 12:51:19
[2018-12-20 15:29] VITALS: BP 131/60
== END 2018-12-20 15:25 | disposition home or self-care (01) ==
LOC: ER 09:58
DX: J06.9 Acute upper respiratory infection, unspecified (principal); R07.9 Chest pain, unspecified; R05 Cough; R07.89 Other chest pain; R06.02 Shortness of breath; R50.9 Fever, unspecified; Z87.891 Personal history of nicotine dependence; I50.9 Heart failure, unspecified; I11.0 Hypertensive heart disease with heart failure; Z98.890 Other specified postprocedural states
CPT/HCPCS: 93005; 94640; 99284; 36415; 82553; 82550; 85025; 80053; 84484; 71045; 93010; A9270 ×2; J7620

== ENCOUNTER 2019-01-09 14:05 | Emergency (ER) | payer MEDICARE, MEDICAID ==
[2019-01-09 15:11] LABS: VENOUS BLOOD BASE EXCESS -7.1 mmol/L; VENOUS BLOOD HCO3 23.8 mmol/L (20-32)
[2019-01-09 15:12] LABS: HEMATOCRIT 35.1 % (37.9-51.0); HEMOGLOBIN 11.2 g/dL (13.5-17.0); MEAN CORPUSCULAR HEMOGLOBIN 28.2 pg (27.0-33.4); MEAN CORPUSCULAR HGB CONC 32.1 g/dL (32.0-36.0); MEAN CORPUSCULAR VOLUME 88 fl (80-97); PLATELET COUNT 172 10^3/uL (150-450); RED BLOOD COUNT 3.99 10^6/uL (4.35-5.55); RED CELL DISTRIBUTION WIDTH 16.9 % (11.5-14.0); WHITE BLOOD COUNT 5.7 10^3/uL (4.0-10.5)
[2019-01-09 15:13] LABS: VENOUS BLOOD PCO2 77.9 mmHg (35-63); VENOUS BLOOD PH 7.1 (7.30-7.42)
[2019-01-09 15:14] LABS: INTERNATIONAL RATION (INR) 0.99; PROTHROMBIN TIME 13.1 SEC (11.4-15.4)
[2019-01-09 15:34] LABS: ABSOLUTE LYMPHOCYTES# (MANUAL) 1.4 10^3/uL (0.5-4.7); ABSOLUTE MONOCYTES # (MANUAL) 0.7 10^3/uL (0.1-1.4); BASOPHILS % (MANUAL) 0 % (0-2); EOSINOPHILS % (MANUAL) 6 % (0-6); LYMPHOCYTES % (MANUAL) 24 % (13-45); MONOCYTES % (MANUAL) 12 % (3-13); SEGMENTED NEUTROPHILS % (MAN) 58 % (42-78); TOTAL CELLS COUNTED 100
[2019-01-09 15:35] LABS: ANISOCYTOSIS 1+; OVALOCYTES 1+; PLATELET CLUMPS PRESENT; PLATELET COMMENT ADEQUATE; POIKILOCYTOSIS 1+; POLYCHROMASIA SLIGHT
[2019-01-09 16:20] LABS: ALANINE AMINOTRANSFERASE 30 U/L (21-72); ALKALINE PHOSPHATASE 575 U/L (38-126); ANION GAP 14 (5-19); ASPARTATE AMINO TRANSFERASE 37 U/L (17-59); BILIRUBIN,DIRECT 0.9 mg/dL (0.0-0.4); BILIRUBIN,TOTAL 0.9 mg/dL (0.2-1.3); BLOOD UREA NITROGEN 49 mg/dL (7-20); CALCIUM 9.8 mg/dL (8.4-10.2); CARBON DIOXIDE 23 mmol/L (22-30); CHLORIDE 102 mmol/L (98-107); CREATINE KINASE 123 U/L (55-170); GLUCOSE 97 mg/dL (75-110); POTASSIUM 5.3 mmol/L (3.6-5.0); SODIUM 139.2 mmol/L (137-145); TOTAL PROTEIN 6.9 g/dL (6.3-8.2)
[2019-01-09 16:31] LABS: TROPONIN I 0.02 ng/mL
--- NOTE | 2019-01-09 16:43 | ER Document Report ---
Entered by ANA COBURN SCRIBE 01/09/19 1454 Acting as scribe for:HECTOR RENO MD ED General - General Stated Complaint: WEAKNESS Time Seen by Provider: 01/09/19 14:39 Primary Care Provider: JOSIAH BRANNON MD [Primary Care Provider] - Follow up as needed Mode of Arrival: Medic Information source: Patient, Emergency Med Personnel, [facility] Records Notes: Patient is a 53-year-old male presenting to the emergency department after he missed dialysis. Patient states that he missed dialysis on Monday because he overslept. Patient states that he missed dialysis today because he overslept. Patient states that last night he did start feeling fluid buildup but was able to sleep through it. Patient denies being able to make any urine. Patient states that he is normally on 2 L of oxygen. Patient states that he called his dialysis clinic today, they prompted him to come to the emergency department. Patient states that he had an alarm clock set up but it was set for the wrong time. TRAVEL OUTSIDE OF THE [place] IN LAST 30 DAYS: No - Related Data Allergies/Adverse Reactions: No Known Allergies Allergy (Verified 12/20/18 10:11) Past Medical History - General Information source: Patient, Emergency Med Personnel, [facility] Records - Social History Smoking Status: Former Smoker Cigarette use (# per day): No Chew tobacco use (# tins/day): No Smoking Education Provided: No Frequency of alcohol use: None Drug Abuse: None Lives with: Family Family History: Reviewed & Not Pertinent, Hypertension - Past Medical History Cardiac Medical History: Reports: Hx Atrial Fibrillation, Hx Congestive Heart Failure, Hx Hypertension Pulmonary Medical History: Reports: Hx Asthma - Trach, Hx Sleep Apnea Neurological Medical History: Reports: Hx Migraine Renal/ Medical History: Reports: Hx End Stage Renal Disease - S/P transplant, Hx Hemodialysis, Hx Peritoneal Dialysis - DIALYSIS MWF GI Medical History: Reports: Hx Gastroesophageal Reflux Disease Musculoskeletal Medical History: Reports Hx Arthritis Psychiatric Medical History: Reports: Hx Anxiety, Hx Depression - mild - recent Past Surgical History: Reports: Hx Herniorrhaphy, Hx Kidney (Renal Surgery) - left kidney transplant, Hx Tonsillectomy, Hx Vascular Surgery - Right arm graft for dialysis, Other - Tracheostomy - Immunizations Immunizations up to date: Yes Hx Diphtheria, Pertussis, Tetanus Vaccination: Yes Review of Systems - Review of Systems Constitutional: No symptoms reported EENT: No symptoms reported Cardiovascular: No symptoms reported Respiratory: No symptoms reported Gastrointestinal: No symptoms reported Genitourinary: No symptoms reported Male Genitourinary: No symptoms reported Musculoskeletal: No symptoms reported Skin: No symptoms reported Hematologic/Lymphatic: No symptoms reported Neurological/Psychological: No symptoms reported -: Yes All other systems reviewed and negative Physical Exam - Vital signs Vitals: Resp Pulse Ox 24 H 94 01/09/19 14:14 01/09/19 14:14 - Notes Notes: Physical Exam: General: Alert, appears well. HEENT: Normocephalic. Atraumatic. PERRL. Extraocular movements intact. Oropharynx clear. Neck: Supple. Non-tender. Patient has a tracheostomy. Respiratory: Rhonchi, wheezes bilaterally. The pulse ox had not been attached. I got it hooked up and found the oxygen saturation to be at 100% on 10 L. I decreased the oxygen to 3L via trach cuff. Patient's oxygen saturation eventually came down and settled around 95%. Cardiovascular: Regular rate and rhythm. Abdominal: Normal Inspection. Obese, non-tender. No distension. Normal Bowel Sounds. Back: Non-tender. No deformity or step off. Extremities: Moves all four extremities. Upper extremities: Normal inspection. Normal ROM. Lower extremities: Normal inspection. No edema. Normal ROM. Neurological: Normal cognition. AAOx4. Normal speech. Psychological: Normal affect. Normal Mood. Skin: Warm. Dry. Normal color. Course - Re-evaluation Re-evalutation: 01/09/19 16:46 The case was discussed several times with Dr. Brunner. He checked into dialysis and found that the [facility] could not do the patient today, and they had no openings for tomorrow. He was able to make arrangements for the patient to be dialyzed in the emergency room first thing in the morning. Patient's potassium is 5.3. He does appear stable and will stay in the emergency room through the night and be dialyzed in the morning, then discharged home. Transfers at this time are quite problematic, as all of our surrounding hospitals are on MedSurg delays order closed in certain departments. Tomorrow is a national holiday which does not help the situation. 01/10/19 00:27 And reviewing the patient's chart prior to handoff, and noted some extremely low blood pressures recorded between 18:00 and 19:00 today. These are not accurate. I was never informed by any staff about the BP recordings that were being made. I did have the charge nurse to confirm that the patient does not have blood pressures that are below 100 systolic. - Vital Signs Vital signs: Temp Pulse Resp BP Pulse Ox 98.3 F 17 45/30 L 73 L 01/09/19 14:31 01/09/19 18:32 01/09/19 18:32 01/09/19 18:15 - Laboratory Result Diagrams: 01/09/19 14:38 01/09/19 15:30 Laboratory results interpreted by me: 01/09/19 01/09/19 01/09/19 14:38 14:58 15:30 RBC 3.99 L Hgb 11.2 L Hct 35.1 L RDW 16.9 H VBG pH 7.10 L* VBG pCO2 77.9 H* Potassium 5.3 H BUN 49 H Creatinine 12.88 H Est GFR ( Amer) 5 L Est GFR (Non-Af Amer) 4 L Direct Bilirubin 0.9 H Alkaline Phosphatase 575 H NT-Pro-B Natriuret Pep 01/09/19 15:30 RBC Hgb Hct RDW VBG pH VBG pCO2 Potassium BUN Creatinine Est GFR ( Amer) Est GFR (Non-Af Amer) Direct Bilirubin Alkaline Phosphatase NT-Pro-B Natriuret Pep 33603 H - Diagnostic Test Radiology reviewed: Image reviewed, Reports reviewed - Portable chest x-ray shows cardiomegaly with mild fluid overload. Pulmonary vascular congestion with mild interstitial edema. - EKG Interpretation by Me EKG shows normal: [place], Intervals, ST-T Waves. abnormal: QRS Complexes - R wave progression in the anterior leads Rate: Normal - 81 Voltage: Decreased voltage When compared to previous EKG there are: No significant change - Transfer of Care Care transferred to following provider: Dr. Schroeder Notes: 01/10/19 00:29 Reviewed the patient's history physical and laboratory findings. The plan is for the patient to receive dialysis in the morning and then be discharged home. Critical Care Note - Critical Care Note Total time excluding time spent on procedures (mins): 40 Discharge - Discharge Clinical Impression: Non-compliance with renal dialysis, Chronic atrial fibrillation, Acute on chronic diastolic (congestive) heart failure, ESRD (end stage renal disease) on dialysis, Hyperkalemia, Noncompliance Chronic renal failure Qualifiers: Chronic kidney disease stage: stage 5 Qualified Code(s): N18.5 - Chronic kidney disease, stage 5 COPD (chronic obstructive pulmonary disease) Qualifiers: COPD type: unspecified COPD Qualified Code(s): J44.9 - Chronic obstructive pulmonary disease, unspecified Volume overload Qualifiers: Hypervolemia type: unspecified Qualified Code(s): E87.70 - Fluid overload, unspecified Anemia in chronic kidney disease (CKD) Qualifiers: Chronic kidney disease stage: on chronic dialysis Qualified Code(s): N18.6 - End stage renal disease Condition: Stable Disposition: HOME, SELF-CARE Referrals: JOSIAH BRANNON MD [Primary Care Provider] - Follow up as needed Scribe Attestation: 01/09/19 16:15 I personally performed the services described in the documentation, reviewed and edited the documentation which was dictated to the scribe in my presence, and it accurately records my words and actions. I personally performed the services described in the documentation, reviewed and edited the documentation which was dictated to the scribe in my presence, and it accurately records my words and actions.
--- NOTE | 2019-01-09 17:59 | EKG REPORT ---
SEVERITY:- ABNORMAL ECG - ATRIAL FIBRILLATION LOW VOLTAGE THROUGHOUT BORDERLINE R WAVE PROGRESSION, ANTERIOR LEADS : Confirmed by: Walker Olmos 09-Jan-2019 17:58:33
--- NOTE | 2019-01-09 18:21 | PDOC CONSULTATION ---
Consultation Consult Date: 01/09/19 Provider Consulted: Ben HAWLEY Consult reason:: ESRD History of Present Illness Admission Date/PCP: JOSIAH BRANNON MD History of Present Illness: ANDREAS NELSON is a 53 year old male with a h/o ESRD in the back ground of Hypertension, Tracheostomy on continous O2, Large abdominal hernia came to the ER with difficulty in breathing and feeling weak. He missed his dialysis on Monday and so last HD was monday. He has issues with excessive fluid intake. He has been having issues with non compliance with HD treatments, poor diet and excess fluid intake. Evaluations in the ER reviewed he is in early CHF. Labs and medications were reviewed. Unfortunately he is too late to be dialysed here but is stable to wait till AM to be dialysed here in the ER. Past Medical History Cardiac Medical History: Reports: Atrial Fibrillation, Hypertension-primary Denies: Coronary Artery Disease, Heart Murmur, Hyperlipidemia, Myocardial Infarction, Peripheral Vascular Disease, Pulmonary Embolism Pulmonary Medical History: Reports: Asthma - Trach, Sleep Apnea Denies: Bronchitis, Chronic Obstructive Pulmonary Disease (COPD), Pneumonia, Respiratory Failure, Tuberculosis Neurological Medical History: Reports: Migraine Denies: Seizures Renal/ Medical History: Reports: End Stage Renal Disease - S/P transplant, Secondary Hyperparathyroidism Malignancy Medical History: Denies: Lung Cancer GI Medical History: Reports: Gastroesophageal Reflux Disease Musculoskeltal Medical History: Reports: Arthritis Psychiatric Medical History: Reports: Depression - mild - recent Hematology Medical History: Reports Anemia of Chronic Kidney Disease Past Surgical History Past Surgical History: Reports: Herniorrhaphy, Tonsillectomy, Vascular Surgery - Right arm graft for dialysis, Other - Tracheostomy Denies: Appendectomy, Cholecystectomy, Coronary Artery Bypass Graft, Gastric Bypass Surgery, Pacemaker Social History Smoking Status: Former Smoker Frequency of Alcohol Use: Rare Hx Recreational Drug Use: No Drugs: None Hx Prescription Drug Abuse: No Family History Parental Family History Reviewed: Yes - Mother has CKD but not on dialysis. Children Family History Reviewed: No Sibling(s) Family History Reviewed.: No Medication/Allergy Home Medications: Allopurinol [Zyloprim 100 mg Tablet] 100 mg PO DAILY 11/15/18 Clopidogrel Bisulfate [Plavix 75 mg Tablet] 75 mg PO DAILY 11/15/18 Digoxin [Digox] 125 mcg PO MOWEFR 11/15/18 Fluticasone Propionate [Flonase Nasal Mutual 50 Mcg/Mutual 16 gm] 2 spray NASL BID 11/15/18 Gabapentin [Neurontin 100 mg Capsule] 100 mg PO DAILY 11/15/18 Lactulose [Cephulac Syrup 20 gm/30 ml Udcup] 15 ml PO BID 11/15/18 Montelukast Sodium [Singulair 10 mg Tablet] 10 mg PO QPM 11/15/18 Pantoprazole Sodium [Protonix [address] Tablet] 20 mg PO QAM 11/15/18 Sevelamer Carbonate [Renvela] 1,600 mg PO MEALS 11/15/18 Sevelamer Carbonate [Renvela] 800 mg PO .WITHSNACK 11/15/18 Zolpidem Tartrate [Ambien] 10 mg PO QHS 11/15/18 Ipratropium/Albuterol Sulfate [Duoneb 3 ml Ampul] 3 ml [facility] RTQ12 #60 [email or web address] 11/29/18 Hydrocodone Bit/Homatropine [Hycodan Syrup 5-1.5 mg/5 ml Ud Cup] 5 ml PO Q4HP PRN #120 ml 12/20/18 Allergies/Adverse Reactions: No Known Allergies Allergy (Verified 12/20/18 10:11) Review of Systems Constitutional: PRESENT: anorexia, fatigue, fever(s), weakness. ABSENT: chills, headache(s), night sweats Nose, Mouth, and Throat: ABSENT: mouth pain, sore throat Cardiovascular: PRESENT: dyspnea on exertion. ABSENT: chest pain, edema, ort hropnea Gastrointestinal: ABSENT: abdominal pain, bloating, constipation, diarrhea, dysphagia, heartburn, hematemesis, hematochezia, nausea, vomiting Genitourinary: ABSENT: dysuria, hematuria Musculoskeletal: ABSENT: deformity, joint swelling Integumentary: ABSENT: erythema, lesions, pruritus, rash Neurological: PRESENT: memory loss. ABSENT: abnormal speech, confusion, co nvulsions, focal weakness, frequent falls Hematologic/Lymphatic: ABSENT: easy bleeding, easy bruising, lymphadenopathy Physical Exam Vital Signs: Temp Pulse Resp BP Pulse Ox 98.3 F 14 140/40 H 97 01/09/19 14:31 01/09/19 17:02 01/09/19 17:02 01/09/19 17:02 General appearance: PRESENT: no acute distress Eye exam: PRESENT: EOMI, PERRLA Ear exam: PRESENT: normal external ear exam Mouth exam: PRESENT: moist, neck supple Neck exam: ABSENT: meningismus, tenderness Respiratory exam: PRESENT: clear to auscultation cyndie, decreased breath sounds. ABSENT: crackles Cardiovascular exam: PRESENT: +S1, +S2, systolic murmur GI/Abdominal exam: PRESENT: distended - Large abdominal hernia. Nonobstructed., soft. ABSENT: normal bowel sounds, organomegaly, tenderness Extremities exam: PRESENT: pedal edema Neurological exam: PRESENT: alert, awake, oriented to person, oriented to place Psychiatric exam: PRESENT: appropriate affect Skin exam: ABSENT: erythema, mottled, rash Results Laboratory Results: 01/09/19 14:38 01/09/19 15:30 01/09/19 01/09/19 01/09/19 14:38 14:38 14:38 WBC 5.7 RBC 3.99 L Hgb 11.2 L Hct 35.1 L MCV 88 MCH 28.2 MCHC 32.1 RDW 16.9 H Plt Count 172 Seg Neutrophils % Not Reportable Lymphocytes % Not Reportable Monocytes % Not Reportable Eosinophils % Not Reportable Basophils % Not Reportable Absolute Neutrophils Not Reportable Absolute Lymphocytes Not Reportable Absolute Monocytes Not Reportable Absolute Eosinophils Not Reportable Absolute Basophils Not Reportable VBG pH VBG pCO2 VBG HCO3 VBG Base Excess Sodium Cancelled Potassium Cancelled Chloride Cancelled Carbon Dioxide Cancelled Anion Gap Cancelled BUN Cancelled Creatinine Cancelled Est GFR ( Amer) Cancelled Est GFR (Non-Af Amer) Cancelled Glucose Cancelled Lactic Acid 1.1 Calcium Cancelled Total Bilirubin Cancelled AST Cancelled ALT Cancelled Alkaline Phosphatase Cancelled Total Protein Cancelled Albumin Cancelled 01/09/19 01/09/19 14:58 15:30 WBC RBC Hgb Hct MCV MCH MCHC RDW Plt Count Seg Neutrophils % Lymphocytes % Monocytes % Eosinophils % Basophils % Absolute Neutrophils Absolute Lymphocytes Absolute Monocytes Absolute Eosinophils Absolute Basophils VBG pH 7.10 L* VBG pCO2 77.9 H* VBG HCO3 23.8 VBG Base Excess -7.1 Sodium 139.2 Potassium 5.3 H Chloride 102 Carbon Dioxide 23 Anion Gap 14 BUN 49 H Creatinine 12.88 H Est GFR ( Amer) 5 L Est GFR (Non-Af Amer) 4 L Glucose 97 Lactic Acid Calcium 9.8 Total Bilirubin 0.9 AST 37 ALT 30 Alkaline Phosphatase 575 H Total Protein 6.9 Albumin 4.0 01/09/19 01/09/19 01/09/19 14:58 14:58 15:30 Creatine Kinase Cancelled 123 Troponin I Cancelled NT-Pro-B Natriuret Pep Cancelled 01/09/19 15:30 Creatine Kinase Troponin I 0.020 NT-Pro-B Natriuret Pep 19590 H Assessment & Plan - Diagnosis (1) Acute on chronic diastolic (congestive) heart failure Plan: Mild. Presently compensating with 2 L of nasal cannula oxygen.Patient comfortable. Discussed with Dr. French the ER physician about the unavailability of dialysis to tomorrow morning. Dr. French is agreeable with that plan as patient is stable at the moment. Discussed with dialysis nurse Vilma as well as Dr. Leggett who was covering me in my absence till Monday. Patient will be dialyzed in the morning. (2) ESRD (end stage renal disease) on dialysis Plan: Patient has been become being very noncompliant with dialysis treatments and diet of lately. Last dialysis was Monday. Unfortunate.Plan for dialysis in the morning. Discussed with him about compliance for obvious reasons. (3) Anemia in chronic kidney disease (CKD) Qualifiers: Chronic kidney disease stage: on chronic dialysis Qualified Code(s): N18.6 - End stage renal disease; D63.1 - Anemia in chronic kidney disease; Z99.2 - Dependence on renal dialysis Plan: Stable. No indications for erythropoietin for now. (4) Chronic atrial fibrillation Plan: Rate controlled. (5) Chronic obstruct airways disease Qualifiers: COPD type: unspecified COPD Qualified Code(s): J44.9 - Chronic obstructive pulmonary disease, unspecified Plan: Patient on multiple inhalers. (6) Hyperkalemia Plan: Mild. Should respond to dialysis in the morning. No interventions needed for now. (7) Non-compliance with renal dialysis Plan: As mentioned earlier. (8) Status post tracheostomy Plan: Status quo.
[2019-01-09] MEDS ORDERED: SEVELAMER HCL 800 MG TABLET PO PRN (20:10)
[2019-01-09] MEDS ORDERED: DIGOXIN 0.125 MG TABLET PO SCH (20:15)
[2019-01-09] MEDS ORDERED: (PENDING PHARMACY ID) (Sevelamer Carbonate [Renvela] 800 MG) PO SCH (20:15)
[2019-01-09] MEDS ORDERED: LACTULOSE SYRUP 20 GM/30 ML UDCUP PO SCH (21:00)
[2019-01-09] MEDS ORDERED: (PENDING PHARMACY ID) (Zolpidem Tartrate [Ambien] 10 MG) PO SCH (22:00)
[2019-01-09] MEDS ORDERED: ZOLPIDEM TARTRATE 5 MG TABLET PO SCH (22:00)
[2019-01-10] MEDS ORDERED: IPRATROPIUM/ALBUTEROL 0.5-2.5 MG/3 ML AMPUL NEB SCH (08:00)
[2019-01-10] MEDS ORDERED: SEVELAMER HCL 800 MG TABLET PO SCH (08:00)
[2019-01-10] MEDS ORDERED: (PENDING PHARMACY ID) (Sevelamer Carbonate [Renvela] 1,600 MG) PO SCH (08:00)
[2019-01-10] MEDS ORDERED: PANTOPRAZOLE SODIUM 20 MG TABLET.DR PO SCH (08:00)
[2019-01-10] MEDS ORDERED: NORMAL SALINE 1000 ML 1,000 ML IV PRN (09:26)
[2019-01-10] MEDS ORDERED: FLUTICASONE NASAL SPRAY 50 MCG/SPRY 120 SPRAY/16 GM NASL SCH (10:00)
[2019-01-10] MEDS ORDERED: ALLOPURINOL 100 MG TABLET PO SCH (10:00)
[2019-01-10] MEDS ORDERED: CLOPIDOGREL BISULFATE 75 MG TABLET PO SCH (10:00)
[2019-01-10] MEDS ORDERED: GABAPENTIN 100 MG CAPSULE PO SCH (10:00)
[2019-01-10 10:49] LABS: HEMATOCRIT 31.1 % (37.9-51.0); MEAN CORPUSCULAR HEMOGLOBIN 28.5 pg (27.0-33.4); MEAN CORPUSCULAR VOLUME 89 fl (80-97); PLATELET COUNT 169 10^3/uL (150-450); RED CELL DISTRIBUTION WIDTH 16.6 % (11.5-14.0); WHITE BLOOD COUNT 5.3 10^3/uL (4.0-10.5)
[2019-01-10 11:06] LABS: ANION GAP 16 (5-19); BLOOD UREA NITROGEN 50 mg/dL (7-20); CALCIUM 9.8 mg/dL (8.4-10.2); CARBON DIOXIDE 19 mmol/L (22-30); CHLORIDE 104 mmol/L (98-107); GLUCOSE 130 mg/dL (75-110); POTASSIUM 5.7 mmol/L (3.6-5.0)
--- NOTE | 2019-01-10 11:48 | PDOC PROGRESS REPORT ---
Subjective Progress Note for:: 01/10/19 Subjective:: I saw the patient during dialysis this morning. Patient tells me that he missed his dialysis on Monday and yesterday because of his alarm clock did not go off. Today he said he is not feeling that much of shortness of breath. His blood pressure is on the low side so ultrafiltration will be limited. Patient is being monitored toward an ultrafiltration being adjusted accordingly depending on the blood pressure. He otherwise does not have any other complaints. Reason For Visit: WEAKNESS Physical Exam Vital Signs: Temp Pulse Resp BP Pulse Ox 97.7 F 15 98/57 L 100 01/10/19 06:44 01/10/19 11:16 01/10/19 11:16 01/10/19 11:07 Intake & Output 01/09/19 01/10/19 01/11/19 06:59 06:59 06:59 Weight 92.5 kg Vitals during dialysis: Blood pressure 90/57, heart rate of 78, blood flow 450 mL/min and dialysate flow of 800 mL/min. Exam: General appearance: PRESENT: no acute distress, cooperative, well-developed, well-nourished, on CPAP via trach Head exam: PRESENT: atraumatic, normocephalic Eye exam: PRESENT: conjunctiva pink, PERRLA. ABSENT: scleral icterus Neck exam: ABSENT: JVD, trach in place Respiratory exam: PRESENT: Diminished breath sounds. ABSENT: crackles, rales, rhonchi, unlabored, wheezes Cardiovascular exam: PRESENT: Regular rate rhythm -+S1, +S2. ABSENT: diastolic murmur, systolic murmur GI/Abdominal exam: PRESENT: normal bowel sounds, soft. ABSENT: guarding, mass, tenderness Extremities exam: ABSENT: No edema Neurological exam: PRESENT: alert, awake, oriented to person, place and time. Skin exam: PRESENT: dry, warm, Cardiovascular exam: PRESENT: +S1, +S2, systolic murmur GI/Abdominal exam: PRESENT: distended - Large abdominal hernia. Nonobstructed., soft. ABSENT: normal bowel sounds, organomegaly, tenderness Results Laboratory Results: 01/10/19 10:42 01/10/19 10:42 01/09/19 01/09/19 01/09/19 14:38 14:38 14:38 WBC 5.7 RBC 3.99 L Hgb 11.2 L Hct 35.1 L MCV 88 MCH 28.2 MCHC 32.1 RDW 16.9 H Plt Count 172 Seg Neutrophils % Not Reportable Lymphocytes % Not Reportable Monocytes % Not Reportable Eosinophils % Not Reportable Basophils % Not Reportable Absolute Neutrophils Not Reportable Absolute Lymphocytes Not Reportable Absolute Monocytes Not Reportable Absolute Eosinophils Not Reportable Absolute Basophils Not Reportable VBG pH VBG pCO2 VBG HCO3 VBG Base Excess Sodium Cancelled Potassium Cancelled Chloride Cancelled Carbon Dioxide Cancelled Anion Gap Cancelled BUN Cancelled Creatinine Cancelled Est GFR ( Amer) Cancelled Est GFR (Non-Af Amer) Cancelled Glucose Cancelled Lactic Acid 1.1 Calcium Cancelled Total Bilirubin Cancelled AST Cancelled ALT Cancelled Alkaline Phosphatase Cancelled Total Protein Cancelled Albumin Cancelled 01/09/19 01/09/19 01/10/19 14:58 15:30 10:42 WBC 5.3 RBC 3.50 L Hgb 10.0 L Hct 31.1 L MCV 89 MCH 28.5 MCHC 32.0 RDW 16.6 H Plt Count 169 Seg Neutrophils % Lymphocytes % Monocytes % Eosinophils % Basophils % Absolute Neutrophils Absolute Lymphocytes Absolute Monocytes Absolute Eosinophils Absolute Basophils VBG pH 7.10 L* VBG pCO2 77.9 H* VBG HCO3 23.8 VBG Base Excess -7.1 Sodium 139.2 Potassium 5.3 H Chloride 102 Carbon Dioxide 23 Anion Gap 14 BUN 49 H Creatinine 12.88 H Est GFR ( Amer) 5 L Est GFR (Non-Af Amer) 4 L Glucose 97 Lactic Acid Calcium 9.8 Total Bilirubin 0.9 AST 37 ALT 30 Alkaline Phosphatase 575 H Total Protein 6.9 Albumin 4.0 01/10/19 10:42 WBC RBC Hgb Hct MCV MCH MCHC RDW Plt Count Seg Neutrophils % Lymphocytes % Monocytes % Eosinophils % Basophils % Absolute Neutrophils Absolute Lymphocytes Absolute Monocytes Absolute Eosinophils Absolute Basophils VBG pH VBG pCO2 VBG HCO3 VBG Base Excess Sodium 139.0 Potassium 5.7 H Chloride 104 Carbon Dioxide 19 L Anion Gap 16 BUN 50 H Creatinine 14.56 H Est GFR ( Amer) 4 L Est GFR (Non-Af Amer) 4 L Glucose 130 H Lactic Acid Calcium 9.8 Total Bilirubin AST ALT Alkaline Phosphatase Total Protein Albumin 01/09/19 01/09/19 01/09/19 14:58 14:58 15:30 Creatine Kinase Cancelled 123 Troponin I Cancelled NT-Pro-B Natriuret Pep Cancelled 01/09/19 15:30 Creatine Kinase Troponin I 0.020 NT-Pro-B Natriuret Pep 87706 H Assessment & Plan - Diagnosis (1) ESRD (end stage renal disease) on dialysis Is this a current diagnosis for this admission?: Yes Plan: We will do dialysis today for 3.5 hours, using the patient's AV fistula, with 2 potassium bath, blood flow rate of 450 mL per minute, dialysate flow rate of 800 mL per minute, ultrafiltration 3 L as tolerated, no heparin and no Procrit. Patient's ultrafiltration will be adjusted accordingly with blood pressure monitoring. Our dialysis nurse will be monitoring the patient throughout the treatment. After today's dialysis in the emergency room patient can be discharged home. Advised the patient to keep his dialysis schedule tomorrow at [facility] and encourage compliance to prevent episodes like this. (2) Hyperkalemia Is this a current diagnosis for this admission?: Yes Plan: Dialysis today. (3) Acute on chronic diastolic (congestive) heart failure Is this a current diagnosis for this admission?: Yes Plan: Due to missing dialysis treatment twice. (4) Anemia in chronic kidney disease (CKD) Qualifiers: Chronic kidney disease stage: on chronic dialysis Qualified Code(s): N18.6 - End stage renal disease; D63.1 - Anemia in chronic kidney disease; Z99.2 - Dependence on renal dialysis Is this a current diagnosis for this admission?: Yes Plan: No Procrit needed today. (5) Chronic obstruct airways disease Qualifiers: COPD type: unspecified COPD Qualified Code(s): J44.9 - Chronic obstructive pulmonary disease, unspecified Is this a current diagnosis for this admission?: Yes (6) Non-compliance with renal dialysis Is this a current diagnosis for this admission?: Yes (7) Status post tracheostomy Is this a current diagnosis for this admission?: Yes - Time Time with patient: 15-25 minutes
--- NOTE | 2019-01-10 15:51 | ER Document Report ---
Doctor's Note Notes: 01/10/19 15:51 Patient is finished his dialysis. Transport is here to take him home. He has no complaints.
[2019-01-10 16:07] VITALS: BP 111/83
[2019-01-10] MEDS ORDERED: MONTELUKAST SODIUM 10 MG TABLET PO SCH (18:00)
== END 2019-01-10 16:11 | disposition home or self-care (01) ==
LOC: ER 14:05
DX: I13.2 Hypertensive heart and chronic kidney disease with heart failure and with stage 5 chronic kidney disease, or end stage renal disease (principal); N18.6 End stage renal disease; I50.33 Acute on chronic diastolic (congestive) heart failure; Z99.2 Dependence on renal dialysis; Z91.15 Patient's noncompliance with renal dialysis; Z87.891 Personal history of nicotine dependence; Z94.0 Kidney transplant status; I48.2 Chronic atrial fibrillation; E87.5 Hyperkalemia; J44.9 Chronic obstructive pulmonary disease, unspecified; E87.70 Fluid overload, unspecified; Z93.0 Tracheostomy status; Z99.81 Dependence on supplemental oxygen; R53.1 Weakness; R06.00 Dyspnea, unspecified; Z79.899 Other long term (current) drug therapy; D63.1 Anemia in chronic kidney disease
CPT/HCPCS: 93005; 36415; 82550; 83605; 85025; 85027; 85610; 80048; 80053; 84484; 82803; 83880; 93010; G0257; A9270 ×5; J3490; J7620

== ENCOUNTER 2019-06-14 11:15 | Emergency (ER) | payer MEDICARE, MEDICAID ==
[2019-06-14 12:11] LABS: ABSOLUTE EOSINOPHILS # (AUTO) 0.3 10^3/uL (0.0-0.6); ABSOLUTE NEUT (AUTO) 1.8 10^3/uL (1.7-8.2); BASOPHILS % (AUTO) 0.7 % (0-2); EOSINOPHILS % (AUTO) 6.7 % (0-6); HEMATOCRIT 37.6 % (37.9-51.0); LYMPHOCYTES % (AUTO) 38.4 % (13-45); MEAN CORPUSCULAR HEMOGLOBIN 27.9 pg (27.0-33.4); MEAN CORPUSCULAR VOLUME 87 fl (80-97); MONOCYTES % (AUTO) 19.3 % (3-13); PLATELET COUNT 103 10^3/uL (150-450); RED BLOOD COUNT 4.31 10^6/uL (4.35-5.55); SEGMENTED NEUTROPHILS % (AUTO) 34.9 % (42-78); TOTAL CELLS COUNTED % (AUTO) 100 %; WHITE BLOOD COUNT 5.2 10^3/uL (4.0-10.5)
--- NOTE | 2019-06-14 12:41 | RADIOLOGY REPORT (SQ) ---
EXAM DESCRIPTION: CHEST SINGLE VIEW COMPLETED DATE/TIME: 06/14/2019 12:17 pm REASON FOR STUDY: SOB COMPARISON: None. EXAM PARAMETERS: NUMBER OF VIEWS: One view. TECHNIQUE: Single frontal radiographic view of the chest acquired. RADIATION DOSE: NA LIMITATIONS: None. FINDINGS: LUNGS AND PLEURA: Right infrahilar opacity. Likely small bilateral effusions. No pneumot horax. MEDIASTINUM AND HILAR STRUCTURES: No discrete mass. HEART AND VASCULAR STRUCTURES: Markedly enlarged, stable. Central vascular congestion pre BONES: No acute findings. HARDWARE: Left hemodialysis access with tip at right atrium. Innominate stent. Tracheostomy tube. OTHER: No other significant finding. IMPRESSION: Enlarged cardiac silhouette central vascular congestion. Right infrahilar opacity possi jd atelectasis or infection. TECHNICAL DOCUMENTATION: JOB ID: [id number] [employer]- All Rights Reserved Reading location - IP/workstation name: [email or web address]
--- NOTE | 2019-06-14 13:09 | EKG REPORT ---
SEVERITY:- ABNORMAL ECG - ATRIAL FIBRILLATION CONSIDER ANTEROSEPTAL INFARCT NONSPECIFIC T ABNORMALITIES, LATERAL LEADS : Confirmed by: Anusha Rush MD 14-Jun-2019 13:09:21
[2019-06-14 13:27] LABS: ARTERIAL BLOOD BASE EXCESS -0.4 mmol/L; ARTERIAL BLOOD H2CO3 2.27 mmol/L (1.05-1.35); ARTERIAL BLOOD HCO3 29.2 mmol/L (20-24); ARTERIAL BLOOD O2 SATURATION 58.5 % (94-98); ARTERIAL BLOOD PH 7.21 (7.35-7.45); ARTERIAL BLOOD TOTAL CO2 31.6 mmol/L (23-27)
[2019-06-14 13:31] LABS: ARTERIAL BLOOD FIO2 3L
[2019-06-14 13:32] LABS: ALBUMIN 3.8 g/dL (3.5-5.0); ALKALINE PHOSPHATASE 196 U/L (38-126); ANION GAP 12 (5-19); ASPARTATE AMINO TRANSFERASE 34 U/L (17-59); BILIRUBIN,DIRECT 0.8 mg/dL (0.0-0.4); BILIRUBIN,TOTAL 0.9 mg/dL (0.2-1.3); BLOOD UREA NITROGEN 26 mg/dL (7-20); CALCIUM 7.2 mg/dL (8.4-10.2); CARBON DIOXIDE 27 mmol/L (22-30); CHLORIDE 105 mmol/L (98-107)
[2019-06-14 13:33] LABS: GLUCOSE 59 mg/dL (75-110)
[2019-06-14 13:33] LABS: ARTERIAL BLOOD PCO2 75.5 mmHg (35-45); ARTERIAL BLOOD PO2 37.9 mmHg (80-100)
--- NOTE | 2019-06-14 14:30 | ER Document Report ---
Entered by HAI LONGORIA SCRIBE 06/14/19 1207 Acting as scribe for:HECTOR RENO MD ED General - General Chief Complaint: Breathing Difficulty Stated Complaint: DIFFICULTY BREATHING Time Seen by Provider: 06/14/19 12:02 Primary Care Provider: DANIEL GOULD PA-C [ALLIED HEALTH PROFESSIONAL] - Follow up as needed Mode of Arrival: Ambulatory Information source: Patient, [facility] Records Notes: This 54 year old male patient with a tracheostomy tube in place presents to the ED with complaints of blood coming from his tracheostomy stoma for the past x1 week. Patient is currently a MWF dialysis patient but he did not go for his treatment today because he "did not feel good" but does not elaborate much more on that. TRAVEL OUTSIDE OF THE [place] IN LAST 30 DAYS: No - Related Data Allergies/Adverse Reactions: No Known Allergies Allergy (Verified 12/20/18 10:11) Past Medical History - General Information source: Patient, [facility] Records - Social History Smoking Status: Never Smoker Cigarette use (# per day): No Family History: Reviewed & Not Pertinent, Hypertension - Past Medical History Cardiac Medical History: Reports: Hx Atrial Fibrillation, Hx Congestive Heart Failure, Hx Hypertension Pulmonary Medical History: Reports: Hx Asthma, Hx Sleep Apnea Neurological Medical History: Reports: Hx Migraine Renal/ Medical History: Reports: Hx End Stage Renal Disease - S/P transplant, Hx Hemodialysis, Hx Peritoneal Dialysis - DIALYSIS MWF GI Medical History: Reports: Hx Gastroesophageal Reflux Disease Musculoskeletal Medical History: Reports Hx Arthritis Psychiatric Medical History: Reports: Hx Anxiety, Hx Depression - mild - recent Past Surgical History: Reports: Hx Herniorrhaphy, Hx Kidney (Renal Surgery) - left kidney transplant, Hx Tonsillectomy, Hx Vascular Surgery - Right arm graft for dialysis, Other - Tracheostomy - Immunizations Immunizations up to date: Yes Hx Diphtheria, Pertussis, Tetanus Vaccination: Yes Review of Systems - Review of Systems Constitutional: No symptoms reported EENT: See HPI, Other - hemorrhaging from tracheostomy stoma Cardiovascular: No symptoms reported Respiratory: No symptoms reported Gastrointestinal: No symptoms reported Genitourinary: No symptoms reported Male Genitourinary: No symptoms reported Musculoskeletal: No symptoms reported Skin: No symptoms reported Hematologic/Lymphatic: No symptoms reported Neurological/Psychological: No symptoms reported -: Yes All other systems reviewed and negative Physical Exam - Vital signs Vitals: Temp Pulse Resp BP Pulse Ox 97.9 F 69 24 H 131/74 H 93 06/14/19 11:15 06/14/19 11:15 06/14/19 11:15 06/14/19 11:15 06/14/19 11:15 Interpretation: Normal - General General appearance: Appears well, Other - sleeping, but easily aroused; has a tracheostomy tube In distress: None - HEENT Head: Normocephalic, Atraumatic Eyes: Normal Pupils: PERRL Neck: Other - Tracheostomy - Respiratory Respiratory status: No respiratory distress Chest status: Nontender Breath sounds: Rhonchi, Wheezing Chest palpation: Normal - Cardiovascular Rhythm: Regular Heart sounds: Normal auscultation Murmur: No - Abdominal Inspection: Other - hernia Distension: No distension Bowel sounds: Normal Tenderness: Nontender - abdomen soft Organomegaly: No organomegaly - Back Back: Normal, Nontender - Extremities General upper extremity: Normal inspection General lower extremity: Normal inspection. No: Edema - no peripheral edema - Neurological Neuro grossly intact: Yes - Psychological Associated symptoms: Normal affect, Normal mood - Skin Skin Temperature: Warm Skin Moisture: Dry Skin Color: Normal Course - Re-evaluation Re-evalutation: 06/14/19 14:54 Tracheostomy cannula was removed and cleaned out, there was no blood noted on it. Patient does have some wheezing rhonchi. He will be given a DuoNeb treatment. He states he feels fine at this time. I did discuss the case with Dr. Anuj Brunner, he stated that if the patient will call dialysis now, they can probably get him a slot tomorrow to do his dialysis. 06/14/19 15:12 Chest x-ray does show an infra hilar opacity on the right which is most likely atelectasis, as his white count is quite low with out shift. 06/14/19 15:38 The dialysis center was contacted, they do not have any space available tomorrow. Patient will have to wait until Monday for his regular dialysis date. Patient states he can do this, he will be careful about any foods or fluids through the weekend. 06/14/19 15:41 After DuoNeb treatment, the patient's lungs do sound better. He states that her breathing feels better as well. He promises to be very careful about any fluid intake and take only very small sips to the weekend. He also promises to use his nebulizer regularly and to take big breaths and cough frequently. He will go to dialysis Monday. He is advised to return the emergency room if any new or worsening problems. - Vital Signs Vital signs: Temp Pulse Resp BP Pulse Ox 97.9 F 69 16 134/78 H 94 06/14/19 11:15 06/14/19 11:15 06/14/19 15:01 06/14/19 15:01 06/14/19 15:01 - Laboratory Result Diagrams: 06/14/19 11:40 06/14/19 12:54 Laboratory results interpreted by me: 06/14/19 06/14/19 06/14/19 11:40 12:54 13:05 RBC 4.31 L Hgb 12.0 L Hct 37.6 L RDW 16.0 H Plt Count 103 L [place] % (Auto) 19.3 H Eos % (Auto) 6.7 H Seg Neutrophils % 34.9 L Carbonic Acid 2.27 H ABG pH 7.21 L ABG pCO2 75.5 H* ABG pO2 37.9 L* ABG HCO3 29.2 H ABG Total CO2 31.6 H ABG O2 Saturation 58.5 L BUN 26 H Creatinine 11.75 H Est GFR ( Amer) 6 L Est GFR (MDRD) Non-Af 5 L Glucose 59 L Calcium 7.2 L Direct Bilirubin 0.8 H Alkaline Phosphatase 196 H - Diagnostic Test Radiology reviewed: Image reviewed, Reports reviewed - Very rotated film. Right infrahilar opacity, atelectasis versus infiltrate. Discharge - Discharge Clinical Impression: ESRD (end stage renal disease) on dialysis, Non-compliant behavior, Status post tracheostomy COPD (chronic obstructive pulmonary disease) Qualifiers: COPD type: chronic bronchitis Chronic bronchitis type: unspecified Qualified Code(s): J42 - Unspecified chronic bronchitis Condition: Stable Disposition: HOME, SELF-CARE Additional Instructions: Be sure to use your nebulizer treatments regularly for the your wheezing and congestion. Take big deep breaths and cough frequently to help keep your lungs open. Be very careful about consuming food and fluids through the weekend. Be sure to show up at your dialysis appointment Monday. RETURN TO THE EMERGENCY ROOM IF ANY NEW OR WORSENING SYMPTOMS. Referrals: DANIEL GOULD PA-C [ALLIED HEALTH PROFESSIONAL] - Follow up as needed Scribe Attestation: 06/14/19 15:37 I personally performed the services described in the documentation, reviewed and edited the documentation which was dictated to the scribe in my presence, and it accurately records my words and actions. I personally performed the services described in the documentation, reviewed and edited the documentation which was dictated to the scribe in my presence, and it accurately records my words and actions.
[2019-06-14] MEDS ORDERED: IPRATROPIUM/ALBUTEROL 0.5-2.5 MG/3 ML AMPUL NEB ONE (14:53)
[2019-06-14 19:28] VITALS: BP 130/7
== END 2019-06-14 18:40 | disposition home or self-care (01) ==
LOC: ER 11:15
DX: I13.2 Hypertensive heart and chronic kidney disease with heart failure and with stage 5 chronic kidney disease, or end stage renal disease (principal); N18.6 End stage renal disease; I50.9 Heart failure, unspecified; R06.2 Wheezing; I48.91 Unspecified atrial fibrillation; R06.00 Dyspnea, unspecified; Z99.2 Dependence on renal dialysis; Z93.0 Tracheostomy status; Z91.19 Patient's noncompliance with other medical treatment and regimen
CPT/HCPCS: 93005; 94640; 99285; 36415; 82803; 85025; 80053; 71045; 93010; 36600; A9270; J7620

== ENCOUNTER → 2019-06-25 | Outpatient (CLI) | payer MEDICARE, MEDICAID ==
[2019-06-25 11:52] LABS: INTERNATIONAL RATION (INR) 1.09; PROTHROMBIN TIME 14.2 SEC (11.4-15.4)
[2019-06-25 11:53] LABS: ABSOLUTE EOSINOPHILS # (AUTO) 0.6 10^3/uL (0.0-0.6); ABSOLUTE LYMPHOCYTES (AUTO) 1.1 10^3/uL (0.5-4.7); ABSOLUTE MONOCYTES (AUTO) 0.7 10^3/uL (0.1-1.4); ABSOLUTE NEUT (AUTO) 2.7 10^3/uL (1.7-8.2); BASOPHILS % (AUTO) 0.5 % (0-2); EOSINOPHILS % (AUTO) 11.2 % (0-6); HEMATOCRIT 33.6 % (37.9-51.0); HEMOGLOBIN 10.9 g/dL (13.5-17.0); LYMPHOCYTES % (AUTO) 22.2 % (13-45); MEAN CORPUSCULAR HEMOGLOBIN 28.2 pg (27.0-33.4); MEAN CORPUSCULAR HGB CONC 32.5 g/dL (32.0-36.0); MEAN CORPUSCULAR VOLUME 87 fl (80-97); MONOCYTES % (AUTO) 13.8 % (3-13); PARTIAL THROMBOPLASTIN TIME 34.1 SEC (23.5-35.8); PLATELET COUNT 116 10^3/uL (150-450); RED BLOOD COUNT 3.88 10^6/uL (4.35-5.55); RED CELL DISTRIBUTION WIDTH 15.6 % (11.5-14.0); SEGMENTED NEUTROPHILS % (AUTO) 52.3 % (42-78); TOTAL CELLS COUNTED % (AUTO) 100 %; WHITE BLOOD COUNT 5.2 10^3/uL (4.0-10.5)
[2019-06-25 12:07] LABS: PFA ADP 93 (56-106)
[2019-06-25 12:29] LABS: PFA EPI 160 (55-179)
== END ==
LOC: OD 10:39
PROVIDERS: ATTEND Otolaryngology
DX: R04.2 Hemoptysis (principal)
CPT/HCPCS: 36415; 36600; 85025; 85576; 85610; 85730; 87070; 87077; 87205

== ENCOUNTER → 2019-06-25 | Outpatient (CLI) | payer MEDICARE, MEDICAID ==
--- NOTE | 2019-06-25 12:35 | RADIOLOGY REPORT (SQ) ---
EXAM DESCRIPTION: CT CHEST WITHOUT COMPLETED DATE/TIME: 06/25/2019 12:06 pm REASON FOR STUDY: R04.2 HEMOPTYSIS R04.2 HEMOPTYSIS COMPARISON: 11/21/2018, 08/01/2018 TECHNIQUE: CT scan performed of the chest without intravenous contrast. Images reviewed with lung, soft tissue and bone windows. Reconstructed coronal and sagittal MPR images reviewed. All images st ored on PACS. All CT scanners at this facility use dose modulation, iterative reconstruction, and/or weight based d osing when appropriate to reduce radiation dose to as low as reasonably achievable (ALARA). [facility]: Dose Right [facility]: CareDose [facility]: Dose Right [facility]: Teradose 4D [facility]: StartWire RADIATION DOSE: CT Rad equipment meets quality standard of care and radiation dose reduction techniq ues were employed. CTDIvol: 15.4 mGy. DLP: 596 mGy-cm. mGy. LIMITATIONS: No technical limitations. FINDINGS: LUNGS AND PLEURA: Tracheostomy tube is in place. Scattered ground-glass opacities most li michele atelectasis. Linear scarring or focal atelectasis in the left base. There is focal infiltrate in the right lower lobe best demonstrated on series 4, image 45. No effusions. HILAR AND MEDIASTINAL STRUCTURES: Scattered small mediastinal nodes most likely reactive but slightly improved from prior study. There is a large amount of mediastinal fat. HEART AND VASCULAR STRUCTURES: No aneurysm. No pericardial effusion. UPPER ABDOMEN: IVC filter is in place. There is partial visualization of a left anterolateral wall h ernia. THYROID AND OTHER SOFT TISSUES: Numerous subcutaneous varicosities stable in appearance. BONES: Sclerotic changes most likely secondary to chronic renal failure. Vertebra plana involving T1 0 is again noted. HARDWARE: None in the chest. OTHER: No other significant findings. IMPRESSION: Scattered areas of atelectasis. Probable reactive mediastinal adenopathy. No focal mas s. Multiple subcutaneous varicosities most likely related to central venous obstruction. TECHNICAL DOCUMENTATION: JOB ID: [id number] Quality ID # [id number]: Final reports with documentation of one or more dose reduction techniques (e.g., Au tomated exposure control, adjustment of the mA and/or kV according to patient size, use of iterative reconstruction technique) 2010 [employer]- All Rights Reserved Reading location - IP/workstation name: [email or web address]
== END ==
LOC: RAD 11:52
PROVIDERS: ATTEND Internal Medicine Pulmonary Disease
DX: R04.2 Hemoptysis (principal)
CPT/HCPCS: 71250

== ENCOUNTER 2019-07-18 12:54 | Emergency (ER) | payer MEDICARE, MEDICAID ==
--- NOTE | 2019-07-18 14:22 | ER Document Report ---
ED Medical Screen (RME) - General Chief Complaint: Abnormal Lab Results Stated Complaint: ABNORMAL LABS Time Seen by Provider: 07/18/19 14:18 Primary Care Provider: VIJAY SILVESTRE MD [Primary Care Provider] - Follow up as needed Information source: Patient Notes: Patient presents stating that his weight guesser had him get an outpatient blood gas and then called him and advised him to come to the emergency department for further evaluation once he had received the results. Patient reports having a productive cough for the past several months. No fever. Patient does have a trach and has a history of hypertension and CHF. Patient also dialyzes on Fridays and missed yesterday's dialysis session due to abdominal cramping. I have greeted and performed a rapid initial assessment of this patient. A comprehensive ED assessment and evaluation of the patient, analysis of test results and completion of the medical decision making process will be conducted by additional ED providers. TRAVEL OUTSIDE OF THE [place] IN LAST 30 DAYS: No - Related Data Allergies/Adverse Reactions: No Known Allergies Allergy (Verified 12/20/18 10:11) Past Medical History - Past Medical History Cardiac Medical History: Reports: Hx Atrial Fibrillation, Hx Congestive Heart Failure, Hx Hypertension Denies: Hx Coronary Artery Disease, Hx Heart Attack, Hx Hypercholesterolemia, Hx Peripheral Vascular Disease, Hx Pulmonary Embolism, Hx Heart Murmur Pulmonary Medical History: Reports: Hx Asthma, Hx Sleep Apnea Denies: Hx Bronchitis, Hx COPD, Hx Pneumonia, Hx Respiratory Failure, Hx Tuberculosis Neurological Medical History: Reports: Hx Migraine. Denies: Hx Cerebrovascular Accident, Hx Seizures Renal/ Medical History: Reports: Hx End Stage Renal Disease - S/P transplant, Hx Hemodialysis, Hx Peritoneal Dialysis - DIALYSIS MWF Malignancy Medical History: Denies Hx Lung Cancer GI Medical History: Reports: Hx Gastroesophageal Reflux Disease Musculoskeltal Medical History: Reports Hx Arthritis Psychiatric Medical History: Reports: Hx Anxiety, Hx Depression - mild - recent Past Surgical History: Reports: Hx Herniorrhaphy, Hx Kidney (Renal Surgery) - left kidney transplant, Hx Tonsillectomy, Hx Vascular Surgery - Right arm graft for dialysis, Other - Tracheostomy. Denies: Hx Appendectomy, Hx Bowel Surgery, Hx Cholecystectomy, Hx Coronary Artery Bypass Graft, Hx Gastric Bypass Surgery, Hx Pacemaker - Immunizations Immunizations up to date: Yes Hx Diphtheria, Pertussis, Tetanus Vaccination: Yes Physical Exam - Vital signs Vitals: Temp Pulse Resp BP Pulse Ox 97.9 F 69 20 106/49 L 100 07/18/19 13:39 07/18/19 13:39 07/18/19 13:39 07/18/19 13:39 07/18/19 13:39 - Respiratory Respiratory status: No respiratory distress Breath sounds: Productive cough Course - Vital Signs Vital signs: Temp Pulse Resp BP Pulse Ox 97.9 F 69 20 106/49 L 100 07/18/19 13:39 07/18/19 13:39 07/18/19 13:39 07/18/19 13:39 07/18/19 13:39 Doctor's Discharge - Discharge Referrals: VIJAY SILVESTRE MD [Primary Care Provider] - Follow up as needed
--- NOTE | 2019-07-18 15:43 | RADIOLOGY REPORT (SQ) ---
EXAM DESCRIPTION: CHEST 2 VIEWS COMPLETED DATE/TIME: 07/18/2019 3:02 pm REASON FOR STUDY: cough COMPARISON: 06/14/2019 NUMBER OF VIEWS: Two view TECHNIQUE: Frontal and lateral radiographic images of the chest acquired. LIMITATIONS: None. FINDINGS: LUNGS AND PLEURA: Chronic interstitial changes. Improved aeration right lower lobe. No i nfiltrate. Stable pleural thickening on the left. MEDIASTINUM AND HILAR STRUCTURES: Stable heart size and mediastinal structures. HEART AND VASCULAR STRUCTURES: Stable appearance. SUPPORT DEVICES: Appropriate location without change. BONES: No acute findings. OTHER: No other significant finding. IMPRESSION: Stable, chronic changes. TECHNICAL DOCUMENTATION: JOB ID: [id number] [email or web address]- All Rights Reserved Reading location - IP/workstation name: [email or web address]
--- NOTE | 2019-07-18 16:01 | ER Document Report ---
ED General - General Chief Complaint: Abnormal Lab Results Stated Complaint: ABNORMAL LABS Time Seen by Provider: 07/18/19 14:18 Primary Care Provider: VIJYA SILVESTRE MD [ACTIVE STAFF] - Follow up as needed TRAVEL OUTSIDE OF THE [place] IN LAST 30 DAYS: No - Related Data Allergies/Adverse Reactions: No Known Allergies Allergy (Verified 12/20/18 10:11) Past Medical History - General Information source: Patient - Social History Smoking Status: Former Smoker Family History: Reviewed & Not Pertinent, Hypertension - Past Medical History Cardiac Medical History: Reports: Hx Atrial Fibrillation, Hx Congestive Heart Failure, Hx Hypertension Denies: Hx Coronary Artery Disease, Hx Heart Attack, Hx Hypercholesterolemia, Hx Peripheral Vascular Disease, Hx Pulmonary Embolism, Hx Heart Murmur Pulmonary Medical History: Reports: Hx Asthma, Hx Sleep Apnea Denies: Hx Bronchitis, Hx COPD, Hx Pneumonia, Hx Respiratory Failure, Hx Tuberculosis Neurological Medical History: Reports: Hx Migraine. Denies: Hx Cerebrovascular Accident, Hx Seizures Renal/ Medical History: Reports: Hx End Stage Renal Disease - S/P transplant, Hx Hemodialysis, Hx Peritoneal Dialysis - DIALYSIS MWF Malignancy Medical History: Denies Hx Lung Cancer GI Medical History: Reports: Hx Gastroesophageal Reflux Disease Musculoskeletal Medical History: Reports Hx Arthritis Psychiatric Medical History: Reports: Hx Anxiety, Hx Depression - mild - recent Past Surgical History: Reports: Hx Herniorrhaphy, Hx Kidney (Renal Surgery) - le ft kidney transplant, Hx Tonsillectomy, Hx Vascular Surgery - Right arm graft for dialysis, Other - Tracheostomy. Denies: Hx Appendectomy, Hx Bowel Surgery, Hx Cholecystectomy, Hx Coronary Artery Bypass Graft, Hx Gastric Bypass Surgery, Hx Pacemaker - Immunizations Immunizations up to date: Yes Hx Diphtheria, Pertussis, Tetanus Vaccination: Yes Physical Exam - Vital signs Vitals: Temp Pulse Resp BP Pulse Ox 97.9 F 69 20 106/49 L 100 07/18/19 13:39 07/18/19 13:39 07/18/19 13:39 07/18/19 13:39 07/18/19 13:39 - Notes Notes: Patient was sent by PMD due to abnormal labs. His regimen without today was for the pulmonology and supposedly had an abnormal ABG. We do not have the results of that. He said he was at his family doctor for routine checkup he did tell him that he has had a cough no blood per about the past month. She says is dark red and clots he says is not vomiting at all. Denies any fevers with this. No chest pain or shortness of breath nausea or vomiting. Crow Monday and Monday missed dialysis yesterday because he is having some stomach cramps that have resolved. He says his trach was last changed about 3 months ago normally be changed every 6 months he says he changes the stylette daily and is has had a lot amount of mucus stylet each morning but there is been no drainage around the site His medical history is significant for atrial fibrillation CHF hypertension chronic renal failure. Social history does not smoke or drink at all Review of systems pertinent positives and negatives in HPI otherwise all the systems were reviewed and acutely negative PHYSICIAN EXAM -vital signs are noted triage note and note from triage reviewed GENERAL: Well-appearing, well-nourished and in _no acute distress HEAD: Atraumatic, normocephalic. EYES: Pupils equal round and reactive to light, extraocular movements intact, sclera anicteric, conjunctiva are normal. ENT: nares patent, oropharynx clear without exudates. Moist mucous membranes. NECK: supple without lymphadenopathy has a trach in place trach site appears clean and dry LUNGS: Breath sounds clear to auscultation bilaterally and equal. No wheezes rales or rhonchi. HEART: irRegular irregular with controlled ventricular rate ABDOMEN: Soft, nontender, normoactive bowel sounds. EXTREMITIES: No deformity, he has +2 edema to the knees with venous stasis changes is no palpable cords NEUROLOGICAL: No focal neurological deficits. Moves all extremities spontaneously and on command. PSYCH: Normal mood, normal affect. SKIN: Warm, Dry, normal turgor, no rashes or lesions noted. BACK-nontender in the midline Differential diagnosis pneumonia CHF tumor Course - Re-evaluation Re-evalutation: 07/18/19 18:22 ED patient is remained stable is not coughed up any blood here. Pulse ox is running between 93 to 95%. Did order an ABG however patient refuses it. I did have a lengthy discussion with the patient advised him that his oxygen is okay here but the ABG is a better test however there could have been an error. He still refuses. Says his main concern is coughing up blood advised him that ABG could change our management of him if his oxygen was really low but he still refusing. Medical decision making patient presents emergency department with and says is been coughing up blood for about a month. Hemoglobin appears to be stable his laboratory studies are unremarkable he looks well at this point he can be discharged home I do not know what to make of the abnormal ABG this point will treat him with antibiotics for bronchitis with Ceftin he is to follow-up advised to follow-up with his family doctor next week return if he develops shortness of breath at rest or chest pain or symptoms likely from go to dialysis tomorrow his symptoms been going on for a month his chest x-ray is unremarkable I see no indication for CT at this time. I think we can treat the patient with antibiotics and follow-up with his family doctor and if symptoms persist they can arrange for an outpatient CT Physician 1 at this time there is no indication for admission. I have discussed the findings with patient/family with return precautions and follow-up recommendations. Verbal discharge instructions given at the bedside and opportunity for questions given. Medication warnings were given if indicated. Patient is in agreement with this plan and has verbalized understanding of return precautions and the need for primary care follow-up as directed.. 07/18/19 18:26 - Vital Signs Vital signs: Temp Pulse Resp BP Pulse Ox 97.9 F 69 20 106/49 L 100 07/18/19 13:39 07/18/19 13:39 07/18/19 13:39 07/18/19 13:39 07/18/19 13:39 - Laboratory Result Diagrams: 07/18/19 16:20 07/18/19 16:20 Laboratory results interpreted by me: 07/18/19 07/18/19 16:20 16:20 WBC 3.7 L Hgb 12.3 L MCHC 31.4 L RDW 16.5 H Plt Count 104 L Eos % (Auto) 17.2 H Baso % (Auto) 2.1 H Chloride 97 L BUN 32 H Creatinine 13.42 H Est GFR ( Amer) 5 L Est GFR (MDRD) Non-Af 4 L Glucose 118 H Calcium 7.5 L Direct Bilirubin 1.2 H Alkaline Phosphatase 384 H - Diagnostic Test Radiology reviewed: Reports reviewed - EKG Interpretation by Me Additional EKG results interpreted by me: 07/18/19 18:21 KG read by me shows atrial fibrillation with a controlled ventricular rate and some minimal nonspecific ST wave changes is unchanged from June Discharge - Discharge Clinical Impression: Hemoptysis, Tracheitis Disposition: HOME, SELF-CARE Additional Instructions: Bronchitis You have acute bronchitis. This disease is an infection or inflammation of the air passageways in your lungs. Symptoms usually include cough, low grade fever, shortness of breath, and wheezing. The cough usually persists for a couple of weeks. Most cases of bronchitis get better without antibiotics. We prescribe antibiotics when we believe bacteria are damaging your airways, or if there's high risk the bronchitis will worsen into pneumonia. Increase your fluid intake. A cool mist humidifier may make your lungs more comfortable. An expectorant (cough medicine that loosens phlegm) can help. If you smoke, STOP!!! Recovery from bronchitis can be somewhat slow, but you should see improvement within a day or two. Repeated episodes of bronchitis may result in lung damage -- for example, chronic bronchitis, recurrent pneumonias, or emphysema. Call the doctor if you develop increasing fever, shortness of breath, chest pain, bloody sputum, or otherwise worsen. If you have not improved at all after several days, contact the physician. Hemoptysis Hemoptysis (coughing up blood) can occur with many different diseases. Most commonly, it's due to an infection such as bronchitis. Although alarming, the presence of blood in the phlegm doesn't change the treatment of bronchitis or pneumonia. The physician has evaluated you to see if there is evidence of an underlying problem requiring further evaluation. If he has recommended further tests, you should follow up as instructed. Hemoptysis without an identifiable cause can be due to tumors or hidden infections. Return for a recheck if the blood increases greatly in amount, or if you develop shortness of breath, high fever, severe chest pain, or other alarming new symptoms. Prescriptions: Benzonatate [Tessalon Perles 100 mg Capsule] 200 mg PO Q8HP PRN #15 capsule PRN Reason: Cefuroxime Axetil [Ceftin 500 mg Tablet] 1 tab PO 14 #20 tablet Referrals: VIJAY SILVESTRE MD [ACTIVE STAFF] - Follow up as needed
[2019-07-18 16:34] LABS: ABSOLUTE BASOPHILS # (AUTO) 0.1 10^3/uL (0.0-0.2); ABSOLUTE EOSINOPHILS # (AUTO) 0.6 10^3/uL (0.0-0.6); ABSOLUTE LYMPHOCYTES (AUTO) 0.7 10^3/uL (0.5-4.7); ABSOLUTE MONOCYTES (AUTO) 0.4 10^3/uL (0.1-1.4); ABSOLUTE NEUT (AUTO) 1.8 10^3/uL (1.7-8.2); BASOPHILS % (AUTO) 2.1 % (0-2); EOSINOPHILS % (AUTO) 17.2 % (0-6); HEMOGLOBIN 12.3 g/dL (13.5-17.0); LYMPHOCYTES % (AUTO) 18.7 % (13-45); MEAN CORPUSCULAR HEMOGLOBIN 28.1 pg (27.0-33.4); MEAN CORPUSCULAR HGB CONC 31.4 g/dL (32.0-36.0); MEAN CORPUSCULAR VOLUME 90 fl (80-97); MONOCYTES % (AUTO) 11.8 % (3-13); PLATELET COUNT 104 10^3/uL (150-450); RED BLOOD COUNT 4.36 10^6/uL (4.35-5.55); RED CELL DISTRIBUTION WIDTH 16.5 % (11.5-14.0); SEGMENTED NEUTROPHILS % (AUTO) 50.2 % (42-78); TOTAL CELLS COUNTED % (AUTO) 100 %; WHITE BLOOD COUNT 3.7 10^3/uL (4.0-10.5)
[2019-07-18 16:42] LABS: INTERNATIONAL RATION (INR) 1.05; PROTHROMBIN TIME 13.7 SEC (11.4-15.4)
[2019-07-18 16:53] LABS: ALBUMIN 4.3 g/dL (3.5-5.0); ALKALINE PHOSPHATASE 384 U/L (38-126); ANION GAP 15 (5-19); ASPARTATE AMINO TRANSFERASE 34 U/L (17-59); BILIRUBIN,DIRECT 1.2 mg/dL (0.0-0.4); BILIRUBIN,TOTAL 1.2 mg/dL (0.2-1.3); BLOOD UREA NITROGEN 32 mg/dL (7-20); CALCIUM 7.5 mg/dL (8.4-10.2); CARBON DIOXIDE 30 mmol/L (22-30); CHLORIDE 97 mmol/L (98-107); GLUCOSE 118 mg/dL (75-110); POTASSIUM 3.7 mmol/L (3.6-5.0); TOTAL PROTEIN 7.5 g/dL (6.3-8.2)
[2019-07-18] MEDS ORDERED: CEFUROXIME 500 MG TABLET PO ONE (18:35)
[2019-07-18 19:23] VITALS: BP 108/50
--- NOTE | 2019-07-18 22:01 | EKG REPORT ---
SEVERITY:- ABNORMAL ECG - ATRIAL FIBRILLATION NONSPECIFIC T ABNORMALITIES, LATERAL LEADS : Confirmed by: Walker Olmos 18-Jul-2019 22:01:00
== END 2019-07-18 19:42 | disposition home or self-care (01) ==
LOC: ER 12:54
DX: R04.2 Hemoptysis (principal); J04.10 Acute tracheitis without obstruction; Z93.0 Tracheostomy status; I13.2 Hypertensive heart and chronic kidney disease with heart failure and with stage 5 chronic kidney disease, or end stage renal disease; N18.6 End stage renal disease; I50.9 Heart failure, unspecified; Z99.2 Dependence on renal dialysis; Z94.0 Kidney transplant status; I48.91 Unspecified atrial fibrillation
CPT/HCPCS: 93005; 99283; 36415; 83690; 85025; 85610; 80053; 84484; 71046; 93010; A9270; 36600; 82803; J3490

== ENCOUNTER → 2019-07-18 | Outpatient (CLI) | payer MEDICARE, MEDICAID ==
[2019-07-18 12:10] LABS: ARTERIAL BLOOD BASE EXCESS -0.5 mmol/L; ARTERIAL BLOOD HCO3 28.1 mmol/L (20-24); ARTERIAL BLOOD O2 SATURATION 64.7 % (94-98); ARTERIAL BLOOD PCO2 66.3 mmHg (35-45); ARTERIAL BLOOD PH 7.25 (7.35-7.45); ARTERIAL BLOOD TOTAL CO2 30.1 mmol/L (23-27)
[2019-07-18 12:18] LABS: ARTERIAL BLOOD FIO2 ROOM AIR
[2019-07-18 12:19] LABS: ARTERIAL BLOOD PO2 39.9 mmHg (80-100)
== END ==
LOC: LAB 11:24
PROVIDERS: ATTEND Internal Medicine Pulmonary Disease
DX: R04.2 Hemoptysis (principal)
CPT/HCPCS: 36600; 82803

== ENCOUNTER → 2019-12-18 | Outpatient (CLI) | payer MEDICARE, MEDICAID | LOC: RAD 07:12 | PROVIDERS: ATTEND Specialist | DX: I25.10 Atherosclerotic heart disease of native coronary artery without angina pectoris (principal); Z53.8 Procedure and treatment not carried out for other reasons ==

== ENCOUNTER → 2020-01-29 | Outpatient (CLI) | payer MEDICARE, MEDICAID ==
[~2020-01-29] MED LIST changes: -ASPIRIN 81 MG TABLET, CHEWABLE PO ONE; +REGADENOSON INJ 0.4 MG/5 ML DISP.SYRIN IV ONE
--- NOTE | 2020-01-29 11:47 | DRAGON STRESS TEST REPORT ---
Intravenous Lexiscan Cardiolite stress test using single photon emmision computerized tomography. Date of procedure: 01/29/2020. Ordering Provider: Dr. Anusha Rush. Patient's status: Out Patient. Indication: Chest pain. Coronary risk factors: Age, hypertension, and dyslipidemia. Resting EKG: Sinus Rhythm. 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 Diffuse T inversion possible ischemia. Stress EKG: No changes of ischemia. The patient had no chest pain or discomfort, and there were no arrhythmias seen. Reason for termination: Protocol. Conclusions: Normal EKG and hemodynamic response to IV Lexiscan. Nuclear data: At rest the patient was given 14.71 millicuries of technetium 99m sestamibi injected intravenously. As per protocol rest non gated SPECT images were obtained. Subsequently the patient was given intravenous Lexiscan at a dose of 0.4 mg in 5 mL intravenously, followed by flush with normal saline. Subsequently the stress dose of 42.4 millicuries of technetium 99m sestamibi was injected intravenously. As per protocol stress gated images were obtained. Nuclear interpretation: Review of images showed that all segments of the myocardium had normal perfusion at rest, and normal perfusion post stress with IV Lexiscan. All segments of the myocardium had normal motion, contraction, and thickening by gated study. The left ventricle was mildly enlarged in both the stress and the rest images. T. I D. ratio was normal at 1.19. There is no transient ischemic dilatation of the left ventricle. Computer read rest, and stress left ventricular ejection fraction were 47 %, and 45 %, respectively. Visually both the stress and rest ejection fractions were normal, and greater than 55%. Conclusion: 1. There is no scintigraphic evidence of Lexiscan induced myocardial ischemia. 2. There is no scintigraphic evidence of myocardial infarction/scar. Recommendations: 1. Check echo for LV ejection fraction correlation. 2. Aggressive risk factor modification, and treating the underlying co- morbidities. FILI
== END ==
LOC: RAD 08:06
PROVIDERS: ATTEND Specialist
DX: I25.10 Atherosclerotic heart disease of native coronary artery without angina pectoris (principal); I10 Essential (primary) hypertension; E78.5 Hyperlipidemia, unspecified
CPT/HCPCS: 93017; 78452; A9500; J2785; Q9969

== ENCOUNTER → 2020-05-12 | Outpatient (CLI) | payer MEDICARE, MEDICAID ==
--- NOTE | 2020-05-12 16:22 | RADIOLOGY REPORT (SQ) ---
EXAM DESCRIPTION: CHEST PA/LATERAL IMAGES COMPLETED DATE/TIME: 05/12/2020 3:29 pm REASON FOR STUDY: COUGH COMPARISON: 07/18/2019. EXAM PARAMETERS: NUMBER OF VIEWS: two views TECHNIQUE: Digital Frontal and Lateral radiographic views of the chest acquired. RADIATION DOSE: NA LIMITATIONS: none FINDINGS: LUNGS AND PLEURA: Diffuse interstitial prominence. Chronic pleural thickening. No lobar infiltrates. No pleural effusion. MEDIASTINUM AND HILAR STRUCTURES: No masses or contour abnormalities. HEART AND VASCULAR STRUCTURES: Stable cardiomegaly. BONES: No acute findings. HARDWARE: Tracheostomy tube and large bore left subclavian catheter. OTHER: No other significant finding. IMPRESSION: STABLE APPEARANCE OF THE CHEST. CARDIOMEGALY WITH CHRONIC INTERSTITIAL CHANGES AND PLEU RAL THICKENING. TECHNICAL DOCUMENTATION: JOB ID: [id number] 2010 [employer]- All Rights Reserved Reading location - IP/workstation name: [email or web address]
== END ==
LOC: OD 11:16
PROVIDERS: ATTEND Internal Medicine Pulmonary Disease
DX: J44.9 Chronic obstructive pulmonary disease, unspecified (principal); R05 Cough; Z93.0 Tracheostomy status
CPT/HCPCS: 71046; 87070; 87205